=== PATIENT | male | born 1945 | race Caucasian/White ===

== ENCOUNTER 2017-05-20 00:30 | Inpatient (IN) | payer MEDICARE ==
[2017-05-20] MEDS: IV NORMAL SALINE 1000ML BAG 1,000 ML IV ×5 (00:54→17:00)
[2017-05-20] MEDS: methylPREDNISolone SOD SUCC PF 125 MG/2 ML VIAL. IV (00:54)
[2017-05-20 00:55] LABS: BASO % 0 % (0-3); EOS % 0 % (0-3); HEMATOCRIT 42.1 % (39.0-53.0); HEMOGLOBIN 13.9 g/dL (13.0-17.5); LYMPH # 2.5 x10^3/uL (1.0-4.8); LYMPH % 14 % (24-48); MEAN CORPUSCULAR HEMOGLOBIN 29 pg (25-35); MEAN CORPUSCULAR HGB CONC 33 g/dL (31-37); MEAN CORPUSCULAR VOLUME 89 fL (79-100); MONO # 1.6 x10^3/uL (0.0-1.1); MONO % 9 % (0-9); NEUT # 13.7 x10^3uL (1.8-7.7); NEUT % 77 % (31-73); PLATELET COUNT 274 x10^3/uL (140-400); RED BLOOD COUNT 4.74 x10^6/uL (4.30-5.70); WHITE BLOOD COUNT 17.8 x10^3/uL (4.0-11.0)
[2017-05-20 00:57] LABS: ADD MAN DIFF? YES; BASE EXCESS ABG -4 mmol/L (-3-3); HCO3 ABG 22 mmol/L (21-28); PCO2 ABG 40 mmHg (35-46); PO2 ABG 79 mmHg (65-108); SAT O2 ABG 95 % (92-99)
[2017-05-20 00:58] LABS: PH ABG 7.35 (7.35-7.45)
[2017-05-20 01:04] LABS: ANION GAP 12 (6-14); BLOOD UREA NITROGEN 22 mg/dL (8-26); CALCIUM 9.5 mg/dL (8.5-10.1); CARBON DIOXIDE 23 mmol/L (21-32); CHLORIDE 101 mmol/L (98-107); CREATININE 1.4 mg/dL (0.7-1.3); GFR 50.1; GLUCOSE 143 mg/dL (70-99); POTASSIUM 4.3 mmol/L (3.5-5.1); SODIUM 136 mmol/L (136-145)
[2017-05-20] MEDS ORDERED: ALBUTEROL SULFATE 2.5 MG/3 ML NEBU. (01:05)
[2017-05-20 01:13] LABS: TROPONINI < 0.017 ng/mL (0.000-0.055)
[2017-05-20] MEDS: ALBUTEROL SULFATE 2.5 MG/3 ML NEBU. CONT NEB (01:20)
[2017-05-20] MEDS: IPRATRPIUM/ALBUTEROL 0.5/2.5MG 3 ML NEBU. NEB ×6 (01:20→21:07)
[2017-05-20 01:37] LABS: % BANDS 4 % (0-9); % LYMPHS 9 % (24-48); % METAS 1 % (0-0); % MONOS 12 % (0-10); % SEGS 74 % (35-66); PLT ESTIMATE ADEQUATE (ADEQUATE)
[2017-05-20] MEDS ORDERED: cefTRIAXone IV Push 1 GM VIAL. IVP (02:00)
[2017-05-20] MEDS ORDERED: AZITHRMYCN 500MG IVPB FOR OMNI 250 ML IV (02:00)
[2017-05-20] MEDS ORDERED: VANCOMYCIN 1GM IVPB FOR OMNI 250 ML IV (02:00)
[2017-05-20] MEDS ORDERED: ONDANSETRON PF 4 MG/2 ML VIAL. IV (02:30)
[2017-05-20] MEDS: VANCOMYCIN 2 GM in IV DEXTROSE 5 %-0.2 % NACL 500 ML IV (02:36)
[2017-05-20] MEDS: CEFEPIME HCL IV Push 1 GM VIAL. IVP ×2 (02:37→08:26)
[2017-05-20 03:44] LABS: LACTIC ACID 2.3 mmol/L (0.4-2.0)
[2017-05-20] MEDS: VANCOMYCIN PER PHARMACY MC ×2 (05:05→11:10)
[2017-05-20 05:28] LABS: LACTIC ACID 2.1 mmol/L (0.4-2.0)
[2017-05-20] MEDS: IV NORMAL SALINE 1000ML BAG 500 ML IV (05:42)
[2017-05-20] MEDS ORDERED: CEFEPIME HCL 1 GM in IV DEXTROSE 5% 50 ML IV (06:00)
[2017-05-20 06:09] LABS: TROPONINI < 0.017 ng/mL (0.000-0.055)
[2017-05-20] MEDS: LACTOBACILLUS RHAMNOSUS GG 1 CAPSULE. PO ×2 (08:26→19:58)
[2017-05-20 08:48] LABS: TROPONINI < 0.017 ng/mL (0.000-0.055)
[2017-05-20] MEDS: DOXYCYCLINE HYCLATE 100 MG TABLET PO (19:58)
[2017-05-20] MEDS ORDERED: CEFEPIME HCL IV Push 2 GM VIAL. IVP (21:00)
[2017-05-20] MEDS ORDERED: VANCOMYCIN 1 GM in IV DEXTROSE 5 %-0.2 % NACL 250 ML IV (23:00)
[2017-05-21] MEDS: IV NORMAL SALINE 1000ML BAG 1,000 ML IV (00:42)
[2017-05-21 06:38] LABS: ANION GAP 6 (6-14); BLOOD UREA NITROGEN 11 mg/dL (8-26); CALCIUM 8.4 mg/dL (8.5-10.1); CARBON DIOXIDE 26 mmol/L (21-32); CHLORIDE 113 mmol/L (98-107); CREATININE 0.9 mg/dL (0.7-1.3); GFR 83.4; GLUCOSE 119 mg/dL (70-99); POTASSIUM 4.2 mmol/L (3.5-5.1); SODIUM 145 mmol/L (136-145)
[2017-05-21] MEDS: IPRATRPIUM/ALBUTEROL 0.5/2.5MG 3 ML NEBU. NEB ×4 (07:58→20:51)
[2017-05-21] MEDS: LACTOBACILLUS RHAMNOSUS GG 1 CAPSULE. PO ×2 (09:52→20:23)
[2017-05-21] MEDS: DOXYCYCLINE HYCLATE 100 MG TABLET PO ×2 (09:52→20:23)
[2017-05-21] MEDS: predniSONE 10 MG TABLET PO (09:52)
[2017-05-21] MEDS ORDERED: IPRATRPIUM/ALBUTEROL 0.5/2.5MG 3 ML NEBU. (14:06)
== END 2017-05-21 22:25 | disposition home or self-care (01) | DRG 189 ==
LOC: ER 00:30 → 6 SOUTH 02:18
DX: J96.21 Acute and chronic respiratory failure with hypoxia (principal); J44.0 Chronic obstructive pulmonary disease with (acute) lower respiratory infection; J44.1 Chronic obstructive pulmonary disease with (acute) exacerbation; J20.9 Acute bronchitis, unspecified; Z86.73 Personal history of transient ischemic attack (TIA), and cerebral infarction without residual deficits; F17.201 Nicotine dependence, unspecified, in remission
CPT/HCPCS: 36415; 36600; 71045; 80048; 82805; 83605; 84484; 85007; 85025; 87040; 87070; 87205; 93005; 94640; 94644; 94760; 96361; 96365; 96375; 99285-25; J0692; J2930; J3370; J7030; J7512; J7613; J7620

== ENCOUNTER 2018-07-03 01:24 | Inpatient (IN) | payer MEDICARE ==
[2018-07-03] VITALS (20 sets, daily range): BP systolic 77–118; BP diastolic 54–73
[~2018-07-03] VITALS: Ht 182.9 cm; Wt 71.3 kg
[~2018-07-03 01:24] MED LIST: ALBU2.5V8 IH; ASPI-630 PO; ASPI1CPM PO; ATROVENT HFA12.9 GM IH; BUDE10.2 IH; DOXY100T PO; GUAI5SYR PO; LEVO100T5 PO; LEVO500T59 PO; LEVO750T31 PO; PRED-220 PO; PRED20TA PO; [UNRECOGNIZED DRUG - OTHER]
[2018-07-03] MEDS ORDERED: PROPOFOL 10 MG/ML (50ML) VIAL. IV ONE (01:29)
[2018-07-03] MEDS ORDERED: PROPOFOL 0 ML IV ONE (01:59)
[2018-07-03] MEDS ORDERED: PROPOFOL 100 ML IV PRN ×2 (02:30→02:44)
[2018-07-03] MEDS ORDERED: methylPREDNISolone SOD SUCC PF 125 MG/2 ML VIAL. IV ONE (02:30)
[2018-07-03 02:32] LABS: BASO % 0 % (0-3); EOS % 0 % (0-3); HEMATOCRIT 42.5 % (39.0-53.0); HEMOGLOBIN 13.4 g/dL (13.0-17.5); LYMPH % 18 % (24-48); MEAN CORPUSCULAR HEMOGLOBIN 28 pg (25-35); MEAN CORPUSCULAR HGB CONC 31 g/dL (31-37); MEAN CORPUSCULAR VOLUME 89 fL (79-100); MONO # 1.9 x10^3/uL (0.0-1.1); MONO % 12 % (0-9); NEUT # 11.8 x10^3uL (1.8-7.7); NEUT % 70 % (31-73); PLATELET COUNT 270 x10^3/uL (140-400); RED BLOOD COUNT 4.78 x10^6/uL (4.30-5.70); RED CELL DISTRIBUTION WIDTH 14.4 % (11.5-14.5); WHITE BLOOD COUNT 16.8 x10^3/uL (4.0-11.0)
[2018-07-03] MEDS ORDERED: PROPOFOL 50 ML IV ONE ×2 (02:37→03:00)
[2018-07-03] MEDS ORDERED: ROCURONIUM 50 MG/5 ML VIAL. ONE (02:38)
[2018-07-03 02:41] LABS: CALCIUM 9.8 mg/dL (8.5-10.1); CREATININE 1.1 mg/dL (0.7-1.3); GFR 65.8
[2018-07-03 02:48] LABS: ALBUMIN 3.9 g/dL (3.4-5.0); TOTAL BILIRUBIN 0.6 mg/dL (0.2-1.0); TOTAL PROTEIN 7.9 g/dL (6.4-8.2)
[2018-07-03 02:59] LABS: % LYMPHS 14 % (24-48); % MONOS 11 % (0-10); % SEGS 75 % (35-66); ANISOCYTOSIS SLIGHT; OVALOCYTES FEW; PLT ESTIMATE ADEQUATE (ADEQUATE)
[2018-07-03] MEDS ORDERED: IV NORMAL SALINE 1000ML BAG 1,000 ML IV ONE (03:00)
[2018-07-03] MEDS ORDERED: SUCCINYLCHOLINE 200 MG/10 ML VIAL. ONE (03:27)
[2018-07-03 03:30] LABS: BASE EXCESS ABG -3 mmol/L (-3-3); HCO3 ABG 30 mmol/L (21-28); PO2 ABG 206 mmHg (65-108); SAT O2 ABG 99 % (92-99)
[2018-07-03] MEDS ORDERED: ONDANSETRON PF 4 MG/2 ML VIAL. IV PRN ×2 (03:30→09:00)
--- NOTE | 2018-07-03 03:38 | RAD ---
Indication:ET Tube placement TECHNIQUE:Portable AP chest X-ray COMPARISON:None FINDINGS: ET tube is seen with its tip approximately 5 cm from the level of eligio and is within normal limits. NG tube is seen with its tip in the fundus of the stomach. Lungs are hyperinflated with coarse interstitial opacities. No focal consolidation. No pneumothorax or pleural effusion. Visualized bony thorax is within normal limits. IMPRESSION: Lines and tubes as described above. COPD. Superimposed atypical/viral infection not ruled out. Electronically signed by: Ton Peraza DO (07/03/2018 3:35 AM) [facility]
[2018-07-03] MEDS ORDERED: IV DEXTROSE 5 %-0.45 % NACL 1,000 ML IV ONE (03:45)
[2018-07-03 03:55] LABS: FIO2 ABG 60%; PCO2 ABG 103 mmHg (35-46)
[2018-07-03 05:22] LABS: BASE EXCESS ABG -2 mmol/L (-3-3); HCO3 ABG 25 mmol/L (21-28); PCO2 ABG 55 mmHg (35-46); PO2 ABG 98 mmHg (65-108); SAT O2 ABG 97 % (92-99)
[2018-07-03 05:30] LABS: FIO2 ABG 50
--- NOTE | 2018-07-03 06:40 | PHYS DOC ---
Past Medical History Past Medical History: COPD, [place] Past Surgical History: Tonsillectomy Alcohol Use: Occasionally Drug Use: None Adult General Chief Complaint Chief Complaint: DYSPNEA/RESPIRATOY DISTRESS [facility] HPI Patient is a 73 year old male with history of COPD, CAD who presents ROM home with acute respiratory distress/respiratory failure. No members contacted EMS. On EMS arrival, the patient was breathing 30-40 Minute. 2 Breathing treatments were given and the patient was placed on BiPAP. Patient continues to be in respiratory distress with altered mental status on ED arrival. Patient expeditiously and intubated shortly after ED arrival. History limited due to the patient's clinical is a dictation[] Review of Systems Review of Systems ROS as per HPI. Current Medications Current Medications Current Medications Medications (Trade) Dose Ordered Sig/Jayla Start Time Stop Time Status Last Admin Dose Admin Methylprednisolone Sodium Succinate (SOLU-Medrol 125MG VIAL) 125 mg 1X ONCE 07/03/18 02:30 07/03/18 02:44 DC 07/03/18 02:30 125 MG Ondansetron HCl (Zofran) 4 mg PRN Q8HRS PRN 07/03/18 03:30 07/04/18 03:29 Propofol 50 ml @ 1.2 mls/hr 1X ONCE 07/03/18 03:00 07/04/18 20:31 Rocuronium [place] (Zemuron) 50 mg STK-MED ONCE 07/03/18 02:38 07/03/18 02:39 DC Sodium Chloride 1,000 ml @ 1,000 mls/hr 1X ONCE 07/03/18 03:00 07/03/18 03:59 DC 07/03/18 03:00 1,000 MLS/HR Succinylcholine Chloride (Anectine) 200 mg STK-MED ONCE 07/03/18 03:27 07/03/18 03:28 DC Allergies Allergies Allergies Coded Allergies Type Severity Reaction Last Updated Verified No Known Drug Allergies 08/29/16 No Physical Exam Physical Exam Constitutional: No respiratory distress with respiratory failure.. [] HENT: Normocephalic, atraumatic, bilateral external ears normal, oropharynx moist, no oral exudates, nose normal. [] Eyes: PERRLA, EOMI. [] Neck: Normal range of motion no stridor. [] Cardiovascular:Heart rate regular rhythm, no murmur [] Lungs & Thorax: Tachypnea, diminished coarse breath sounds bilaterally, decreased air movement. [] Abdomen: Bowel sounds normal. [] Skin: Warm, dry, no erythema, no rash. [] Back: No tenderness. [] Extremities: No tenderness no edema. [] Neurologic: AMS, normal motor function, normal sensory function, no focal deficits noted. [] Current Patient Data Vital Signs Vital Signs Date Time Temp Pulse Resp B/P (MAP) Pulse Ox O2 Delivery O2 Flow Rate FiO2 07/03/18 03:25 115 20 122/71 (88) 60 Ventilator 07/03/18 01:40 100.3 100.3 Lab Values Laboratory Tests Test 07/03/18 01:30 07/03/18 03:30 White Blood Count 16.8 x10^3/uL (4.0-11.0) H Red Blood Count 4.78 x10^6/uL (4.30-5.70) Hemoglobin 13.4 g/dL (13.0-17.5) Hematocrit 42.5 % (39.0-53.0) Mean Corpuscular Volume 89 fL (79-100) Mean Corpuscular Hemoglobin 28 pg (25-35) Mean Corpuscular Hemoglobin Concent 31 g/dL (31-37) Red Cell Distribution Width 14.4 % (11.5-14.5) Platelet Count 270 x10^3/uL (140-400) Neutrophils (%) (Auto) 70 % (31-73) Lymphocytes (%) (Auto) 18 % (24-48) L Monocytes (%) (Auto) 12 % (0-9) H Eosinophils (%) (Auto) 0 % (0-3) Basophils (%) (Auto) 0 % (0-3) Neutrophils # (Auto) 11.8 x10^3uL (1.8-7.7) H Lymphocytes # (Auto) 3.0 x10^3/uL (1.0-4.8) Monocytes # (Auto) 1.9 x10^3/uL (0.0-1.1) H Eosinophils # (Auto) 0.0 x10^3/uL (0.0-0.7) Basophils # (Auto) 0.0 x10^3/uL (0.0-0.2) Segmented Neutrophils % 75 % (35-66) H Lymphocytes % 14 % (24-48) L Monocytes % 11 % (0-10) H Platelet Estimate Adequate (ADEQUATE) Anisocytosis Slight Ovalocytes Few Sodium Level 138 mmol/L (136-145) Potassium Level 5.0 mmol/L (3.5-5.1) Chloride Level 99 mmol/L (98-107) Carbon Dioxide Level 31 mmol/L (21-32) Anion Gap 8 (6-14) Blood Urea Nitrogen 20 mg/dL (8-26) Creatinine 1.1 mg/dL (0.7-1.3) Estimated GFR (Cockcroft-Gault) 65.8 BUN/Creatinine Ratio 18 (6-20) Glucose Level 192 mg/dL (70-99) H Lactic Acid Level 2.6 mmol/L (0.4-2.0) H Calcium Level 9.8 mg/dL (8.5-10.1) Total Bilirubin 0.6 mg/dL (0.2-1.0) Aspartate Amino Transferase (AST) 23 U/L (15-37) Alanine Aminotransferase (ALT) 23 U/L (16-63) Alkaline Phosphatase 99 U/L (46-116) Troponin I Quantitative < 0.017 ng/mL (0.000-0.055) FD-Ror-M-Type Natriuretic Peptide 406 pg/mL (0-124) H Total Protein 7.9 g/dL (6.4-8.2) Albumin 3.9 g/dL (3.4-5.0) Albumin/Globulin Ratio 1.0 (1.0-1.7) O2 Saturation 99 % (92-99) Arterial Blood pH 7.07 (7.35-7.45) *L Arterial Blood pCO2 at Patient Temp 103 mmHg (35-46) *H Arterial Blood pO2 at Patient Temp 206 mmHg (65-108) H Arterial Blood HCO3 30 mmol/L (21-28) H Arterial Blood Base Excess -3 mmol/L (-3-3) FiO2 60% Laboratory Tests 07/03/18 01:30 Laboratory Tests 07/03/18 01:30 EKG EKG [EKG: reviewed ] Radiology/Procedures Radiology/Procedures [CXR: ] Course & Med Decision Making Course & Med Decision Making Pertinent Labs and Imaging studies reviewed. (See chart for details) [Patient intubated successful but unable to maintain oxygenation following intubation despite confirmation through the vocal cords. Anesthesia requested t o assist with ventilation of patient. After multiple intubations and upon closer examination, it was realized that there was a T-piece connected to the [id number] which allowed air to leak after intubation. Once this was discovered removed, the patient was easy to ventilate with and o2 sat of >90 5. Dragon Disclaimer Dragon Disclaimer This electronic medical record was generated, in whole or in part, using a voice recognition dictation system. Departure Departure Impression: Primary Impression: Acute respiratory failure with hypoxia Additional Impression: COPD (chronic obstructive pulmonary disease) Disposition: ADMITTED INPATIENT Admitting Physician: Duke Hardy Condition: CRITICAL Referrals: UNKNOWN PCP NAME (PCP) Problem Qualifiers CHAS GONCALVES DO Jul 03, 2018 06:40
[2018-07-03] MEDS: fentaNYL PF VIAL 100 MCG/2 ML VIAL IV PRN ×4 (07:27→22:20)
[2018-07-03] MEDS ORDERED: MIDAZOLAM 100mg/100ml NS BAG 100 ML IV PRN (07:45)
[2018-07-03] MEDS: IPRATRPIUM/ALBUTEROL 0.5/2.5MG 3 ML NEBU. NEB SCH ×4 (08:21→19:49)
[2018-07-03 08:35] LABS: BASE EXCESS ABG 0 mmol/L (-3-3); HCO3 ABG 27 mmol/L (21-28); PCO2 ABG 54 mmHg (35-46); PO2 ABG 153 mmHg (65-108); SAT O2 ABG 99 % (92-99)
[2018-07-03 09:00] LABS: FIO2 ABG 50
[2018-07-03] MEDS ORDERED: NOREPINEPHRIN 8MG/250ML PREMIX 250 ML IV PRN (09:00)
[2018-07-03] MEDS ORDERED: ACETAMINOPHEN 650 MG/20.3 ML SOLUTION. PEG PRN (09:00)
[2018-07-03] MEDS ORDERED: PANTOPRAZOLE IV PUSH 40 MG VIAL. IVP ONE (09:00)
[2018-07-03] MEDS: LEVOTHYROXINE 100 MCG TABLET PO SCH (09:00)
[2018-07-03] MEDS: IV NORMAL SALINE 1000ML BAG 1,000 ML IV SCH ×2 (09:30→17:37)
[2018-07-03] MEDS: ASPIRIN CHEWABLE 81 MG TABLET. PO SCH (09:31)
[2018-07-03] MEDS: ENOXAPARIN 40 MG/0.4 ML SYRINGE. SQ SCH (09:31)
[2018-07-03] MEDS: DIPYRIDAMOLE 25 MG TABLET. PO SCH ×4 (09:31→21:04)
--- NOTE | 2018-07-03 10:20 | PDOC1 ---
History and Physical Date of Admission Date of Admission DATE: 07/03/18 TIME: 10:13 Identification/Chief Complaint Chief Complaint severe SOA and confusion at the ER Source Source: Caregiver, Chart review, Patient History of Present Illness History of Present Illness 73-year-old male who has diagnosis of COPD and CAD, came in severe SOA accompanied by confusion in the ER. He was breathing 30-40 minutes as per EMS. He was confused. Initially trailed on BiPAP but clearly could not tolerate. Hence underwent expedited intuabtion at ER. I'm seeing in the ICU with chest x- ray showing properly placed tubes and may be a viral infection on chest x-ray. PH initially was 7.08 then improved to 7.28 with a PCO2 of 105 then improved to 55 on later ABG. He is intubated sedated in the ICU. Blood pressure can be on the low side. On Versed and IV fluid. Maintaining good urine output per Bradshaw catheter. Troponin 1.4. Labs initially showed a lactate of 2.6 but now is normal at 1.3. WBC is 16 could be reactive or from CXR haziness,. Pulmonary consulted. I'll add cardiology for this troponin mild elevation. There is another repeat trop in a few hours time. Past Medical History Cardiovascular: CAD, Hyperlipidemia Pulmonary: Bronchitis, COPD, Pneumonia, Other CENTRAL NERVOUS SYSTEM: Other GI: No pertinent hx Heme/Onc: No pertinent hx Hepatobiliary: No pertinent hx Psych: No pertinent hx Musculoskeletal: Osteoarthritis Rheumatologic: No pertinent hx Infectious disease: No pertinent hx Renal/: No pertinent hx Endocrine: Hypothyroidism Past Surgical History Past Surgical History: Tonsillectomy, Other Family History Family History: Diabetes, Family History Unknown Social History Smoke: <1 pack per day ALCOHOL: none Drugs: None Current Medications Current Medications Current Medications Propofol 0 ml @ As Directed STK-MED ONCE IV ; Start 07/03/18 at 01:59; Stop 07/03/18 at 02:00; Status DC Methylprednisolone Sodium Succinate (SOLU-Medrol 125MG VIAL) 125 mg 1X ONCE IV Last administered on 07/03/18at 02:30; Start 07/03/18 at 02:30; Stop 07/03/18 at 02:44; Status DC Sodium Chloride 1,000 ml @ 1,000 mls/hr 1X ONCE IV Last administered on 07/03/18at 03:00; Start 07/03/18 at 03:00; Stop 07/03/18 at 03:59; Status DC Propofol 100 ml @ 0 mls/hr CONT PRN IV SEE PROTOCOL Last administered on 07/03/18at 02:30; Start 07/03/18 at 02:30; Stop 07/03/18 at 02:44; Status DC Propofol 50 ml @ As Directed STK-MED ONCE IV ; Start 07/03/18 at 02:37; Stop 07/03/18 at 02:38; Status DC Rocuronium [place] (Zemuron) 50 mg STK-MED ONCE .ROUTE ; Start 07/03/18 at 02:38; Stop 07/03/18 at 02:39; Status DC Propofol 100 ml @ 0 mls/hr CONT PRN IV SEE PROTOCOL Last administered on 07/03/18at 05:00; Start 07/03/18 at 02:44 Propofol 50 ml @ 1.2 mls/hr 1X ONCE IV ; Start 07/03/18 at 03:00; Stop 07/04/18 at 20:31 Succinylcholine Chloride (Anectine) 200 mg STK-MED ONCE .ROUTE ; Start 07/03/18 at 03:27; Stop 07/03/18 at 03:28; Status DC Ondansetron HCl (Zofran) 4 mg PRN Q8HRS PRN IV NAUSEA/VOMITING 1ST CHOICE; Start 07/03/18 at 03:30; Stop 07/03/18 at 08:53; Status DC Albuterol/ Ipratropium (Duoneb) 3 ml RTQID NEB Last administered on 07/03/18at 08:21; Start 07/03/18 at 08:00; Stop 07/04/18 at 07:59 Dextrose/Sodium Chloride 1,000 ml @ 125 mls/hr 1X ONCE IV Last administered on 07/03/18at 05:01; Start 07/03/18 at 03:45; Stop 07/03/18 at 11:44 Fentanyl Citrate (Fentanyl 2ml Vial) 50 mcg PRN Q1HR PRN IV SEVERE PAIN Last administered on 07/03/18at 07:27; Start 07/03/18 at 05:00 Midazolam HCl 100 ml @ 5 mls/hr CONT PRN IV SEE I/O RECORD Last administered on 07/03/18at 07:59; Start 07/03/18 at 07:45 Ondansetron HCl (Zofran) 4 mg PRN Q6HRS PRN IV NAUSEA/VOMITING 1ST CHOICE; Start 07/03/18 at 09:00 Sodium Chloride 1,000 ml @ 100 mls/hr Q10H IV Last administered on 07/03/18 09:30; Start 07/03/18 at 09:00 Acetaminophen (Tylenol) 650 mg PRN Q6HRS PRN PEG MILD PAIN / TEMP Last administered on 07/03/18 09:30; Start 07/03/18 at 09:00 Enoxaparin Sodium (Lovenox 40mg Syringe) 40 mg Q24H SQ Last administered on 07/03/18 09:31; Start 07/03/18 at 09:00 Pantoprazole Sodium (PROTONIX VIAL for IV PUSH) 40 mg 1X ONCE IVP Last administered on 07/03/18 09:31; Start 07/03/18 at 09:00; Stop 07/03/18 at 09:01; Status DC Pantoprazole Sodium (PROTONIX VIAL for IV PUSH) 40 mg DAILYAC IVP ; Start 07/04/18 at 07:30 Norepinephrine Bitartrate 250 ml @ 1.875 mls/ hr CONT PRN IV SEE I/O RECORD Last administered on 07/03/18 09:31; Start 07/03/18 at 09:00 Aspirin (Children'S Aspirin) 81 mg DAILY PO Last administered on 07/03/18 09:31; Start 07/03/18 at 09:00 Levothyroxine Sodium (Synthroid) 100 mcg DAILY06 PO Last administered on 07/03/18 09:00; Start 07/03/18 at 09:00 Dipyridamole (Persantine) 25 mg QIDPMEDS PO Last administered on 07/03/18 09:31; Start 07/03/18 at 10:00 Methylprednisolone Sodium Succinate (SOLU-Medrol 40MG VIAL) 40 mg Q8HRS IV ; Start 07/03/18 at 14:00 Active Scripts Active Reported Prednisone (Prednisone) 10 Mg Tablet 10 Mg PO DAILY 4 Days Prednisone (Prednisone) 10 Mg Tablet 20 Mg PO DAILY 4 Days Prednisone (Prednisone) 10 Mg Tablet 30 Mg PO DAILY 4 Days Doxycycline Hyclate 100 Mg Tablet 1 Tab PO BID 10 Days Aggrenox 25 Mg-200 Mg Capsule (Aspirin/Dipyridamole) 1 Each Cpmp.12hr 1 Each PO Symbicort 160-4.5 Mcg Inhaler (Budesonide/Formoterol Fumarate) 10.2 Gm Hfa.aer.ad 2 Puff IH BID Atrovent Hfa (Ipratropium [place]) 12.9 Gm Hfa.aer.ad 2 Puff IH QID Proventil Hfa Inhaler (Albuterol Sulfate) 6.7 Gm Hfa.aer.ad 1 Puff IH PRN Q4HRS PRN Aspirin 81 Mg Tab.chew 1 Tab PO DAILY Levothyroxine Sodium 100 Mcg Tablet 1 Tab PO DAILY Allergies Allergies: Coded Allergies: No Known Drug Allergies (Unverified , 08/29/16) ROS Review of System Intubated sedated Physical Exam General: Other (intubated , sedated) HEENT: Atraumatic, PERRLA Lungs: Normal air movement, Other (diminished at the bases, symmetrical chest expansion) Heart: S1S2, RRR, no thrills, no rubs, no gallops, no murmurs Cardiovascular: S1, S2 Abdomen: Normal bowel sounds, Soft, No tenderness, No hepatosplenomegaly, No masses Male Genitals Exam: normal genitalia, normal prostate PELVIC: Nml ext genitalia Extremities: No clubbing, No cyanosis, No edema, Normal pulses, No tenderness/swelling Skin: No rashes, No breakdown, No significant lesion Vitals Vitals Vital Signs Date Time Temp Pulse Resp B/P (MAP) Pulse Ox O2 Delivery O2 Flow Rate FiO2 07/03/18 09:07 20 100 Ventilator 07/03/18 09:00 74 79/54 (62) 07/03/18 08:00 98.0 98.0 Labs Labs Laboratory Tests Test 07/03/18 01:30 07/03/18 03:30 07/03/18 05:20 07/03/18 06:00 White Blood Count 16.8 x10^3/uL (4.0-11.0) Red Blood Count 4.78 x10^6/uL (4.30-5.70) Hemoglobin 13.4 g/dL (13.0-17.5) Hematocrit 42.5 % (39.0-53.0) Mean Corpuscular Volume 89 fL (79-100) Mean Corpuscular Hemoglobin 28 pg (25-35) Mean Corpuscular Hemoglobin Concent 31 g/dL (31-37) Red Cell Distribution Width 14.4 % (11.5-14.5) Platelet Count 270 x10^3/uL (140-400) Neutrophils (%) (Auto) 70 % (31-73) Lymphocytes (%) (Auto) 18 % (24-48) Monocytes (%) (Auto) 12 % (0-9) Eosinophils (%) (Auto) 0 % (0-3) Basophils (%) (Auto) 0 % (0-3) Neutrophils # (Auto) 11.8 x10^3uL (1.8-7.7) Lymphocytes # (Auto) 3.0 x10^3/uL (1.0-4.8) Monocytes # (Auto) 1.9 x10^3/uL (0.0-1.1) Eosinophils # (Auto) 0.0 x10^3/uL (0.0-0.7) Basophils # (Auto) 0.0 x10^3/uL (0.0-0.2) Segmented Neutrophils % 75 % (35-66) Lymphocytes % 14 % (24-48) Monocytes % 11 % (0-10) Platelet Estimate Adequate (ADEQUATE) Anisocytosis Slight Ovalocytes Few Sodium Level 138 mmol/L (136-145) Potassium Level 5.0 mmol/L (3.5-5.1) Chloride Level 99 mmol/L (98-107) Carbon Dioxide Level 31 mmol/L (21-32) Anion Gap 8 (6-14) Blood Urea Nitrogen 20 mg/dL (8-26) Creatinine 1.1 mg/dL (0.7-1.3) Estimated GFR (Cockcroft-Gault) 65.8 BUN/Creatinine Ratio 18 (6-20) Glucose Level 192 mg/dL (70-99) Lactic Acid Level 2.6 mmol/L (0.4-2.0) 1.3 mmol/L (0.4-2.0) Calcium Level 9.8 mg/dL (8.5-10.1) Total Bilirubin 0.6 mg/dL (0.2-1.0) Aspartate Amino Transf (AST/SGOT) 23 U/L (15-37) Alanine Aminotransferase (ALT/SGPT) 23 U/L (16-63) Alkaline Phosphatase 99 U/L (46-116) Troponin I Quantitative < 0.017 ng/mL (0.000-0.055) 1.463 ng/mL (0.000-0.055) UQ-Xbm-S-Type Natriuretic Peptide 406 pg/mL (0-124) Total Protein 7.9 g/dL (6.4-8.2) Albumin 3.9 g/dL (3.4-5.0) Albumin/Globulin Ratio 1.0 (1.0-1.7) O2 Saturation 99 % (92-99) 97 % (92-99) Arterial Blood pH 7.07 (7.35-7.45) 7.28 (7.35-7.45) Arterial Blood pCO2 at Patient Temp 103 mmHg (35-46) 55 mmHg (35-46) Arterial Blood pO2 at Patient Temp 206 mmHg (65-108) 98 mmHg (65-108) Arterial Blood HCO3 30 mmol/L (21-28) 25 mmol/L (21-28) Arterial Blood Base Excess -3 mmol/L (-3-3) -2 mmol/L (-3-3) FiO2 60% 50 Test 07/03/18 08:00 O2 Saturation 99 % (92-99) Arterial Blood pH 7.32 (7.35-7.45) Arterial Blood pCO2 at Patient Temp 54 mmHg (35-46) Arterial Blood pO2 at Patient Temp 153 mmHg (65-108) Arterial Blood HCO3 27 mmol/L (21-28) Arterial Blood Base Excess 0 mmol/L (-3-3) FiO2 50 Laboratory Tests Test 07/03/18 01:30 07/03/18 03:30 07/03/18 05:20 07/03/18 06:00 White Blood Count 16.8 x10^3/uL (4.0-11.0) Red Blood Count 4.78 x10^6/uL (4.30-5.70) Hemoglobin 13.4 g/dL (13.0-17.5) Hematocrit 42.5 % (39.0-53.0) Mean Corpuscular Volume 89 fL (79-100) Mean Corpuscular Hemoglobin 28 pg (25-35) Mean Corpuscular Hemoglobin Concent 31 g/dL (31-37) Red Cell Distribution Width 14.4 % (11.5-14.5) Platelet Count 270 x10^3/uL (140-400) Neutrophils (%) (Auto) 70 % (31-73) Lymphocytes (%) (Auto) 18 % (24-48) Monocytes (%) (Auto) 12 % (0-9) Eosinophils (%) (Auto) 0 % (0-3) Basophils (%) (Auto) 0 % (0-3) Neutrophils # (Auto) 11.8 x10^3uL (1.8-7.7) Lymphocytes # (Auto) 3.0 x10^3/uL (1.0-4.8) Monocytes # (Auto) 1.9 x10^3/uL (0.0-1.1) Eosinophils # (Auto) 0.0 x10^3/uL (0.0-0.7) Basophils # (Auto) 0.0 x10^3/uL (0.0-0.2) Segmented Neutrophils % 75 % (35-66) Lymphocytes % 14 % (24-48) Monocytes % 11 % (0-10) Platelet Estimate Adequate (ADEQUATE) Anisocytosis Slight Ovalocytes Few Sodium Level 138 mmol/L (136-145) Potassium Level 5.0 mmol/L (3.5-5.1) Chloride Level 99 mmol/L (98-107) Carbon Dioxide Level 31 mmol/L (21-32) Anion Gap 8 (6-14) Blood Urea Nitrogen 20 mg/dL (8-26) Creatinine 1.1 mg/dL (0.7-1.3) Estimated GFR (Cockcroft-Gault) 65.8 BUN/Creatinine Ratio 18 (6-20) Glucose Level 192 mg/dL (70-99) Lactic Acid Level 2.6 mmol/L (0.4-2.0) 1.3 mmol/L (0.4-2.0) Calcium Level 9.8 mg/dL (8.5-10.1) Total Bilirubin 0.6 mg/dL (0.2-1.0) Aspartate Amino Transf (AST/SGOT) 23 U/L (15-37) Alanine Aminotransferase (ALT/SGPT) 23 U/L (16-63) Alkaline Phosphatase 99 U/L (46-116) Troponin I Quantitative < 0.017 ng/mL (0.000-0.055) 1.463 ng/mL (0.000-0.055) BT-Htp-U-Type Natriuretic Peptide 406 pg/mL (0-124) Total Protein 7.9 g/dL (6.4-8.2) Albumin 3.9 g/dL (3.4-5.0) Albumin/Globulin Ratio 1.0 (1.0-1.7) O2 Saturation 99 % (92-99) 97 % (92-99) Arterial Blood pH 7.07 (7.35-7.45) 7.28 (7.35-7.45) Arterial Blood pCO2 at Patient Temp 103 mmHg (35-46) 55 mmHg (35-46) Arterial Blood pO2 at Patient Temp 206 mmHg (65-108) 98 mmHg (65-108) Arterial Blood HCO3 30 mmol/L (21-28) 25 mmol/L (21-28) Arterial Blood Base Excess -3 mmol/L (-3-3) -2 mmol/L (-3-3) FiO2 60% 50 Test 07/03/18 08:00 O2 Saturation 99 % (92-99) Arterial Blood pH 7.32 (7.35-7.45) Arterial Blood pCO2 at Patient Temp 54 mmHg (35-46) Arterial Blood pO2 at Patient Temp 153 mmHg (65-108) Arterial Blood HCO3 27 mmol/L (21-28) Arterial Blood Base Excess 0 mmol/L (-3-3) FiO2 50 VTE Prophylaxis Ordered VTE Prophylaxis Devices: Yes VTE Pharmacological Prophylaxi: Yes Assessment/Plan Assessment/Plan AE COPD, acute bronchitis, lack of consolidated process on chest x-ray but maybe some viral atypical infection on cxr - on IPPV Mixed hypoxic hypercapnic respiratory failure on IPPV for 24/09/18 (intubated at ER) Relative hypotension-increase IV fluid rate Troponin leak in the background of the above- Trop1.4-consult cardiology History smoking History CAD-I have reached reconciled home meds including his aspirin and dipyridamole which he supposed to be on Plan: PPI and DVT prophylaxis to add in this vented ICU patient Add cards consult re trop ABG chest x-ray and vent bundle per pulmonary Empiric antibiotics Start Solu-Medrol in the COPD and smoker Recheck/monitor that leukocytosis Full code per chart HOMER ALEMAN MD Jul 03, 2018 10:20
--- NOTE | 2018-07-03 11:31 | PDOC2 ---
CONSULT Date of Consult Date of Consult DATE: 07/03/18 TIME: 11:30 Reason for Consult Reason for Consult: Elevated troponin level Referring Physician Referring Physician: Dr. West Identification/Chief Complaint Chief Complaint Shortness of breath Source Source: Chart review History of Present Illness Reason for Visit: 73-year-old male presented with progressive shortness of breath and was found to be hypoxic and confused and underwent emergent intubation. Patient is presently unable to give any history but per chart review there was no history of chest pain, palpitations or syncope. Troponin level was elevated and hence we have been consulted Past Medical History Cardiovascular: CAD, Hyperlipidemia Pulmonary: Bronchitis, COPD, Pneumonia, Other CENTRAL NERVOUS SYSTEM: Other GI: No pertinent hx Heme/Onc: No pertinent hx Hepatobiliary: No pertinent hx Psych: No pertinent hx Musculoskeletal: Osteoarthritis Rheumatologic: No pertinent hx Infectious disease: No pertinent hx Renal/: No pertinent hx Endocrine: Hypothyroidism Past Surgical History Past Surgical History: Tonsillectomy, Other Family History Family History: Diabetes, Family History Unknown Social History <1 pack per day ALCOHOL: none Drugs: None Lives: with Family Current Medications Current Medications Current Medications Propofol 0 ml @ As Directed STK-MED ONCE IV ; Start 07/03/18 at 01:59; Stop 07/03/18 at 02:00; Status DC Methylprednisolone Sodium Succinate (SOLU-Medrol 125MG VIAL) 125 mg 1X ONCE IV Last administered on 07/03/18at 02:30; Start 07/03/18 at 02:30; Stop 07/03/18 at 02:44; Status DC Sodium Chloride 1,000 ml @ 1,000 mls/hr 1X ONCE IV Last administered on 07/03/18at 03:00; Start 07/03/18 at 03:00; Stop 07/03/18 at 03:59; Status DC Propofol 100 ml @ 0 mls/hr CONT PRN IV SEE PROTOCOL Last administered on 07/03/18at 02:30; Start 07/03/18 at 02:30; Stop 07/03/18 at 02:44; Status DC Propofol 50 ml @ As Directed STK-MED ONCE IV ; Start 07/03/18 at 02:37; Stop 07/03/18 at 02:38; Status DC Rocuronium Castella (Zemuron) 50 mg STK-MED ONCE .ROUTE ; Start 07/03/18 at 02:38; Stop 07/03/18 at 02:39; Status DC Propofol 100 ml @ 0 mls/hr CONT PRN IV SEE PROTOCOL Last administered on 07/03/18at 05:00; Start 07/03/18 at 02:44 Propofol 50 ml @ 1.2 mls/hr 1X ONCE IV ; Start 07/03/18 at 03:00; Stop 07/04/18 at 20:31 Succinylcholine Chloride (Anectine) 200 mg STK-MED ONCE .ROUTE ; Start 07/03/18 at 03:27; Stop 07/03/18 at 03:28; Status DC Ondansetron HCl (Zofran) 4 mg PRN Q8HRS PRN IV NAUSEA/VOMITING 1ST CHOICE; Start 07/03/18 at 03:30; Stop 07/03/18 at 08:53; Status DC Albuterol/ Ipratropium (Duoneb) 3 ml RTQID NEB Last administered on 07/03/18at 08:21; Start 07/03/18 at 08:00; Stop 07/04/18 at 07:59 Dextrose/Sodium Chloride 1,000 ml @ 125 mls/hr 1X ONCE IV Last administered on 07/03/18at 05:01; Start 07/03/18 at 03:45; Stop 07/03/18 at 11:44 Fentanyl Citrate (Fentanyl 2ml Vial) 50 mcg PRN Q1HR PRN IV SEVERE PAIN Last administered on 07/03/18at 07:27; Start 07/03/18 at 05:00 Midazolam HCl 100 ml @ 5 mls/hr CONT PRN IV SEE I/O RECORD Last administered on 07/03/18at 07:59; Start 07/03/18 at 07:45 Ondansetron HCl (Zofran) 4 mg PRN Q6HRS PRN IV NAUSEA/VOMITING 1ST CHOICE; Start 07/03/18 at 09:00 Sodium Chloride 1,000 ml @ 100 mls/hr Q10H IV Last administered on 07/03/18at 09:30; Start 07/03/18 at 09:00 Acetaminophen (Tylenol) 650 mg PRN Q6HRS PRN PEG MILD PAIN / TEMP Last administered on 07/03/18at 09:30; Start 07/03/18 at 09:00 Enoxaparin Sodium (Lovenox 40mg Syringe) 40 mg Q24H SQ Last administered on 07/03/18 09:31; Start 07/03/18 at 09:00 Pantoprazole Sodium (PROTONIX VIAL for IV PUSH) 40 mg 1X ONCE IVP Last ad ministered on 07/03/18:; Start 07/03/18 at 09:00; Stop 07/03/18 at 09:01; Status DC Pantoprazole Sodium (PROTONIX VIAL for IV PUSH) 40 mg DAILYAC IVP ; Start 07/04/18 at 07:30 Norepinephrine Bitartrate 250 ml @ 1.875 mls/ hr CONT PRN IV SEE I/O RECORD Last administered on 07/03/18:31; Start 07/03/18 at 09:00 Aspirin (Children'S Aspirin) 81 mg DAILY PO Last administered on 07/03/18:31; Start 07/03/18 at 09:00 Levothyroxine Sodium (Synthroid) 100 mcg DAILY06 PO Last administered on 07/03/18at 09:00; Start 07/03/18 at 09:00 Dipyridamole (Persantine) 25 mg QIDPMEDS PO Last administered on 07/03/18 09:31; Start 07/03/18 at 10:00 Methylprednisolone Sodium Succinate (SOLU-Medrol 40MG VIAL) 40 mg Q8HRS IV ; Start 07/03/18 at 14:00 Ceftriaxone Sodium (Rocephin) 1 gm Q24H IVP ; Start 07/03/18 at 10:30 Active Scripts Active Reported Prednisone (Prednisone) 10 Mg Tablet 10 Mg PO DAILY 4 Days Prednisone (Prednisone) 10 Mg Tablet 20 Mg PO DAILY 4 Days Prednisone (Prednisone) 10 Mg Tablet 30 Mg PO DAILY 4 Days Doxycycline Hyclate 100 Mg Tablet 1 Tab PO BID 10 Days Aggrenox 25 Mg-200 Mg Capsule (Aspirin/Dipyridamole) 1 Each Cpmp.12hr 1 Each PO Symbicort 160-4.5 Mcg Inhaler (Budesonide/Formoterol Fumarate) 10.2 Gm Hfa.aer.ad 2 Puff IH BID Atrovent Hfa (Ipratropium Castella) 12.9 Gm Hfa.aer.ad 2 Puff IH QID Proventil Hfa Inhaler (Albuterol Sulfate) 6.7 Gm Hfa.aer.ad 1 Puff IH PRN Q4HRS PRN Aspirin 81 Mg Tab.chew 1 Tab PO DAILY Levothyroxine Sodium 100 Mcg Tablet 1 Tab PO DAILY Allergies Allergies: Coded Allergies: No Known Drug Allergies (Unverified , 08/29/16) ROS Review of System Unable to obtain since patient is intubated Physical Exam General: Other (intubated and sedated) HEENT: Atraumatic Lungs: Other (scattered rhonchi) Heart: Regular rate Abdomen: Soft Extremities: No edema Vitals VITALS Vital Signs Date Time Temp Pulse Resp B/P (MAP) Pulse Ox O2 Delivery O2 Flow Rate FiO2 07/03/18 11:00 77 20 93/73 (80) 98 Ventilator 07/03/18 08:00 98.0 98.0 Labs Labs Laboratory Tests Test 07/03/18 01:30 07/03/18 03:30 07/03/18 05:20 07/03/18 06:00 White Blood Count 16.8 x10^3/uL (4.0-11.0) Red Blood Count 4.78 x10^6/uL (4.30-5.70) Hemoglobin 13.4 g/dL (13.0-17.5) Hematocrit 42.5 % (39.0-53.0) Mean Corpuscular Volume 89 fL (79-100) Mean Corpuscular Hemoglobin 28 pg (25-35) Mean Corpuscular Hemoglobin Concent 31 g/dL (31-37) Red Cell Distribution Width 14.4 % (11.5-14.5) Platelet Count 270 x10^3/uL (140-400) Neutrophils (%) (Auto) 70 % (31-73) Lymphocytes (%) (Auto) 18 % (24-48) Monocytes (%) (Auto) 12 % (0-9) Eosinophils (%) (Auto) 0 % (0-3) Basophils (%) (Auto) 0 % (0-3) Neutrophils # (Auto) 11.8 x10^3uL (1.8-7.7) Lymphocytes # (Auto) 3.0 x10^3/uL (1.0-4.8) Monocytes # (Auto) 1.9 x10^3/uL (0.0-1.1) Eosinophils # (Auto) 0.0 x10^3/uL (0.0-0.7) Basophils # (Auto) 0.0 x10^3/uL (0.0-0.2) Segmented Neutrophils % 75 % (35-66) Lymphocytes % 14 % (24-48) Monocytes % 11 % (0-10) Platelet Estimate Adequate (ADEQUATE) Anisocytosis Slight Ovalocytes Few Sodium Level 138 mmol/L (136-145) Potassium Level 5.0 mmol/L (3.5-5.1) Chloride Level 99 mmol/L (98-107) Carbon Dioxide Level 31 mmol/L (21-32) Anion Gap 8 (6-14) Blood Urea Nitrogen 20 mg/dL (8-26) Creatinine 1.1 mg/dL (0.7-1.3) Estimated GFR (Cockcroft-Gault) 65.8 BUN/Creatinine Ratio 18 (6-20) Glucose Level 192 mg/dL (70-99) Lactic Acid Level 2.6 mmol/L (0.4-2.0) 1.3 mmol/L (0.4-2.0) Calcium Level 9.8 mg/dL (8.5-10.1) Total Bilirubin 0.6 mg/dL (0.2-1.0) Aspartate Amino Transf (AST/SGOT) 23 U/L (15-37) Alanine Aminotransferase (ALT/SGPT) 23 U/L (16-63) Alkaline Phosphatase 99 U/L (46-116) Troponin I Quantitative < 0.017 ng/mL (0.000-0.055) 1.463 ng/mL (0.000-0.055) LE-Vku-G-Type Natriuretic Peptide 406 pg/mL (0-124) Total Protein 7.9 g/dL (6.4-8.2) Albumin 3.9 g/dL (3.4-5.0) Albumin/Globulin Ratio 1.0 (1.0-1.7) O2 Saturation 99 % (92-99) 97 % (92-99) Arterial Blood pH 7.07 (7.35-7.45) 7.28 (7.35-7.45) Arterial Blood pCO2 at Patient Temp 103 mmHg (35-46) 55 mmHg (35-46) Arterial Blood pO2 at Patient Temp 206 mmHg (65-108) 98 mmHg (65-108) Arterial Blood HCO3 30 mmol/L (21-28) 25 mmol/L (21-28) Arterial Blood Base Excess -3 mmol/L (-3-3) -2 mmol/L (-3-3) FiO2 60% 50 Test 07/03/18 08:00 07/03/18 09:45 O2 Saturation 99 % (92-99) Arterial Blood pH 7.32 (7.35-7.45) Arterial Blood pCO2 at Patient Temp 54 mmHg (35-46) Arterial Blood pO2 at Patient Temp 153 mmHg (65-108) Arterial Blood HCO3 27 mmol/L (21-28) Arterial Blood Base Excess 0 mmol/L (-3-3) FiO2 50 Troponin I Quantitative 1.558 ng/mL (0.000-0.055) Laboratory Tests Test 07/03/18 01:30 07/03/18 03:30 07/03/18 05:20 07/03/18 06:00 White Blood Count 16.8 x10^3/uL (4.0-11.0) Red Blood Count 4.78 x10^6/uL (4.30-5.70) Hemoglobin 13.4 g/dL (13.0-17.5) Hematocrit 42.5 % (39.0-53.0) Mean Corpuscular Volume 89 fL (79-100) Mean Corpuscular Hemoglobin 28 pg (25-35) Mean Corpuscular Hemoglobin Concent 31 g/dL (31-37) Red Cell Distribution Width 14.4 % (11.5-14.5) Platelet Count 270 x10^3/uL (140-400) Neutrophils (%) (Auto) 70 % (31-73) Lymphocytes (%) (Auto) 18 % (24-48) Monocytes (%) (Auto) 12 % (0-9) Eosinophils (%) (Auto) 0 % (0-3) Basophils (%) (Auto) 0 % (0-3) Neutrophils # (Auto) 11.8 x10^3uL (1.8-7.7) Lymphocytes # (Auto) 3.0 x10^3/uL (1.0-4.8) Monocytes # (Auto) 1.9 x10^3/uL (0.0-1.1) Eosinophils # (Auto) 0.0 x10^3/uL (0.0-0.7) Basophils # (Auto) 0.0 x10^3/uL (0.0-0.2) Segmented Neutrophils % 75 % (35-66) Lymphocytes % 14 % (24-48) Monocytes % 11 % (0-10) Platelet Estimate Adequate (ADEQUATE) Anisocytosis Slight Ovalocytes Few Sodium Level 138 mmol/L (136-145) Potassium Level 5.0 mmol/L (3.5-5.1) Chloride Level 99 mmol/L (98-107) Carbon Dioxide Level 31 mmol/L (21-32) Anion Gap 8 (6-14) Blood Urea Nitrogen 20 mg/dL (8-26) Creatinine 1.1 mg/dL (0.7-1.3) Estimated GFR (Cockcroft-Gault) 65.8 BUN/Creatinine Ratio 18 (6-20) Glucose Level 192 mg/dL (70-99) Lactic Acid Level 2.6 mmol/L (0.4-2.0) 1.3 mmol/L (0.4-2.0) Calcium Level 9.8 mg/dL (8.5-10.1) Total Bilirubin 0.6 mg/dL (0.2-1.0) Aspartate Amino Transf (AST/SGOT) 23 U/L (15-37) Alanine Aminotransferase (ALT/SGPT) 23 U/L (16-63) Alkaline Phosphatase 99 U/L (46-116) Troponin I Quantitative < 0.017 ng/mL (0.000-0.055) 1.463 ng/mL (0.000-0.055) HF-Kpk-O-Type Natriuretic Peptide 406 pg/mL (0-124) Total Protein 7.9 g/dL (6.4-8.2) Albumin 3.9 g/dL (3.4-5.0) Albumin/Globulin Ratio 1.0 (1.0-1.7) O2 Saturation 99 % (92-99) 97 % (92-99) Arterial Blood pH 7.07 (7.35-7.45) 7.28 (7.35-7.45) Arterial Blood pCO2 at Patient Temp 103 mmHg (35-46) 55 mmHg (35-46) Arterial Blood pO2 at Patient Temp 206 mmHg (65-108) 98 mmHg (65-108) Arterial Blood HCO3 30 mmol/L (21-28) 25 mmol/L (21-28) Arterial Blood Base Excess -3 mmol/L (-3-3) -2 mmol/L (-3-3) FiO2 60% 50 Test 07/03/18 08:00 07/03/18 09:45 O2 Saturation 99 % (92-99) Arterial Blood pH 7.32 (7.35-7.45) Arterial Blood pCO2 at Patient Temp 54 mmHg (35-46) Arterial Blood pO2 at Patient Temp 153 mmHg (65-108) Arterial Blood HCO3 27 mmol/L (21-28) Arterial Blood Base Excess 0 mmol/L (-3-3) FiO2 50 Troponin I Quantitative 1.558 ng/mL (0.000-0.055) Assessment/Plan Assessment/Plan 1. Acute respiratory failure secondary to acute COPD exacerbation and pneumonia s/p intubation and on low dose of Levophed for pressor support. Continue current treatment per pulmonary team. 2. Non-STEMI, most probably type 2/demand ischemia. Recent Cardiac cath eterization in February 2018 showed nonobstructive coronary artery disease. Check 2-D echo to assess LV function and rule out wall motion abnormalities. 3. Hypothyroidism: Continue levothyroxine Thank you for your consultation SERGIO FULLER MD Jul 03, 2018 11:31
[2018-07-03] MEDS: cefTRIAXone IV Push 1 GM VIAL. IVP SCH (12:04)
[2018-07-03] MEDS: methylPREDNISolone SOD SUCC PF 40 MG/ML VIAL. IV SCH ×2 (13:38→21:04)
--- NOTE | 2018-07-03 15:09 | PDOC ---
PULMONARY PROGRESS NOTES Vitals Vital Signs Date Time Temp Pulse Resp B/P (MAP) Pulse Ox O2 Delivery O2 Flow Rate FiO2 07/03/18 14:05 21 98 Ventilator 07/03/18 13:52 67 118/73 (88) 07/03/18 13:00 98.8 98.8 General: Alert, Oriented X4 Lungs: Clear Cardiovascular: S1, S2 Abdomen: Soft, Non-tender Extremities: No Edema Labs Laboratory Tests Test 07/03/18 01:30 07/03/18 03:30 07/03/18 05:20 07/03/18 06:00 White Blood Count 16.8 x10^3/uL (4.0-11.0) Red Blood Count 4.78 x10^6/uL (4.30-5.70) Hemoglobin 13.4 g/dL (13.0-17.5) Hematocrit 42.5 % (39.0-53.0) Mean Corpuscular Volume 89 fL (79-100) Mean Corpuscular Hemoglobin 28 pg (25-35) Mean Corpuscular Hemoglobin Concent 31 g/dL (31-37) Red Cell Distribution Width 14.4 % (11.5-14.5) Platelet Count 270 x10^3/uL (140-400) Neutrophils (%) (Auto) 70 % (31-73) Lymphocytes (%) (Auto) 18 % (24-48) Monocytes (%) (Auto) 12 % (0-9) Eosinophils (%) (Auto) 0 % (0-3) Basophils (%) (Auto) 0 % (0-3) Neutrophils # (Auto) 11.8 x10^3uL (1.8-7.7) Lymphocytes # (Auto) 3.0 x10^3/uL (1.0-4.8) Monocytes # (Auto) 1.9 x10^3/uL (0.0-1.1) Eosinophils # (Auto) 0.0 x10^3/uL (0.0-0.7) Basophils # (Auto) 0.0 x10^3/uL (0.0-0.2) Segmented Neutrophils % 75 % (35-66) Lymphocytes % 14 % (24-48) Monocytes % 11 % (0-10) Platelet Estimate Adequate (ADEQUATE) Anisocytosis Slight Ovalocytes Few Sodium Level 138 mmol/L (136-145) Potassium Level 5.0 mmol/L (3.5-5.1) Chloride Level 99 mmol/L (98-107) Carbon Dioxide Level 31 mmol/L (21-32) Anion Gap 8 (6-14) Blood Urea Nitrogen 20 mg/dL (8-26) Creatinine 1.1 mg/dL (0.7-1.3) Estimated GFR (Cockcroft-Gault) 65.8 BUN/Creatinine Ratio 18 (6-20) Glucose Level 192 mg/dL (70-99) Lactic Acid Level 2.6 mmol/L (0.4-2.0) 1.3 mmol/L (0.4-2.0) Calcium Level 9.8 mg/dL (8.5-10.1) Total Bilirubin 0.6 mg/dL (0.2-1.0) Aspartate Amino Transf (AST/SGOT) 23 U/L (15-37) Alanine Aminotransferase (ALT/SGPT) 23 U/L (16-63) Alkaline Phosphatase 99 U/L (46-116) Troponin I Quantitative < 0.017 ng/mL (0.000-0.055) 1.463 ng/mL (0.000-0.055) WR-Oub-X-Type Natriuretic Peptide 406 pg/mL (0-124) Total Protein 7.9 g/dL (6.4-8.2) Albumin 3.9 g/dL (3.4-5.0) Albumin/Globulin Ratio 1.0 (1.0-1.7) O2 Saturation 99 % (92-99) 97 % (92-99) Arterial Blood pH 7.07 (7.35-7.45) 7.28 (7.35-7.45) Arterial Blood pCO2 at Patient Temp 103 mmHg (35-46) 55 mmHg (35-46) Arterial Blood pO2 at Patient Temp 206 mmHg (65-108) 98 mmHg (65-108) Arterial Blood HCO3 30 mmol/L (21-28) 25 mmol/L (21-28) Arterial Blood Base Excess -3 mmol/L (-3-3) -2 mmol/L (-3-3) FiO2 60% 50 Test 07/03/18 08:00 07/03/18 09:45 O2 Saturation 99 % (92-99) Arterial Blood pH 7.32 (7.35-7.45) Arterial Blood pCO2 at Patient Temp 54 mmHg (35-46) Arterial Blood pO2 at Patient Temp 153 mmHg (65-108) Arterial Blood HCO3 27 mmol/L (21-28) Arterial Blood Base Excess 0 mmol/L (-3-3) FiO2 50 Troponin I Quantitative 1.558 ng/mL (0.000-0.055) Laboratory Tests Test 07/03/18 01:30 07/03/18 03:30 07/03/18 05:20 07/03/18 06:00 White Blood Count 16.8 x10^3/uL (4.0-11.0) Red Blood Count 4.78 x10^6/uL (4.30-5.70) Hemoglobin 13.4 g/dL (13.0-17.5) Hematocrit 42.5 % (39.0-53.0) Mean Corpuscular Volume 89 fL (79-100) Mean Corpuscular Hemoglobin 28 pg (25-35) Mean Corpuscular Hemoglobin Concent 31 g/dL (31-37) Red Cell Distribution Width 14.4 % (11.5-14.5) Platelet Count 270 x10^3/uL (140-400) Neutrophils (%) (Auto) 70 % (31-73) Lymphocytes (%) (Auto) 18 % (24-48) Monocytes (%) (Auto) 12 % (0-9) Eosinophils (%) (Auto) 0 % (0-3) Basophils (%) (Auto) 0 % (0-3) Neutrophils # (Auto) 11.8 x10^3uL (1.8-7.7) Lymphocytes # (Auto) 3.0 x10^3/uL (1.0-4.8) Monocytes # (Auto) 1.9 x10^3/uL (0.0-1.1) Eosinophils # (Auto) 0.0 x10^3/uL (0.0-0.7) Basophils # (Auto) 0.0 x10^3/uL (0.0-0.2) Segmented Neutrophils % 75 % (35-66) Lymphocytes % 14 % (24-48) Monocytes % 11 % (0-10) Platelet Estimate Adequate (ADEQUATE) Anisocytosis Slight Ovalocytes Few Sodium Level 138 mmol/L (136-145) Potassium Level 5.0 mmol/L (3.5-5.1) Chloride Level 99 mmol/L (98-107) Carbon Dioxide Level 31 mmol/L (21-32) Anion Gap 8 (6-14) Blood Urea Nitrogen 20 mg/dL (8-26) Creatinine 1.1 mg/dL (0.7-1.3) Estimated GFR (Cockcroft-Gault) 65.8 BUN/Creatinine Ratio 18 (6-20) Glucose Level 192 mg/dL (70-99) Lactic Acid Level 2.6 mmol/L (0.4-2.0) 1.3 mmol/L (0.4-2.0) Calcium Level 9.8 mg/dL (8.5-10.1) Total Bilirubin 0.6 mg/dL (0.2-1.0) Aspartate Amino Transf (AST/SGOT) 23 U/L (15-37) Alanine Aminotransferase (ALT/SGPT) 23 U/L (16-63) Alkaline Phosphatase 99 U/L (46-116) Troponin I Quantitative < 0.017 ng/mL (0.000-0.055) 1.463 ng/mL (0.000-0.055) EW-Phw-E-Type Natriuretic Peptide 406 pg/mL (0-124) Total Protein 7.9 g/dL (6.4-8.2) Albumin 3.9 g/dL (3.4-5.0) Albumin/Globulin Ratio 1.0 (1.0-1.7) O2 Saturation 99 % (92-99) 97 % (92-99) Arterial Blood pH 7.07 (7.35-7.45) 7.28 (7.35-7.45) Arterial Blood pCO2 at Patient Temp 103 mmHg (35-46) 55 mmHg (35-46) Arterial Blood pO2 at Patient Temp 206 mmHg (65-108) 98 mmHg (65-108) Arterial Blood HCO3 30 mmol/L (21-28) 25 mmol/L (21-28) Arterial Blood Base Excess -3 mmol/L (-3-3) -2 mmol/L (-3-3) FiO2 60% 50 Test 07/03/18 08:00 07/03/18 09:45 O2 Saturation 99 % (92-99) Arterial Blood pH 7.32 (7.35-7.45) Arterial Blood pCO2 at Patient Temp 54 mmHg (35-46) Arterial Blood pO2 at Patient Temp 153 mmHg (65-108) Arterial Blood HCO3 27 mmol/L (21-28) Arterial Blood Base Excess 0 mmol/L (-3-3) FiO2 50 Troponin I Quantitative 1.558 ng/mL (0.000-0.055) Medications Active Scripts Medications Dose Route/Sig Max Daily Dose Days Date Category Prednisone (Prednisone) 10 Mg Tablet 10 Mg PO DAILY 4 02/25/18 Reported Prednisone (Prednisone) 10 Mg Tablet 20 Mg PO DAILY 4 02/25/18 Reported Prednisone (Prednisone) 10 Mg Tablet 30 Mg PO DAILY 4 02/25/18 Reported Doxycycline Hyclate 100 Mg Tablet 1 Tab PO BID 10 02/25/18 Reported Aggrenox 25 Mg-200 Mg Capsule (Aspirin/Dipyridamole) 1 Each Cpmp.12hr 1 Each PO 05/20/17 Reported Symbicort 160-4.5 Mcg Inhaler (Budesonide/Formoterol Fumarate) 10.2 Gm Hfa.aer.ad 2 Puff IH BID 08/30/16 Reported Atrovent Hfa (Ipratropium [place]) 12.9 Gm Hfa.aer.ad 2 Puff IH QID 08/30/16 Reported Proventil Hfa Inhaler (Albuterol Sulfate) 6.7 Gm Hfa.aer.ad 1 Puff IH PRN Q4HRS PRN 08/30/16 Reported Aspirin 81 Mg Tab.chew 1 Tab PO DAILY 08/30/16 Reported Levothyroxine Sodium 100 Mcg Tablet 1 Tab PO DAILY 08/30/16 Reported Impression . DICTATED AGREE WITH CURRENT RX FOR RESP FAILURE/AECOPD/PNEUMONIA SEE ORDERS JOSE DE JESUS RIDLEY MD Jul 03, 2018 15:09
[2018-07-03] MEDS ORDERED: DOXYCYCLINE HYCLATE 100 MG in IV DEXTROSE 5% 100ML 100 ML IV ONE (15:15)
[2018-07-03 15:19] LABS: CALCIUM 8.3 mg/dL (8.5-10.1); CREATININE 1.2 mg/dL (0.7-1.3); GFR 59.5; POTASSIUM 5.1 mmol/L (3.5-5.1)
[2018-07-03] MEDS: DOXYCYCLINE HYCLATE 100 MG in IV DEXTROSE 5% 100ML 100 ML IV SCH (21:05)
[2018-07-04] VITALS (23 sets, daily range): BP systolic 82–136; BP diastolic 54–67
[2018-07-04 05:23] LABS: BASO % 0 % (0-3); EOS % 0 % (0-3); HEMATOCRIT 33.7 % (39.0-53.0); HEMOGLOBIN 10.8 g/dL (13.0-17.5); LYMPH # 0.6 x10^3/uL (1.0-4.8); LYMPH % 4 % (24-48); MEAN CORPUSCULAR HEMOGLOBIN 28 pg (25-35); MEAN CORPUSCULAR HGB CONC 32 g/dL (31-37); MEAN CORPUSCULAR VOLUME 89 fL (79-100); MONO # 0.8 x10^3/uL (0.0-1.1); MONO % 6 % (0-9); NEUT # 12.8 x10^3uL (1.8-7.7); NEUT % 90 % (31-73); PLATELET COUNT 190 x10^3/uL (140-400); RED CELL DISTRIBUTION WIDTH 14.1 % (11.5-14.5); WHITE BLOOD COUNT 14.2 x10^3/uL (4.0-11.0)
[2018-07-04] MEDS: methylPREDNISolone SOD SUCC PF 40 MG/ML VIAL. IV SCH ×3 (05:40→23:09)
[2018-07-04] MEDS: LEVOTHYROXINE 100 MCG TABLET PO SCH (05:40)
[2018-07-04] MEDS: IV NORMAL SALINE 1000ML BAG 1,000 ML IV SCH ×2 (05:40→15:00)
[2018-07-04 06:02] LABS: ALBUMIN 2.7 g/dL (3.4-5.0); ALBUMIN/GLOBULIN RATIO 0.9 (1.0-1.7); CALCIUM 8.2 mg/dL (8.5-10.1); CREATININE 1.1 mg/dL (0.7-1.3); GFR 65.8; POTASSIUM 4.7 mmol/L (3.5-5.1); TOTAL BILIRUBIN 0.3 mg/dL (0.2-1.0); TOTAL PROTEIN 5.8 g/dL (6.4-8.2)
[2018-07-04] MEDS ORDERED: PANTOPRAZOLE IV PUSH 40 MG VIAL. IVP SCH (07:30)
--- NOTE | 2018-07-04 07:31 | EKG ---
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
--- NOTE | 2018-07-04 07:31 | EKG ---
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
--- NOTE | 2018-07-04 07:54 | RAD ---
Portable chest, 07/04/2018: HISTORY: Respiratory failure Comparison is made to yesterday's study. The ET tube tip lies well above the eligio. An NG tube extends into the stomach. The heart size is normal. There are emphysematous changes in the lungs. Mild unchanged prominence of pulmonary markings is likely due to scarring.. No consolidating infiltrate is seen. There is no evidence of pneumothorax or pleural fluid. IMPRESSION: No significant change since yesterday's exam. Electronically signed by: Jorgito Betts MD (07/04/2018 7:51 AM) [facility]
[2018-07-04 09:08] LABS: BASE EXCESS ABG 1 mmol/L (-3-3); HCO3 ABG 27 mmol/L (21-28); PCO2 ABG 46 mmHg (35-46); PO2 ABG 79 mmHg (65-108); SAT O2 ABG 95 % (92-99)
[2018-07-04 09:09] LABS: FIO2 ABG 30
--- NOTE | 2018-07-04 09:09 | CONS ---
DATE OF CONSULTATION: 07/03/2018 ATTENDING PHYSICIAN: Dr. West.. REASON FOR CONSULTATION: The patient was seen in pulmonary consultation at the request of Dr. West for vent management. HISTORY OF PRESENT ILLNESS: The patient is a 73-year-old known to me from previous hospitalization with diagnoses of COPD and coronary artery disease, became confused and had shortness of air. He presented to the Emergency Room with breathing 30-40 per minute. He was initially on BiPAP, failed BiPAP and was intubated. Chest x-ray showed possible increased lung markings compatible with viral infection. His initial pH was 7.08. Repeat arterial blood gas improved with a pCO2 of 105, pH of 7.28. The patient is currently in the Intensive Care Unit. I was asked to see him in consultation for further evaluation and management. His latest blood gas revealed a pH of 7.32, PaCO2 of 54, pO2 of 53. PAST MEDICAL HISTORY: Otherwise remarkable for previous admissions for acute exacerbation of COPD, acute hypercapnic respiratory failure. He has had previous abnormal CT chest revealing left lower lobe nodule, follows at the [place], he was told that it had shrunk. Tobacco dependent, in remission. REVIEW OF SYSTEMS: Unobtainable secondary to the patient's condition. SOCIAL HISTORY: He apparently has quit tobacco less than a year ago. ALLERGIES: No known drug allergies. CURRENT MEDICATIONS: List was reviewed. FAMILY HISTORY: Unknown. PHYSICAL EXAMINATION: GENERAL: The patient was in no respiratory distress, sedated in the Intensive Care Unit. He was on low dose Levophed. VITAL SIGNS: T-max was 100.3. HEENT: Eyes, the sclerae were nonicteric. NECK: Jugular venous distention was not elevated. No lymphadenopathy. CHEST: Full expansion. LUNGS: Adequate airway flow with no wheezes. CARDIOVASCULAR: Regular rate and rhythm with S1, S2, no S3. ABDOMEN: Soft, nontender, nondistended. EXTREMITIES: No clubbing, cyanosis or edema. NEUROLOGIC: The patient was sedated. LABORATORY DATA: White count 16,000, hemoglobin and hematocrit were noted. Electrolytes were noted. Troponin was slightly elevated. BNP was elevated. Chest x-ray as indicated above. IMPRESSION: 1. Acute on chronic hypoxemic hypercapnic respiratory failure. 2. Acute exacerbation of chronic obstructive pulmonary disease. 3. Possible viral pneumonia. 4. Possible Gram-negative pneumonia. 5. Fever. 6. Leukocytosis. PLAN: 1. Continue current assist control mode. ABG much improved. 2. Empiric antibiotics. 3. DVT prophylaxis, GI prophylaxis. 4. Steroids. I do appreciate the privilege in sharing in the patient's care. JOSE DE JESUS RIDLEY MD DR: ELMER/bandar JOB#: [id number] / [id number]
--- NOTE | 2018-07-04 09:26 | PDOC ---
PULMONARY PROGRESS NOTES Subjective PT DID WELL ON TRIAL Vitals Vital Signs Date Time Temp Pulse Resp B/P (MAP) Pulse Ox O2 Delivery O2 Flow Rate FiO2 07/04/18 08:44 96 Ventilator 07/04/18 07:00 70 22 92/56 (68) 07/04/18 04:00 98.6 98.6 ROS: No Abdominal Pain Lungs: Clear Cardiovascular: S1, S2 Abdomen: Soft, Non-tender Extremities: No Edema Labs Laboratory Tests Test 07/03/18 01:30 07/03/18 03:30 07/03/18 04:30 07/03/18 05:20 White Blood Count 16.8 x10^3/uL (4.0-11.0) Red Blood Count 4.78 x10^6/uL (4.30-5.70) Hemoglobin 13.4 g/dL (13.0-17.5) Hematocrit 42.5 % (39.0-53.0) Mean Corpuscular Volume 89 fL (79-100) Mean Corpuscular Hemoglobin 28 pg (25-35) Mean Corpuscular Hemoglobin Concent 31 g/dL (31-37) Red Cell Distribution Width 14.4 % (11.5-14.5) Platelet Count 270 x10^3/uL (140-400) Neutrophils (%) (Auto) 70 % (31-73) Lymphocytes (%) (Auto) 18 % (24-48) Monocytes (%) (Auto) 12 % (0-9) Eosinophils (%) (Auto) 0 % (0-3) Basophils (%) (Auto) 0 % (0-3) Neutrophils # (Auto) 11.8 x10^3uL (1.8-7.7) Lymphocytes # (Auto) 3.0 x10^3/uL (1.0-4.8) Monocytes # (Auto) 1.9 x10^3/uL (0.0-1.1) Eosinophils # (Auto) 0.0 x10^3/uL (0.0-0.7) Basophils # (Auto) 0.0 x10^3/uL (0.0-0.2) Segmented Neutrophils % 75 % (35-66) Lymphocytes % 14 % (24-48) Monocytes % 11 % (0-10) Platelet Estimate Adequate (ADEQUATE) Anisocytosis Slight Ovalocytes Few Sodium Level 138 mmol/L (136-145) Potassium Level 5.0 mmol/L (3.5-5.1) Chloride Level 99 mmol/L (98-107) Carbon Dioxide Level 31 mmol/L (21-32) Anion Gap 8 (6-14) Blood Urea Nitrogen 20 mg/dL (8-26) Creatinine 1.1 mg/dL (0.7-1.3) Estimated GFR (Cockcroft-Gault) 65.8 BUN/Creatinine Ratio 18 (6-20) Glucose Level 192 mg/dL (70-99) Lactic Acid Level 2.6 mmol/L (0.4-2.0) Calcium Level 9.8 mg/dL (8.5-10.1) Total Bilirubin 0.6 mg/dL (0.2-1.0) Aspartate Amino Transf (AST/SGOT) 23 U/L (15-37) Alanine Aminotransferase (ALT/SGPT) 23 U/L (16-63) Alkaline Phosphatase 99 U/L (46-116) Troponin I Quantitative < 0.017 ng/mL (0.000-0.055) SH-[id number]-[id number]-Type Natriuretic Peptide 406 pg/mL (0-124) Total Protein 7.9 g/dL (6.4-8.2) Albumin 3.9 g/dL (3.4-5.0) Albumin/Globulin Ratio 1.0 (1.0-1.7) O2 Saturation 99 % (92-99) 97 % (92-99) Arterial Blood pH 7.07 (7.35-7.45) 7.28 (7.35-7.45) Arterial Blood pCO2 at Patient Temp 103 mmHg (35-46) 55 mmHg (35-46) Arterial Blood pO2 at Patient Temp 206 mmHg (65-108) 98 mmHg (65-108) Arterial Blood HCO3 30 mmol/L (21-28) 25 mmol/L (21-28) Arterial Blood Base Excess -3 mmol/L (-3-3) -2 mmol/L (-3-3) FiO2 60% 50 Nasal Screen MRSA (PCR) Negative (Negative) Test 07/03/18 06:00 07/03/18 08:00 07/03/18 09:45 07/03/18 15:05 Lactic Acid Level 1.3 mmol/L (0.4-2.0) Troponin I Quantitative 1.463 ng/mL (0.000-0.055) 1.558 ng/mL (0.000-0.055) O2 Saturation 99 % (92-99) Arterial Blood pH 7.32 (7.35-7.45) Arterial Blood pCO2 at Patient Temp 54 mmHg (35-46) Arterial Blood pO2 at Patient Temp 153 mmHg (65-108) Arterial Blood HCO3 27 mmol/L (21-28) Arterial Blood Base Excess 0 mmol/L (-3-3) FiO2 50 Sodium Level 138 mmol/L (136-145) Potassium Level 5.1 mmol/L (3.5-5.1) Chloride Level 101 mmol/L (98-107) Carbon Dioxide Level 27 mmol/L (21-32) Anion Gap 10 (6-14) Blood Urea Nitrogen 20 mg/dL (8-26) Creatinine 1.2 mg/dL (0.7-1.3) Estimated GFR (Cockcroft-Gault) 59.5 Glucose Level 202 mg/dL (70-99) Calcium Level 8.3 mg/dL (8.5-10.1) Magnesium Level 2.0 mg/dL (1.8-2.4) Test 07/04/18 04:35 07/04/18 09:00 White Blood Count 14.2 x10^3/uL (4.0-11.0) Red Blood Count 3.80 x10^6/uL (4.30-5.70) Hemoglobin 10.8 g/dL (13.0-17.5) Hematocrit 33.7 % (39.0-53.0) Mean Corpuscular Volume 89 fL (79-100) Mean Corpuscular Hemoglobin 28 pg (25-35) Mean Corpuscular Hemoglobin Concent 32 g/dL (31-37) Red Cell Distribution Width 14.1 % (11.5-14.5) Platelet Count 190 x10^3/uL (140-400) Neutrophils (%) (Auto) 90 % (31-73) Lymphocytes (%) (Auto) 4 % (24-48) Monocytes (%) (Auto) 6 % (0-9) Eosinophils (%) (Auto) 0 % (0-3) Basophils (%) (Auto) 0 % (0-3) Neutrophils # (Auto) 12.8 x10^3uL (1.8-7.7) Lymphocytes # (Auto) 0.6 x10^3/uL (1.0-4.8) Monocytes # (Auto) 0.8 x10^3/uL (0.0-1.1) Eosinophils # (Auto) 0.0 x10^3/uL (0.0-0.7) Basophils # (Auto) 0.0 x10^3/uL (0.0-0.2) Sodium Level 140 mmol/L (136-145) Potassium Level 4.7 mmol/L (3.5-5.1) Chloride Level 104 mmol/L (98-107) Carbon Dioxide Level 27 mmol/L (21-32) Anion Gap 9 (6-14) Blood Urea Nitrogen 20 mg/dL (8-26) Creatinine 1.1 mg/dL (0.7-1.3) Estimated GFR (Cockcroft-Gault) 65.8 BUN/Creatinine Ratio 18 (6-20) Glucose Level 170 mg/dL (70-99) Calcium Level 8.2 mg/dL (8.5-10.1) Total Bilirubin 0.3 mg/dL (0.2-1.0) Aspartate Amino Transf (AST/SGOT) 26 U/L (15-37) Alanine Aminotransferase (ALT/SGPT) 38 U/L (16-63) Alkaline Phosphatase 86 U/L (46-116) Total Protein 5.8 g/dL (6.4-8.2) Albumin 2.7 g/dL (3.4-5.0) Albumin/Globulin Ratio 0.9 (1.0-1.7) O2 Saturation 95 % (92-99) Arterial Blood pH 7.38 (7.35-7.45) Arterial Blood pCO2 at Patient Temp 46 mmHg (35-46) Arterial Blood pO2 at Patient Temp 79 mmHg (65-108) Arterial Blood HCO3 27 mmol/L (21-28) Arterial Blood Base Excess 1 mmol/L (-3-3) FiO2 30 Laboratory Tests Test 07/03/18 09:45 07/03/18 15:05 07/04/18 04:35 07/04/18 09:00 Troponin I Quantitative 1.558 ng/mL (0.000-0.055) Sodium Level 138 mmol/L (136-145) 140 mmol/L (136-145) Potassium Level 5.1 mmol/L (3.5-5.1) 4.7 mmol/L (3.5-5.1) Chloride Level 101 mmol/L (98-107) 104 mmol/L (98-107) Carbon Dioxide Level 27 mmol/L (21-32) 27 mmol/L (21-32) Anion Gap 10 (6-14) 9 (6-14) Blood Urea Nitrogen 20 mg/dL (8-26) 20 mg/dL (8-26) Creatinine 1.2 mg/dL (0.7-1.3) 1.1 mg/dL (0.7-1.3) Estimated GFR (Cockcroft-Gault) 59.5 65.8 Glucose Level 202 mg/dL (70-99) 170 mg/dL (70-99) Calcium Level 8.3 mg/dL (8.5-10.1) 8.2 mg/dL (8.5-10.1) Magnesium Level 2.0 mg/dL (1.8-2.4) White Blood Count 14.2 x10^3/uL (4.0-11.0) Red Blood Count 3.80 x10^6/uL (4.30-5.70) Hemoglobin 10.8 g/dL (13.0-17.5) Hematocrit 33.7 % (39.0-53.0) Mean Corpuscular Volume 89 fL (79-100) Mean Corpuscular Hemoglobin 28 pg (25-35) Mean Corpuscular Hemoglobin Concent 32 g/dL (31-37) Red Cell Distribution Width 14.1 % (11.5-14.5) Platelet Count 190 x10^3/uL (140-400) Neutrophils (%) (Auto) 90 % (31-73) Lymphocytes (%) (Auto) 4 % (24-48) Monocytes (%) (Auto) 6 % (0-9) Eosinophils (%) (Auto) 0 % (0-3) Basophils (%) (Auto) 0 % (0-3) Neutrophils # (Auto) 12.8 x10^3uL (1.8-7.7) Lymphocytes # (Auto) 0.6 x10^3/uL (1.0-4.8) Monocytes # (Auto) 0.8 x10^3/uL (0.0-1.1) Eosinophils # (Auto) 0.0 x10^3/uL (0.0-0.7) Basophils # (Auto) 0.0 x10^3/uL (0.0-0.2) BUN/Creatinine Ratio 18 (6-20) Total Bilirubin 0.3 mg/dL (0.2-1.0) Aspartate Amino Transf (AST/SGOT) 26 U/L (15-37) Alanine Aminotransferase (ALT/SGPT) 38 U/L (16-63) Alkaline Phosphatase 86 U/L (46-116) Total Protein 5.8 g/dL (6.4-8.2) Albumin 2.7 g/dL (3.4-5.0) Albumin/Globulin Ratio 0.9 (1.0-1.7) O2 Saturation 95 % (92-99) Arterial Blood pH 7.38 (7.35-7.45) Arterial Blood pCO2 at Patient Temp 46 mmHg (35-46) Arterial Blood pO2 at Patient Temp 79 mmHg (65-108) Arterial Blood HCO3 27 mmol/L (21-28) Arterial Blood Base Excess 1 mmol/L (-3-3) FiO2 30 Medications Active Scripts Medications Dose Route/Sig Max Daily Dose Days Date Category Prednisone (Prednisone) 10 Mg Tablet 10 Mg PO DAILY 4 02/25/18 Reported Prednisone (Prednisone) 10 Mg Tablet 20 Mg PO DAILY 4 02/25/18 Reported Prednisone (Prednisone) 10 Mg Tablet 30 Mg PO DAILY 4 02/25/18 Reported Doxycycline Hyclate 100 Mg Tablet 1 Tab PO BID 10 02/25/18 Reported Aggrenox 25 Mg-200 Mg Capsule (Aspirin/Dipyridamole) 1 Each Cpmp.12hr 1 Each PO 05/20/17 Reported Symbicort 160-4.5 Mcg Inhaler (Budesonide/Formoterol Fumarate) 10.2 Gm Hfa.aer.ad 2 Puff IH BID 08/30/16 Reported Atrovent Hfa (Ipratropium [place]) 12.9 Gm Hfa.aer.ad 2 Puff IH QID 08/30/16 Reported Proventil Hfa Inhaler (Albuterol Sulfate) 6.7 Gm Hfa.aer.ad 1 Puff IH PRN Q4HRS PRN 08/30/16 Reported Aspirin 81 Mg Tab.chew 1 Tab PO DAILY 08/30/16 Reported Levothyroxine Sodium 100 Mcg Tablet 1 Tab PO DAILY 08/30/16 Reported Impression . IMPRESSION: 1. Acute on chronic hypoxemic hypercapnic respiratory failure. 2. Acute exacerbation of chronic obstructive pulmonary disease. 3. Possible viral pneumonia. 4. Possible Gram-negative pneumonia. 5. Fever. 6. Leukocytosis. Plan . EXTUBATE WILL CONTINUE SUPPORT STEROIDS ANTIBX JOSE DE JESUS RIDLEY MD Jul 04, 2018 09:26
[2018-07-04] MEDS: DOXYCYCLINE HYCLATE 100 MG in IV DEXTROSE 5% 100ML 100 ML IV SCH ×2 (09:27→20:44)
[2018-07-04] MEDS: ENOXAPARIN 40 MG/0.4 ML SYRINGE. SQ SCH (09:28)
[2018-07-04] MEDS: cefTRIAXone IV Push 1 GM VIAL. IVP SCH (09:41)
--- NOTE | 2018-07-04 10:08 | PDOC ---
PROGRESS NOTES Chief Complaint Chief Complaint Acute respiratory failure secondary to acute COPD exacerbation and pneumonia s/p intubation and on low dose of Levophed for pressor support. Possible viral pneumonia and Possible Gram-negative pneumonia. Non-STEMI, most probably type 2/demand ischemia. Recent Cardiac catheterization in February 2018 showed nonobstructive coronary artery disease. Check 2-D echo to assess LV function and rule out wall motion abnormalities. Acute on chronic hypoxemic hypercapnic respiratory failure SIRS - treating as sepsis with fever, leukocytosis, likely gram negative pulmonary infection Hypothyroidism: Continue levothyroxine History of Present Illness History of Present Illness 73-year-old male who has diagnosis of COPD and CAD, came in severe SOB accompanied by confusion in the ER. He was breathing 30-40 minutes as per EMS. He was confused. Initially trailed on BiPAP but clearly could not tolerate and was subsequently intubated. PH initially was 7.08 then improved to 7.28 with a PCO2 of 105 then improved to 55 on later ABG. He is intubated sedated in the ICU. Troponins x2 elevated. Labs initially showed a lactate of 2.6 but now is normal at 1.3. WBC is elevated This morning sedated on vent, did not tolerate lowering of sedation for weaning trial, RR> 30, now sedated again. BP still on the low side. On Versed and IV fluid. Maintaining a bit lower urine output per Bradshaw catheter. Vitals Vitals Vital Signs Date Time Temp Pulse Resp B/P (MAP) Pulse Ox O2 Delivery O2 Flow Rate FiO2 07/04/18 08:44 96 Ventilator 07/04/18 07:00 70 22 92/56 (68) 07/04/18 04:00 98.6 98.6 Physical Exam General: Other (intubated and sedated) Heart: Regular rate Lungs: Clear Abdomen: Soft Extremities: No edema Skin: No rashes, No breakdown, No significant lesion Labs LABS Laboratory Tests Test 07/03/18 15:05 07/04/18 04:35 07/04/18 09:00 Sodium Level 138 mmol/L (136-145) 140 mmol/L (136-145) Potassium Level 5.1 mmol/L (3.5-5.1) 4.7 mmol/L (3.5-5.1) Chloride Level 101 mmol/L (98-107) 104 mmol/L (98-107) Carbon Dioxide Level 27 mmol/L (21-32) 27 mmol/L (21-32) Anion Gap 10 (6-14) 9 (6-14) Blood Urea Nitrogen 20 mg/dL (8-26) 20 mg/dL (8-26) Creatinine 1.2 mg/dL (0.7-1.3) 1.1 mg/dL (0.7-1.3) Estimated GFR (Cockcroft-Gault) 59.5 65.8 Glucose Level 202 mg/dL (70-99) 170 mg/dL (70-99) Calcium Level 8.3 mg/dL (8.5-10.1) 8.2 mg/dL (8.5-10.1) Magnesium Level 2.0 mg/dL (1.8-2.4) White Blood Count 14.2 x10^3/uL (4.0-11.0) Red Blood Count 3.80 x10^6/uL (4.30-5.70) Hemoglobin 10.8 g/dL (13.0-17.5) Hematocrit 33.7 % (39.0-53.0) Mean Corpuscular Volume 89 fL (79-100) Mean Corpuscular Hemoglobin 28 pg (25-35) Mean Corpuscular Hemoglobin Concent 32 g/dL (31-37) Red Cell Distribution Width 14.1 % (11.5-14.5) Platelet Count 190 x10^3/uL (140-400) Neutrophils (%) (Auto) 90 % (31-73) Lymphocytes (%) (Auto) 4 % (24-48) Monocytes (%) (Auto) 6 % (0-9) Eosinophils (%) (Auto) 0 % (0-3) Basophils (%) (Auto) 0 % (0-3) Neutrophils # (Auto) 12.8 x10^3uL (1.8-7.7) Lymphocytes # (Auto) 0.6 x10^3/uL (1.0-4.8) Monocytes # (Auto) 0.8 x10^3/uL (0.0-1.1) Eosinophils # (Auto) 0.0 x10^3/uL (0.0-0.7) Basophils # (Auto) 0.0 x10^3/uL (0.0-0.2) BUN/Creatinine Ratio 18 (6-20) Total Bilirubin 0.3 mg/dL (0.2-1.0) Aspartate Amino Transf (AST/SGOT) 26 U/L (15-37) Alanine Aminotransferase (ALT/SGPT) 38 U/L (16-63) Alkaline Phosphatase 86 U/L (46-116) Total Protein 5.8 g/dL (6.4-8.2) Albumin 2.7 g/dL (3.4-5.0) Albumin/Globulin Ratio 0.9 (1.0-1.7) O2 Saturation 95 % (92-99) Arterial Blood pH 7.38 (7.35-7.45) Arterial Blood pCO2 at Patient Temp 46 mmHg (35-46) Arterial Blood pO2 at Patient Temp 79 mmHg (65-108) Arterial Blood HCO3 27 mmol/L (21-28) Arterial Blood Base Excess 1 mmol/L (-3-3) FiO2 30 Comment Review of Relevant I have reviewed the following items jaxon (where applicable) has been applied. Labs Laboratory Tests Test 07/03/18 01:30 07/03/18 03:30 07/03/18 04:30 07/03/18 05:20 White Blood Count 16.8 x10^3/uL (4.0-11.0) Red Blood Count 4.78 x10^6/uL (4.30-5.70) Hemoglobin 13.4 g/dL (13.0-17.5) Hematocrit 42.5 % (39.0-53.0) Mean Corpuscular Volume 89 fL (79-100) Mean Corpuscular Hemoglobin 28 pg (25-35) Mean Corpuscular Hemoglobin Concent 31 g/dL (31-37) Red Cell Distribution Width 14.4 % (11.5-14.5) Platelet Count 270 x10^3/uL (140-400) Neutrophils (%) (Auto) 70 % (31-73) Lymphocytes (%) (Auto) 18 % (24-48) Monocytes (%) (Auto) 12 % (0-9) Eosinophils (%) (Auto) 0 % (0-3) Basophils (%) (Auto) 0 % (0-3) Neutrophils # (Auto) 11.8 x10^3uL (1.8-7.7) Lymphocytes # (Auto) 3.0 x10^3/uL (1.0-4.8) Monocytes # (Auto) 1.9 x10^3/uL (0.0-1.1) Eosinophils # (Auto) 0.0 x10^3/uL (0.0-0.7) Basophils # (Auto) 0.0 x10^3/uL (0.0-0.2) Segmented Neutrophils % 75 % (35-66) Lymphocytes % 14 % (24-48) Monocytes % 11 % (0-10) Platelet Estimate Adequate (ADEQUATE) Anisocytosis Slight Ovalocytes Few Sodium Level 138 mmol/L (136-145) Potassium Level 5.0 mmol/L (3.5-5.1) Chloride Level 99 mmol/L (98-107) Carbon Dioxide Level 31 mmol/L (21-32) Anion Gap 8 (6-14) Blood Urea Nitrogen 20 mg/dL (8-26) Creatinine 1.1 mg/dL (0.7-1.3) Estimated GFR (Cockcroft-Gault) 65.8 BUN/Creatinine Ratio 18 (6-20) Glucose Level 192 mg/dL (70-99) Lactic Acid Level 2.6 mmol/L (0.4-2.0) Calcium Level 9.8 mg/dL (8.5-10.1) Total Bilirubin 0.6 mg/dL (0.2-1.0) Aspartate Amino Transf (AST/SGOT) 23 U/L (15-37) Alanine Aminotransferase (ALT/SGPT) 23 U/L (16-63) Alkaline Phosphatase 99 U/L (46-116) Troponin I Quantitative < 0.017 ng/mL (0.000-0.055) DG-Zft-Q-Type Natriuretic Peptide 406 pg/mL (0-124) Total Protein 7.9 g/dL (6.4-8.2) Albumin 3.9 g/dL (3.4-5.0) Albumin/Globulin Ratio 1.0 (1.0-1.7) O2 Saturation 99 % (92-99) 97 % (92-99) Arterial Blood pH 7.07 (7.35-7.45) 7.28 (7.35-7.45) Arterial Blood pCO2 at Patient Temp 103 mmHg (35-46) 55 mmHg (35-46) Arterial Blood pO2 at Patient Temp 206 mmHg (65-108) 98 mmHg (65-108) Arterial Blood HCO3 30 mmol/L (21-28) 25 mmol/L (21-28) Arterial Blood Base Excess -3 mmol/L (-3-3) -2 mmol/L (-3-3) FiO2 60% 50 Nasal Screen MRSA (PCR) Negative (Negative) Test 07/03/18 06:00 07/03/18 08:00 07/03/18 09:45 07/03/18 15:05 Lactic Acid Level 1.3 mmol/L (0.4-2.0) Troponin I Quantitative 1.463 ng/mL (0.000-0.055) 1.558 ng/mL (0.000-0.055) O2 Saturation 99 % (92-99) Arterial Blood pH 7.32 (7.35-7.45) Arterial Blood pCO2 at Patient Temp 54 mmHg (35-46) Arterial Blood pO2 at Patient Temp 153 mmHg (65-108) Arterial Blood HCO3 27 mmol/L (21-28) Arterial Blood Base Excess 0 mmol/L (-3-3) FiO2 50 Sodium Level 138 mmol/L (136-145) Potassium Level 5.1 mmol/L (3.5-5.1) Chloride Level 101 mmol/L (98-107) Carbon Dioxide Level 27 mmol/L (21-32) Anion Gap 10 (6-14) Blood Urea Nitrogen 20 mg/dL (8-26) Creatinine 1.2 mg/dL (0.7-1.3) Estimated GFR (Cockcroft-Gault) 59.5 Glucose Level 202 mg/dL (70-99) Calcium Level 8.3 mg/dL (8.5-10.1) Magnesium Level 2.0 mg/dL (1.8-2.4) Test 07/04/18 04:35 07/04/18 09:00 White Blood Count 14.2 x10^3/uL (4.0-11.0) Red Blood Count 3.80 x10^6/uL (4.30-5.70) Hemoglobin 10.8 g/dL (13.0-17.5) Hematocrit 33.7 % (39.0-53.0) Mean Corpuscular Volume 89 fL (79-100) Mean Corpuscular Hemoglobin 28 pg (25-35) Mean Corpuscular Hemoglobin Concent 32 g/dL (31-37) Red Cell Distribution Width 14.1 % (11.5-14.5) Platelet Count 190 x10^3/uL (140-400) Neutrophils (%) (Auto) 90 % (31-73) Lymphocytes (%) (Auto) 4 % (24-48) Monocytes (%) (Auto) 6 % (0-9) Eosinophils (%) (Auto) 0 % (0-3) Basophils (%) (Auto) 0 % (0-3) Neutrophils # (Auto) 12.8 x10^3uL (1.8-7.7) Lymphocytes # (Auto) 0.6 x10^3/uL (1.0-4.8) Monocytes # (Auto) 0.8 x10^3/uL (0.0-1.1) Eosinophils # (Auto) 0.0 x10^3/uL (0.0-0.7) Basophils # (Auto) 0.0 x10^3/uL (0.0-0.2) Sodium Level 140 mmol/L (136-145) Potassium Level 4.7 mmol/L (3.5-5.1) Chloride Level 104 mmol/L (98-107) Carbon Dioxide Level 27 mmol/L (21-32) Anion Gap 9 (6-14) Blood Urea Nitrogen 20 mg/dL (8-26) Creatinine 1.1 mg/dL (0.7-1.3) Estimated GFR (Cockcroft-Gault) 65.8 BUN/Creatinine Ratio 18 (6-20) Glucose Level 170 mg/dL (70-99) Calcium Level 8.2 mg/dL (8.5-10.1) Total Bilirubin 0.3 mg/dL (0.2-1.0) Aspartate Amino Transf (AST/SGOT) 26 U/L (15-37) Alanine Aminotransferase (ALT/SGPT) 38 U/L (16-63) Alkaline Phosphatase 86 U/L (46-116) Total Protein 5.8 g/dL (6.4-8.2) Albumin 2.7 g/dL (3.4-5.0) Albumin/Globulin Ratio 0.9 (1.0-1.7) O2 Saturation 95 % (92-99) Arterial Blood pH 7.38 (7.35-7.45) Arterial Blood pCO2 at Patient Temp 46 mmHg (35-46) Arterial Blood pO2 at Patient Temp 79 mmHg (65-108) Arterial Blood HCO3 27 mmol/L (21-28) Arterial Blood Base Excess 1 mmol/L (-3-3) FiO2 30 Laboratory Tests Test 07/03/18 15:05 07/04/18 04:35 07/04/18 09:00 Sodium Level 138 mmol/L (136-145) 140 mmol/L (136-145) Potassium Level 5.1 mmol/L (3.5-5.1) 4.7 mmol/L (3.5-5.1) Chloride Level 101 mmol/L (98-107) 104 mmol/L (98-107) Carbon Dioxide Level 27 mmol/L (21-32) 27 mmol/L (21-32) Anion Gap 10 (6-14) 9 (6-14) Blood Urea Nitrogen 20 mg/dL (8-26) 20 mg/dL (8-26) Creatinine 1.2 mg/dL (0.7-1.3) 1.1 mg/dL (0.7-1.3) Estimated GFR (Cockcroft-Gault) 59.5 65.8 Glucose Level 202 mg/dL (70-99) 170 mg/dL (70-99) Calcium Level 8.3 mg/dL (8.5-10.1) 8.2 mg/dL (8.5-10.1) Magnesium Level 2.0 mg/dL (1.8-2.4) White Blood Count 14.2 x10^3/uL (4.0-11.0) Red Blood Count 3.80 x10^6/uL (4.30-5.70) Hemoglobin 10.8 g/dL (13.0-17.5) Hematocrit 33.7 % (39.0-53.0) Mean Corpuscular Volume 89 fL (79-100) Mean Corpuscular Hemoglobin 28 pg (25-35) Mean Corpuscular Hemoglobin Concent 32 g/dL (31-37) Red Cell Distribution Width 14.1 % (11.5-14.5) Platelet Count 190 x10^3/uL (140-400) Neutrophils (%) (Auto) 90 % (31-73) Lymphocytes (%) (Auto) 4 % (24-48) Monocytes (%) (Auto) 6 % (0-9) Eosinophils (%) (Auto) 0 % (0-3) Basophils (%) (Auto) 0 % (0-3) Neutrophils # (Auto) 12.8 x10^3uL (1.8-7.7) Lymphocytes # (Auto) 0.6 x10^3/uL (1.0-4.8) Monocytes # (Auto) 0.8 x10^3/uL (0.0-1.1) Eosinophils # (Auto) 0.0 x10^3/uL (0.0-0.7) Basophils # (Auto) 0.0 x10^3/uL (0.0-0.2) BUN/Creatinine Ratio 18 (6-20) Total Bilirubin 0.3 mg/dL (0.2-1.0) Aspartate Amino Transf (AST/SGOT) 26 U/L (15-37) Alanine Aminotransferase (ALT/SGPT) 38 U/L (16-63) Alkaline Phosphatase 86 U/L (46-116) Total Protein 5.8 g/dL (6.4-8.2) Albumin 2.7 g/dL (3.4-5.0) Albumin/Globulin Ratio 0.9 (1.0-1.7) O2 Saturation 95 % (92-99) Arterial Blood pH 7.38 (7.35-7.45) Arterial Blood pCO2 at Patient Temp 46 mmHg (35-46) Arterial Blood pO2 at Patient Temp 79 mmHg (65-108) Arterial Blood HCO3 27 mmol/L (21-28) Arterial Blood Base Excess 1 mmol/L (-3-3) FiO2 30 Microbiology 07/03/18 Blood Culture - Preliminary, Resulted NO GROWTH AFTER 1 DAY Medications Current Medications Propofol 0 ml @ As Directed STK-MED ONCE IV ; Start 07/03/18 at 01:59; Stop 07/03/18 at 02:00; Status DC Methylprednisolone Sodium Succinate (SOLU-Medrol 125MG VIAL) 125 mg 1X ONCE IV Last administered on 07/03/18at 02:30; Start 07/03/18 at 02:30; Stop 07/03/18 at 02:44; Status DC Sodium Chloride 1,000 ml @ 1,000 mls/hr 1X ONCE IV Last administered on 07/03/18at 03:00; Start 07/03/18 at 03:00; Stop 07/03/18 at 03:59; Status DC Propofol 100 ml @ 0 mls/hr CONT PRN IV SEE PROTOCOL Last administered on 07/03/18at 02:30; Start 07/03/18 at 02:30; Stop 07/03/18 at 02:44; Status DC Propofol 50 ml @ As Directed STK-MED ONCE IV ; Start 07/03/18 at 02:37; Stop 07/03/18 at 02:38; Status DC Rocuronium Ashdown (Zemuron) 50 mg STK-MED ONCE .ROUTE ; Start 07/03/18 at 02:38; Stop 07/03/18 at 02:39; Status DC Propofol 100 ml @ 0 mls/hr CONT PRN IV SEE PROTOCOL Last administered on 07/03/18at 05:00; Start 07/03/18 at 02:44 Propofol 50 ml @ 1.2 mls/hr 1X ONCE IV ; Start 07/03/18 at 03:00; Stop 07/04/18 at 20:31 Succinylcholine Chloride (Anectine) 200 mg STK-MED ONCE .ROUTE ; Start 07/03/18 at 03:27; Stop 07/03/18 at 03:28; Status DC Ondansetron HCl (Zofran) 4 mg PRN Q8HRS PRN IV NAUSEA/VOMITING 1ST CHOICE; Start 07/03/18 at 03:30; Stop 07/03/18 at 08:53; Status DC Albuterol/ Ipratropium (Duoneb) 3 ml RTQID NEB Last administered on 07/03/18at 19:49; Start 07/03/18 at 08:00; Stop 07/04/18 at 07:59; Status DC Dextrose/Sodium Chloride 1,000 ml @ 125 mls/hr 1X ONCE IV Last administered on 07/03/18at 05:01; Start 07/03/18 at 03:45; Stop 07/03/18 at 11:44; Status DC Fentanyl Citrate (Fentanyl 2ml Vial) 50 mcg PRN Q1HR PRN IV SEVERE PAIN Last administered on 07/03/18at 22:20; Start 07/03/18 at 05:00 Midazolam HCl 100 ml @ 5 mls/hr CONT PRN IV SEE I/O RECORD Last administered on 07/03/18 07:59; Start 07/03/18 at 07:45 Ondansetron HCl (Zofran) 4 mg PRN Q6HRS PRN IV NAUSEA/VOMITING 1ST CHOICE; Start 07/03/18 at 09:00 Sodium Chloride 1,000 ml @ 100 mls/hr Q10H IV Last administered on 07/04/18 05:40; Start 07/03/18 at 09:00 Acetaminophen (Tylenol) 650 mg PRN Q6HRS PRN PEG MILD PAIN / TEMP Last administered on 07/03/18 09:30; Start 07/03/18 at 09:00 Enoxaparin Sodium (Lovenox 40mg Syringe) 40 mg Q24H SQ Last administered on 07/04/18 09:28; Start 07/03/18 at 09:00 Pantoprazole Sodium (PROTONIX VIAL for IV PUSH) 40 mg 1X ONCE IVP Last administered on 07/03/18 09:31; Start 07/03/18 at 09:00; Stop 07/03/18 at 09:01; Status DC Pantoprazole Sodium (PROTONIX VIAL for IV PUSH) 40 mg DAILYAC IVP Last administered on 07/04/18 09:26; Start 07/04/18 at 07:30 Norepinephrine Bitartrate 250 ml @ 1.875 mls/ hr CONT PRN IV SEE I/O RECORD Last administered on 07/03/18 09:31; Start 07/03/18 at 09:00 Aspirin (Children'S Aspirin) 81 mg DAILY PO Last administered on 07/03/18 09:31; Start 07/03/18 at 09:00 Levothyroxine Sodium (Synthroid) 100 mcg DAILY06 PO Last administered on 07/04/18 05:40; Start 07/03/18 at 09:00 Dipyridamole (Persantine) 25 mg QIDPMEDS PO Last administered on 07/03/18 21:04; Start 07/03/18 at 10:00 Methylprednisolone Sodium Succinate (SOLU-Medrol 40MG VIAL) 40 mg Q8HRS IV Last administered on 07/04/18 05:40; Start 07/03/18 at 14:00 Ceftriaxone Sodium (Rocephin) 1 gm Q24H IVP Last administered on 07/04/18at 09:41; Start 07/03/18 at 10:30 Doxycycline Hyclate 100 mg/ Dextrose 100 ml @ 50 mls/hr 1X ONCE IV Last administered on 07/03/18at 15:23; Start 07/03/18 at 15:15; Stop 07/03/18 at 17:14; Status DC Doxycycline Hyclate 100 mg/ Dextrose 100 ml @ 50 mls/hr Q12HR IV Last administered on 07/04/18at 09:27; Start 07/03/18 at 21:00 Active Scripts Active Reported Prednisone (Prednisone) 10 Mg Tablet 10 Mg PO DAILY 4 Days Prednisone (Prednisone) 10 Mg Tablet 20 Mg PO DAILY 4 Days Prednisone (Prednisone) 10 Mg Tablet 30 Mg PO DAILY 4 Days Doxycycline Hyclate 100 Mg Tablet 1 Tab PO BID 10 Days Aggrenox 25 Mg-200 Mg Capsule (Aspirin/Dipyridamole) 1 Each Cpmp.12hr 1 Each PO Symbicort 160-4.5 Mcg Inhaler (Budesonide/Formoterol Fumarate) 10.2 Gm Hfa.aer.ad 2 Puff IH BID Atrovent Hfa (Ipratropium [place]) 12.9 Gm Hfa.aer.ad 2 Puff IH QID Proventil Hfa Inhaler (Albuterol Sulfate) 6.7 Gm Hfa.aer.ad 1 Puff IH PRN Q4HRS PRN Aspirin 81 Mg Tab.chew 1 Tab PO DAILY Levothyroxine Sodium 100 Mcg Tablet 1 Tab PO DAILY Vitals/I & O Vital Sign - Last 24 Hours 07/03/18 07/03/18 07/03/18 07/03/18 11:00 12:00 12:00 12:44 Pulse 77 72 Resp 20 21 B/P (MAP) 93/73 (80) 99/70 (80) Pulse Ox 98 98 100 O2 Delivery Ventilator Mechanical Ventilator Ventilator Ventilator 07/03/18 07/03/18 07/03/18 07/03/18 13:00 13:39 13:52 15:00 Temp 98.8 98.8 Pulse 67 67 70 Resp 21 21 20 21 B/P (MAP) 100/71 (81) 118/73 (88) 98/63 (75) Pulse Ox 99 99 98 97 O2 Delivery Ventilator Ventilator Ventilator Ventilator 07/03/18 07/03/18 07/03/18 07/03/18 15:23 16:00 16:00 16:57 Temp 97.9 97.9 Pulse 78 80 Resp 16 16 B/P (MAP) 101/64 (76) 99/61 (74) Pulse Ox 97 98 95 O2 Delivery Ventilator Ventilator Mechanical Ventilator Ventilator 07/03/18 07/03/18 07/03/18 07/03/18 16:59 17:56 18:00 19:00 Pulse 80 82 Resp 16 17 19 B/P (MAP) 98/64 (75) 91/56 (68) Pulse Ox 95 94 96 94 O2 Delivery Ventilator Ventilator Ventilator Ventilator 07/03/18 07/03/18 07/03/18 07/03/18 19:50 20:00 20:00 21:00 Temp 98.2 98.2 Pulse 84 90 Resp 16 19 B/P (MAP) 85/61 (69) 95/58 (70) Pulse Ox 95 99 93 O2 Delivery Ventilator Ventilator Mechanical Ventilator Ventilator 07/03/18 07/03/18 07/03/18 07/03/18 22:00 22:20 23:00 23:07 Pulse 86 79 Resp 21 18 17 16 B/P (MAP) 81/58 (66) 82/55 (64) Pulse Ox 93 94 95 95 O2 Delivery Ventilator Ventilator Ventilator Ventilator 07/03/18 07/04/18 07/04/18 07/04/18 23:48 00:00 00:00 01:00 Temp 98.2 98.2 Pulse 79 78 Resp 20 20 B/P (MAP) 82/56 (65) 90/55 (67) Pulse Ox 96 96 97 O2 Delivery Ventilator Ventilator Mechanical Ventilator Ventilator 07/04/18 07/04/18 07/04/18 07/04/18 02:00 02:55 03:00 04:00 Pulse 79 76 Resp 20 18 B/P (MAP) 88/56 (67) 87/54 (65) Pulse Ox 96 96 96 O2 Delivery Ventilator Ventilator Ventilator Mechanical Ventilator 07/04/18 07/04/18 07/04/18 07/04/18 04:00 05:00 05:17 06:00 Temp 98.6 98.6 Pulse 70 73 73 Resp 18 20 22 B/P (MAP) 90/54 (66) 95/56 (69) 96/54 (68) Pulse Ox 97 97 95 95 O2 Delivery Ventilator Ventilator Ventilator Ventilator 07/04/18 07/04/18 07:00 08:44 Pulse 70 Resp 22 B/P (MAP) 92/56 (68) Pulse Ox 96 96 O2 Delivery Ventilator Ventilator Intake and Output 07/03/18 07/03/18 07/04/18 15:00 23:00 07:00 Intake Total 24 ml 751.2 ml 1323.0 ml Output Total 505 ml 365 ml 280 ml Balance -481 ml 386.2 ml 1043.0 ml JANETH MARIN MD Jul 04, 2018 10:08
[2018-07-04] MEDS: ASPIRIN CHEWABLE 81 MG TABLET. PO SCH (10:42)
[2018-07-04] MEDS: DIPYRIDAMOLE 25 MG TABLET. PO SCH ×4 (10:42→23:09)
--- NOTE | 2018-07-04 13:34 | CARD ---
MR#: [id number] Date of Study: 07/04/2018 Ordering Physician: SERGIO FULLER, Referring Physician: Blair FLYNN: Anastasiya Covarrubias RDCS APPROVED REPORT EXAM: Two-dimensional and M-mode echocardiogram with Doppler and color Doppler. Other Information Quality : Technically Limited Technically limited study due to intubation INDICATION Non STEMI 2D DIMENSIONS RVDd3.2 (2.9-3.5cm)Left Atrium(2D)2.8 (1.6-4.0cm) IVSd0.8 (0.7-1.1cm)Aortic Root(2D)4.0 (2.0-3.7cm) LVDd4.5 (3.9-5.9cm)LVOT Diameter2.2 (1.8-2.4cm) PWd0.8 (0.7-1.1cm)LVDs2.8 (2.5-4.0cm) FS (%) 30.0 %SV63.9 ml LVEF(%)60.0 (>50%) Aortic Valve AoV Peak Polo.91.8cm/sAoV VTI17.3cm AO Peak GR.3.4mmHgLVOT Peak Polo.71.4cm/s AO Mean GR.2mmHgAVA (VMAX)2.93cm2 WHITNEY (VTI)3.50cm2 Mitral Valve MV E Vejvrvwx98.5cm/sMV DECEL NYYE245ft MV A Mvczicqp57.8cm/sE/A Ratio1.1 Pulmonary Vein S1 Ycxnvsgj79.9cm/sD2 Ruwyvgqx15.4cm/s LEFT VENTRICLE The left ventricle is normal size. There is normal left ventricular wall thickness. The left ventricu lar systolic function is normal. The Ejection Fraction is 60-65%. There is normal LV segmental wall m otion. RIGHT VENTRICLE The right ventricle is normal size. The right ventricular systolic function is normal. ATRIA The left atrium size is normal. The right atrium size is normal. The interatrial septum is intact wit h no evidence for an atrial septal defect or patent foramen ovale as noted on 2-D or Doppler imaging. AORTIC VALVE The aortic valve is calcified but opens well. Doppler and Color Flow revealed no significant aortic r egurgitation. There is no significant aortic valvular stenosis. MITRAL VALVE The mitral valve is calcified but opens well. There is no evidence of mitral valve prolapse. There is no mitral valve stenosis. Doppler and Color Flow revealed no mitral valve regurgitation noted. TRICUSPID VALVE The tricuspid valve is normal in structure and function. Doppler and Color Flow revealed no tricuspid valve regurgitation noted. There is no tricuspid valve stenosis. PULMONIC VALVE The pulmonic valve is not well visualized. Doppler and Color Flow revealed trace to mild pulmonic lucy vular regurgitation. There is no pulmonic valvular stenosis. GREAT VESSELS The aortic root is normal in size. The ascending aorta is normal in size. The IVC is dilated and eleni apses <50% with inspiration. PERICARDIAL EFFUSION There is no evidence of significant pericardial effusion. Critical Notification Critical Value: No <Conclusion> The left ventricular systolic function is normal. The Ejection Fraction is 60-65%. There is normal LV segmental wall motion. No significant valvular abnormalities. There is no evidence of significant pericardial effusion. Signed by : Sergio Fuller, Electronically Approved : 07/04/2018 13:34:00
[2018-07-04 14:30] LABS: BASE EXCESS ABG 0 mmol/L (-3-3); HCO3 ABG 25 mmol/L (21-28); PCO2 ABG 46 mmHg (35-46); PO2 ABG 147 mmHg (65-108); SAT O2 ABG 99 % (92-99)
[2018-07-04 14:34] LABS: FIO2 ABG 30
[2018-07-04] MEDS: IPRATRPIUM/ALBUTEROL 0.5/2.5MG 3 ML NEBU. NEB SCH ×3 (16:41→20:23)
--- NOTE | 2018-07-04 20:57 | PDOC ---
PROGRESS NOTES Subjective Subjective s/p extubation today Objective Objective Vital Signs Date Time Temp Pulse Resp B/P (MAP) Pulse Ox O2 Delivery O2 Flow Rate FiO2 07/04/18 20:27 96 Nasal Cannula 3.0 07/04/18 20:00 79 22 136/67 (90) 07/04/18 19:00 98.3 98.3 Intake and Output 07/04/18 07:00 Intake Total 2098.2 ml Output Total 1185 ml Balance 913.2 ml Intake IV Total 2098.2 ml Output Urine Total 985 ml Gastric Drainage Total 200 ml Physical Exam Abdomen: Soft Heart: Regular rate Extremities: No edema General: mild distress HEENT: Atraumatic Lungs: Other (scattered rhonchi) Neck: Supple Skin: No rashes, No breakdown, No significant lesion Assessment Assessment 1. Acute respiratory failure secondary to acute COPD exacerbation and pneumonia s/p extubation. Continue current treatment per pulmonary team. 2. Non-STEMI, most probably type 2/demand ischemia. Recent Cardiac catheterization in February 2018 showed nonobstructive coronary artery disease. 2-D echo showed normal LV function without any wall motion abnormalities. 3. Hypothyroidism: Continue levothyroxine We will follow as needed. Comment Review of Relevant I have reviewed the following items jaxon (where applicable) has been applied. Labs Laboratory Tests Test 07/04/18 04:35 07/04/18 09:00 07/04/18 14:25 White Blood Count 14.2 x10^3/uL (4.0-11.0) Red Blood Count 3.80 x10^6/uL (4.30-5.70) Hemoglobin 10.8 g/dL (13.0-17.5) Hematocrit 33.7 % (39.0-53.0) Mean Corpuscular Volume 89 fL (79-100) Mean Corpuscular Hemoglobin 28 pg (25-35) Mean Corpuscular Hemoglobin Concent 32 g/dL (31-37) Red Cell Distribution Width 14.1 % (11.5-14.5) Platelet Count 190 x10^3/uL (140-400) Neutrophils (%) (Auto) 90 % (31-73) Lymphocytes (%) (Auto) 4 % (24-48) Monocytes (%) (Auto) 6 % (0-9) Eosinophils (%) (Auto) 0 % (0-3) Basophils (%) (Auto) 0 % (0-3) Neutrophils # (Auto) 12.8 x10^3uL (1.8-7.7) Lymphocytes # (Auto) 0.6 x10^3/uL (1.0-4.8) Monocytes # (Auto) 0.8 x10^3/uL (0.0-1.1) Eosinophils # (Auto) 0.0 x10^3/uL (0.0-0.7) Basophils # (Auto) 0.0 x10^3/uL (0.0-0.2) Sodium Level 140 mmol/L (136-145) Potassium Level 4.7 mmol/L (3.5-5.1) Chloride Level 104 mmol/L (98-107) Carbon Dioxide Level 27 mmol/L (21-32) Anion Gap 9 (6-14) Blood Urea Nitrogen 20 mg/dL (8-26) Creatinine 1.1 mg/dL (0.7-1.3) Estimated GFR (Cockcroft-Gault) 65.8 BUN/Creatinine Ratio 18 (6-20) Glucose Level 170 mg/dL (70-99) Calcium Level 8.2 mg/dL (8.5-10.1) Total Bilirubin 0.3 mg/dL (0.2-1.0) Aspartate Amino Transf (AST/SGOT) 26 U/L (15-37) Alanine Aminotransferase (ALT/SGPT) 38 U/L (16-63) Alkaline Phosphatase 86 U/L (46-116) Total Protein 5.8 g/dL (6.4-8.2) Albumin 2.7 g/dL (3.4-5.0) Albumin/Globulin Ratio 0.9 (1.0-1.7) O2 Saturation 95 % (92-99) 99 % (92-99) Arterial Blood pH 7.38 (7.35-7.45) 7.36 (7.35-7.45) Arterial Blood pCO2 at Patient Temp 46 mmHg (35-46) 46 mmHg (35-46) Arterial Blood pO2 at Patient Temp 79 mmHg (65-108) 147 mmHg (65-108) Arterial Blood HCO3 27 mmol/L (21-28) 25 mmol/L (21-28) Arterial Blood Base Excess 1 mmol/L (-3-3) 0 mmol/L (-3-3) FiO2 30 30 Microbiology 07/03/18 Blood Culture - Preliminary, Resulted NO GROWTH AFTER 1 DAY Medications Current Medications Albuterol/ Ipratropium (Duoneb) 3 ml RTQID NEB Last administered on 07/04/18at 20:23; Start 07/04/18 at 12:30 Doxycycline Hyclate 100 mg/ Dextrose 100 ml @ 50 mls/hr Q12HR IV Last administered on 07/04/18at 20:44; Start 07/03/18 at 21:00 Pantoprazole Sodium (PROTONIX VIAL for IV PUSH) 40 mg DAILYAC IVP Last administered on 07/04/18at 09:26; Start 07/04/18 at 07:30 Vitals/I & O Vital Sign - Last 24 Hours 07/03/18 07/03/18 07/03/18 07/03/18 21:00 22:00 22:20 23:00 Pulse 90 86 79 Resp 19 21 18 17 B/P (MAP) 95/58 (70) 81/58 (66) 82/55 (64) Pulse Ox 93 93 94 95 O2 Delivery Ventilator Ventilator Ventilator Ventilator 07/03/18 07/03/18 07/04/18 07/04/18 23:07 23:48 00:00 00:00 Temp 98.2 98.2 Pulse 79 Resp 16 20 B/P (MAP) 82/56 (65) Pulse Ox 95 96 96 O2 Delivery Ventilator Ventilator Ventilator Mechanical Ventilator 07/04/18 07/04/18 07/04/18 07/04/18 01:00 02:00 02:55 03:00 Pulse 78 79 76 Resp 20 20 18 B/P (MAP) 90/55 (67) 88/56 (67) 87/54 (65) Pulse Ox 97 96 96 96 O2 Delivery Ventilator Ventilator Ventilator Ventilator 07/04/18 07/04/18 07/04/18 07/04/18 04:00 04:00 05:00 05:17 Temp 98.6 98.6 Pulse 70 73 Resp 18 20 B/P (MAP) 90/54 (66) 95/56 (69) Pulse Ox 97 97 95 O2 Delivery Mechanical Ventilator Ventilator Ventilator Ventilator 07/04/18 07/04/18 07/04/18 07/04/18 06:00 07:00 08:00 08:00 Temp 97.1 97.1 Pulse 73 70 68 Resp 22 22 B/P (MAP) 96/54 (68) 92/56 (68) 92/56 (68) Pulse Ox 95 96 96 O2 Delivery Ventilator Ventilator Mechanical Ventilator Ventilator 07/04/18 07/04/18 07/04/18 07/04/18 08:44 09:00 10:00 11:00 Pulse 68 72 72 Resp 22 22 B/P (MAP) 92/56 (68) 111/65 (80) 96/56 (69) Pulse Ox 96 96 96 96 O2 Delivery Ventilator Ventilator Ventilator Ventilator 07/04/18 07/04/18 07/04/18 07/04/18 12:00 12:00 12:16 13:00 Temp 98.0 98.0 Pulse 70 70 Resp B/P (MAP) 104/61 (75) 90/59 (69) Pulse Ox 96 96 96 O2 Delivery Ventilator Mechanical Ventilator Ventilator Ventilator 07/04/18 07/04/18 07/04/18 07/04/18 13:50 14:00 14:45 15:00 Pulse 80 78 Resp B/P (MAP) 95/63 (74) 119/66 (83) Pulse Ox 94 98 O2 Delivery Ventilator Ventilator Nasal Cannula Ventilator O2 Flow Rate 3.0 07/04/18 07/04/18 07/04/18 07/04/18 16:00 16:00 16:44 17:00 Temp 98.1 98.1 Pulse 74 82 Resp B/P (MAP) 113/66 (82) 114/64 (81) Pulse Ox 99 97 97 O2 Delivery Ventilator Nasal Cannula Nasal Cannula Ventilator O2 Flow Rate 3.0 3.0 07/04/18 07/04/18 07/04/18 07/04/18 18:00 19:00 20:00 20:27 Temp 98.3 98.3 Pulse 78 81 79 Resp 22 22 B/P (MAP) 119/62 (81) 115/62 (79) 136/67 (90) Pulse Ox 97 98 97 96 O2 Delivery Ventilator Nasal Cannula Nasal Cannula Nasal Cannula O2 Flow Rate 3.0 3.0 3.0 Intake and Output 07/03/18 07/03/18 07/04/18 15:00 23:00 07:00 Intake Total 24 ml 751.2 ml 1323.0 ml Output Total 505 ml 365 ml 315 ml Balance -481 ml 386.2 ml 1008.0 ml SERGIO FULLER MD Jul 04, 2018 20:57
[2018-07-05] VITALS (18 sets, daily range): BP systolic 125–173; BP diastolic 65–100
[2018-07-05] MEDS: IV NORMAL SALINE 1000ML BAG 1,000 ML IV SCH ×3 (05:13→21:41)
[2018-07-05] MEDS: LEVOTHYROXINE 100 MCG TABLET PO SCH (05:37)
[2018-07-05] MEDS: methylPREDNISolone SOD SUCC PF 40 MG/ML VIAL. IV SCH ×3 (05:37→21:42)
[2018-07-05] MEDS: ENOXAPARIN 40 MG/0.4 ML SYRINGE. SQ SCH (07:56)
[2018-07-05] MEDS: DIPYRIDAMOLE 25 MG TABLET. PO SCH ×4 (07:57→21:42)
[2018-07-05] MEDS: DOXYCYCLINE HYCLATE 100 MG in IV DEXTROSE 5% 100ML 100 ML IV SCH ×2 (07:57→21:41)
[2018-07-05] MEDS: cefTRIAXone IV Push 1 GM VIAL. IVP SCH (07:57)
[2018-07-05] MEDS: ASPIRIN CHEWABLE 81 MG TABLET. PO SCH (07:57)
[2018-07-05] MEDS: FAMOTIDINE 20 MG/2 ML VIAL IVP SCH ×2 (08:00→21:42)
[2018-07-05] MEDS ORDERED: LEVOTHYROXINE 100 MCG TABLET PO SCH (08:30)
[2018-07-05] MEDS ORDERED: LEVOTHYROXINE 100 MCG TABLET PO ONE (08:45)
[2018-07-05] MEDS: IPRATRPIUM/ALBUTEROL 0.5/2.5MG 3 ML NEBU. NEB SCH ×4 (08:51→19:43)
--- NOTE | 2018-07-05 09:17 | PDOC ---
PULMONARY PROGRESS NOTES Subjective UNDERGOING SPEECH EVALUATION Vitals Vital Signs Date Time Temp Pulse Resp B/P (MAP) Pulse Ox O2 Delivery O2 Flow Rate FiO2 07/05/18 08:52 96 Nasal Cannula 2.5 07/05/18 06:00 64 15 137/74 (95) 07/05/18 04:00 98.4 98.4 ROS: No Nausea, No Chest Pain, No Abdominal Pain, No Increase Cough General: Alert Lungs: Clear Cardiovascular: S1, S2 Abdomen: Soft, Non-tender Neuro Exam: Alert Extremities: No Edema Skin: Warm Labs Laboratory Tests Test 07/03/18 09:45 07/03/18 15:05 07/04/18 04:35 07/04/18 09:00 Troponin I Quantitative 1.558 ng/mL (0.000-0.055) Sodium Level 138 mmol/L (136-145) 140 mmol/L (136-145) Potassium Level 5.1 mmol/L (3.5-5.1) 4.7 mmol/L (3.5-5.1) Chloride Level 101 mmol/L (98-107) 104 mmol/L (98-107) Carbon Dioxide Level 27 mmol/L (21-32) 27 mmol/L (21-32) Anion Gap 10 (6-14) 9 (6-14) Blood Urea Nitrogen 20 mg/dL (8-26) 20 mg/dL (8-26) Creatinine 1.2 mg/dL (0.7-1.3) 1.1 mg/dL (0.7-1.3) Estimated GFR (Cockcroft-Gault) 59.5 65.8 Glucose Level 202 mg/dL (70-99) 170 mg/dL (70-99) Calcium Level 8.3 mg/dL (8.5-10.1) 8.2 mg/dL (8.5-10.1) Magnesium Level 2.0 mg/dL (1.8-2.4) White Blood Count 14.2 x10^3/uL (4.0-11.0) Red Blood Count 3.80 x10^6/uL (4.30-5.70) Hemoglobin 10.8 g/dL (13.0-17.5) Hematocrit 33.7 % (39.0-53.0) Mean Corpuscular Volume 89 fL (79-100) Mean Corpuscular Hemoglobin 28 pg (25-35) Mean Corpuscular Hemoglobin Concent 32 g/dL (31-37) Red Cell Distribution Width 14.1 % (11.5-14.5) Platelet Count 190 x10^3/uL (140-400) Neutrophils (%) (Auto) 90 % (31-73) Lymphocytes (%) (Auto) 4 % (24-48) Monocytes (%) (Auto) 6 % (0-9) Eosinophils (%) (Auto) 0 % (0-3) Basophils (%) (Auto) 0 % (0-3) Neutrophils # (Auto) 12.8 x10^3uL (1.8-7.7) Lymphocytes # (Auto) 0.6 x10^3/uL (1.0-4.8) Monocytes # (Auto) 0.8 x10^3/uL (0.0-1.1) Eosinophils # (Auto) 0.0 x10^3/uL (0.0-0.7) Basophils # (Auto) 0.0 x10^3/uL (0.0-0.2) BUN/Creatinine Ratio 18 (6-20) Total Bilirubin 0.3 mg/dL (0.2-1.0) Aspartate Amino Transf (AST/SGOT) 26 U/L (15-37) Alanine Aminotransferase (ALT/SGPT) 38 U/L (16-63) Alkaline Phosphatase 86 U/L (46-116) Total Protein 5.8 g/dL (6.4-8.2) Albumin 2.7 g/dL (3.4-5.0) Albumin/Globulin Ratio 0.9 (1.0-1.7) O2 Saturation 95 % (92-99) Arterial Blood pH 7.38 (7.35-7.45) Arterial Blood pCO2 at Patient Temp 46 mmHg (35-46) Arterial Blood pO2 at Patient Temp 79 mmHg (65-108) Arterial Blood HCO3 27 mmol/L (21-28) Arterial Blood Base Excess 1 mmol/L (-3-3) FiO2 30 Test 4/29/19 14:25 O2 Saturation 99 % (92-99) Arterial Blood pH 7.36 (7.35-7.45) Arterial Blood pCO2 at Patient Temp 46 mmHg (35-46) Arterial Blood pO2 at Patient Temp 147 mmHg (65-108) Arterial Blood HCO3 25 mmol/L (21-28) Arterial Blood Base Excess 0 mmol/L (-3-3) FiO2 30 Laboratory Tests Test 07/04/18 14:25 O2 Saturation 99 % (92-99) Arterial Blood pH 7.36 (7.35-7.45) Arterial Blood pCO2 at Patient Temp 46 mmHg (35-46) Arterial Blood pO2 at Patient Temp 147 mmHg (65-108) Arterial Blood HCO3 25 mmol/L (21-28) Arterial Blood Base Excess 0 mmol/L (-3-3) FiO2 30 Medications Active Scripts Medications Dose Route/Sig Max Daily Dose Days Date Category Prednisone (Prednisone) 10 Mg Tablet 10 Mg PO DAILY 4 02/25/18 Reported Prednisone (Prednisone) 10 Mg Tablet 20 Mg PO DAILY 4 02/25/18 Reported Prednisone (Prednisone) 10 Mg Tablet 30 Mg PO DAILY 4 02/25/18 Reported Doxycycline Hyclate 100 Mg Tablet 1 Tab PO BID 10 02/25/18 Reported Aggrenox 25 Mg-200 Mg Capsule (Aspirin/Dipyridamole) 1 Each Cpmp.12hr 1 Each PO 05/20/17 Reported Symbicort 160-4.5 Mcg Inhaler (Budesonide/Formoterol Fumarate) 10.2 Gm Hfa.aer.ad 2 Puff IH BID 08/30/16 Reported Atrovent Hfa (Ipratropium [place]) 12.9 Gm Hfa.aer.ad 2 Puff IH QID 08/30/16 Reported Proventil Hfa Inhaler (Albuterol Sulfate) 6.7 Gm Hfa.aer.ad 1 Puff IH PRN Q4HRS PRN 08/30/16 Reported Aspirin 81 Mg Tab.chew 1 Tab PO DAILY 08/30/16 Reported Levothyroxine Sodium 100 Mcg Tablet 1 Tab PO DAILY 08/30/16 Reported Impression . IMPRESSION: 1. Acute on chronic hypoxemic hypercapnic respiratory failure. 2. Acute exacerbation of chronic obstructive pulmonary disease. 3. Possible viral pneumonia. 4. Possible Gram-negative pneumonia. 5. Fever. 6. Leukocytosis. Plan . EXTUBATE 07/04 SPEECH EVAL TRANSFER OUT WILL CONTINUE SUPPORT STEROIDS ANTIBX JOSE DE JESUS RIDLEY MD Jul 05, 2018 09:17
--- NOTE | 2018-07-05 10:04 | PDOC ---
PROGRESS NOTES Chief Complaint Chief Complaint Acute respiratory failure secondary to acute COPD exacerbation and pneumonia s/p intubation and was on low dose of Levophed for pressor support. Possible viral pneumonia and Possible Gram-negative pneumonia. Non-STEMI, most probably type 2 2/2 demand ischemia. Recent Cardiac catheterization in February 2018 showed nonobstructive coronary artery disease.Cardiology input appreciated Acute on chronic hypoxemic hypercapnic respiratory failure Sepsis with fever, leukocytosis, likely gram negative pulmonary infection Hypothyroidism: Continue levothyroxine History of Present Illness History of Present Illness 73-year-old male who has diagnosis of COPD and CAD, came in severe SOB accompanied by confusion in the ER. He was breathing 30-40 minutes as per EMS. H e was confused. Initially trailed on BiPAP but clearly could not tolerate and was subsequently intubated. PH initially was 7.08 then improved to 7.28 with a PCO2 of 105 then improved to 55 on later ABG. He was initially intubated sedated in the ICU. Troponins x2 elevated. Labs initially showed a lactate of 2.6 but now is normal at 1.3. WBC is elevated Extubated yesterday without event. This morning on home 3 liters of O2. Some concern for aspiration by nursing. Maintaining a bit lower urine output per Bradshaw catheter. Plan: PT/OT RN LABOR DELIVERY Bradshaw out if he can ambulate to commode today Cont antibiotics Can downgrade to tele Vitals Vitals Vital Signs Date Time Temp Pulse Resp B/P (MAP) Pulse Ox O2 Delivery O2 Flow Rate FiO2 07/05/18 09:00 76 16 143/81 (101) 97 Nasal Cannula 3.0 07/05/18 07:00 98.3 98.3 Physical Exam General: Alert, Oriented X3, No acute distress Heart: Regular rate Lungs: Wheezing Abdomen: Soft Extremities: No edema Skin: No rashes, No breakdown, No significant lesion Labs LABS Laboratory Tests Test 07/04/18 14:25 O2 Saturation 99 % (92-99) Arterial Blood pH 7.36 (7.35-7.45) Arterial Blood pCO2 at Patient Temp 46 mmHg (35-46) Arterial Blood pO2 at Patient Temp 147 mmHg (65-108) Arterial Blood HCO3 25 mmol/L (21-28) Arterial Blood Base Excess 0 mmol/L (-3-3) FiO2 30 Comment Review of Relevant I have reviewed the following items jaxon (where applicable) has been applied. Labs Laboratory Tests Test 07/03/18 15:05 07/04/18 04:35 07/04/18 09:00 07/04/18 14:25 Sodium Level 138 mmol/L (136-145) 140 mmol/L (136-145) Potassium Level 5.1 mmol/L (3.5-5.1) 4.7 mmol/L (3.5-5.1) Chloride Level 101 mmol/L (98-107) 104 mmol/L (98-107) Carbon Dioxide Level 27 mmol/L (21-32) 27 mmol/L (21-32) Anion Gap 10 (6-14) 9 (6-14) Blood Urea Nitrogen 20 mg/dL (8-26) 20 mg/dL (8-26) Creatinine 1.2 mg/dL (0.7-1.3) 1.1 mg/dL (0.7-1.3) Estimated GFR (Cockcroft-Gault) 59.5 65.8 Glucose Level 202 mg/dL (70-99) 170 mg/dL (70-99) Calcium Level 8.3 mg/dL (8.5-10.1) 8.2 mg/dL (8.5-10.1) Magnesium Level 2.0 mg/dL (1.8-2.4) White Blood Count 14.2 x10^3/uL (4.0-11.0) Red Blood Count 3.80 x10^6/uL (4.30-5.70) Hemoglobin 10.8 g/dL (13.0-17.5) Hematocrit 33.7 % (39.0-53.0) Mean Corpuscular Volume 89 fL (79-100) Mean Corpuscular Hemoglobin 28 pg (25-35) Mean Corpuscular Hemoglobin Concent 32 g/dL (31-37) Red Cell Distribution Width 14.1 % (11.5-14.5) Platelet Count 190 x10^3/uL (140-400) Neutrophils (%) (Auto) 90 % (31-73) Lymphocytes (%) (Auto) 4 % (24-48) Monocytes (%) (Auto) 6 % (0-9) Eosinophils (%) (Auto) 0 % (0-3) Basophils (%) (Auto) 0 % (0-3) Neutrophils # (Auto) 12.8 x10^3uL (1.8-7.7) Lymphocytes # (Auto) 0.6 x10^3/uL (1.0-4.8) Monocytes # (Auto) 0.8 x10^3/uL (0.0-1.1) Eosinophils # (Auto) 0.0 x10^3/uL (0.0-0.7) Basophils # (Auto) 0.0 x10^3/uL (0.0-0.2) BUN/Creatinine Ratio 18 (6-20) Total Bilirubin 0.3 mg/dL (0.2-1.0) Aspartate Amino Transf (AST/SGOT) 26 U/L (15-37) Alanine Aminotransferase (ALT/SGPT) 38 U/L (16-63) Alkaline Phosphatase 86 U/L (46-116) Total Protein 5.8 g/dL (6.4-8.2) Albumin 2.7 g/dL (3.4-5.0) Albumin/Globulin Ratio 0.9 (1.0-1.7) O2 Saturation 95 % (92-99) 99 % (92-99) Arterial Blood pH 7.38 (7.35-7.45) 7.36 (7.35-7.45) Arterial Blood pCO2 at Patient Temp 46 mmHg (35-46) 46 mmHg (35-46) Arterial Blood pO2 at Patient Temp 79 mmHg (65-108) 147 mmHg (65-108) Arterial Blood HCO3 27 mmol/L (21-28) 25 mmol/L (21-28) Arterial Blood Base Excess 1 mmol/L (-3-3) 0 mmol/L (-3-3) FiO2 30 30 Laboratory Tests Test 07/04/18 14:25 O2 Saturation 99 % (92-99) Arterial Blood pH 7.36 (7.35-7.45) Arterial Blood pCO2 at Patient Temp 46 mmHg (35-46) Arterial Blood pO2 at Patient Temp 147 mmHg (65-108) Arterial Blood HCO3 25 mmol/L (21-28) Arterial Blood Base Excess 0 mmol/L (-3-3) FiO2 30 Microbiology 07/03/18 Blood Culture - Preliminary, Resulted NO GROWTH AFTER 1 DAY Medications Current Medications Propofol 0 ml @ As Directed STK-MED ONCE IV ; Start 07/03/18 at 01:59; Stop 07/03/18 at 02:00; Status DC Methylprednisolone Sodium Succinate (SOLU-Medrol 125MG VIAL) 125 mg 1X ONCE IV Last administered on 07/03/18at 02:30; Start 07/03/18 at 02:30; Stop 07/03/18 at 02:44; Status DC Sodium Chloride 1,000 ml @ 1,000 mls/hr 1X ONCE IV Last administered on 07/03/18at 03:00; Start 07/03/18 at 03:00; Stop 07/03/18 at 03:59; Status DC Propofol 100 ml @ 0 mls/hr CONT PRN IV SEE PROTOCOL Last administered on 07/03/18at 02:30; Start 07/03/18 at 02:30; Stop 07/03/18 at 02:44; Status DC Propofol 50 ml @ As Directed STK-MED ONCE IV ; Start 07/03/18 at 02:37; Stop 07/03/18 at 02:38; Status DC Rocuronium [place] (Zemuron) 50 mg STK-MED ONCE .ROUTE ; Start 07/03/18 at 02:38; Stop 07/03/18 at 02:39; Status DC Propofol 100 ml @ 0 mls/hr CONT PRN IV SEE PROTOCOL Last administered on 07/03/18at 05:00; Start 07/03/18 at 02:44 Propofol 50 ml @ 1.2 mls/hr 1X ONCE IV ; Start 07/03/18 at 03:00; Stop 07/04/18 at 20:31; Status DC Succinylcholine Chloride (Anectine) 200 mg STK-MED ONCE .ROUTE ; Start 07/03/18 at 03:27; Stop 07/03/18 at 03:28; Status DC Ondansetron HCl (Zofran) 4 mg PRN Q8HRS PRN IV NAUSEA/VOMITING 1ST CHOICE; Start 07/03/18 at 03:30; Stop 07/03/18 at 08:53; Status DC Albuterol/ Ipratropium (Duoneb) 3 ml RTQID NEB Last administered on 07/03/18at 19:49; Start 07/03/18 at 08:00; Stop 07/04/18 at 07:59; Status DC Dextrose/Sodium Chloride 1,000 ml @ 125 mls/hr 1X ONCE IV Last administered on 07/03/18 05:01; Start 07/03/18 at 03:45; Stop 07/03/18 at 11:44; Status DC Fentanyl Citrate (Fentanyl 2ml Vial) 50 mcg PRN Q1HR PRN IV SEVERE PAIN Last administered on 07/03/18 22:20; Start 07/03/18 at 05:00 Midazolam HCl 100 ml @ 5 mls/hr CONT PRN IV SEE I/O RECORD Last administered on 07/03/18 07:59; Start 07/03/18 at 07:45 Ondansetron HCl (Zofran) 4 mg PRN Q6HRS PRN IV NAUSEA/VOMITING 1ST CHOICE; Start 07/03/18 at 09:00 Sodium Chloride 1,000 ml @ 100 mls/hr Q10H IV Last administered on 07/05/18 05:13; Start 07/03/18 at 09:00 Acetaminophen (Tylenol) 650 mg PRN Q6HRS PRN PEG MILD PAIN / TEMP Last administered on 07/03/18 09:30; Start 07/03/18 at 09:00 Enoxaparin Sodium (Lovenox 40mg Syringe) 40 mg Q24H SQ Last administered on 07/05/18 07:56; Start 07/03/18 at 09:00 Pantoprazole Sodium (PROTONIX VIAL for IV PUSH) 40 mg 1X ONCE IVP Last administered on 07/03/18 09:31; Start 07/03/18 at 09:00; Stop 07/03/18 at 09:01; Status DC Pantoprazole Sodium (PROTONIX VIAL for IV PUSH) 40 mg DAILYAC IVP Last administered on 07/04/18 09:26; Start 07/04/18 at 07:30; Stop 07/05/18 at 07:43; Status DC Norepinephrine Bitartrate 250 ml @ 1.875 mls/ hr CONT PRN IV SEE I/O RECORD Last administered on 07/03/18 09:31; Start 07/03/18 at 09:00 Aspirin (Children'S Aspirin) 81 mg DAILY PO Last administered on 07/05/18 07:57; Start 07/03/18 at 09:00 Levothyroxine Sodium (Synthroid) 100 mcg DAILY06 PO Last administered on 07/05/18 05:37; Start 07/03/18 at 09:00 Dipyridamole (Persantine) 25 mg QIDPMEDS PO Last administered on 07/05/18 07:57; Start 07/03/18 at 10:00 Methylprednisolone Sodium Succinate (SOLU-Medrol 40MG VIAL) 40 mg Q8HRS IV Last administered on 07/05/18at 05:37; Start 07/03/18 at 14:00 Ceftriaxone Sodium (Rocephin) 1 gm Q24H IVP Last administered on 07/05/18at 07 :57; Start 07/03/18 at 10:30 Doxycycline Hyclate 100 mg/ Dextrose 100 ml @ 50 mls/hr 1X ONCE IV Last administered on 07/03/18at 15:23; Start 07/03/18 at 15:15; Stop 07/03/18 at 17:14; Status DC Doxycycline Hyclate 100 mg/ Dextrose 100 ml @ 50 mls/hr Q12HR IV Last administered on 07/05/18at 07:57; Start 07/03/18 at 21:00 Albuterol/ Ipratropium (Duoneb) 3 ml RTQID NEB Last administered on 07/05/18at 08:51; Start 07/04/18 at 12:30 Propofol (Diprivan) 500 mg STK-MED ONCE IV ; Start 07/03/18 at 01:29; Stop 07/04/18 at 13:37; Status DC Famotidine (Pepcid Vial) 20 mg BID IVP Last administered on 07/05/18at 08:00; Start 07/05/18 at 09:00 Levothyroxine Sodium (Synthroid) 100 mcg DAILY06 PO ; Start 07/05/18 at 08:30; Status UNV Levothyroxine Sodium (Synthroid) 100 mcg 1X ONCE PO ; Start 07/05/18 at 08:45; Stop 07/05/18 at 08:46; Status UNV Active Scripts Active Reported Prednisone (Prednisone) 10 Mg Tablet 10 Mg PO DAILY 4 Days Prednisone (Prednisone) 10 Mg Tablet 20 Mg PO DAILY 4 Days Prednisone (Prednisone) 10 Mg Tablet 30 Mg PO DAILY 4 Days Doxycycline Hyclate 100 Mg Tablet 1 Tab PO BID 10 Days Aggrenox 25 Mg-200 Mg Capsule (Aspirin/Dipyridamole) 1 Each Cpmp.12hr 1 Each PO Symbicort 160-4.5 Mcg Inhaler (Budesonide/Formoterol Fumarate) 10.2 Gm Hfa.aer.ad 2 Puff IH BID Atrovent Hfa (Ipratropium [place]) 12.9 Gm Hfa.aer.ad 2 Puff IH QID Proventil Hfa Inhaler (Albuterol Sulfate) 6.7 Gm Hfa.aer.ad 1 Puff IH PRN Q4HRS PRN Aspirin 81 Mg Tab.chew 1 Tab PO DAILY Levothyroxine Sodium 100 Mcg Tablet 1 Tab PO DAILY Vitals/I & O Vital Sign - Last 24 Hours 07/04/18 07/04/18 07/04/18 07/04/18 11:00 12:00 12:00 12:16 Temp 98.0 98.0 Pulse 72 70 Resp 22 22 B/P (MAP) 96/56 (69) 104/61 (75) Pulse Ox 96 96 96 O2 Delivery Ventilator Ventilator Mechanical Ventilator Ventilator 07/04/18 07/04/18 07/04/18 07/04/18 13:00 13:50 14:00 14:45 Pulse 70 80 Resp 22 22 B/P (MAP) 90/59 (69) 95/63 (74) Pulse Ox 96 94 O2 Delivery Ventilator Ventilator Ventilator Nasal Cannula O2 Flow Rate 3.0 07/04/18 07/04/18 07/04/18 07/04/18 15:00 16:00 16:00 16:44 Temp 98.1 98.1 Pulse 78 74 Resp 22 22 B/P (MAP) 119/66 (83) 113/66 (82) Pulse Ox 98 99 97 O2 Delivery Ventilator Ventilator Nasal Cannula Nasal Cannula O2 Flow Rate 3.0 3.0 07/04/18 07/04/18 07/04/18 07/04/18 17:00 18:00 19:00 20:00 Temp 98.3 98.3 Pulse 82 78 81 Resp 22 22 20 B/P (MAP) 114/64 (81) 119/62 (81) 115/62 (79) Pulse Ox 97 97 98 O2 Delivery Ventilator Ventilator Nasal Cannula Nasal Cannula O2 Flow Rate 3.0 3.0 07/04/18 07/04/18 07/04/18 07/04/18 20:00 20:27 22:00 23:00 Pulse 79 80 85 Resp 22 16 22 B/P (MAP) 136/67 (90) 119/67 (84) 123/64 (83) Pulse Ox 97 96 97 97 O2 Delivery Nasal Cannula Nasal Cannula Nasal Cannula Nasal Cannula O2 Flow Rate 3.0 3.0 2.0 2.0 07/04/18 07/05/18 07/05/18 07/05/18 23:42 00:00 01:00 02:00 Temp 98.8 98.8 Pulse 72 71 66 Resp 18 16 16 B/P (MAP) 125/68 (87) 128/66 (86) 129/65 (86) Pulse Ox 99 98 98 O2 Delivery Nasal Cannula Nasal Cannula Nasal Cannula Nasal Cannula O2 Flow Rate 2.0 2.0 2.0 2.0 07/05/18 07/05/18 07/05/18 07/05/18 03:00 03:41 04:00 05:00 Temp 98.4 98.4 Pulse 65 71 63 Resp 16 17 15 B/P (MAP) 128/68 (88) 131/69 (89) 136/73 (94) Pulse Ox 98 99 99 O2 Delivery Nasal Cannula Nasal Cannula Nasal Cannula Nasal Cannula O2 Flow Rate 2.0 2.0 2.0 2.0 07/05/18 07/05/18 07/05/18 07/05/18 06:00 07:00 08:00 08:52 Temp 98.3 98.3 Pulse 64 66 68 Resp 15 17 17 B/P (MAP) 137/74 (95) 147/77 (100) 152/81 (104) Pulse Ox 96 97 96 96 O2 Delivery Nasal Cannula Nasal Cannula Nasal Cannula Nasal Cannula O2 Flow Rate 2.0 2.0 2.0 2.5 07/05/18 09:00 Pulse 76 Resp 16 B/P (MAP) 143/81 (101) Pulse Ox 97 O2 Delivery Nasal Cannula O2 Flow Rate 3.0 Intake and Output 07/04/18 07/04/18 07/05/18 15:00 23:00 07:00 Intake Total 100 ml 1079 ml Output Total 490 ml 1225 ml 490 ml Balance -490 ml -1125 ml 589 ml Nutrition Consultation Dietary Evaluation: Recommendations by RD: Increase Calorie Intake Comments: REC if pt remains intubated, start TF per following: Vital AF@20 ml/hr, increase 10 ml q8 hrs as tolerated to goal rate 55 ml/hr w/100 ml water flushes q4 hrs or flushes per MD Expected Outcomes/Goals: Initiation of nutrition within 24 - 48 hrs while pt remains intubated Malnutrition Findings: Body Fat Depletion (Non Severe: Mild Depletion Weight Status: Appropriate JANETH MARIN MD Jul 05, 2018 10:04
[2018-07-05] MEDS ORDERED: BARIUM SULFATE 40% (APPLE) 148 GM PWD. PO ONE (14:00)
--- NOTE | 2018-07-05 14:01 | RAD ---
Video dysphasia study, 07/05/2018: History: Dysphasia The swallowing mechanism was examined fluoroscopically in the lateral projection while the patient ingested a variety of food materials with barium. 2.0 minutes of fluoroscopy time was utilized. One video fluoroscopic loop was recorded by a member of the speech Department. The patient demonstrated good oral control of the barium materials. There was prompt initiation of pharyngeal peristalsis. When ingesting the thin liquids there was minimal intermittent laryngeal penetration without blanca aspiration. With the thicker materials and barium coated solids there was no significant laryngeal penetration or aspiration. The majority of the barium bolus passed normally through the cervical esophagus. There was minimal intermittent vallecular residue. IMPRESSION: No evidence of aspiration.
[2018-07-06 03:00] VITALS: BP 154/94
[2018-07-06] MEDS ORDERED: ALBUTEROL SULFATE 2.5 MG/3 ML NEBU. NEB PRN (04:15)
[2018-07-06] MEDS: IPRATRPIUM/ALBUTEROL 0.5/2.5MG 3 ML NEBU. NEB SCH ×4 (04:38→20:32)
[2018-07-06] MEDS: methylPREDNISolone SOD SUCC PF 40 MG/ML VIAL. IV SCH ×3 (05:59→22:00)
[2018-07-06] MEDS: LEVOTHYROXINE 100 MCG TABLET PO SCH (05:59)
[2018-07-06 07:10] VITALS: BP 157/71
[2018-07-06] MEDS: IV NORMAL SALINE 1000ML BAG 1,000 ML IV SCH ×2 (09:15→18:22)
[2018-07-06] MEDS: DOXYCYCLINE HYCLATE 100 MG in IV DEXTROSE 5% 100ML 100 ML IV SCH ×2 (09:16→22:00)
[2018-07-06] MEDS: ASPIRIN CHEWABLE 81 MG TABLET. PO SCH (09:17)
[2018-07-06] MEDS: DIPYRIDAMOLE 25 MG TABLET. PO SCH ×4 (09:17→21:59)
[2018-07-06] MEDS: ENOXAPARIN 40 MG/0.4 ML SYRINGE. SQ SCH (09:18)
[2018-07-06] MEDS: FAMOTIDINE 20 MG/2 ML VIAL IVP SCH ×2 (09:18→22:00)
[2018-07-06] MEDS: cefTRIAXone IV Push 1 GM VIAL. IVP SCH (11:14)
--- NOTE | 2018-07-06 13:00 | PDOC ---
PROGRESS NOTES Chief Complaint Chief Complaint Acute respiratory failure secondary to acute COPD exacerbation and pneumonia s/p intubation and was on low dose of Levophed for pressor support. Possible viral pneumonia and Possible Gram-negative pneumonia. Non-STEMI, most probably type 2 2/2 demand ischemia. Recent Cardiac catheterization in February 2018 showed nonobstructive coronary artery disease.Cardiology input appreciated Acute on chronic hypoxemic hypercapnic respiratory failure Sepsis with fever, leukocytosis, likely gram negative pulmonary infection Hypothyroidism: Continue levothyroxine History of Present Illness History of Present Illness Patient seen and examined. Discussed with nurse. Patient able to speak with ease and has no new complaints. Vitals Vitals Vital Signs Date Time Temp Pulse Resp B/P (MAP) Pulse Ox O2 Delivery O2 Flow Rate FiO2 07/06/18 11:13 97.9 83 22 96 Nasal Cannula 3.0 97.9 Physical Exam General: Alert, Oriented X3, No acute distress Heart: Regular rate Lungs: Wheezing Abdomen: Soft Extremities: No edema Skin: No rashes, No breakdown, No significant lesion Review of Systems Review of Systems Patient shows tremulations of hands Patient denies abdominal pain Assessment and Plan Assessmemt and Plan Assessment: Acute respiratory failure secondary to acute COPD exacerbation and pneumonia. Possible viral pneumonia and Possible Gram-negative pneumonia. Non-STEMI, most probably type 2/demand ischemia. Acute on chronic hypoxemic hypercapnic respiratory failure SIRS - treating as sepsis with fever, leukocytosis, likely gram negative pulmonary infection Hypothyroidism Plan: IV doxycycline 100 mL @ 50mL/hr Q12H IV ceftriaxone 1gm Q24H IV Methylprednisolone 40 mg Q8H Duonebs O2 NC Labs DVT PPx Home meds Comment Review of Relevant I have reviewed the following items jaxon (where applicable) has been applied. Labs Laboratory Tests Test 07/04/18 14:25 O2 Saturation 99 % (92-99) Arterial Blood pH 7.36 (7.35-7.45) Arterial Blood pCO2 at Patient Temp 46 mmHg (35-46) Arterial Blood pO2 at Patient Temp 147 mmHg (65-108) Arterial Blood HCO3 25 mmol/L (21-28) Arterial Blood Base Excess 0 mmol/L (-3-3) FiO2 30 Microbiology 07/03/18 Blood Culture - Preliminary, Resulted NO GROWTH AFTER 3 DAYS Medications Current Medications Propofol 0 ml @ As Directed STK-MED ONCE IV ; Start 07/03/18 at 01:59; Stop 07/03/18 at 02:00; Status DC Methylprednisolone Sodium Succinate (SOLU-Medrol 125MG VIAL) 125 mg 1X ONCE IV Last administered on 07/03/18at 02:30; Start 07/03/18 at 02:30; Stop 07/03/18 at 02:44; Status DC Sodium Chloride 1,000 ml @ 1,000 mls/hr 1X ONCE IV Last administered on 07/03/18at 03:00; Start 07/03/18 at 03:00; Stop 07/03/18 at 03:59; Status DC Propofol 100 ml @ 0 mls/hr CONT PRN IV SEE PROTOCOL Last administered on 07/03/18at 02:30; Start 07/03/18 at 02:30; Stop 07/03/18 at 02:44; Status DC Propofol 50 ml @ As Directed STK-MED ONCE IV ; Start 07/03/18 at 02:37; Stop 07/03/18 at 02:38; Status DC Rocuronium [place] (Zemuron) 50 mg STK-MED ONCE .ROUTE ; Start 07/03/18 at 02:38; Stop 07/03/18 at 02:39; Status DC Propofol 100 ml @ 0 mls/hr CONT PRN IV SEE PROTOCOL Last administered on 07/03/18at 05:00; Start 07/03/18 at 02:44 Propofol 50 ml @ 1.2 mls/hr 1X ONCE IV ; Start 07/03/18 at 03:00; Stop 07/04/18 at 20:31; Status DC Succinylcholine Chloride (Anectine) 200 mg STK-MED ONCE .ROUTE ; Start 07/03/18 at 03:27; Stop 07/03/18 at 03:28; Status DC Ondansetron HCl (Zofran) 4 mg PRN Q8HRS PRN IV NAUSEA/VOMITING 1ST CHOICE; Start 07/03/18 at 03:30; Stop 07/03/18 at 08:53; Status DC Albuterol/ Ipratropium (Duoneb) 3 ml RTQID NEB Last administered on 07/03/18at 19:49; Start 07/03/18 at 08:00; Stop 07/04/18 at 07:59; Status DC Dextrose/Sodium Chloride 1,000 ml @ 125 mls/hr 1X ONCE IV Last administered on 07/03/18 05:01; Start 07/03/18 at 03:45; Stop 07/03/18 at 11:44; Status DC Fentanyl Citrate (Fentanyl 2ml Vial) 50 mcg PRN Q1HR PRN IV SEVERE PAIN Last administered on 07/03/18 22:20; Start 07/03/18 at 05:00 Midazolam HCl 100 ml @ 5 mls/hr CONT PRN IV SEE I/O RECORD Last administered on 07/03/18 07:59; Start 07/03/18 at 07:45 Ondansetron HCl (Zofran) 4 mg PRN Q6HRS PRN IV NAUSEA/VOMITING 1ST CHOICE; Start 07/03/18 at 09:00 Sodium Chloride 1,000 ml @ 100 mls/hr Q10H IV Last administered on 07/06/18 09:15; Start 07/03/18 at 09:00 Acetaminophen (Tylenol) 650 mg PRN Q6HRS PRN PEG MILD PAIN / TEMP Last administered on 07/03/18 09:30; Start 07/03/18 at 09:00 Enoxaparin Sodium (Lovenox 40mg Syringe) 40 mg Q24H SQ Last administered on 07/06/18 09:18; Start 07/03/18 at 09:00 Pantoprazole Sodium (PROTONIX VIAL for IV PUSH) 40 mg 1X ONCE IVP Last administered on 07/03/18 09:31; Start 07/03/18 at 09:00; Stop 07/03/18 at 09:01; Status DC Pantoprazole Sodium (PROTONIX VIAL for IV PUSH) 40 mg DAILYAC IVP Last administered on 07/04/18 09:26; Start 07/04/18 at 07:30; Stop 07/05/18 at 07:43; Status DC Norepinephrine Bitartrate 250 ml @ 1.875 mls/ hr CONT PRN IV SEE I/O RECORD Last administered on 07/03/18 09:31; Start 07/03/18 at 09:00 Aspirin (Children'S Aspirin) 81 mg DAILY PO Last administered on 07/06/18 09:17; Start 07/03/18 at 09:00 Levothyroxine Sodium (Synthroid) 100 mcg DAILY06 PO Last administered on 07/06/18 05:59; Start 07/03/18 at 09:00 Dipyridamole (Persantine) 25 mg QIDPMEDS PO Last administered on 07/06/18at 09:17; Start 07/03/18 at 10:00 Methylprednisolone Sodium Succinate (SOLU-Medrol 40MG VIAL) 40 mg Q8HRS IV Last administered on 07/06/18at 05:59; Start 07/03/18 at 14:00 Ceftriaxone Sodium (Rocephin) 1 gm Q24H IVP Last administered on 07/06/18at 11:14; Start 07/03/18 at 10:30 Doxycycline Hyclate 100 mg/ Dextrose 100 ml @ 50 mls/hr 1X ONCE IV Last administered on 07/03/18at 15:23; Start 07/03/18 at 15:15; Stop 07/03/18 at 17:14; Status DC Doxycycline Hyclate 100 mg/ Dextrose 100 ml @ 50 mls/hr Q12HR IV Last administered on 07/06/18at 09:16; Start 07/03/18 at 21:00 Albuterol/ Ipratropium (Duoneb) 3 ml RTQID NEB Last administered on 07/06/18at 11:11; Start 07/04/18 at 12:30 Propofol (Diprivan) 500 mg STK-MED ONCE IV ; Start 07/03/18 at 01:29; Stop 07/04/18 at 13:37; Status DC Famotidine (Pepcid Vial) 20 mg BID IVP Last administered on 07/06/18at 09:18; Start 07/05/18 at 09:00 Levothyroxine Sodium (Synthroid) 100 mcg DAILY06 PO ; Start 07/05/18 at 08:30; Status UNV Levothyroxine Sodium (Synthroid) 100 mcg 1X ONCE PO ; Start 07/05/18 at 08:45; Stop 07/05/18 at 08:46; Status UNV Barium Sulfate (Varibar Thin Liquid [place]) 148 gm 1X ONCE PO Last administered on 07/05/18at 13:55; Start 07/05/18 at 14:00; Stop 07/05/18 at 14:01; Status DC Albuterol Sulfate (Ventolin Neb Soln) 2.5 mg PRN Q4HRS PRN NEB SHORTNESS OF BR EATH; Start 07/06/18 at 04:15 Active Scripts Active Reported Prednisone (Prednisone) 10 Mg Tablet 10 Mg PO DAILY 4 Days Prednisone (Prednisone) 10 Mg Tablet 20 Mg PO DAILY 4 Days Prednisone (Prednisone) 10 Mg Tablet 30 Mg PO DAILY 4 Days Doxycycline Hyclate 100 Mg Tablet 1 Tab PO BID 10 Days Aggrenox 25 Mg-200 Mg Capsule (Aspirin/Dipyridamole) 1 Each Cpmp.12hr 1 Each PO Symbicort 160-4.5 Mcg Inhaler (Budesonide/Formoterol Fumarate) 10.2 Gm Hfa.aer.ad 2 Puff IH BID Atrovent Hfa (Ipratropium [place]) 12.9 Gm Hfa.aer.ad 2 Puff IH QID Proventil Hfa Inhaler (Albuterol Sulfate) 6.7 Gm Hfa.aer.ad 1 Puff IH PRN Q4HRS PRN Aspirin 81 Mg Tab.chew 1 Tab PO DAILY Levothyroxine Sodium 100 Mcg Tablet 1 Tab PO DAILY Vitals/I & O Vital Sign - Last 24 Hours 07/05/18 07/05/18 07/05/18 07/05/18 13:00 14:00 14:45 15:00 Temp 97.6 97.6 97.6 97.6 Pulse 76 77 77 Resp 16 20 20 B/P (MAP) 149/100 (116) 152/86 (108) 152/86 (108) Pulse Ox 95 94 95 94 O2 Delivery Nasal Cannula Nasal Cannula Nasal Cannula Nasal Cannula O2 Flow Rate 3.0 3.0 3.0 3.0 07/05/18 07/05/18 07/05/18 07/05/18 19:00 19:45 20:00 23:00 Temp 97.9 98.5 97.9 98.5 Pulse 69 64 Resp 18 20 B/P (MAP) 157/86 (109) 155/84 (107) Pulse Ox 96 98 95 O2 Delivery Nasal Cannula Nasal Cannula Nasal Cannula Nasal Cannula O2 Flow Rate 3.0 3.0 3.0 3.0 07/06/18 07/06/18 07/06/18 07/06/18 03:00 04:37 07:10 11:12 Temp 97.7 97.7 97.7 97.7 Pulse 73 63 Resp 20 20 B/P (MAP) 154/94 (114) 157/71 (99) Pulse Ox 95 96 96 96 O2 Delivery Nasal Cannula Nasal Cannula Nasal Cannula Nasal Cannula O2 Flow Rate 3.0 3.0 3.0 3.0 07/06/18 11:13 Temp 97.9 97.9 Pulse 83 Resp 22 B/P (MAP) Pulse Ox 96 O2 Delivery Nasal Cannula O2 Flow Rate 3.0 Intake and Output 07/05/18 07/05/18 07/06/18 15:00 23:00 07:00 Intake Total 900 ml Output Total 320 ml 650 ml 1750 ml Balance -320 ml -650 ml -850 ml Nutrition Consultation Dietary Evaluation: Recommendations by RD: Increase Calorie Intake Comments: REC if pt remains intubated, start TF per following: Vital AF@20 ml/hr, increase 10 ml q8 hrs as tolerated to goal rate 55 ml/hr w/100 ml water flushes q4 hrs or flushes per MD Expected Outcomes/Goals: Initiation of nutrition within 24 - 48 hrs while pt remains intubated Malnutrition Findings: Body Fat Depletion (Non Severe: Mild Depletion Weight Status: Appropriate CASTKEITH,NIAL K III DO July 06, 2018 13:00
[2018-07-06 14:36] VITALS: BP 134/92
--- NOTE | 2018-07-06 17:39 | PDOC ---
PULMONARY PROGRESS NOTES Subjective not more soa Vitals Vital Signs Date Time Temp Pulse Resp B/P (MAP) Pulse Ox O2 Delivery O2 Flow Rate FiO2 07/06/18 15:30 Nasal Cannula 3.0 07/06/18 14:36 98.2 64 20 134/92 (106) 99 98.2 ROS: No Nausea, No Chest Pain, No Abdominal Pain, No Increase Cough General: Alert Lungs: Wheezing Cardiovascular: S1, S2 Abdomen: Soft, Non-tender Neuro Exam: Alert Extremities: No Edema Skin: Warm Medications Active Scripts Medications Dose Route/Sig Max Daily Dose Days Date Category Prednisone (Prednisone) 10 Mg Tablet 10 Mg PO DAILY 4 02/25/18 Reported Prednisone (Prednisone) 10 Mg Tablet 20 Mg PO DAILY 4 02/25/18 Reported Prednisone (Prednisone) 10 Mg Tablet 30 Mg PO DAILY 4 02/25/18 Reported Doxycycline Hyclate 100 Mg Tablet 1 Tab PO BID 10 02/25/18 Reported Aggrenox 25 Mg-200 Mg Capsule (Aspirin/Dipyridamole) 1 Each Cpmp.12hr 1 Each PO 05/20/17 Reported Symbicort 160-4.5 Mcg Inhaler (Budesonide/Formoterol Fumarate) 10.2 Gm Hfa.aer.ad 2 Puff IH BID 08/30/16 Reported Atrovent Hfa (Ipratropium [place]) 12.9 Gm Hfa.aer.ad 2 Puff IH QID 08/30/16 Reported Proventil Hfa Inhaler (Albuterol Sulfate) 6.7 Gm Hfa.aer.ad 1 Puff IH PRN Q4HRS PRN 08/30/16 Reported Aspirin 81 Mg Tab.chew 1 Tab PO DAILY 08/30/16 Reported Levothyroxine Sodium 100 Mcg Tablet 1 Tab PO DAILY 08/30/16 Reported Impression . IMPRESSION: 1. Acute on chronic hypoxemic hypercapnic respiratory failure. 2. Acute exacerbation of chronic obstructive pulmonary disease. 3. Possible viral pneumonia. 4. Possible Gram-negative pneumonia. 5. Fever. 6. Leukocytosis. Plan . EXTUBATE 07/04 FOLLOW SPEECH REC OK TO D/C SOON STEROIDS ANTIBX JOSE DE JESUS RIDLEY MD July 06, 2018 17:39
[2018-07-06 19:30] VITALS: BP 165/96
[2018-07-06 23:08] VITALS: BP 162/84
[2018-07-07 03:36] VITALS: BP 164/97
[2018-07-07] MEDS: methylPREDNISolone SOD SUCC PF 40 MG/ML VIAL. IV SCH ×2 (06:17→14:03)
[2018-07-07] MEDS: LEVOTHYROXINE 100 MCG TABLET PO SCH (06:17)
[2018-07-07 07:10] VITALS: BP 173/98
[2018-07-07] MEDS: IPRATRPIUM/ALBUTEROL 0.5/2.5MG 3 ML NEBU. NEB SCH ×2 (07:23→11:48)
[2018-07-07 07:56] LABS: CALCIUM 8.6 mg/dL (8.5-10.1); CREATININE 0.9 mg/dL (0.7-1.3); GFR 82.9; POTASSIUM 4.3 mmol/L (3.5-5.1)
[2018-07-07 08:03] LABS: BASO % 0 % (0-3); EOS % 0 % (0-3); HEMATOCRIT 34.9 % (39.0-53.0); HEMOGLOBIN 11.6 g/dL (13.0-17.5); LYMPH % 9 % (24-48); MEAN CORPUSCULAR HEMOGLOBIN 29 pg (25-35); MEAN CORPUSCULAR HGB CONC 33 g/dL (31-37); MEAN CORPUSCULAR VOLUME 87 fL (79-100); MONO # 0.9 x10^3/uL (0.0-1.1); MONO % 8 % (0-9); NEUT # 9.3 x10^3uL (1.8-7.7); NEUT % 83 % (31-73); PLATELET COUNT 259 x10^3/uL (140-400); RED BLOOD COUNT 4.02 x10^6/uL (4.30-5.70); RED CELL DISTRIBUTION WIDTH 14.4 % (11.5-14.5); WHITE BLOOD COUNT 11.3 x10^3/uL (4.0-11.0)
[2018-07-07] MEDS: IV NORMAL SALINE 1000ML BAG 1,000 ML IV SCH ×2 (08:58→12:36)
[2018-07-07] MEDS: FAMOTIDINE 20 MG/2 ML VIAL IVP SCH (08:59)
[2018-07-07] MEDS: cefTRIAXone IV Push 1 GM VIAL. IVP SCH (08:59)
[2018-07-07] MEDS: DOXYCYCLINE HYCLATE 100 MG in IV DEXTROSE 5% 100ML 100 ML IV SCH (08:59)
[2018-07-07] MEDS: ASPIRIN CHEWABLE 81 MG TABLET. PO SCH (09:00)
[2018-07-07] MEDS: ENOXAPARIN 40 MG/0.4 ML SYRINGE. SQ SCH (09:00)
[2018-07-07] MEDS: DIPYRIDAMOLE 25 MG TABLET. PO SCH ×2 (09:00→14:03)
[2018-07-07 11:50] VITALS: BP 173/86
--- NOTE | 2018-07-07 11:59 | PDOC ---
PULMONARY PROGRESS NOTES Subjective not more soa Vitals Vital Signs Date Time Temp Pulse Resp B/P (MAP) Pulse Ox O2 Delivery O2 Flow Rate FiO2 07/07/18 11:49 Nasal Cannula 3.0 07/07/18 07:25 96 07/07/18 07:10 97.7 62 20 173/98 (123) 97.7 ROS: No Nausea, No Chest Pain, No Abdominal Pain, No Increase Cough General: Alert Lungs: Clear Cardiovascular: S1, S2 Abdomen: Soft, Non-tender Neuro Exam: Alert Extremities: No Edema Skin: Warm Labs Laboratory Tests Test 07/07/18 07:20 White Blood Count 11.3 x10^3/uL (4.0-11.0) Red Blood Count 4.02 x10^6/uL (4.30-5.70) Hemoglobin 11.6 g/dL (13.0-17.5) Hematocrit 34.9 % (39.0-53.0) Mean Corpuscular Volume 87 fL (79-100) Mean Corpuscular Hemoglobin 29 pg (25-35) Mean Corpuscular Hemoglobin Concent 33 g/dL (31-37) Red Cell Distribution Width 14.4 % (11.5-14.5) Platelet Count 259 x10^3/uL (140-400) Neutrophils (%) (Auto) 83 % (31-73) Lymphocytes (%) (Auto) 9 % (24-48) Monocytes (%) (Auto) 8 % (0-9) Eosinophils (%) (Auto) 0 % (0-3) Basophils (%) (Auto) 0 % (0-3) Neutrophils # (Auto) 9.3 x10^3uL (1.8-7.7) Lymphocytes # (Auto) 1.0 x10^3/uL (1.0-4.8) Monocytes # (Auto) 0.9 x10^3/uL (0.0-1.1) Eosinophils # (Auto) 0.0 x10^3/uL (0.0-0.7) Basophils # (Auto) 0.0 x10^3/uL (0.0-0.2) Sodium Level 140 mmol/L (136-145) Potassium Level 4.3 mmol/L (3.5-5.1) Chloride Level 105 mmol/L (98-107) Carbon Dioxide Level 30 mmol/L (21-32) Anion Gap 5 (6-14) Blood Urea Nitrogen 20 mg/dL (8-26) Creatinine 0.9 mg/dL (0.7-1.3) Estimated GFR (Cockcroft-Gault) 82.9 Glucose Level 169 mg/dL (70-99) Calcium Level 8.6 mg/dL (8.5-10.1) Laboratory Tests Test 07/07/18 07:20 White Blood Count 11.3 x10^3/uL (4.0-11.0) Red Blood Count 4.02 x10^6/uL (4.30-5.70) Hemoglobin 11.6 g/dL (13.0-17.5) Hematocrit 34.9 % (39.0-53.0) Mean Corpuscular Volume 87 fL (79-100) Mean Corpuscular Hemoglobin 29 pg (25-35) Mean Corpuscular Hemoglobin Concent 33 g/dL (31-37) Red Cell Distribution Width 14.4 % (11.5-14.5) Platelet Count 259 x10^3/uL (140-400) Neutrophils (%) (Auto) 83 % (31-73) Lymphocytes (%) (Auto) 9 % (24-48) Monocytes (%) (Auto) 8 % (0-9) Eosinophils (%) (Auto) 0 % (0-3) Basophils (%) (Auto) 0 % (0-3) Neutrophils # (Auto) 9.3 x10^3uL (1.8-7.7) Lymphocytes # (Auto) 1.0 x10^3/uL (1.0-4.8) Monocytes # (Auto) 0.9 x10^3/uL (0.0-1.1) Eosinophils # (Auto) 0.0 x10^3/uL (0.0-0.7) Basophils # (Auto) 0.0 x10^3/uL (0.0-0.2) Sodium Level 140 mmol/L (136-145) Potassium Level 4.3 mmol/L (3.5-5.1) Chloride Level 105 mmol/L (98-107) Carbon Dioxide Level 30 mmol/L (21-32) Anion Gap 5 (6-14) Blood Urea Nitrogen 20 mg/dL (8-26) Creatinine 0.9 mg/dL (0.7-1.3) Estimated GFR (Cockcroft-Gault) 82.9 Glucose Level 169 mg/dL (70-99) Calcium Level 8.6 mg/dL (8.5-10.1) Medications Active Scripts Medications Dose Route/Sig Max Daily Dose Days Date Category Prednisone (Prednisone) 10 Mg Tablet 10 Mg PO DAILY 4 02/25/18 Reported Prednisone (Prednisone) 10 Mg Tablet 20 Mg PO DAILY 4 02/25/18 Reported Prednisone (Prednisone) 10 Mg Tablet 30 Mg PO DAILY 4 02/25/18 Reported Doxycycline Hyclate 100 Mg Tablet 1 Tab PO BID 10 02/25/18 Reported Aggrenox 25 Mg-200 Mg Capsule (Aspirin/Dipyridamole) 1 Each Cpmp.12hr 1 Each PO 05/20/17 Reported Symbicort 160-4.5 Mcg Inhaler (Budesonide/Formoterol Fumarate) 10.2 Gm Hfa.aer.ad 2 Puff IH BID 08/30/16 Reported Atrovent Hfa (Ipratropium [place]) 12.9 Gm Hfa.aer.ad 2 Puff IH QID 08/30/16 Reported Proventil Hfa Inhaler (Albuterol Sulfate) 6.7 Gm Hfa.aer.ad 1 Puff IH PRN Q4HRS PRN 08/30/16 Reported Aspirin 81 Mg Tab.chew 1 Tab PO DAILY 08/30/16 Reported Levothyroxine Sodium 100 Mcg Tablet 1 Tab PO DAILY 08/30/16 Reported Impression . IMPRESSION: 1. Acute on chronic hypoxemic hypercapnic respiratory failure. 2. Acute exacerbation of chronic obstructive pulmonary disease. 3. Possible viral pneumonia. cxr clear 07/04 4. Possible Gram-negative pneumonia. 5. Fever.resolved 6. Leukocytosis. Plan . EXTUBATED 07/04 DOING WELL AMBULATING OK WITH DC , ON STEROIDS/ ABX/ O2 D/W NEEL RODRIGUEZ MD July 07, 2018 11:59
--- NOTE | 2018-07-07 13:56 | PDOC ---
PROGRESS NOTES Chief Complaint Chief Complaint Acute respiratory failure secondary to acute COPD exacerbation and pneumonia. Possible viral pneumonia and Possible Gram-negative pneumonia. Non-STEMI, most probably type 2/demand ischemia. Acute on chronic hypoxemic hypercapnic respiratory failure SIRS - treating as sepsis with fever, leukocytosis, likely gram negative pulmonary infection Hypothyroidism History of Present Illness History of Present Illness Patient seen and examined. Discussed with nurse. Discussed with Pulmonology. Patient able to speak with ease and has no new complaints. Vitals Vitals Vital Signs Date Time Temp Pulse Resp B/P (MAP) Pulse Ox O2 Delivery O2 Flow Rate FiO2 07/07/18 11:50 97.6 85 22 173/86 (115) 97 Nasal Cannula 3.0 97.6 Physical Exam General: Alert, Oriented X3, No acute distress Heart: Regular rate Lungs: Clear Abdomen: Soft Extremities: No edema Skin: No rashes, No breakdown, No significant lesion Labs LABS Laboratory Tests Test 07/07/18 07:20 White Blood Count 11.3 x10^3/uL (4.0-11.0) Red Blood Count 4.02 x10^6/uL (4.30-5.70) Hemoglobin 11.6 g/dL (13.0-17.5) Hematocrit 34.9 % (39.0-53.0) Mean Corpuscular Volume 87 fL (79-100) Mean Corpuscular Hemoglobin 29 pg (25-35) Mean Corpuscular Hemoglobin Concent 33 g/dL (31-37) Red Cell Distribution Width 14.4 % (11.5-14.5) Platelet Count 259 x10^3/uL (140-400) Neutrophils (%) (Auto) 83 % (31-73) Lymphocytes (%) (Auto) 9 % (24-48) Monocytes (%) (Auto) 8 % (0-9) Eosinophils (%) (Auto) 0 % (0-3) Basophils (%) (Auto) 0 % (0-3) Neutrophils # (Auto) 9.3 x10^3uL (1.8-7.7) Lymphocytes # (Auto) 1.0 x10^3/uL (1.0-4.8) Monocytes # (Auto) 0.9 x10^3/uL (0.0-1.1) Eosinophils # (Auto) 0.0 x10^3/uL (0.0-0.7) Basophils # (Auto) 0.0 x10^3/uL (0.0-0.2) Sodium Level 140 mmol/L (136-145) Potassium Level 4.3 mmol/L (3.5-5.1) Chloride Level 105 mmol/L (98-107) Carbon Dioxide Level 30 mmol/L (21-32) Anion Gap 5 (6-14) Blood Urea Nitrogen 20 mg/dL (8-26) Creatinine 0.9 mg/dL (0.7-1.3) Estimated GFR (Cockcroft-Gault) 82.9 Glucose Level 169 mg/dL (70-99) Calcium Level 8.6 mg/dL (8.5-10.1) Review of Systems Review of Systems Patient denies PERKINS Patient denies abdominal pain Assessment and Plan Assessmemt and Plan Assessment: Acute respiratory failure secondary to acute COPD exacerbation and pneumonia. Possible viral pneumonia and Possible Gram-negative pneumonia. Non-STEMI, most probably type 2/demand ischemia. Acute on chronic hypoxemic hypercapnic respiratory failure SIRS - treating as sepsis with fever, leukocytosis, likely gram negative pulmonary infection Hypothyroidism Plan: Stop IV doxycycline and Start PO doxycycline Stop ceftriaxone. Start Augmentin Stop IV Methylprednisolone and Start Medrol Dose pack Duonebs O2 NC Labs DVT PPx Home meds Discharge disposition: Probable Discharge to home today Comment Review of Relevant I have reviewed the following items ajxon (where applicable) has been applied. Labs Laboratory Tests Test 07/07/18 07:20 White Blood Count 11.3 x10^3/uL (4.0-11.0) Red Blood Count 4.02 x10^6/uL (4.30-5.70) Hemoglobin 11.6 g/dL (13.0-17.5) Hematocrit 34.9 % (39.0-53.0) Mean Corpuscular Volume 87 fL (79-100) Mean Corpuscular Hemoglobin 29 pg (25-35) Mean Corpuscular Hemoglobin Concent 33 g/dL (31-37) Red Cell Distribution Width 14.4 % (11.5-14.5) Platelet Count 259 x10^3/uL (140-400) Neutrophils (%) (Auto) 83 % (31-73) Lymphocytes (%) (Auto) 9 % (24-48) Monocytes (%) (Auto) 8 % (0-9) Eosinophils (%) (Auto) 0 % (0-3) Basophils (%) (Auto) 0 % (0-3) Neutrophils # (Auto) 9.3 x10^3uL (1.8-7.7) Lymphocytes # (Auto) 1.0 x10^3/uL (1.0-4.8) Monocytes # (Auto) 0.9 x10^3/uL (0.0-1.1) Eosinophils # (Auto) 0.0 x10^3/uL (0.0-0.7) Basophils # (Auto) 0.0 x10^3/uL (0.0-0.2) Sodium Level 140 mmol/L (136-145) Potassium Level 4.3 mmol/L (3.5-5.1) Chloride Level 105 mmol/L (98-107) Carbon Dioxide Level 30 mmol/L (21-32) Anion Gap 5 (6-14) Blood Urea Nitrogen 20 mg/dL (8-26) Creatinine 0.9 mg/dL (0.7-1.3) Estimated GFR (Cockcroft-Gault) 82.9 Glucose Level 169 mg/dL (70-99) Calcium Level 8.6 mg/dL (8.5-10.1) Laboratory Tests Test 07/07/18 07:20 White Blood Count 11.3 x10^3/uL (4.0-11.0) Red Blood Count 4.02 x10^6/uL (4.30-5.70) Hemoglobin 11.6 g/dL (13.0-17.5) Hematocrit 34.9 % (39.0-53.0) Mean Corpuscular Volume 87 fL (79-100) Mean Corpuscular Hemoglobin 29 pg (25-35) Mean Corpuscular Hemoglobin Concent 33 g/dL (31-37) Red Cell Distribution Width 14.4 % (11.5-14.5) Platelet Count 259 x10^3/uL (140-400) Neutrophils (%) (Auto) 83 % (31-73) Lymphocytes (%) (Auto) 9 % (24-48) Monocytes (%) (Auto) 8 % (0-9) Eosinophils (%) (Auto) 0 % (0-3) Basophils (%) (Auto) 0 % (0-3) Neutrophils # (Auto) 9.3 x10^3uL (1.8-7.7) Lymphocytes # (Auto) 1.0 x10^3/uL (1.0-4.8) Monocytes # (Auto) 0.9 x10^3/uL (0.0-1.1) Eosinophils # (Auto) 0.0 x10^3/uL (0.0-0.7) Basophils # (Auto) 0.0 x10^3/uL (0.0-0.2) Sodium Level 140 mmol/L (136-145) Potassium Level 4.3 mmol/L (3.5-5.1) Chloride Level 105 mmol/L (98-107) Carbon Dioxide Level 30 mmol/L (21-32) Anion Gap 5 (6-14) Blood Urea Nitrogen 20 mg/dL (8-26) Creatinine 0.9 mg/dL (0.7-1.3) Estimated GFR (Cockcroft-Gault) 82.9 Glucose Level 169 mg/dL (70-99) Calcium Level 8.6 mg/dL (8.5-10.1) Microbiology 07/03/18 Blood Culture - Preliminary, Resulted NO GROWTH AFTER 4 DAYS Medications Current Medications Propofol 0 ml @ As Directed STK-MED ONCE IV ; Start 07/03/18 at 01:59; Stop 07/03/18 at 02:00; Status DC Methylprednisolone Sodium Succinate (SOLU-Medrol 125MG VIAL) 125 mg 1X ONCE IV Last administered on 07/03/18at 02:30; Start 07/03/18 at 02:30; Stop 07/03/18 at 02:44; Status DC Sodium Chloride 1,000 ml @ 1,000 mls/hr 1X ONCE IV Last administered on 07/03/18at 03:00; Start 07/03/18 at 03:00; Stop 07/03/18 at 03:59; Status DC Propofol 100 ml @ 0 mls/hr CONT PRN IV SEE PROTOCOL Last administered on 07/03/18at 02:30; Start 07/03/18 at 02:30; Stop 07/03/18 at 02:44; Status DC Propofol 50 ml @ As Directed STK-MED ONCE IV ; Start 07/03/18 at 02:37; Stop 07/03/18 at 02:38; Status DC Rocuronium [place] (Zemuron) 50 mg STK-MED ONCE .ROUTE ; Start 07/03/18 at 02:38; Stop 07/03/18 at 02:39; Status DC Propofol 100 ml @ 0 mls/hr CONT PRN IV SEE PROTOCOL Last administered on 07/03/18at 05:00; Start 07/03/18 at 02:44; Stop 07/06/18 at 15:26; Status DC Propofol 50 ml @ 1.2 mls/hr 1X ONCE IV ; Start 07/03/18 at 03:00; Stop 07/04/18 at 20:31; Status DC Succinylcholine Chloride (Anectine) 200 mg STK-MED ONCE .ROUTE ; Start 07/03/18 at 03:27; Stop 07/03/18 at 03:28; Status DC Ondansetron HCl (Zofran) 4 mg PRN Q8HRS PRN IV NAUSEA/VOMITING 1ST CHOICE; Start 07/03/18 at 03:30; Stop 07/03/18 at 08:53; Status DC Albuterol/ Ipratropium (Duoneb) 3 ml RTQID NEB Last administered on 07/03/18at 19:49; Start 07/03/18 at 08:00; Stop 07/04/18 at 07:59; Status DC Dextrose/Sodium Chloride 1,000 ml @ 125 mls/hr 1X ONCE IV Last administered on 07/03/18at 05:01; Start 07/03/18 at 03:45; Stop 07/03/18 at 11:44; Status DC Fentanyl Citrate (Fentanyl 2ml Vial) 50 mcg PRN Q1HR PRN IV SEVERE PAIN Last administered on 07/03/18at 22:20; Start 07/03/18 at 05:00 Midazolam HCl 100 ml @ 5 mls/hr CONT PRN IV SEE I/O RECORD Last administered on 07/03/18at 07:59; Start 07/03/18 at 07:45; Stop 07/06/18 at 15:26; Status DC Ondansetron HCl (Zofran) 4 mg PRN Q6HRS PRN IV NAUSEA/VOMITING 1ST CHOICE; Start 07/03/18 at 09:00 Sodium Chloride 1,000 ml @ 100 mls/hr Q10H IV Last administered on 5/2/19at 08:58; Start 07/03/18 at 09:00 Acetaminophen (Tylenol) 650 mg PRN Q6HRS PRN PEG MILD PAIN / TEMP Last administered on 07/03/18 09:30; Start 07/03/18 at 09:00 Enoxaparin Sodium (Lovenox 40mg Syringe) 40 mg Q24H SQ Last administered on 07/07/18 09:00; Start 07/03/18 at 09:00 Pantoprazole Sodium (PROTONIX VIAL for IV PUSH) 40 mg 1X ONCE IVP Last administered on 07/03/18 09:31; Start 07/03/18 at 09:00; Stop 07/03/18 at 09:01; Status DC Pantoprazole Sodium (PROTONIX VIAL for IV PUSH) 40 mg DAILYAC IVP Last administered on 07/04/18 09:26; Start 07/04/18 at 07:30; Stop 07/05/18 at 07:43; Status DC Norepinephrine Bitartrate 250 ml @ 1.875 mls/ hr CONT PRN IV SEE I/O RECORD Last administered on 07/03/18 09:31; Start 07/03/18 at 09:00; Stop 07/06/18 at 15:26; Status DC Aspirin (Children'S Aspirin) 81 mg DAILY PO Last administered on 07/07/18 09:00; Start 07/03/18 at 09:00 Levothyroxine Sodium (Synthroid) 100 mcg DAILY06 PO Last administered on 07/07/18 06:17; Start 07/03/18 at 09:00 Dipyridamole (Persantine) 25 mg QIDPMEDS PO Last administered on 07/07/18 09:0 0; Start 07/03/18 at 10:00 Methylprednisolone Sodium Succinate (SOLU-Medrol 40MG VIAL) 40 mg Q8HRS IV Last administered on 07/07/18 06:17; Start 07/03/18 at 14:00 Ceftriaxone Sodium (Rocephin) 1 gm Q24H IVP Last administered on 07/07/18 08:59; Start 07/03/18 at 10:30 Doxycycline Hyclate 100 mg/ Dextrose 100 ml @ 50 mls/hr 1X ONCE IV Last administered on 07/03/18 15:23; Start 07/03/18 at 15:15; Stop 07/03/18 at 17:14; Status DC Doxycycline Hyclate 100 mg/ Dextrose 100 ml @ 50 mls/hr Q12HR IV Last ad ministered on 07/07/18at 08:59; Start 07/03/18 at 21:00 Albuterol/ Ipratropium (Duoneb) 3 ml RTQID NEB Last administered on 07/07/18at 11:48; Start 07/04/18 at 12:30 Propofol (Diprivan) 500 mg STK-MED ONCE IV ; Start 07/03/18 at 01:29; Stop 07/04/18 at 13:37; Status DC Famotidine (Pepcid Vial) 20 mg BID IVP Last administered on 07/07/18at 08:59; Start 07/05/18 at 09:00 Levothyroxine Sodium (Synthroid) 100 mcg DAILY06 PO ; Start 07/05/18 at 08:30; Status UNV Levothyroxine Sodium (Synthroid) 100 mcg 1X ONCE PO ; Start 07/05/18 at 08:45; Stop 07/05/18 at 08:46; Status UNV Barium Sulfate (Varibar Thin Liquid Apple) 148 gm 1X ONCE PO Last administered on 07/05/18at 13:55; Start 07/05/18 at 14:00; Stop 07/05/18 at 14:01; Status DC Albuterol Sulfate (Ventolin Neb Soln) 2.5 mg PRN Q4HRS PRN NEB SHORTNESS OF BREATH Last administered on 07/07/18at 03:01; Start 07/06/18 at 04:15 Active Scripts Active Reported Prednisone (Prednisone) 10 Mg Tablet 10 Mg PO DAILY 4 Days Prednisone (Prednisone) 10 Mg Tablet 20 Mg PO DAILY 4 Days Prednisone (Prednisone) 10 Mg Tablet 30 Mg PO DAILY 4 Days Doxycycline Hyclate 100 Mg Tablet 1 Tab PO BID 10 Days Aggrenox 25 Mg-200 Mg Capsule (Aspirin/Dipyridamole) 1 Each Cpmp.12hr 1 Each PO Symbicort 160-4.5 Mcg Inhaler (Budesonide/Formoterol Fumarate) 10.2 Gm Hfa.aer.ad 2 Puff IH BID Atrovent Hfa (Ipratropium [place]) 12.9 Gm Hfa.aer.ad 2 Puff IH QID Proventil Hfa Inhaler (Albuterol Sulfate) 6.7 Gm Hfa.aer.ad 1 Puff IH PRN Q4HRS PRN Aspirin 81 Mg Tab.chew 1 Tab PO DAILY Levothyroxine Sodium 100 Mcg Tablet 1 Tab PO DAILY Vitals/I & O Vital Sign - Last 24 Hours 07/06/18 07/06/18 07/06/18 07/06/18 14:36 15:30 19:30 20:00 Temp 98.2 98.0 98.2 98.0 Pulse 64 74 Resp 20 16 B/P (MAP) 134/92 (106) 165/96 (119) Pulse Ox 99 95 O2 Delivery Nasal Cannula Nasal Cannula Nasal Cannula Nasal Cannula O2 Flow Rate 3.0 3.0 3.0 3.0 07/06/18 07/06/18 07/07/18 07/07/18 20:33 23:08 03:01 03:36 Temp 98.2 98.2 98.2 98.2 Pulse 68 56 Resp 16 16 B/P (MAP) 162/84 (110) 164/97 (119) Pulse Ox 96 94 95 O2 Delivery Nasal Cannula Nasal Cannula Nasal Cannula Nasal Cannula O2 Flow Rate 3.0 3.0 3.0 3.0 07/07/18 07/07/18 07/07/18 07/07/18 07:10 07:25 08:00 11:49 Temp 97.7 97.7 Pulse 62 Resp 20 B/P (MAP) 173/98 (123) Pulse Ox 96 96 O2 Delivery Nasal Cannula Nasal Cannula Nasal Cannula Nasal Cannula O2 Flow Rate 3.0 3.0 3.0 3.0 07/07/18 11:50 Temp 97.6 97.6 Pulse 85 Resp 22 B/P (MAP) 173/86 (115) Pulse Ox 97 O2 Delivery Nasal Cannula O2 Flow Rate 3.0 Intake and Output 07/06/18 07/06/18 07/07/18 15:00 23:00 07:00 Intake Total 960 ml 200 ml 800 ml Output Total 200 ml 400 ml 1850 ml Balance 760 ml -200 ml -1050 ml Nutrition Consultation Dietary Evaluation: Recommendations by RD: Increase Calorie Intake, Protein supplementation Comments: ensure bid added for optimum nutrition Expected Outcomes/Goals: to meet > 75% est nutr needs via po intake Malnutrition Findings: Body Fat Depletion (Non Severe: Mild Depletion Weight Status: Appropriate KILEY GUIDO III DO July 07, 2018 13:56
--- NOTE | 2018-07-07 19:58 | DS ---
DATE OF DISCHARGE: 07/07/2018 ADMISSION DIAGNOSIS: Respiratory failure. HOSPITAL COURSE: The patient is a pleasant middle-aged male, who presented with respiratory failure. He has known COPD and coronary artery disease. He came in with severe shortness of breath. He was confused. He was hypoxic, breathing 40 times a minute. He was initially placed on BiPAP. He then was intubated and admitted to the ICU. We gave him breathing treatments, oxygen, steroids, antibiotics, consulted Pulmonary and Cardiology. Over the past couple of days, he has returned to his baseline. PHYSICAL EXAMINATION: This morning, I saw him and examined him. CARDIOVASCULAR: His heart tones were normal. GENERAL: He was alert and oriented. LUNGS: Much clear. ABDOMEN: Soft. EXTREMITIES: Trace edema. We plan to discharge if okay with subspecialist. DISPOSITION: Home. ACTIVITY: As tolerated. DIET: Low sodium. MEDICATIONS: I am going to resume his previous home medications. KILEY GUIDO DO DR: AMIRA/bandar JOB#: [id number] / [id number]
== END 2018-07-07 14:45 | disposition home or self-care (01) | DRG 871 ==
LOC: ER 01:24 → 1 WEST ICU 03:30 → 6 SOUTH 07-05 15:15
PROVIDERS: ADMIT Internal Medicine; ATTEND Internal Medicine
PROC: 5A1945Z Respiratory Ventilation, 24-96 Consecutive Hours (ICD-10-PCS; principal; 2018-07-03)
PROC: 0BH17EZ Insertion of Endotracheal Airway into Trachea, Via Natural or Artificial Opening (ICD-10-PCS; 2018-07-03)
DX: A41.9 Sepsis, unspecified organism (principal); I21.4 Non-ST elevation (NSTEMI) myocardial infarction; J96.21 Acute and chronic respiratory failure with hypoxia; J96.22 Acute and chronic respiratory failure with hypercapnia; J18.9 Pneumonia, unspecified organism; J44.1 Chronic obstructive pulmonary disease with (acute) exacerbation; J44.0 Chronic obstructive pulmonary disease with (acute) lower respiratory infection; M19.90 Unspecified osteoarthritis, unspecified site; J20.9 Acute bronchitis, unspecified; E03.9 Hypothyroidism, unspecified; E78.5 Hyperlipidemia, unspecified; F17.210 Nicotine dependence, cigarettes, uncomplicated; I25.10 Atherosclerotic heart disease of native coronary artery without angina pectoris; Z83.3 Family history of diabetes mellitus; Z79.899 Other long term (current) drug therapy; I95.9 Hypotension, unspecified
CPT/HCPCS: 31500; 36415; 36600; 51702; 71045; 74230; 80048; 80053; 82805; 83605; 83735; 83880; 84484; 85007; 85025; 87040; 87641; 93005; 93306; 94002; 94003; 94640; 94760; 96361; 96374; C9113; J0696; J1650; J2250; J2704; J2920; J2930; J3010; J3490; J7030; J7613; J7620; 92526; 92610; 92611; 97110; 99285-25

== ENCOUNTER 2018-11-26 17:08 | Inpatient (IN) | payer MEDICARE ==
[~2018-11-26] VITALS: Ht 185.4 cm; Wt 68.5 kg
[2018-11-26] MEDS ORDERED: methylPREDNISolone SOD SUCC PF 125 MG/2 ML VIAL. IV ONE (17:15)
[2018-11-26 17:18] LABS: BASE EXCESS ABG 0 mmol/L (-3-3); HCO3 ABG 28 mmol/L (21-28); PO2 ABG 105 mmHg (65-108); SAT O2 ABG 97 % (92-99)
[2018-11-26 17:24] LABS: FIO2 ABG 2L N.C.; PCO2 ABG 63 mmHg (35-46)
[2018-11-26 17:31] LABS: BASO # 0.1 x10^3/uL (0.0-0.2); BASO % 1 % (0-3); EOS # 0.2 x10^3/uL (0.0-0.7); EOS % 3 % (0-3); HEMATOCRIT 40.4 % (39.0-53.0); HEMOGLOBIN 13.2 g/dL (13.0-17.5); LYMPH # 1.9 x10^3/uL (1.0-4.8); LYMPH % 24 % (24-48); MEAN CORPUSCULAR HEMOGLOBIN 29 pg (25-35); MEAN CORPUSCULAR HGB CONC 33 g/dL (31-37); MEAN CORPUSCULAR VOLUME 90 fL (79-100); MONO # 0.6 x10^3/uL (0.0-1.1); MONO % 8 % (0-9); NEUT # 5.2 x10^3/uL (1.8-7.7); NEUT % 65 % (31-73); PLATELET COUNT 233 x10^3/uL (140-400); RED BLOOD COUNT 4.49 x10^6/uL (4.30-5.70); RED CELL DISTRIBUTION WIDTH 14.6 % (11.5-14.5)
[2018-11-26 17:42] LABS: CREATININE 1.1 mg/dL (0.7-1.3); GFR 65.8; POTASSIUM 4.8 mmol/L (3.5-5.1)
[2018-11-26] MEDS ORDERED: IV NORMAL SALINE 1000ML BAG 1,000 ML IV ONE (17:45)
[2018-11-26 17:47] LABS: ALBUMIN 3.7 g/dL (3.4-5.0); ALBUMIN/GLOBULIN RATIO 1.2 (1.0-1.7); MAGNESIUM 2.1 mg/dL (1.8-2.4); TOTAL BILIRUBIN 0.6 mg/dL (0.2-1.0); TOTAL PROTEIN 6.7 g/dL (6.4-8.2)
--- NOTE | 2018-11-26 18:07 | PHYS DOC ---
Past Medical History Past Medical History: COPD, [place] Past Surgical History: Tonsillectomy Alcohol Use: Occasionally Drug Use: None Adult General Chief Complaint Chief Complaint: SHORTNESS OF BREATH HPI HPI Patient is a 73 year old male patient who presents with history of COPD brought in by EMS because of shortness of breath. Patient complaining of shortness of breath that started about 30 or 40 minutes prior to arrival. EMS reported that patient had O2 sat of 60% while trying to take his home nebulizer treatment. Patient had 2 nebulizer treatment with DuoNeb by EMS and was bagging because of respiratory distress at arrival to ER. Patient had O2 sat of 100% at arrival to ER with talking few words because of respiratory distress. Review of Systems Review of Systems Constitutional: Denies fever or chills [] Eyes: Denies change in visual acuity, redness, or eye pain [] HENT: Denies nasal congestion or sore throat [] Respiratory: Denies cough , reports shortness of breath [] Cardiovascular: No additional information not addressed in HPI [] GI: Denies abdominal pain, nausea, vomiting, bloody stools or diarrhea [] : Denies dysuria or hematuria [] Musculoskeletal: Denies back pain or joint pain [] Integument: Denies rash or skin lesions [] Neurologic: Denies headache, focal weakness or sensory changes [] Endocrine: Denies polyuria or polydipsia [] Unable ports All other systems were reviewed and found to be within normal limits, except as documented in this note. Current Medications Current Medications Current Medications Medications (Trade) Dose Ordered Sig/Jayla Start Time Stop Time Status Last Admin Dose Admin Methylprednisolone Sodium Succinate (SOLU-Medrol 125MG VIAL) 125 mg 1X ONCE 11/26/18 17:15 11/26/18 17:19 DC 11/26/18 17:34 125 MG Sodium Chloride 1,000 ml @ 1,000 mls/hr 1X ONCE 11/26/18 17:45 11/26/18 18:44 Allergies Allergies Allergies Coded Allergies Type Severity Reaction Last Updated Verified No Known Drug Allergies 08/29/16 No Physical Exam Physical Exam Constitutional: Well developed, well nourished, moderate distress, non-toxic appearance. [] HENT: Normocephalic, atraumatic. Eyes: PERRLA, EOMI, conjunctiva normal, no discharge. [] Neck: Normal range of motion, no tenderness, supple, no stridor. [] Cardiovascular:Heart rate regular rhythm, no murmur [] Lungs & Thorax: Respiratory distress with intercostal retractions and tachypnea and decrease of air movement Abdomen: Bowel sounds normal, soft, no tenderness, no masses, no pulsatile masses. [] Skin: Warm, dry, no erythema, no rash. [] Back: No tenderness, no CVA tenderness. [] Extremities: No tenderness, no cyanosis, no clubbing, ROM intact, no edema. [] Neurologic: Alert and oriented , no focal deficits noted. [] Psychologic: Affect normal, judgement normal, mood normal. [] Current Patient Data Vital Signs Vital Signs Date Time Temp Pulse Resp B/P (MAP) Pulse Ox O2 Delivery O2 Flow Rate FiO2 11/26/18 17:26 97 Nasal Cannula 2.0 Lab Values Laboratory Tests Test 11/26/18 17:12 11/26/18 17:20 O2 Saturation 97 % (92-99) Arterial Blood pH 7.27 (7.35-7.45) L Arterial Blood pCO2 at Patient Temp 63 mmHg (35-46) *H Arterial Blood pO2 at Patient Temp 105 mmHg (65-108) Arterial Blood HCO3 28 mmol/L (21-28) Arterial Blood Base Excess 0 mmol/L (-3-3) FiO2 2l n.c. White Blood Count 8.0 x10^3/uL (4.0-11.0) Red Blood Count 4.49 x10^6/uL (4.30-5.70) Hemoglobin 13.2 g/dL (13.0-17.5) Hematocrit 40.4 % (39.0-53.0) Mean Corpuscular Volume 90 fL (79-100) Mean Corpuscular Hemoglobin 29 pg (25-35) Mean Corpuscular Hemoglobin Concent 33 g/dL (31-37) Red Cell Distribution Width 14.6 % (11.5-14.5) H Platelet Count 233 x10^3/uL (140-400) Neutrophils (%) (Auto) 65 % (31-73) Lymphocytes (%) (Auto) 24 % (24-48) Monocytes (%) (Auto) 8 % (0-9) Eosinophils (%) (Auto) 3 % (0-3) Basophils (%) (Auto) 1 % (0-3) Neutrophils # (Auto) 5.2 x10^3/uL (1.8-7.7) Lymphocytes # (Auto) 1.9 x10^3/uL (1.0-4.8) Monocytes # (Auto) 0.6 x10^3/uL (0.0-1.1) Eosinophils # (Auto) 0.2 x10^3/uL (0.0-0.7) Basophils # (Auto) 0.1 x10^3/uL (0.0-0.2) Prothrombin Time 13.0 SEC (11.7-14.0) Prothrombin Time INR 1.0 (0.8-1.1) D-Dimer (Margarita) 1.50 ug/mlFEU (0.00-0.50) H Sodium Level 142 mmol/L (136-145) Potassium Level 4.8 mmol/L (3.5-5.1) Chloride Level 106 mmol/L (98-107) Carbon Dioxide Level 32 mmol/L (21-32) Anion Gap 4 (6-14) L Blood Urea Nitrogen 18 mg/dL (8-26) Creatinine 1.1 mg/dL (0.7-1.3) Estimated GFR (Cockcroft-Gault) 65.8 BUN/Creatinine Ratio 16 (6-20) Glucose Level 153 mg/dL (70-99) H Lactic Acid Level 1.8 mmol/L (0.4-2.0) Calcium Level 9.0 mg/dL (8.5-10.1) Magnesium Level 2.1 mg/dL (1.8-2.4) Total Bilirubin 0.6 mg/dL (0.2-1.0) Aspartate Amino Transferase (AST) 23 U/L (15-37) Alanine Aminotransferase (ALT) 23 U/L (16-63) Alkaline Phosphatase 77 U/L (46-116) Creatine Kinase 52 U/L (39-308) Troponin I Quantitative < 0.017 ng/mL (0.000-0.055) DU-Sgo-W-Type Natriuretic Peptide 441 pg/mL (0-124) H Total Protein 6.7 g/dL (6.4-8.2) Albumin 3.7 g/dL (3.4-5.0) Albumin/Globulin Ratio 1.2 (1.0-1.7) Lipase 79 U/L (73-393) Laboratory Tests 11/26/18 17:20 Laboratory Tests 11/26/18 17:20 EKG EKG EKG interpreted by me. EKG at 1713 shows normal sinus rhythm at rate of 87, no acute ST and T-wave elevation, normal AL and QT intervals, poor R-wave progress in anteroseptal leads Radiology/Procedures Radiology/Procedures [][facility] [address] [place] [address] IMAGING REPORT Signed PATIENT: HARRISON POOLE ACCOUNT: [id number] : 1945 LOCATION: [facility] AGE: 73 SEX: M EXAM STATUS: ADM IN ORD. PHYSICIAN: JOSE BLAND MD REASON: shortness of breath PROCEDURE: PORTABLE CHEST 1V PORTABLE CHEST 1V History: Shortness of breath Comparison: July 04, 2018 Findings: 2 AP views of the chest are submitted. There is again emphysema. There is no dependent pleural fluid, pneumothorax, new lobar consolidation. Degree of mild interstitial opacity with basilar predominance is similar. Heart size is stable. Impression: 1. There is again emphysema, no new infiltrate identified by radiograph. Electronically signed by: Sotero Baker MD (11/26/2018 7:29 PM) [facility] DICTATED and SIGNED BY: SOTERO BAKER MD DATE: 11/26/181928 Course & Med Decision Making Course & Med Decision Making Pertinent Labs and Imaging studies reviewed. (See chart for details) Evaluation of patient in ER showed 73-year-old male patient with history of COPD on home oxygen but in by EMS because of respiratory distress and hypoxia. Patient was not able to talk more than few words at arrival to ER but with treatment in ER gradually improved and was able to talk and give history. Chest x-ray did not show infiltrate. Labs was unremarkable except for elevation of d- dimer is pending CT of chest reports.Patient requiring admission for further evaluation and treatment. Discussed with Dr. Cordova who is in agreement with admission. Discussed findings and plan with patient and family, who acknowledge understanding and agreement. In coming ER physician Dr. pruitt was informed about patient condition and is to follow-up with CT chest report. Dragon Disclaimer Dragon Disclaimer This electronic medical record was generated, in whole or in part, using a voice recognition dictation system. Departure Departure Impression: Primary Impression: Acute respiratory failure with hypoxia Additional Impressions: COPD exacerbation D-dimer, elevated Disposition: ADMITTED INPATIENT (At 1818) [facility] at [facility]15[facility] Condition: GUARDED Referrals: UNKNOWN PCP NAME (PCP) Problem Qualifiers JOSE BLAND MD Nov 26, 2018 18:07
[2018-11-26] MEDS ORDERED: cefTRIAXone IV Push 1 GM VIAL. IVP ONE (18:15)
[2018-11-26] MEDS ORDERED: IOHEXOL 350 MG/ML 100 ML VIAL. IV ONE (18:30)
[2018-11-26] MEDS ORDERED: CONTRAST GIVEN. MC PRN (18:45)
[2018-11-26 19:05] VITALS: BP 139/83
--- NOTE | 2018-11-26 19:12 | RAD ---
Chest CTA History: Shortness of breath, elevated d-dimer Technique: After bolus of intravenous contrast, CT imaging was performed of the chest. Multiplanar reconstruction images to include MIP reconstruction images are submitted. Exposure: One or more of the following individualized dose reduction techniques were utilized for this examination: 1. Automated exposure control 2. Adjustment of the mA and/or kV according to patient size 3. Use of iterative reconstruction technique. Comparison: Noncontrast chest CT February 23, 2018 Findings: No pulmonary embolism is identified. There is no pericardial or pleural fluid, pneumothorax, lobar infiltrate. There is some dependent density of the right mainstem bronchus. There is degree of bronchial wall thickening greater on the lower lobes. There is fairly severe emphysema. Aortic root is somewhat dilated about 4.2 cm. Tubular ascending thoracic aortic caliber is within normal about 3.4 cm. No dissection flap is identified of the thoracic aorta. No significantly enlarged nodes are identified of the chest, some subcentimeter mediastinal nodes. There is appearance of mild diffuse wall thickening of the esophagus. There is some linear likely fibrotic change of the right upper lobe. Impression: 1. No pulmonary embolism identified. 2. There is severe emphysema, no lobar infiltrate. There is abnormal density of the dependent right mainstem bronchus which may be due to mucus or aspirated contents. There is degree of bronchial wall thickening greater of the lower lobes may be due to bronchitis. 3. There is somewhat dilated aortic root, no dissection flap of the thoracic aorta. Electronically signed by: Wilmar Francois MD (11/26/2018 7:09 PM) [facility]
--- NOTE | 2018-11-26 19:32 | RAD ---
PORTABLE CHEST 1V History: Shortness of breath Comparison: July 04, 2018 Findings: 2 AP views of the chest are submitted. There is again emphysema. There is no dependent pleural fluid, pneumothorax, new lobar consolidation. Degree of mild interstitial opacity with basilar predominance is similar. Heart size is stable. Impression: 1. There is again emphysema, no new infiltrate identified by radiograph. Electronically signed by: Wilmar Francois MD (11/26/2018 7:29 PM) [facility]
[2018-11-26] MEDS ORDERED: ALBUTEROL SULFATE 2.5 MG/3 ML NEBU. INH PRN (19:45)
[2018-11-26] MEDS: IPRATRPIUM/ALBUTEROL 0.5/2.5MG 3 ML NEBU. NEB SCH (21:08)
[2018-11-26] MEDS: BUDESONIDE 0.5 MG/2 ML NEBU. NEB SCH (21:08)
[2018-11-26] MEDS: DOXYCYCLINE HYCLATE 100 MG TABLET PO SCH (21:27)
[2018-11-26] MEDS: ENOXAPARIN 40 MG/0.4 ML SYRINGE. SQ SCH (21:28)
[2018-11-26] MEDS: methylPREDNISolone SOD SUCC PF 40 MG/ML VIAL. IV SCH (21:34)
[2018-11-26 23:40] VITALS: BP 130/89
[2018-11-27 03:12] VITALS: BP 124/72
[2018-11-27] MEDS: IPRATRPIUM/ALBUTEROL 0.5/2.5MG 3 ML NEBU. NEB SCH ×4 (06:05→20:35)
[2018-11-27] MEDS: BUDESONIDE 0.5 MG/2 ML NEBU. NEB SCH ×2 (06:05→20:35)
[2018-11-27] MEDS: methylPREDNISolone SOD SUCC PF 40 MG/ML VIAL. IV SCH ×2 (06:36→14:22)
[2018-11-27 07:00] VITALS: BP 138/79
[2018-11-27] MEDS: LEVOTHYROXINE 100 MCG TABLET PO SCH (07:50)
--- NOTE | 2018-11-27 08:38 | PDOC1 ---
History and Physical Date of Admission Date of Admission DATE: 11/27/18 TIME: 08:28 Identification/Chief Complaint Chief Complaint Shortness of breath Source Source: Patient History of Present Illness History of Present Illness Mr Mensah is a 73-year-old male who has diagnosis of COPD and CAD, came in severe SOB for almost 40 minutes prior to ED arrival. He was breathing 30-40 minutes as per EMS and had O2 Saturations of 60% on room air. EMS tried to take his home concentrated oxygen. Patient had 2 nebulizer treatment with DuoNeb and was bagging because of respiratory distress patient had O2 sat of 100% at arrival to ER with talking few words because of respiratory distress. CXR unchanged from prior. ABG 7./63/105. Initial troponin negative and EKG shows poor r-wave progression, no acute ST or T-wave changes. He is admitted for further care Past Medical History Cardiovascular: CAD, Hyperlipidemia Pulmonary: Bronchitis, COPD, Pneumonia, Other CENTRAL NERVOUS SYSTEM: Other GI: No pertinent hx Heme/Onc: No pertinent hx Hepatobiliary: No pertinent hx Psych: No pertinent hx Musculoskeletal: Osteoarthritis Rheumatologic: No pertinent hx Infectious disease: No pertinent hx Renal/: No pertinent hx Endocrine: Hypothyroidism Past Surgical History Past Surgical History: Tonsillectomy, Other Family History Family History: Diabetes, Family History Unknown Social History Smoke: Quit ALCOHOL: none Drugs: None Current Problem List Problem List Problems Medical Problems: (1) COPD exacerbation Status: Acute (2) D-dimer, elevated Status: Acute Current Medications Current Medications Current Medications Methylprednisolone Sodium Succinate (SOLU-Medrol 125MG VIAL) 125 mg 1X ONCE IV Last administered on 11/26/18at 17:34; Start 11/26/18 at 17:15; Stop 11/26/18 at 17:19; Status DC Sodium Chloride 1,000 ml @ 1,000 mls/hr 1X ONCE IV Last administered on 11/26/18at 18:23; Start 11/26/18 at 17:45; Stop 11/26/18 at 18:44; Status DC Ceftriaxone Sodium (Rocephin) 1 gm 1X ONCE IVP Last administered on 11/26/18at 18:23; Start 11/26/18 at 18:15; Stop 11/26/18 at 18:16; Status DC Iohexol (Omnipaque 350 Mg/ml) 90 ml 1X ONCE IV Last administered on 11/26/18at 18:55; Start 11/26/18 at 18:30; Stop 11/26/18 at 18:41; Status DC Info (CONTRAST GIVEN -- Rx MONITORING) 1 each PRN DAILY PRN MC SEE COMMENTS; Start 11/26/18 at 18:45; Stop 11/28/18 at 18:44 Doxycycline Hyclate (Vibra-Tab) 100 mg BID PO Last administered on 11/26/18at 21:28; Start 11/26/18 at 21:00 Albuterol Sulfate (Ventolin Neb Soln) 2.5 mg PRN Q4HRS PRN INH FOR ASTHMA; Start 11/26/18 at 19:45 Aspirin (Children'S Aspirin) 81 mg DAILY PO ; Start 11/27/18 at 09:00 Levothyroxine Sodium (Synthroid) 100 mcg DAILY07 PO Last administered on 11/27/18at 07:50; Start 11/27/18 at 07:00 Budesonide (Pulmicort) 0.5 mg RTBID NEB Last administered on 11/27/18at 06:05; Start 11/26/18 at 20:00 Albuterol/ Ipratropium (Duoneb) 3 ml RTQID NEB Last administered on 11/27/18at 06:05; Start 11/26/18 at 20:00 Methylprednisolone Sodium Succinate (SOLU-Medrol 40MG VIAL) 40 mg Q8HRS IV Last administered on 11/27/18at 06:36; Start 11/26/18 at 22:00 Enoxaparin Sodium (Lovenox 40mg Syringe) 40 mg Q24H SQ Last administered on 11/26/18at 21:28; Start 11/26/18 at 21:00 Active Scripts Active Reported Prednisone (Prednisone) 10 Mg Tablet 10 Mg PO DAILY 4 Days Prednisone (Prednisone) 10 Mg Tablet 20 Mg PO DAILY 4 Days Prednisone (Prednisone) 10 Mg Tablet 30 Mg PO DAILY 4 Days Doxycycline Hyclate 100 Mg Tablet 1 Tab PO BID 10 Days Aggrenox 25 Mg-200 Mg Capsule (Aspirin/Dipyridamole) 1 Each Cpmp.12hr 1 Each PO Symbicort 160-4.5 Mcg Inhaler (Budesonide/Formoterol Fumarate) 10.2 Gm Hfa.aer.ad 2 Puff IH BID Atrovent Hfa (Ipratropium [place]) 12.9 Gm Hfa.aer.ad 2 Puff IH QID Proventil Hfa Inhaler (Albuterol Sulfate) 6.7 Gm Hfa.aer.ad 1 Puff IH PRN Q4HRS PRN Aspirin 81 Mg Tab.chew 1 Tab PO DAILY Levothyroxine Sodium 100 Mcg Tablet 1 Tab PO DAILY Allergies Allergies: Coded Allergies: No Known Drug Allergies (Unverified , 08/29/16) ROS General: YES: Fatigue, Malaise; No: Chills, Night Sweats, Appetite, Other PSYCHOLOGICAL ROS: No: Anxiety, Behavioral Disorder, Concentration difficultie, Decreased libido, Depression, Disorientation, Hallucinations, Hostility, Irritablity, Memory difficulties, Mood Swings, Obsessive thoughts, Physical abuse, Sexual abuse, Sleep disturbances, Suicidal ideation, Other Eyes: No Blurry vision, No Decreased vision, No Double vision, No Dry eyes, No Excessive tearing, No Eye Pain, No Itchy Eyes, No Loss of vision, No P hotophobia, No Scotomata, No Uses contacts, No Uses glasses, No Other HEENT: No: Heacaches, Visual Changes, Hearing change, Nasal congestion, Nasal discharge, Oral lesions, Sinus pain, Sore Throat, Epistaxis, Sneezing, Snoring, Tinnitus, Vertigo, Vocal changes, Other ALLERGY AND IMMUNOLOGY: No: Hives, Insect Bite Sensitivity, Itchy/Watery Eyes, Nasal Congestion, Post Nasal Drip, Seasonal Allergies, Other Hematological and Lymphatic: No: Bleeding Problems, Blood Clots, Blood Transfusions, Brusing, Night Sweats, Pallor, Swollen Lymph Nodes, Other ENDOCRINE: No: Breast Changes, Galactorrhea, Hair Pattern Changes, Hot Flashes, Malaise/lethargy, Mood Swings, Palpitations, Polydipsia/polyuria, Skin Changes, Temperature Intolerance, Unexpected Weight Changes, Other Breast: No New/Changing Breast Lumps, No Nipple changes, No Nipple discharge, No Other Respiratory: YES: Cough, Shortness of breath, SOB with excertion, Tachypnea, Wheezing; No: Hemoptysis, Orthopnea, Pleuritic Pain, Sputum Changes, Stridor, Other Cardiovascular: No Chest Pain, No Palpitations, No Orthopnea, No Paroxysmal Noc. Dyspnea, No Edema, No Lt Headedness, No Other Gastrointestinal: No Nausea, No Vomiting, No Abdominal Pain, No Diarrhea, No Constipation, No Melena, No Hematochezia, No Other Genitourinary: No Dysuria, No Frequency, No Incontinence, No Hematuria, No Retention, No Discharge, No Urgency, No Pain, No Flank Pain, No Other, No , No , No , No , No , No , No Musculoskeletal: No Gait Disturbance, No Joint Pain, No Joint Stiffness, No Joint Swelling, No Muscle Pain, No Muscular Weakness, No Pain In:, No Swelling In:, No Other Neurological: No Behavorial Changes, No Bowel/Bladder ControlChng, No Confusio n, No Dizziness, No Gait Disturbance, No Headaches, No Impaired Coord/balance, No Memory Loss, No Numbness/Tingling, No Seizures, No Speech Problems, No Tremors, No Visual Changes, No Weakness, No Other Skin: No Dry Skin, No Eczema, No Hair Changes, No Lumps, No Mole Changes, No Mottling, No Nail Changes, No Pruritus, No Rash, No Skin Lesion Changes, No Other, No Acne Physical Exam General: Alert, Oriented X3, Cooperative, No acute distress HEENT: Atraumatic, PERRLA, EOMI, Mucous membr. moist/pink Lungs: Other (Scattered wheezes) Heart: S1S2, RRR, no gallops, no murmurs Abdomen: Normal bowel sounds, Soft, No tenderness, No hepatosplenomegaly, No masses Rectal Exam: not examined Extremities: No clubbing, No cyanosis, No edema, Normal pulses, No tenderness/swelling Skin: No rashes, No breakdown, No significant lesion Neuro: Normal gait, Normal speech, Strength at 5/5 X4 ext, Normal tone, Sensation intact, Cranial nerves 3-12 NL, Reflexes 2+ Psych/Mental Status: Mental status NL, Mood NL Vitals Vitals Vital Signs Date Time Temp Pulse Resp B/P (MAP) Pulse Ox O2 Delivery O2 Flow Rate FiO2 11/27/18 06:05 96 Nasal Cannula 3.0 11/27/18 03:12 98.7 55 18 124/72 (89) 98.7 Labs Labs Laboratory Tests Test 11/26/18 17:12 11/26/18 17:20 O2 Saturation 97 % (92-99) Arterial Blood pH 7.27 (7.35-7.45) Arterial Blood pCO2 at Patient Temp 63 mmHg (35-46) Arterial Blood pO2 at Patient Temp 105 mmHg (65-108) Arterial Blood HCO3 28 mmol/L (21-28) Arterial Blood Base Excess 0 mmol/L (-3-3) FiO2 2l n.c. White Blood Count 8.0 x10^3/uL (4.0-11.0) Red Blood Count 4.49 x10^6/uL (4.30-5.70) Hemoglobin 13.2 g/dL (13.0-17.5) Hematocrit 40.4 % (39.0-53.0) Mean Corpuscular Volume 90 fL (79-100) Mean Corpuscular Hemoglobin 29 pg (25-35) Mean Corpuscular Hemoglobin Concent 33 g/dL (31-37) Red Cell Distribution Width 14.6 % (11.5-14.5) Platelet Count 233 x10^3/uL (140-400) Neutrophils (%) (Auto) 65 % (31-73) Lymphocytes (%) (Auto) 24 % (24-48) Monocytes (%) (Auto) 8 % (0-9) Eosinophils (%) (Auto) 3 % (0-3) Basophils (%) (Auto) 1 % (0-3) Neutrophils # (Auto) 5.2 x10^3/uL (1.8-7.7) Lymphocytes # (Auto) 1.9 x10^3/uL (1.0-4.8) Monocytes # (Auto) 0.6 x10^3/uL (0.0-1.1) Eosinophils # (Auto) 0.2 x10^3/uL (0.0-0.7) Basophils # (Auto) 0.1 x10^3/uL (0.0-0.2) Prothrombin Time 13.0 SEC (11.7-14.0) Prothromb Time International Ratio 1.0 (0.8-1.1) D-Dimer (Margarita) 1.50 ug/mlFEU (0.00-0.50) Sodium Level 142 mmol/L (136-145) Potassium Level 4.8 mmol/L (3.5-5.1) Chloride Level 106 mmol/L (98-107) Carbon Dioxide Level 32 mmol/L (21-32) Anion Gap 4 (6-14) Blood Urea Nitrogen 18 mg/dL (8-26) Creatinine 1.1 mg/dL (0.7-1.3) Estimated GFR (Cockcroft-Gault) 65.8 BUN/Creatinine Ratio 16 (6-20) Glucose Level 153 mg/dL (70-99) Lactic Acid Level 1.8 mmol/L (0.4-2.0) Calcium Level 9.0 mg/dL (8.5-10.1) Magnesium Level 2.1 mg/dL (1.8-2.4) Total Bilirubin 0.6 mg/dL (0.2-1.0) Aspartate Amino Transf (AST/SGOT) 23 U/L (15-37) Alanine Aminotransferase (ALT/SGPT) 23 U/L (16-63) Alkaline Phosphatase 77 U/L (46-116) Creatine Kinase 52 U/L (39-308) Troponin I Quantitative < 0.017 ng/mL (0.000-0.055) VX-Ngd-H-Type Natriuretic Peptide 441 pg/mL (0-124) Total Protein 6.7 g/dL (6.4-8.2) Albumin 3.7 g/dL (3.4-5.0) Albumin/Globulin Ratio 1.2 (1.0-1.7) Lipase 79 U/L (73-393) Laboratory Tests Test 11/26/18 17:12 11/26/18 17:20 O2 Saturation 97 % (92-99) Arterial Blood pH 7.27 (7.35-7.45) Arterial Blood pCO2 at Patient Temp 63 mmHg (35-46) Arterial Blood pO2 at Patient Temp 105 mmHg (65-108) Arterial Blood HCO3 28 mmol/L (21-28) Arterial Blood Base Excess 0 mmol/L (-3-3) FiO2 2l n.c. White Blood Count 8.0 x10^3/uL (4.0-11.0) Red Blood Count 4.49 x10^6/uL (4.30-5.70) Hemoglobin 13.2 g/dL (13.0-17.5) Hematocrit 40.4 % (39.0-53.0) Mean Corpuscular Volume 90 fL (79-100) Mean Corpuscular Hemoglobin 29 pg (25-35) Mean Corpuscular Hemoglobin Concent 33 g/dL (31-37) Red Cell Distribution Width 14.6 % (11.5-14.5) Platelet Count 233 x10^3/uL (140-400) Neutrophils (%) (Auto) 65 % (31-73) Lymphocytes (%) (Auto) 24 % (24-48) Monocytes (%) (Auto) 8 % (0-9) Eosinophils (%) (Auto) 3 % (0-3) Basophils (%) (Auto) 1 % (0-3) Neutrophils # (Auto) 5.2 x10^3/uL (1.8-7.7) Lymphocytes # (Auto) 1.9 x10^3/uL (1.0-4.8) Monocytes # (Auto) 0.6 x10^3/uL (0.0-1.1) Eosinophils # (Auto) 0.2 x10^3/uL (0.0-0.7) Basophils # (Auto) 0.1 x10^3/uL (0.0-0.2) Prothrombin Time 13.0 SEC (11.7-14.0) Prothromb Time International Ratio 1.0 (0.8-1.1) D-Dimer (Margarita) 1.50 ug/mlFEU (0.00-0.50) Sodium Level 142 mmol/L (136-145) Potassium Level 4.8 mmol/L (3.5-5.1) Chloride Level 106 mmol/L (98-107) Carbon Dioxide Level 32 mmol/L (21-32) Anion Gap 4 (6-14) Blood Urea Nitrogen 18 mg/dL (8-26) Creatinine 1.1 mg/dL (0.7-1.3) Estimated GFR (Cockcroft-Gault) 65.8 BUN/Creatinine Ratio 16 (6-20) Glucose Level 153 mg/dL (70-99) Lactic Acid Level 1.8 mmol/L (0.4-2.0) Calcium Level 9.0 mg/dL (8.5-10.1) Magnesium Level 2.1 mg/dL (1.8-2.4) Total Bilirubin 0.6 mg/dL (0.2-1.0) Aspartate Amino Transf (AST/SGOT) 23 U/L (15-37) Alanine Aminotransferase (ALT/SGPT) 23 U/L (16-63) Alkaline Phosphatase 77 U/L (46-116) Creatine Kinase 52 U/L (39-308) Troponin I Quantitative < 0.017 ng/mL (0.000-0.055) KK-Obm-R-Type Natriuretic Peptide 441 pg/mL (0-124) Total Protein 6.7 g/dL (6.4-8.2) Albumin 3.7 g/dL (3.4-5.0) Albumin/Globulin Ratio 1.2 (1.0-1.7) Lipase 79 U/L (73-393) Images Images CTPA - 1. No pulmonary embolism identified. 2. There is severe emphysema, no lobar infiltrate. There is abnormal density of the dependent right mainstem bronchus which may be due to mucus or aspirated contents. There is degree of bronchial wall thickening greater of the lower lobes may be due to bronchitis. 3. There is somewhat dilated aortic root, no dissection flap of the thoracic aorta. VTE Prophylaxis Ordered VTE Prophylaxis Devices: No VTE Pharmacological Prophylaxi: Yes Assessment/Plan Assessment/Plan A/P: Acute respiratory failure secondary to acute COPD exacerbation - Possible viral pneumonia and Possible Gram-negative pneumonia. Acute on chronic hypoxemic hypercapnic respiratory failure - will cont O2, has previously been intubated and required BIPAP, will consult pulmonology CAD - non-obstructive, previously seen by cardiology. Cont ASA Hypothyroidism - Continue levothyroxine Elevated d dimer - will check US, negative CTPA FEN - Cardiac PPX - Lovenox FULL CODE Dispo - Inpatient for acute hypercapnic respiratory failure JANETH MARIN MD Nov 27, 2018 08:37
[2018-11-27] MEDS: ASPIRIN CHEWABLE 81 MG TABLET. PO SCH (09:46)
[2018-11-27] MEDS: DOXYCYCLINE HYCLATE 100 MG TABLET PO SCH (09:46)
--- NOTE | 2018-11-27 10:29 | CONS ---
DATE OF CONSULTATION: 11/26/2018 HISTORY OF PRESENT ILLNESS: This patient is a 73-year-old male that I am consulted for respiratory distress. The patient denies childhood respiratory problems. He smoked tobacco between the ages of 18 and 66. When smoking, he was an extremely heavy smoker, who smoked an average of 4 packs of cigarettes per day. He started having respiratory problems when he was in his 30s. He estimates presently that he could walk approximately 25 feet before he would have to stop on a typical day. He is on 3 L of oxygen continuously. He has had pneumococcal vaccines in the past. He typically gets a flu shot, although he has not had that this year. His home medicines include Symbicort, albuterol and ipratropium. He is typically followed by Dr. Ladi Rocha for pulmonary problems at the [facility]. He was in his usual state of health until shortly before admission. He noted that he had been coughing up purulent sputum. 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 He was admitted to . He has been treated with nebulized albuterol and ipratropium. He has received broad spectrum antibiotics and systemic steroids. He is feeling much better since admission. PAST MEDICAL HISTORY: Significant for coronary artery disease, hyperlipidemia, osteoarthritis, and hypothyroidism. FAMILY HISTORY: Positive for diabetes. SOCIAL HISTORY: See above tobacco smoke exposure. REVIEW OF SYSTEMS: A 12-point review of systems was obtained and was otherwise negative. PHYSICAL EXAMINATION: GENERAL: A male sitting in bed on oxygen, in no acute distress. He is able to speak in full sentences. VITAL SIGNS: He is afebrile. His heart rate is 67 per minute and regular. His respiratory rate is 20 per minute with a prolonged exhalation phase, but without accessory muscle use. His blood pressure is 138/79. His oxygen saturation at present is 96% on 3 liters of oxygen. HEENT: Unremarkable. NECK: There is no JVD or lymphadenopathy. CHEST: He has markedly diminished breath sounds in both lungs. There are no rales, rhonchi, wheezes or rubs. CARDIOVASCULAR: He has a regular rate and rhythm. I do not appreciate any murmur or gallop. ABDOMEN: Soft, without masses or organomegaly. EXTREMITIES: There is no cyanosis, clubbing or edema. NEUROLOGIC: He is alert, oriented and appropriate. Cranial nerves, motor, and coordination are all grossly intact. He had a CTA of the chest and a chest x-ray that were done yesterday evening. These were significant for emphysema and hyperexpansion. He did not have any thromboemboli. He did not have any acute infiltrates. His arterial blood gas that was obtained last evening on 2 liters revealed a pH of 7.27, pCO2 of 63, pO2 of 105. This was on 2 liters of oxygen. IMPRESSION: 1. Acute on chronic hypoxic, hypercapnic respiratory failure secondary to acute exacerbation of chronic obstructive pulmonary disease. 2. Coronary artery disease. PLAN: I reviewed all of the above with the patient. He is improving on the present regimen, and I expect that to continue. I would taper his steroid dose as he improves. If we are able to give him a flu vaccination, I would do that before he leaves. I did note to the patient that if that is not yet available at [facility], he should get that soon. 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 Thank you for referring this very nice gentleman. If you have any questions, please do not hesitate to contact me. LAVONNE JETER MD DR: CANDIDA/bandar JOB#: [id number] / [id number]
[2018-11-27 11:00] VITALS: BP 146/90
[2018-11-27 12:35] LABS: BASO % 0 % (0-3); EOS % 0 % (0-3); HEMATOCRIT 37.1 % (39.0-53.0); HEMOGLOBIN 12.1 g/dL (13.0-17.5); LYMPH # 0.5 x10^3/uL (1.0-4.8); LYMPH % 6 % (24-48); MEAN CORPUSCULAR HEMOGLOBIN 29 pg (25-35); MEAN CORPUSCULAR HGB CONC 33 g/dL (31-37); MEAN CORPUSCULAR VOLUME 90 fL (79-100); MONO # 0.2 x10^3/uL (0.0-1.1); MONO % 2 % (0-9); NEUT # 8.2 x10^3/uL (1.8-7.7); NEUT % 92 % (31-73); PLATELET COUNT 212 x10^3/uL (140-400); RED BLOOD COUNT 4.12 x10^6/uL (4.30-5.70); RED CELL DISTRIBUTION WIDTH 14.5 % (11.5-14.5)
[2018-11-27 12:46] LABS: CALCIUM 9.1 mg/dL (8.5-10.1); CREATININE 1.5 mg/dL (0.7-1.3); POTASSIUM 4.4 mmol/L (3.5-5.1)
[2018-11-27 13:08] LABS: % BANDS 6 % (0-9); % LYMPHS 7 % (24-48); % MONOS 1 % (0-10); % SEGS 86 % (35-66); PLT ESTIMATE ADEQUATE (ADEQUATE)
[2018-11-27 15:00] VITALS: BP 129/83
[2018-11-27 19:38] VITALS: BP 143/93
[2018-11-27 23:42] VITALS: BP 143/93
[2018-11-28] VITALS (7 sets, daily range): BP systolic 138–156; BP diastolic 75–84
[2018-11-28] MEDS: methylPREDNISolone SOD SUCC PF 40 MG/ML VIAL. IV SCH ×4 (00:04→22:30)
[2018-11-28] MEDS: ENOXAPARIN 40 MG/0.4 ML SYRINGE. SQ SCH ×2 (00:05→22:31)
[2018-11-28] MEDS: LACTOBACILLUS RHAMNOSUS GG 1 CAPSULE. PO SCH ×3 (00:05→22:30)
[2018-11-28] MEDS: DOXYCYCLINE HYCLATE 100 MG TABLET PO SCH ×3 (00:05→22:30)
[2018-11-28 05:00] LABS: GFR 73.5; POTASSIUM 4.6 mmol/L (3.5-5.1)
--- NOTE | 2018-11-28 06:10 | EKG ---
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
[2018-11-28] MEDS: IPRATRPIUM/ALBUTEROL 0.5/2.5MG 3 ML NEBU. NEB SCH ×4 (07:55→19:44)
[2018-11-28] MEDS: BUDESONIDE 0.5 MG/2 ML NEBU. NEB SCH ×2 (07:55→19:44)
[2018-11-28] MEDS: LEVOTHYROXINE 100 MCG TABLET PO SCH (08:22)
[2018-11-28] MEDS: ASPIRIN CHEWABLE 81 MG TABLET. PO SCH (08:22)
[2018-11-28] MEDS ORDERED: VANCOMYCIN 1GM IVPB FOR OMNI 250 ML IV ONE (09:15)
[2018-11-28] MEDS ORDERED: ACETAMINOPHEN/CODEINE 300/30MG TABLET. PO PRN (09:30)
[2018-11-28] MEDS ORDERED: ACETAMINOPHEN 500 MG TABLET PO PRN (09:30)
[2018-11-28] MEDS ORDERED: VANCOMYCIN 1.75 GM in IV NORMAL SALINE 500ML BAG 500 ML IV ONE (10:00)
--- NOTE | 2018-11-28 12:02 | PDOC ---
PROGRESS NOTES Chief Complaint Chief Complaint 1. Acute on chronic hypoxic, hypercapnic respiratory failure secondary to acute exacerbation of chronic obstructive pulmonary disease. 2. Coronary artery disease. 3. emphysematous lungs 4. mold exposure 5. GPC bacteremia - 03/11 History of Present Illness History of Present Illness no inc in soa TElls mo very long story, essentially he thinks it's the mold exposure form his apt and asks me for a blood test for mold CTA shows no PE< no PNA< or aspergilloma but emphysematous lungs HE is on O2 24/7 LONG TIME EDUCATING HIM - TELLING HIM THERE IS NO MOLD TEST THAT I AM AWARE OF\\\ CAlled by RN for GPC 1.4 bottles,a febrile PLAN: ok to dc tele NO mold test Consult ID re GPC bacteremia VAnc x 1 Vitals Vitals Vital Signs Date Time Temp Pulse Resp B/P (MAP) Pulse Ox O2 Delivery O2 Flow Rate FiO2 11/28/18 08:00 Nasal Cannula 3.0 11/28/18 07:56 96 11/28/18 07:00 97.7 74 18 143/83 (103) 97.7 Physical Exam General: Alert, Oriented X3, Cooperative, No acute distress Lungs: Clear Abdomen: Normal bowel sounds, Soft, No tenderness, No hepatosplenomegaly, No masses Extremities: No clubbing, No cyanosis, No edema, Normal pulses, No tenderness/swelling Skin: No rashes, No breakdown, No significant lesion Labs LABS Laboratory Tests Test 11/27/18 12:15 11/27/18 17:43 11/28/18 03:55 White Blood Count 9.0 x10^3/uL (4.0-11.0) Red Blood Count 4.12 x10^6/uL (4.30-5.70) Hemoglobin 12.1 g/dL (13.0-17.5) Hematocrit 37.1 % (39.0-53.0) Mean Corpuscular Volume 90 fL (79-100) Mean Corpuscular Hemoglobin 29 pg (25-35) Mean Corpuscular Hemoglobin Concent 33 g/dL (31-37) Red Cell Distribution Width 14.5 % (11.5-14.5) Platelet Count 212 x10^3/uL (140-400) Neutrophils (%) (Auto) 92 % (31-73) Lymphocytes (%) (Auto) 6 % (24-48) Monocytes (%) (Auto) 2 % (0-9) Eosinophils (%) (Auto) 0 % (0-3) Basophils (%) (Auto) 0 % (0-3) Neutrophils # (Auto) 8.2 x10^3/uL (1.8-7.7) Lymphocytes # (Auto) 0.5 x10^3/uL (1.0-4.8) Monocytes # (Auto) 0.2 x10^3/uL (0.0-1.1) Eosinophils # (Auto) 0.0 x10^3/uL (0.0-0.7) Basophils # (Auto) 0.0 x10^3/uL (0.0-0.2) Segmented Neutrophils % 86 % (35-66) Band Neutrophils % 6 % (0-9) Lymphocytes % 7 % (24-48) Monocytes % 1 % (0-10) Platelet Estimate Adequate (ADEQUATE) Sodium Level 139 mmol/L (136-145) 143 mmol/L (136-145) Potassium Level 4.4 mmol/L (3.5-5.1) 4.6 mmol/L (3.5-5.1) Chloride Level 101 mmol/L (98-107) 106 mmol/L (98-107) Carbon Dioxide Level 29 mmol/L (21-32) 32 mmol/L (21-32) Anion Gap 9 (6-14) 5 (6-14) Blood Urea Nitrogen 14 mg/dL (8-26) 15 mg/dL (8-26) Creatinine 1.5 mg/dL (0.7-1.3) 1.0 mg/dL (0.7-1.3) Estimated GFR (Cockcroft-Gault) 46.0 73.5 Glucose Level 381 mg/dL (70-99) 169 mg/dL (70-99) Calcium Level 9.1 mg/dL (8.5-10.1) 9.0 mg/dL (8.5-10.1) Troponin I Quantitative 0.034 ng/mL (0.000-0.055) < 0.017 ng/mL (0.000-0.055) Review of Systems Review of Systems weak, cough, stable SOA< no CP, fevers, abd pain, n.v.d Assessment and Plan Assessmemt and Plan Problems Medical Problems: (1) COPD exacerbation Status: Acute (2) D-dimer, elevated Status: Acute Comment Review of Relevant I have reviewed the following items jaxon (where applicable) has been applied. Labs Laboratory Tests Test 11/26/18 17:12 11/26/18 17:20 11/27/18 12:15 11/27/18 17:43 O2 Saturation 97 % (92-99) Arterial Blood pH 7.27 (7.35-7.45) Arterial Blood pCO2 at Patient Temp 63 mmHg (35-46) Arterial Blood pO2 at Patient Temp 105 mmHg (65-108) Arterial Blood HCO3 28 mmol/L (21-28) Arterial Blood Base Excess 0 mmol/L (-3-3) FiO2 2l n.c. White Blood Count 8.0 x10^3/uL (4.0-11.0) 9.0 x10^3/uL (4.0-11.0) Red Blood Count 4.49 x10^6/uL (4.30-5.70) 4.12 x10^6/uL (4.30-5.70) Hemoglobin 13.2 g/dL (13.0-17.5) 12.1 g/dL (13.0-17.5) Hematocrit 40.4 % (39.0-53.0) 37.1 % (39.0-53.0) Mean Corpuscular Volume 90 fL (79-100) 90 fL (79-100) Mean Corpuscular Hemoglobin 29 pg (25-35) 29 pg (25-35) Mean Corpuscular Hemoglobin Concent 33 g/dL (31-37) 33 g/dL (31-37) Red Cell Distribution Width 14.6 % (11.5-14.5) 14.5 % (11.5-14.5) Platelet Count 233 x10^3/uL (140-400) 212 x10^3/uL (140-400) Neutrophils (%) (Auto) 65 % (31-73) 92 % (31-73) Lymphocytes (%) (Auto) 24 % (24-48) 6 % (24-48) Monocytes (%) (Auto) 8 % (0-9) 2 % (0-9) Eosinophils (%) (Auto) 3 % (0-3) 0 % (0-3) Basophils (%) (Auto) 1 % (0-3) 0 % (0-3) Neutrophils # (Auto) 5.2 x10^3/uL (1.8-7.7) 8.2 x10^3/uL (1.8-7.7) Lymphocytes # (Auto) 1.9 x10^3/uL (1.0-4.8) 0.5 x10^3/uL (1.0-4.8) Monocytes # (Auto) 0.6 x10^3/uL (0.0-1.1) 0.2 x10^3/uL (0.0-1.1) Eosinophils # (Auto) 0.2 x10^3/uL (0.0-0.7) 0.0 x10^3/uL (0.0-0.7) Basophils # (Auto) 0.1 x10^3/uL (0.0-0.2) 0.0 x10^3/uL (0.0-0.2) Prothrombin Time 13.0 SEC (11.7-14.0) Prothromb Time International Ratio 1.0 (0.8-1.1) D-Dimer (Margarita) 1.50 ug/mlFEU (0.00-0.50) Sodium Level 142 mmol/L (136-145) 139 mmol/L (136-145) Potassium Level 4.8 mmol/L (3.5-5.1) 4.4 mmol/L (3.5-5.1) Chloride Level 106 mmol/L (98-107) 101 mmol/L (98-107) Carbon Dioxide Level 32 mmol/L (21-32) 29 mmol/L (21-32) Anion Gap 4 (6-14) 9 (6-14) Blood Urea Nitrogen 18 mg/dL (8-26) 14 mg/dL (8-26) Creatinine 1.1 mg/dL (0.7-1.3) 1.5 mg/dL (0.7-1.3) Estimated GFR (Cockcroft-Gault) 65.8 46.0 BUN/Creatinine Ratio 16 (6-20) Glucose Level 153 mg/dL (70-99) 381 mg/dL (70-99) Lactic Acid Level 1.8 mmol/L (0.4-2.0) Calcium Level 9.0 mg/dL (8.5-10.1) 9.1 mg/dL (8.5-10.1) Magnesium Level 2.1 mg/dL (1.8-2.4) Total Bilirubin 0.6 mg/dL (0.2-1.0) Aspartate Amino Transf (AST/SGOT) 23 U/L (15-37) Alanine Aminotransferase (ALT/SGPT) 23 U/L (16-63) Alkaline Phosphatase 77 U/L (46-116) Creatine Kinase 52 U/L (39-308) Troponin I Quantitative < 0.017 ng/mL (0.000-0.055) 0.034 ng/mL (0.000-0.055) < 0.017 ng/mL (0.000-0.055) ZW-[id number]-I-Type Natriuretic Peptide 441 pg/mL (0-124) Total Protein 6.7 g/dL (6.4-8.2) Albumin 3.7 g/dL (3.4-5.0) Albumin/Globulin Ratio 1.2 (1.0-1.7) Lipase 79 U/L (73-393) Segmented Neutrophils % 86 % (35-66) Band Neutrophils % 6 % (0-9) Lymphocytes % 7 % (24-48) Monocytes % 1 % (0-10) Platelet Estimate Adequate (ADEQUATE) Test 11/28/18 03:55 Sodium Level 143 mmol/L (136-145) Potassium Level 4.6 mmol/L (3.5-5.1) Chloride Level 106 mmol/L (98-107) Carbon Dioxide Level 32 mmol/L (21-32) Anion Gap 5 (6-14) Blood Urea Nitrogen 15 mg/dL (8-26) Creatinine 1.0 mg/dL (0.7-1.3) Estimated GFR (Cockcroft-Gault) 73.5 Glucose Level 169 mg/dL (70-99) Calcium Level 9.0 mg/dL (8.5-10.1) Laboratory Tests Test 11/27/18 12:15 11/27/18 17:43 11/28/18 03:55 White Blood Count 9.0 x10^3/uL (4.0-11.0) Red Blood Count 4.12 x10^6/uL (4.30-5.70) Hemoglobin 12.1 g/dL (13.0-17.5) Hematocrit 37.1 % (39.0-53.0) Mean Corpuscular Volume 90 fL (79-100) Mean Corpuscular Hemoglobin 29 pg (25-35) Mean Corpuscular Hemoglobin Concent 33 g/dL (31-37) Red Cell Distribution Width 14.5 % (11.5-14.5) Platelet Count 212 x10^3/uL (140-400) Neutrophils (%) (Auto) 92 % (31-73) Lymphocytes (%) (Auto) 6 % (24-48) Monocytes (%) (Auto) 2 % (0-9) Eosinophils (%) (Auto) 0 % (0-3) Basophils (%) (Auto) 0 % (0-3) Neutrophils # (Auto) 8.2 x10^3/uL (1.8-7.7) Lymphocytes # (Auto) 0.5 x10^3/uL (1.0-4.8) Monocytes # (Auto) 0.2 x10^3/uL (0.0-1.1) Eosinophils # (Auto) 0.0 x10^3/uL (0.0-0.7) Basophils # (Auto) 0.0 x10^3/uL (0.0-0.2) Segmented Neutrophils % 86 % (35-66) Band Neutrophils % 6 % (0-9) Lymphocytes % 7 % (24-48) Monocytes % 1 % (0-10) Platelet Estimate Adequate (ADEQUATE) Sodium Level 139 mmol/L (136-145) 143 mmol/L (136-145) Potassium Level 4.4 mmol/L (3.5-5.1) 4.6 mmol/L (3.5-5.1) Chloride Level 101 mmol/L (98-107) 106 mmol/L (98-107) Carbon Dioxide Level 29 mmol/L (21-32) 32 mmol/L (21-32) Anion Gap 9 (6-14) 5 (6-14) Blood Urea Nitrogen 14 mg/dL (8-26) 15 mg/dL (8-26) Creatinine 1.5 mg/dL (0.7-1.3) 1.0 mg/dL (0.7-1.3) Estimated GFR (Cockcroft-Gault) 46.0 73.5 Glucose Level 381 mg/dL (70-99) 169 mg/dL (70-99) Calcium Level 9.1 mg/dL (8.5-10.1) 9.0 mg/dL (8.5-10.1) Troponin I Quantitative 0.034 ng/mL (0.000-0.055) < 0.017 ng/mL (0.000-0.055) Microbiology 11/26/18 Blood Culture - Final, Complete Medications Current Medications Methylprednisolone Sodium Succinate (SOLU-Medrol 125MG VIAL) 125 mg 1X ONCE IV Last administered on 11/26/18at 17:34; Start 11/26/18 at 17:15; Stop 11/26/18 at 17:19; Status DC Sodium Chloride 1,000 ml @ 1,000 mls/hr 1X ONCE IV Last administered on 11/26/18at 18:23; Start 11/26/18 at 17:45; Stop 11/26/18 at 18:44; Status DC Ceftriaxone Sodium (Rocephin) 1 gm 1X ONCE IVP Last administered on 11/26/18at 18:23; Start 11/26/18 at 18:15; Stop 11/26/18 at 18:16; Status DC Iohexol (Omnipaque 350 Mg/ml) 90 ml 1X ONCE IV Last administered on 11/26/18at 18:55; Start 11/26/18 at 18:30; Stop 11/26/18 at 18:41; Status DC Info (CONTRAST GIVEN -- Rx MONITORING) 1 each PRN DAILY PRN MC SEE COMMENTS; Start 11/26/18 at 18:45; Stop 11/28/18 at 18:44 Doxycycline Hyclate (Vibra-Tab) 100 mg BID PO Last administered on 11/28/18at 08:23; Start 11/26/18 at 21:00 Albuterol Sulfate (Ventolin Neb Soln) 2.5 mg PRN Q4HRS PRN INH FOR ASTHMA; Start 11/26/18 at 19:45 Aspirin (Children'S Aspirin) 81 mg DAILY PO Last administered on 11/28/18at 08:23; Start 11/27/18 at 09:00 Levothyroxine Sodium (Synthroid) 100 mcg DAILY07 PO Last administered on 11/28/18at 08:23; Start 11/27/18 at 07:00 Budesonide (Pulmicort) 0.5 mg RTBID NEB Last administered on 11/28/18at 07:55; Start 11/26/18 at 20:00 Albuterol/ Ipratropium (Duoneb) 3 ml RTQID NEB Last administered on 11/28/18at 07:55; Start 11/26/18 at 20:00 Methylprednisolone Sodium Succinate (SOLU-Medrol 40MG VIAL) 40 mg Q8HRS IV Last administered on 11/28/18at 06:32; Start 11/26/18 at 22:00 Enoxaparin Sodium (Lovenox 40mg Syringe) 40 mg Q24H SQ Last administered on 11/28/18at 00:05; Start 11/26/18 at 21:00 Lactobacillus Rhamnosus (Culturelle) 1 cap BID PO Last administered on 11/28/18at 08:23; Start 11/27/18 at 21:00 Vancomycin HCl 250 ml @ 250 mls/hr 1X ONCE IV ; Start 11/28/18 at 09:15; Stop 11/28/18 at 10:14; Status UNV Guaifenesin (Robitussin Dm) 10 ml PRN Q6HRS PRN PO COUGH 1ST CHOICE; Start 11/28/18 at 09:30 Acetaminophen (Tylenol) 500 mg PRN Q6HRS PRN PO HEADACHE / TEMP; Start 11/28/18 at 09:30 Acetaminophen/ Codeine Phosphate (Tylenol #3) 1 tab PRN Q6HRS PRN PO PAIN; Start 11/28/18 at 09:30 Vancomycin HCl 1.75 gm/Sodium Chloride 500 ml @ 250 mls/hr 1X ONCE IV Last administered on 11/28/18at 10:14; Start 11/28/18 at 10:00; Stop 11/28/18 at 11:59 Active Scripts Active Reported Prednisone (Prednisone) 10 Mg Tablet 10 Mg PO DAILY 4 Days Prednisone (Prednisone) 10 Mg Tablet 20 Mg PO DAILY 4 Days Prednisone (Prednisone) 10 Mg Tablet 30 Mg PO DAILY 4 Days Doxycycline Hyclate 100 Mg Tablet 1 Tab PO BID 10 Days Aggrenox 25 Mg-200 Mg Capsule (Aspirin/Dipyridamole) 1 Each Cpmp.12hr 1 Each PO Symbicort 160-4.5 Mcg Inhaler (Budesonide/Formoterol Fumarate) 10.2 Gm Hfa.aer.ad 2 Puff IH BID Atrovent Hfa (Ipratropium [place]) 12.9 Gm Hfa.aer.ad 2 Puff IH QID Proventil Hfa Inhaler (Albuterol Sulfate) 6.7 Gm Hfa.aer.ad 1 Puff IH PRN Q4HRS PRN Aspirin 81 Mg Tab.chew 1 Tab PO DAILY Levothyroxine Sodium 100 Mcg Tablet 1 Tab PO DAILY Vitals/I & O Vital Sign - Last 24 Hours 11/27/18 11/27/18 11/27/18 11/27/18 15:00 16:29 19:30 20:39 Temp 98.0 98.0 Pulse 79 Resp 18 B/P (MAP) 129/83 (98) Pulse Ox 96 96 O2 Delivery Room Air Nasal Cannula Nasal Cannula Nasal Cannula O2 Flow Rate 3.0 3.0 3.0 11/27/18 11/28/18 11/28/18 11/28/18 23:42 03:03 07:00 07:56 Temp 98.9 98.0 97.7 98.9 98.0 97.7 Pulse 65 64 74 Resp 18 18 18 B/P (MAP) 143/93 (110) 138/76 (96) 143/83 (103) Pulse Ox 99 98 98 96 O2 Delivery Nasal Cannula Nasal Cannula Nasal Cannula Nasal Cannula O2 Flow Rate 3.0 3.0 3.0 3.0 11/28/18 08:00 O2 Delivery Nasal Cannula O2 Flow Rate 3.0 Intake and Output 11/27/18 11/27/18 11/28/18 15:00 23:00 07:00 Intake Total 360 ml 240 ml 900 ml Output Total 800 ml 1600 ml Balance 360 ml -560 ml -700 ml HOMER ALEMAN MD Nov 28, 2018 12:02
--- NOTE | 2018-11-28 12:17 | PDOC ---
PULMONARY PROGRESS NOTES Subjective less soa Vitals Vital Signs Date Time Temp Pulse Resp B/P (MAP) Pulse Ox O2 Delivery O2 Flow Rate FiO2 11/28/18 11:00 98.0 80 20 147/81 (103) 98 Nasal Cannula 3.0 98.0 General: Alert, No acute distress Lungs: Clear Cardiovascular: S1, S2 Abdomen: Soft, Non-tender Neuro Exam: Alert Extremities: No Edema Skin: Warm Labs Laboratory Tests Test 11/26/18 17:12 11/26/18 17:20 11/27/18 12:15 11/27/18 17:43 O2 Saturation 97 % (92-99) Arterial Blood pH 7.27 (7.35-7.45) Arterial Blood pCO2 at Patient Temp 63 mmHg (35-46) Arterial Blood pO2 at Patient Temp 105 mmHg (65-108) Arterial Blood HCO3 28 mmol/L (21-28) Arterial Blood Base Excess 0 mmol/L (-3-3) FiO2 2l n.c. White Blood Count 8.0 x10^3/uL (4.0-11.0) 9.0 x10^3/uL (4.0-11.0) Red Blood Count 4.49 x10^6/uL (4.30-5.70) 4.12 x10^6/uL (4.30-5.70) Hemoglobin 13.2 g/dL (13.0-17.5) 12.1 g/dL (13.0-17.5) Hematocrit 40.4 % (39.0-53.0) 37.1 % (39.0-53.0) Mean Corpuscular Volume 90 fL (79-100) 90 fL (79-100) Mean Corpuscular Hemoglobin 29 pg (25-35) 29 pg (25-35) Mean Corpuscular Hemoglobin Concent 33 g/dL (31-37) 33 g/dL (31-37) Red Cell Distribution Width 14.6 % (11.5-14.5) 14.5 % (11.5-14.5) Platelet Count 233 x10^3/uL (140-400) 212 x10^3/uL (140-400) Neutrophils (%) (Auto) 65 % (31-73) 92 % (31-73) Lymphocytes (%) (Auto) 24 % (24-48) 6 % (24-48) Monocytes (%) (Auto) 8 % (0-9) 2 % (0-9) Eosinophils (%) (Auto) 3 % (0-3) 0 % (0-3) Basophils (%) (Auto) 1 % (0-3) 0 % (0-3) Neutrophils # (Auto) 5.2 x10^3/uL (1.8-7.7) 8.2 x10^3/uL (1.8-7.7) Lymphocytes # (Auto) 1.9 x10^3/uL (1.0-4.8) 0.5 x10^3/uL (1.0-4.8) Monocytes # (Auto) 0.6 x10^3/uL (0.0-1.1) 0.2 x10^3/uL (0.0-1.1) Eosinophils # (Auto) 0.2 x10^3/uL (0.0-0.7) 0.0 x10^3/uL (0.0-0.7) Basophils # (Auto) 0.1 x10^3/uL (0.0-0.2) 0.0 x10^3/uL (0.0-0.2) Prothrombin Time 13.0 SEC (11.7-14.0) Prothromb Time International Ratio 1.0 (0.8-1.1) D-Dimer (Margarita) 1.50 ug/mlFEU (0.00-0.50) Sodium Level 142 mmol/L (136-145) 139 mmol/L (136-145) Potassium Level 4.8 mmol/L (3.5-5.1) 4.4 mmol/L (3.5-5.1) Chloride Level 106 mmol/L (98-107) 101 mmol/L (98-107) Carbon Dioxide Level 32 mmol/L (21-32) 29 mmol/L (21-32) Anion Gap 4 (6-14) 9 (6-14) Blood Urea Nitrogen 18 mg/dL (8-26) 14 mg/dL (8-26) Creatinine 1.1 mg/dL (0.7-1.3) 1.5 mg/dL (0.7-1.3) Estimated GFR (Cockcroft-Gault) 65.8 46.0 BUN/Creatinine Ratio 16 (6-20) Glucose Level 153 mg/dL (70-99) 381 mg/dL (70-99) Lactic Acid Level 1.8 mmol/L (0.4-2.0) Calcium Level 9.0 mg/dL (8.5-10.1) 9.1 mg/dL (8.5-10.1) Magnesium Level 2.1 mg/dL (1.8-2.4) Total Bilirubin 0.6 mg/dL (0.2-1.0) Aspartate Amino Transf (AST/SGOT) 23 U/L (15-37) Alanine Aminotransferase (ALT/SGPT) 23 U/L (16-63) Alkaline Phosphatase 77 U/L (46-116) Creatine Kinase 52 U/L (39-308) Troponin I Quantitative < 0.017 ng/mL (0.000-0.055) 0.034 ng/mL (0.000-0.055) < 0.017 ng/mL (0.000-0.055) ZN-Pwy-[id number]-Type Natriuretic Peptide 441 pg/mL (0-124) Total Protein 6.7 g/dL (6.4-8.2) Albumin 3.7 g/dL (3.4-5.0) Albumin/Globulin Ratio 1.2 (1.0-1.7) Lipase 79 U/L (73-393) Segmented Neutrophils % 86 % (35-66) Band Neutrophils % 6 % (0-9) Lymphocytes % 7 % (24-48) Monocytes % 1 % (0-10) Platelet Estimate Adequate (ADEQUATE) Test 11/28/18 03:55 Sodium Level 143 mmol/L (136-145) Potassium Level 4.6 mmol/L (3.5-5.1) Chloride Level 106 mmol/L (98-107) Carbon Dioxide Level 32 mmol/L (21-32) Anion Gap 5 (6-14) Blood Urea Nitrogen 15 mg/dL (8-26) Creatinine 1.0 mg/dL (0.7-1.3) Estimated GFR (Cockcroft-Gault) 73.5 Glucose Level 169 mg/dL (70-99) Calcium Level 9.0 mg/dL (8.5-10.1) Laboratory Tests Test 11/27/18 17:43 11/28/18 03:55 Troponin I Quantitative < 0.017 ng/mL (0.000-0.055) Sodium Level 143 mmol/L (136-145) Potassium Level 4.6 mmol/L (3.5-5.1) Chloride Level 106 mmol/L (98-107) Carbon Dioxide Level 32 mmol/L (21-32) Anion Gap 5 (6-14) Blood Urea Nitrogen 15 mg/dL (8-26) Creatinine 1.0 mg/dL (0.7-1.3) Estimated GFR (Cockcroft-Gault) 73.5 Glucose Level 169 mg/dL (70-99) Calcium Level 9.0 mg/dL (8.5-10.1) Medications Active Scripts Medications Dose Route/Sig Max Daily Dose Days Date Category Prednisone (Prednisone) 10 Mg Tablet 10 Mg PO DAILY 4 02/25/18 Reported Prednisone (Prednisone) 10 Mg Tablet 20 Mg PO DAILY 4 02/25/18 Reported Prednisone (Prednisone) 10 Mg Tablet 30 Mg PO DAILY 4 02/25/18 Reported Doxycycline Hyclate 100 Mg Tablet 1 Tab PO BID 10 02/25/18 Reported Aggrenox 25 Mg-200 Mg Capsule (Aspirin/Dipyridamole) 1 Each Cpmp.12hr 1 Each PO 05/20/17 Reported Symbicort 160-4.5 Mcg Inhaler (Budesonide/Formoterol Fumarate) 10.2 Gm Hfa.aer.ad 2 Puff IH BID 08/30/16 Reported Atrovent Hfa (Ipratropium [place]) 12.9 Gm Hfa.aer.ad 2 Puff IH QID 08/30/16 Reported Proventil Hfa Inhaler (Albuterol Sulfate) 6.7 Gm Hfa.aer.ad 1 Puff IH PRN Q4HRS PRN 08/30/16 Reported Aspirin 81 Mg Tab.chew 1 Tab PO DAILY 08/30/16 Reported Levothyroxine Sodium 100 Mcg Tablet 1 Tab PO DAILY 08/30/16 Reported Impression . 1. Acute on chronic hypoxic, hypercapnic respiratory failure secondary to acute exacerbation of chronic obstructive pulmonary disease. 2. Coronary artery disease. 3. CT chest with no PE, some mucous and COPD Plan . PLAN: I reviewed all of the above with the patient. He is improving on the present regimen, and I expect that to continue. I would taper his steroid dose as he improves. If we are able to give him a flu vaccination, I would do that before he leaves. I did note to the patient that if that is not yet available at [facility], he should get that soon. He should resume his prior medications and follow up with his scale installer at the [facility] after discharge. Positive BC 03/11 likely contaminant/ f/u ID rec NEEL ZAMORA MD Nov 28, 2018 12:17
--- NOTE | 2018-11-28 12:17 | PDOC ---
Infectious Disease Note Vital Sign Vital Signs Vital Signs Date Time Temp Pulse Resp B/P (MAP) Pulse Ox O2 Delivery O2 Flow Rate FiO2 11/28/18 08:00 Nasal Cannula 3.0 11/28/18 07:56 96 11/28/18 07:00 97.7 74 18 143/83 (103) 97.7 Labs Lab Laboratory Tests Test 11/27/18 17:43 11/28/18 03:55 Troponin I Quantitative < 0.017 ng/mL (0.000-0.055) Sodium Level 143 mmol/L (136-145) Potassium Level 4.6 mmol/L (3.5-5.1) Chloride Level 106 mmol/L (98-107) Carbon Dioxide Level 32 mmol/L (21-32) Anion Gap 5 (6-14) Blood Urea Nitrogen 15 mg/dL (8-26) Creatinine 1.0 mg/dL (0.7-1.3) Estimated GFR (Cockcroft-Gault) 73.5 Glucose Level 169 mg/dL (70-99) Calcium Level 9.0 mg/dL (8.5-10.1) Micro Microbiology 11/26/18 Blood Culture - Final, Complete Objective Assessment pt seen, consult dictated Plan Plan of Care / CORTEZ SOFIA MD Nov 28, 2018 12:17
--- NOTE | 2018-11-28 21:36 | CONS ---
DATE OF CONSULTATION: 11/26/2018 REQUESTING PHYSICIAN: Dr. West. REASON FOR CONSULTATION: Blood culture positive. HISTORY OF PRESENT ILLNESS: This is a 73-year-old gentleman with history of COPD, who is on home oxygen for at least 7 or 8 years. The patient came into the hospital with shortness of breath. The patient said his apartment is having with water leakage and mold that he is seeing. The patient denies any fever. Denies any nausea, vomiting or diarrhea. Denies any chest pain. The blood cultures done, it is 1/4 is positive with Gram-positive cocci resembling staph. The patient is comfortable at the bedside. He has no other complaints or concerns. No wheezing. PAST MEDICAL HISTORY: Positive for COPD. The patient has been as I mentioned about 7 or 8 years that he has been on oxygen. He also has coronary artery disease, hyperlipidemia, osteoarthritis, and hypothyroidism. SOCIAL HISTORY: The patient quit smoking about 5 or so years ago. No alcohol use or drug use. ALLERGIES: No known drug allergies. CURRENT MEDICATIONS: Reviewed. REVIEW OF SYSTEMS: As per HPI, all other systems reviewed and are negative. PHYSICAL EXAMINATION: GENERAL: Alert and oriented gentleman, not in distress. VITAL SIGNS: Stable, afebrile. HEENT: NAD. NECK: Supple, no JVP, no lymphadenopathy. LUNGS: Clear. HEART: S1, S2 regular. ABDOMEN: Benign. EXTREMITIES: No edema, cyanosis. SKIN: Unremarkable. NEUROLOGIC: The patient is neurologically alert, awake and appropriate. No focal neurologic deficit. LABORATORY DATA: White count is normal. Platelets are normal. BUN and creatinine is normal. Lactic acid was normal. Blood culture 1/4 is gram-positive cocci in clusters. Chest x-ray and chest CT is showing severe emphysema and no infiltrate. IMPRESSION: 1. Blood culture 1 out of 4 positive with resembling Staph most likely to be contaminant. Identification of the organism is pending. 2. Chronic obstructive pulmonary disease exacerbation, which patient appears to be very stable and no wheezing or any other signs of infection. 3. Coronary artery disease. 4. Hypertension. RECOMMENDATIONS: We do not see the need for any antibiotics, but just have to make sure the blood culture does not air turning machine feeder to be Staph aureus, then he does not need anything. Thank you very much, Dr. West, for giving me the opportunity to participate in this patient's care. CORTEZ SOFIA MD DR: JULISSA/bandar JOB#: [id number] / [id number]
[2018-11-28] MEDS: guaiFENesin DM 200MG/20MG 10 ML SYRUP PO PRN (22:32)
[2018-11-29 03:00] VITALS: BP 161/89
[2018-11-29] MEDS: LEVOTHYROXINE 100 MCG TABLET PO SCH (05:53)
[2018-11-29] MEDS: methylPREDNISolone SOD SUCC PF 40 MG/ML VIAL. IV SCH ×3 (05:54→22:32)
[2018-11-29] MEDS: guaiFENesin DM 200MG/20MG 10 ML SYRUP PO PRN (05:54)
[2018-11-29 07:00] VITALS: BP 135/84
[2018-11-29] MEDS: IPRATRPIUM/ALBUTEROL 0.5/2.5MG 3 ML NEBU. NEB SCH ×4 (07:47→19:50)
[2018-11-29] MEDS: BUDESONIDE 0.5 MG/2 ML NEBU. NEB SCH ×2 (07:47→19:50)
[2018-11-29] MEDS: ASPIRIN CHEWABLE 81 MG TABLET. PO SCH (08:04)
[2018-11-29] MEDS: DOXYCYCLINE HYCLATE 100 MG TABLET PO SCH ×2 (08:04→22:31)
[2018-11-29] MEDS: LACTOBACILLUS RHAMNOSUS GG 1 CAPSULE. PO SCH ×2 (08:04→22:31)
--- NOTE | 2018-11-29 10:36 | PDOC ---
PROGRESS NOTES Chief Complaint Chief Complaint 1. Acute on chronic hypoxic, hypercapnic respiratory failure secondary to acute exacerbation of chronic obstructive pulmonary disease. 2. Coronary artery disease. 3. emphysematous lungs 4. mold exposure 5. GPC bacteremia - 03/11 History of Present Illness History of Present Illness breathing better continues to tell story about mold exposure CTA shows no PE< no PNA< or aspergilloma but emphysematous lungs HE is on O2 28/09 PLAN: NO mold test Consulted ID re GPC bacteremia [facility] will need to follow up final blood cultures as outpatient concerned that no one will follow up blood cultures no further abx per ID. appears to be contaminant. VAnc x 1 given yesterday Vitals Vitals Vital Signs Date Time Temp Pulse Resp B/P (MAP) Pulse Ox O2 Delivery O2 Flow Rate FiO2 11/29/18 07:50 Nasal Cannula 3.0 11/29/18 07:49 97 11/29/18 07:00 98.1 70 18 135/84 (101) 98.1 Physical Exam General: Alert, Oriented X3, Cooperative, No acute distress Lungs: Clear Abdomen: Normal bowel sounds, Soft, No tenderness, No hepatosplenomegaly, No masses Extremities: No clubbing, No cyanosis, No edema, Normal pulses, No tenderness/swelling Skin: No rashes, No breakdown, No significant lesion Assessment and Plan Assessmemt and Plan Problems Medical Problems: (1) COPD exacerbation Status: Acute (2) D-dimer, elevated Status: Acute Comment Review of Relevant I have reviewed the following items jaxon (where applicable) has been applied. Labs Laboratory Tests Test 11/27/18 12:15 11/27/18 17:43 11/28/18 03:55 White Blood Count 9.0 x10^3/uL (4.0-11.0) Red Blood Count 4.12 x10^6/uL (4.30-5.70) Hemoglobin 12.1 g/dL (13.0-17.5) Hematocrit 37.1 % (39.0-53.0) Mean Corpuscular Volume 90 fL (79-100) Mean Corpuscular Hemoglobin 29 pg (25-35) Mean Corpuscular Hemoglobin Concent 33 g/dL (31-37) Red Cell Distribution Width 14.5 % (11.5-14.5) Platelet Count 212 x10^3/uL (140-400) Neutrophils (%) (Auto) 92 % (31-73) Lymphocytes (%) (Auto) 6 % (24-48) Monocytes (%) (Auto) 2 % (0-9) Eosinophils (%) (Auto) 0 % (0-3) Basophils (%) (Auto) 0 % (0-3) Neutrophils # (Auto) 8.2 x10^3/uL (1.8-7.7) Lymphocytes # (Auto) 0.5 x10^3/uL (1.0-4.8) Monocytes # (Auto) 0.2 x10^3/uL (0.0-1.1) Eosinophils # (Auto) 0.0 x10^3/uL (0.0-0.7) Basophils # (Auto) 0.0 x10^3/uL (0.0-0.2) Segmented Neutrophils % 86 % (35-66) Band Neutrophils % 6 % (0-9) Lymphocytes % 7 % (24-48) Monocytes % 1 % (0-10) Platelet Estimate Adequate (ADEQUATE) Sodium Level 139 mmol/L (136-145) 143 mmol/L (136-145) Potassium Level 4.4 mmol/L (3.5-5.1) 4.6 mmol/L (3.5-5.1) Chloride Level 101 mmol/L (98-107) 106 mmol/L (98-107) Carbon Dioxide Level 29 mmol/L (21-32) 32 mmol/L (21-32) Anion Gap 9 (6-14) 5 (6-14) Blood Urea Nitrogen 14 mg/dL (8-26) 15 mg/dL (8-26) Creatinine 1.5 mg/dL (0.7-1.3) 1.0 mg/dL (0.7-1.3) Estimated GFR (Cockcroft-Gault) 46.0 73.5 Glucose Level 381 mg/dL (70-99) 169 mg/dL (70-99) Calcium Level 9.1 mg/dL (8.5-10.1) 9.0 mg/dL (8.5-10.1) Troponin I Quantitative 0.034 ng/mL (0.000-0.055) < 0.017 ng/mL (0.000-0.055) Microbiology 11/26/18 Blood Culture - Final, Complete Medications Current Medications Methylprednisolone Sodium Succinate (SOLU-Medrol 125MG VIAL) 125 mg 1X ONCE IV Last administered on 11/26/18at 17:34; Start 11/26/18 at 17:15; Stop 11/26/18 at 17:19; Status DC Sodium Chloride 1,000 ml @ 1,000 mls/hr 1X ONCE IV Last administered on 11/26/18at 18:23; Start 11/26/18 at 17:45; Stop 11/26/18 at 18:44; Status DC Ceftriaxone Sodium (Rocephin) 1 gm 1X ONCE IVP Last administered on 11/26/18at 18:23; Start 11/26/18 at 18:15; Stop 11/26/18 at 18:16; Status DC Iohexol (Omnipaque 350 Mg/ml) 90 ml 1X ONCE IV Last administered on 11/26/18at 18:55; Start 11/26/18 at 18:30; Stop 11/26/18 at 18:41; Status DC Info (CONTRAST GIVEN -- Rx MONITORING) 1 each PRN DAILY PRN MC SEE COMMENTS; Start 11/26/18 at 18:45; Stop 11/28/18 at 18:44; Status DC Doxycycline Hyclate (Vibra-Tab) 100 mg BID PO Last administered on 11/29/18 08:04; Start 11/26/18 at 21:00 Albuterol Sulfate (Ventolin Neb Soln) 2.5 mg PRN Q4HRS PRN INH FOR ASTHMA Last administered on 11/29/18at 04:13; Start 11/26/18 at 19:45 Aspirin (Children'S Aspirin) 81 mg DAILY PO Last administered on 11/29/18 08:04; Start 11/27/18 at 09:00 Levothyroxine Sodium (Synthroid) 100 mcg DAILY07 PO Last administered on 11/29/18 05:54; Start 11/27/18 at 07:00 Budesonide (Pulmicort) 0.5 mg RTBID NEB Last administered on 11/29/18 07:47; Start 11/26/18 at 20:00 Albuterol/ Ipratropium (Duoneb) 3 ml RTQID NEB Last administered on 11/29/18at 07:47; Start 11/26/18 at 20:00 Methylprednisolone Sodium Succinate (SOLU-Medrol 40MG VIAL) 40 mg Q8HRS IV Last administered on 11/29/18at 05:54; Start 11/26/18 at 22:00 Enoxaparin Sodium (Lovenox 40mg Syringe) 40 mg Q24H SQ Last administered on 11/28/18at 22:32; Start 11/26/18 at 21:00 Lactobacillus Rhamnosus (Culturelle) 1 cap BID PO Last administered on 11/29/18at 08:04; Start 11/27/18 at 21:00 Vancomycin HCl 250 ml @ 250 mls/hr 1X ONCE IV ; Start 11/28/18 at 09:15; Stop 11/28/18 at 10:14; Status UNV Guaifenesin (Robitussin Dm) 10 ml PRN Q6HRS PRN PO COUGH 1ST CHOICE Last administered on 11/29/18at 05:54; Start 11/28/18 at 09:30 Acetaminophen (Tylenol) 500 mg PRN Q6HRS PRN PO HEADACHE / TEMP; Start 11/28/18 at 09:30 Acetaminophen/ Codeine Phosphate (Tylenol #3) 1 tab PRN Q6HRS PRN PO PAIN; Start 11/28/18 at 09:30 Vancomycin HCl 1.75 gm/Sodium Chloride 500 ml @ 250 mls/hr 1X ONCE IV Last administered on 11/28/18at 10:14; Start 11/28/18 at 10:00; Stop 11/28/18 at 11:59; Status DC Active Scripts Active Reported Prednisone (Prednisone) 10 Mg Tablet 10 Mg PO DAILY 4 Days Prednisone (Prednisone) 10 Mg Tablet 20 Mg PO DAILY 4 Days Prednisone (Prednisone) 10 Mg Tablet 30 Mg PO DAILY 4 Days Doxycycline Hyclate 100 Mg Tablet 1 Tab PO BID 10 Days Aggrenox 25 Mg-200 Mg Capsule (Aspirin/Dipyridamole) 1 Each Cpmp.12hr 1 Each PO Symbicort 160-4.5 Mcg Inhaler (Budesonide/Formoterol Fumarate) 10.2 Gm Hfa.aer.ad 2 Puff IH BID Atrovent Hfa (Ipratropium [place]) 12.9 Gm Hfa.aer.ad 2 Puff IH QID Proventil Hfa Inhaler (Albuterol Sulfate) 6.7 Gm Hfa.aer.ad 1 Puff IH PRN Q4HRS PRN Aspirin 81 Mg Tab.chew 1 Tab PO DAILY Levothyroxine Sodium 100 Mcg Tablet 1 Tab PO DAILY Vitals/I & O Vital Sign - Last 24 Hours 11/28/18 11/28/18 11/28/18 11/28/18 11:00 12:44 15:00 15:59 Temp 98.0 98.3 98.0 98.3 Pulse 80 83 Resp 20 18 B/P (MAP) 147/81 (103) 138/76 (96) Pulse Ox 98 96 98 96 O2 Delivery Nasal Cannula Nasal Cannula Nasal Cannula Nasal Cannula O2 Flow Rate 3.0 3.0 3.0 3.0 11/28/18 11/28/18 11/28/18 11/28/18 18:20 19:00 19:46 20:00 Temp 98.2 97.6 98.2 97.6 Pulse 89 77 Resp 18 18 B/P (MAP) 147/78 (101) 156/75 (102) Pulse Ox 97 97 96 O2 Delivery Nasal Cannula Nasal Cannula Nasal Cannula Nasal Cannula O2 Flow Rate 3.0 3.0 3.0 3.0 11/28/18 11/29/18 11/29/18 11/29/18 23:00 03:00 04:13 07:00 Temp 98.4 98.2 98.1 98.4 98.2 98.1 Pulse 70 67 70 Resp 18 18 18 B/P (MAP) 153/84 (107) 161/89 (113) 135/84 (101) Pulse Ox 98 96 96 O2 Delivery Nasal Cannula Nasal Cannula Nasal Cannula Nasal Cannula O2 Flow Rate 3.0 3.0 3.0 3.0 11/29/18 11/29/18 07:49 07:50 Pulse Ox 97 O2 Delivery Nasal Cannula Nasal Cannula O2 Flow Rate 3.0 3.0 Intake and Output 11/28/18 11/28/18 11/29/18 15:00 23:00 07:00 Intake Total 360 ml 240 ml Output Total 1000 ml Balance 360 ml 240 ml -1000 ml ROYCE WILLIS MD Nov 29, 2018 10:36
[2018-11-29 11:00] VITALS: BP 164/95
--- NOTE | 2018-11-29 11:11 | PDOC ---
PULMONARY PROGRESS NOTES Subjective less soa Vitals Vital Signs Date Time Temp Pulse Resp B/P (MAP) Pulse Ox O2 Delivery O2 Flow Rate FiO2 11/29/18 07:50 Nasal Cannula 3.0 11/29/18 07:49 97 11/29/18 07:00 98.1 70 18 135/84 (101) 98.1 General: Alert, No acute distress Lungs: Clear Cardiovascular: S1, S2 Abdomen: Soft, Non-tender Neuro Exam: Alert Extremities: No Edema Skin: Warm Labs Laboratory Tests Test 11/27/18 12:15 11/27/18 17:43 11/28/18 03:55 White Blood Count 9.0 x10^3/uL (4.0-11.0) Red Blood Count 4.12 x10^6/uL (4.30-5.70) Hemoglobin 12.1 g/dL (13.0-17.5) Hematocrit 37.1 % (39.0-53.0) Mean Corpuscular Volume 90 fL (79-100) Mean Corpuscular Hemoglobin 29 pg (25-35) Mean Corpuscular Hemoglobin Concent 33 g/dL (31-37) Red Cell Distribution Width 14.5 % (11.5-14.5) Platelet Count 212 x10^3/uL (140-400) Neutrophils (%) (Auto) 92 % (31-73) Lymphocytes (%) (Auto) 6 % (24-48) Monocytes (%) (Auto) 2 % (0-9) Eosinophils (%) (Auto) 0 % (0-3) Basophils (%) (Auto) 0 % (0-3) Neutrophils # (Auto) 8.2 x10^3/uL (1.8-7.7) Lymphocytes # (Auto) 0.5 x10^3/uL (1.0-4.8) Monocytes # (Auto) 0.2 x10^3/uL (0.0-1.1) Eosinophils # (Auto) 0.0 x10^3/uL (0.0-0.7) Basophils # (Auto) 0.0 x10^3/uL (0.0-0.2) Segmented Neutrophils % 86 % (35-66) Band Neutrophils % 6 % (0-9) Lymphocytes % 7 % (24-48) Monocytes % 1 % (0-10) Platelet Estimate Adequate (ADEQUATE) Sodium Level 139 mmol/L (136-145) 143 mmol/L (136-145) Potassium Level 4.4 mmol/L (3.5-5.1) 4.6 mmol/L (3.5-5.1) Chloride Level 101 mmol/L (98-107) 106 mmol/L (98-107) Carbon Dioxide Level 29 mmol/L (21-32) 32 mmol/L (21-32) Anion Gap 9 (6-14) 5 (6-14) Blood Urea Nitrogen 14 mg/dL (8-26) 15 mg/dL (8-26) Creatinine 1.5 mg/dL (0.7-1.3) 1.0 mg/dL (0.7-1.3) Estimated GFR (Cockcroft-Gault) 46.0 73.5 Glucose Level 381 mg/dL (70-99) 169 mg/dL (70-99) Calcium Level 9.1 mg/dL (8.5-10.1) 9.0 mg/dL (8.5-10.1) Troponin I Quantitative 0.034 ng/mL (0.000-0.055) < 0.017 ng/mL (0.000-0.055) Medications Active Scripts Medications Dose Route/Sig Max Daily Dose Days Date Category Prednisone (Prednisone) 10 Mg Tablet 10 Mg PO DAILY 4 02/25/18 Reported Prednisone (Prednisone) 10 Mg Tablet 20 Mg PO DAILY 4 02/25/18 Reported Prednisone (Prednisone) 10 Mg Tablet 30 Mg PO DAILY 4 02/25/18 Reported Doxycycline Hyclate 100 Mg Tablet 1 Tab PO BID 10 02/25/18 Reported Aggrenox 25 Mg-200 Mg Capsule (Aspirin/Dipyridamole) 1 Each Cpmp.12hr 1 Each PO 05/20/17 Reported Symbicort 160-4.5 Mcg Inhaler (Budesonide/Formoterol Fumarate) 10.2 Gm Hfa.aer.ad 2 Puff IH BID 08/30/16 Reported Atrovent Hfa (Ipratropium [place]) 12.9 Gm Hfa.aer.ad 2 Puff IH QID 08/30/16 Reported Proventil Hfa Inhaler (Albuterol Sulfate) 6.7 Gm Hfa.aer.ad 1 Puff IH PRN Q4HRS PRN 08/30/16 Reported Aspirin 81 Mg Tab.chew 1 Tab PO DAILY 08/30/16 Reported Levothyroxine Sodium 100 Mcg Tablet 1 Tab PO DAILY 08/30/16 Reported Impression . 1. Acute on chronic hypoxic, hypercapnic respiratory failure secondary to acute exacerbation of chronic obstructive pulmonary disease. 2. Coronary artery disease. 3. CT chest with no PE, some mucous and COPD Plan . 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 Positive BC 03/11 likely contaminant/ f/u ID rec NEEL ZAMORA MD Nov 29, 2018 11:11
[2018-11-29 15:00] VITALS: BP 196/109
[2018-11-29] MEDS: hydrALAZINE 25 MG TABLET PO SCH (18:46)
[2018-11-29 19:00] VITALS: BP 139/91
[2018-11-29] MEDS: ENOXAPARIN 40 MG/0.4 ML SYRINGE. SQ SCH (22:31)
[2018-11-29 23:00] VITALS: BP 147/87
[2018-11-30 03:00] VITALS: BP 138/82
[2018-11-30] MEDS: methylPREDNISolone SOD SUCC PF 40 MG/ML VIAL. IV SCH ×2 (06:02→14:19)
[2018-11-30] MEDS: LEVOTHYROXINE 100 MCG TABLET PO SCH (06:02)
[2018-11-30] MEDS: BUDESONIDE 0.5 MG/2 ML NEBU. NEB SCH (06:28)
[2018-11-30] MEDS: IPRATRPIUM/ALBUTEROL 0.5/2.5MG 3 ML NEBU. NEB SCH ×3 (06:28→15:13)
[2018-11-30 07:00] VITALS: BP 149/85
[2018-11-30] MEDS: DOXYCYCLINE HYCLATE 100 MG TABLET PO SCH (08:03)
[2018-11-30] MEDS: ASPIRIN CHEWABLE 81 MG TABLET. PO SCH (08:03)
[2018-11-30] MEDS: hydrALAZINE 25 MG TABLET PO SCH ×2 (08:03→14:19)
[2018-11-30] MEDS: LACTOBACILLUS RHAMNOSUS GG 1 CAPSULE. PO SCH (08:03)
--- NOTE | 2018-11-30 10:19 | PDOC ---
PULMONARY PROGRESS NOTES Subjective no soa Vitals Vital Signs Date Time Temp Pulse Resp B/P (MAP) Pulse Ox O2 Delivery O2 Flow Rate FiO2 11/30/18 08:04 67 149/85 11/30/18 08:00 Nasal Cannula 3.0 11/30/18 07:00 97.4 18 98 97.4 General: Alert, No acute distress Lungs: Clear Cardiovascular: S1, S2 Abdomen: Soft, Non-tender Neuro Exam: Alert Extremities: No Edema Skin: Warm Medications Active Scripts Medications Dose Route/Sig Max Daily Dose Days Date Category Prednisone (Prednisone) 10 Mg Tablet 10 Mg PO DAILY 4 02/25/18 Reported Prednisone (Prednisone) 10 Mg Tablet 20 Mg PO DAILY 4 02/25/18 Reported Prednisone (Prednisone) 10 Mg Tablet 30 Mg PO DAILY 4 02/25/18 Reported Doxycycline Hyclate 100 Mg Tablet 1 Tab PO BID 10 02/25/18 Reported Aggrenox 25 Mg-200 Mg Capsule (Aspirin/Dipyridamole) 1 Each Cpmp.12hr 1 Each PO 05/20/17 Reported Symbicort 160-4.5 Mcg Inhaler (Budesonide/Formoterol Fumarate) 10.2 Gm Hfa.aer.ad 2 Puff IH BID 08/30/16 Reported Atrovent Hfa (Ipratropium [place]) 12.9 Gm Hfa.aer.ad 2 Puff IH QID 08/30/16 Reported Proventil Hfa Inhaler (Albuterol Sulfate) 6.7 Gm Hfa.aer.ad 1 Puff IH PRN Q4HRS PRN 08/30/16 Reported Aspirin 81 Mg Tab.chew 1 Tab PO DAILY 08/30/16 Reported Levothyroxine Sodium 100 Mcg Tablet 1 Tab PO DAILY 08/30/16 Reported Impression . 1. Acute on chronic hypoxic, hypercapnic respiratory failure secondary to acute exacerbation of chronic obstructive pulmonary disease.resolved 2. Coronary artery disease. 3. CT chest with no PE, some mucous and COPD 4. positive BC, likely contaminant Plan . clinically better continue O2 Nebs no need to do mould testing follow up with his research consultant at the [facility] after discharge. Positive BC 03/11 likely contaminant/ f/u ID rec NEEL ZAMORA MD Nov 30, 2018 10:19
--- NOTE | 2018-11-30 10:59 | PDOC ---
Infectious Disease Note Subjective Subjective pt is feeling better back to his normal ROS ROS no n/v/d/sob Vital Sign Vital Signs Vital Signs Date Time Temp Pulse Resp B/P (MAP) Pulse Ox O2 Delivery O2 Flow Rate FiO2 11/30/18 08:04 67 149/85 11/30/18 08:00 Nasal Cannula 3.0 11/30/18 07:00 97.4 18 98 97.4 Physical Exam PHYSICAL EXAM GENERAL: Alert and oriented gentleman, not in distress. VITAL SIGNS: Stable, afebrile. HEENT: NAD. NECK: Supple, no JVP, no lymphadenopathy. LUNGS: Clear. HEART: S1, S2 regular. ABDOMEN: Benign. EXTREMITIES: No edema, cyanosis. SKIN: Unremarkable. NEUROLOGIC: The patient is neurologically alert, awake and appropriate. No focal neurologic deficit. Labs Micro 1/4 BC G + cocci ID pending Objective Assessment 1. Blood culture 1 out of 4 positive with resembling Staph most likely to be contaminant. Identification of the organism is pending. 2. Chronic obstructive pulmonary disease exacerbation, which patient appears to be very stable and no wheezing or any other signs of infection. 3. Coronary artery disease. 4. Hypertension. Plan Plan of Care off antibiotics cont supportive care ok to d/c CORTEZ SOFIA MD Nov 30, 2018 10:59
[2018-11-30 11:00] VITALS: BP_SYST 134; BP_SYST 142; BP_DIAS 83; BP_DIAS 84
[2018-11-30] MEDS ORDERED: DOXY100T PO (13:03)
--- NOTE | 2018-11-30 13:04 | SNU/HH DC ---
DISCHARGE ORDERS DISCHARGE INFORMATION: DISCHARGE DATE: Nov 30, 2018 FINAL DIAGNOSIS Problems Medical Problems: (1) COPD exacerbation Status: Acute (2) D-dimer, elevated Status: Acute CONDITION ON DISCHARGE: Stable CODE STATUS: Code Status: Full RESIDENTIAL: SNF STAY <30 DAYS: Yes POST DISCHARGE ORDERS: ACTIVITY ORDERS: Activity as tolerated WEIGHT BEARING STATUS: As tolerated DIET AFTER DISCHARGE: ADA WOUND/INCISION CARE: No wound care needed CHECKS AFTER DISCHARGE: CHECKS AFTER DISCHARGE: Check your Temp as needed TREATMENT/EQUIPMENT ORDERS: ADAPTIVE EQUIPMENT NEEDED: None RESPIRATORY EQUIPMENT NEEDED: Oxygen Physical Therapy For: Evalulation/Treatment Occupational Therapy For: Evaluation/Treatment DISCHARGE MEDICATIONS: Home Meds Active Scripts Doxycycline Hyclate (DOXYCYCLINE HYCLATE) 100 Mg Tablet, 1 TAB PO BID for Pneumonia for 3 Days, #6 TAB Prov:ROYCE WILLIS MD 11/30/18 Reported Medications Prednisone (PREDNISONE ) 10 Mg Tablet, 10 MG PO DAILY for pneumonia for 4 Days, #4 TAB 0 Refills 02/25/18 Prednisone (PREDNISONE ) 10 Mg Tablet, 20 MG PO DAILY for pneumonia for 4 Days, #8 TAB 0 Refills 02/25/18 Prednisone (PREDNISONE ) 10 Mg Tablet, 30 MG PO DAILY for pneumonia for 4 Days, #12 TAB 0 Refills 02/25/18 Aspirin/Dipyridamole (AGGRENOX 25 MG-200 MG CAPSULE) 1 Each Cpmp.12hr, 1 EACH PO, CAP 05/20/17 Budesonide/Formoterol Fumarate (SYMBICORT 160-4.5 MCG INHALER) 10.2 Gm Hfa.aer.ad, 2 PUFF IH BID, #10.6 GM 3 Refills 08/30/16 Ipratropium [place] (ATROVENT HFA) 12.9 Gm Hfa.aer.ad, 2 PUFF IH QID, #12.9 GM 5 Refills 08/30/16 Albuterol Sulfate (PROVENTIL HFA INHALER) 6.7 Gm Hfa.aer.ad, 1 PUFF IH PRN Q4HRS PRN for FOR ASTHMA, INHALER 0 Refills 08/30/16 Aspirin (ASPIRIN) 81 Mg Tab.chew, 1 TAB PO DAILY, #30 TAB 3 Refills 08/30/16 Levothyroxine Sodium (LEVOTHYROXINE SODIUM) 100 Mcg Tablet, 1 TAB PO DAILY, #30 TAB 5 Refills 08/30/16 ROYCE WILLIS MD Nov 30, 2018 13:04
[2018-11-30 14:19] VITALS: BP 134/83
--- NOTE | 2018-11-30 16:58 | PDOC3 ---
Discharge Summary Visit Information Date of Admission: Nov 26, 2018 Date of Discharge: Nov 30, 2018 Final Diagnosis Problems Medical Problems: (1) COPD exacerbation Status: Acute (2) D-dimer, elevated Status: Acute Brief Hospital Course Allergies Allergies Coded Allergies Type Severity Reaction Last Updated Verified No Known Drug Allergies 08/29/16 No Vital Signs GENERAL: No apparent distress. Alert and oriented. HEENT: Head normocephalic, atraumatic. NECK: Supple LUNGS: Clear to auscultation. HEART: RRR, S1, S2 present, pulses intact ABDOMEN: Soft, positive bowel sounds. EXTREMITIES: No cyanosis or edema. NEUROLOGIC: Normal speech, normal tone PSYCHIATRIC: Normal affect, normal mood. SKIN: No ulceration. Vital Signs Date Time Temp Pulse Resp B/P (MAP) Pulse Ox O2 Delivery O2 Flow Rate FiO2 11/30/18 15:13 Nasal Cannula 3.0 11/30/18 14:19 75 134/83 11/30/18 11:00 98.0 18 98 98.0 Brief Hospital Course 1. Acute on chronic hypoxic, hypercapnic respiratory failure secondary to acute exacerbation of chronic obstructive pulmonary disease. 2. Coronary artery disease. 3. emphysematous lungs 4. mold exposure 5. GPC bacteremia - 03/11 CTA shows no PE< no PNA< or aspergilloma but emphysematous lungs HE is on O2 28/09 NO mold test Consulted ID re GPC bacteremia. appears as contaminant. [facility] will need to follow up final blood cultures as outpatient VAnc x 1 given however will go home on doxy and steroid taper. will go to [facility] at discharge for further rehab. Discharge Information Condition at Discharge: Stable Disposition/Orders: D/C to Home Scheduled Aspirin (Aspirin) 81 Mg Tab.chew, 1 TAB PO DAILY, #30 Ref 3 (Reported) Entered as Reported by: Lucian Soni on 08/30/16101 Last Taken: Unknown Dose on 11/26/18 Last Action: Last Taken Edited on 11/26/181952 by JOSHUA FAIRBANKS RN Budesonide/Formoterol Fumarate (Symbicort 160-4.5 Mcg Inhaler) 10.2 Gm Hfa.aer.ad, 2 PUFF IH BID, #10.6 Ref 3 (Reported) Entered as Reported by: Lucian Soni on 08/30/16101 Last Taken: Unknown Dose on 11/26/18 Last Action: Last Taken Edited on 11/26/181952 by JOSHUA FAIRBANKS RN Doxycycline Hyclate (Doxycycline Hyclate) 100 Mg Tablet, 1 TAB PO BID for Pneumonia for 3 Days, #6 Prescribed by: ROYCE WILLIS MD on 11/30/18 1303 Ipratropium [place] (Atrovent Hfa) 12.9 Gm Hfa.aer.ad, 2 PUFF IH QID, #12.9 Ref 5 (Reported) Entered as Reported by: Lucian Soni on 08/30/16101 Last Taken: Unknown Dose on 11/26/18 Last Action: Last Taken Edited on 11/26/181952 by JOSHUA FAIRBANKS RN Levothyroxine Sodium (Levothyroxine Sodium) 100 Mcg Tablet, 1 TAB PO DAILY, #30 Ref 5 (Reported) Entered as Reported by: Lucian Soni on 08/30/16101 Last Taken: Unknown Dose on 11/26/18 Last Action: Last Taken Edited on 11/26/181952 by JOSHUA FAIRBANKS RN Prednisone (Prednisone ) 10 Mg Tablet, 30 MG PO DAILY for pneumonia for 4 Days, #12 Ref 0 (Reported) Entered as Reported by: ARNALDO RANKIN on 02/25/18 1308 Prednisone (Prednisone ) 10 Mg Tablet, 20 MG PO DAILY for pneumonia for 4 Days, #8 Ref 0 (Reported) Entered as Reported by: ARNALDO RANKIN on 02/25/18 1308 Prednisone (Prednisone ) 10 Mg Tablet, 10 MG PO DAILY for pneumonia for 4 Days, #4 Ref 0 (Reported) Entered as Reported by: ARNALDO RANKIN on 02/25/18 1310 Scheduled PRN Albuterol Sulfate (Proventil Hfa Inhaler) 6.7 Gm Hfa.aer.ad, 1 PUFF IH PRN Q4HRS PRN for FOR ASTHMA, Ref 0 (Reported) Entered as Reported by: Lucian Soni on 08/30/16101 Last Taken: Unknown Dose on 11/26/18 Last Action: Last Taken Edited on 11/26/181952 by JOSHUA FAIRBANKS RN Miscellaneous Medications Aspirin/Dipyridamole (Aggrenox 25 Mg-200 Mg Capsule) 1 Each Cpmp.12hr, 1 EACH PO, (Reported) Entered as Reported by: STELLA SCHAFFER on 05/20/17 0422 Last Action: Reviewed on 11/28/18 1041 by ROYCE HARVEY MD Nov 30, 2018 16:58
== END 2018-11-30 15:46 | DRG 189 ==
LOC: ER 17:08 → 6 SOUTH 18:02 → ER 18:47 → 5 SOUTH 11-28 18:40
PROVIDERS: ADMIT Internal Medicine; ATTEND Internal Medicine
DX: J96.21 Acute and chronic respiratory failure with hypoxia (principal); J43.9 Emphysema, unspecified; J96.22 Acute and chronic respiratory failure with hypercapnia; E03.9 Hypothyroidism, unspecified; E78.5 Hyperlipidemia, unspecified; F17.210 Nicotine dependence, cigarettes, uncomplicated; M19.90 Unspecified osteoarthritis, unspecified site; R79.1 Abnormal coagulation profile; I10 Essential (primary) hypertension; I25.10 Atherosclerotic heart disease of native coronary artery without angina pectoris; Z87.01 Personal history of pneumonia (recurrent); Z99.81 Dependence on supplemental oxygen; Z83.3 Family history of diabetes mellitus; Z79.82 Long term (current) use of aspirin; Z79.899 Other long term (current) drug therapy; Z77.120 Contact with and (suspected) exposure to mold (toxic)
CPT/HCPCS: 36415; 36600; 71045; 71275; 80048; 80053; 82550; 82805; 83605; 83690; 83735; 83880; 84484; 85007; 85025; 85379; 85610; 87040; 87205; 93005; 94640; 94760; 96374; 96375; J0696; J1650; J2920; J2930; J3370; J7030; J7040; J7613; J7620; J7626; Q9967; 97530; 99285-25; G0378

== ENCOUNTER 2018-12-14 21:46 | Emergency (ER) | payer MEDICARE ==
[~2018-12-14] VITALS: Ht 185.4 cm; Wt 68.0 kg
[2018-12-14] MEDS ORDERED: IPRATROPIUM BROMIDE 0.5 MG/2.5 ML NEBU. ONE (21:53)
[2018-12-14] MEDS ORDERED: ALBUTEROL SULFATE 2.5 MG/3 ML NEBU. ONE (21:53)
[2018-12-14 22:03] LABS: BASO % 0 % (0-3); EOS # 0.4 x10^3/uL (0.0-0.7); EOS % 4 % (0-3); HEMATOCRIT 38.7 % (39.0-53.0); HEMOGLOBIN 12.8 g/dL (13.0-17.5); LYMPH # 1.4 x10^3/uL (1.0-4.8); LYMPH % 14 % (24-48); MEAN CORPUSCULAR HEMOGLOBIN 30 pg (25-35); MEAN CORPUSCULAR HGB CONC 33 g/dL (31-37); MEAN CORPUSCULAR VOLUME 89 fL (79-100); MONO # 0.9 x10^3/uL (0.0-1.1); MONO % 9 % (0-9); NEUT # 7.1 x10^3/uL (1.8-7.7); NEUT % 73 % (31-73); PLATELET COUNT 184 x10^3/uL (140-400); RED BLOOD COUNT 4.34 x10^6/uL (4.30-5.70); RED CELL DISTRIBUTION WIDTH 15.7 % (11.5-14.5); WHITE BLOOD COUNT 9.7 x10^3/uL (4.0-11.0)
[2018-12-14 22:11] LABS: CALCIUM 9.3 mg/dL (8.5-10.1); GFR 73.5; POTASSIUM 4.5 mmol/L (3.5-5.1)
[2018-12-14] MEDS ORDERED: ALBUTEROL SULFATE 2.5 MG/3 ML NEBU. CONT NEB ONE (22:15)
[2018-12-14] MEDS ORDERED: methylPREDNISolone SOD SUCC PF 125 MG/2 ML VIAL. IV ONE (22:15)
[2018-12-14] MEDS ORDERED: IPRATROPIUM BROMIDE 0.5 MG/2.5 ML NEBU. NEB ONE (22:15)
[2018-12-14 22:17] LABS: ALBUMIN 3.3 g/dL (3.4-5.0); TOTAL BILIRUBIN 0.5 mg/dL (0.2-1.0); TOTAL PROTEIN 6.5 g/dL (6.4-8.2)
[2018-12-14 22:54] LABS: INFLUENZA A PATIENT NEGATIVE (NEGATIVE); INFLUENZA B PATIENT NEGATIVE (NEGATIVE)
--- NOTE | 2018-12-14 23:10 | RAD ---
Exam: Chest one view INDICATION: Dyspnea TECHNIQUE: Frontal view of the chest Comparisons: 11/26/2018 FINDINGS: The cardiomediastinal silhouette and pulmonary vessels are within normal limits. Emphysematous change in the lungs bilaterally. The lung and pleural spaces are clear. IMPRESSION: Emphysema without focal consolidation is identified. Electronically signed by: Amairani Caldwell MD (12/14/2018 11:07 PM) [facility]
[2018-12-14 23:15] VITALS: BP 113/63
[2018-12-14] MEDS ORDERED: METH4TAB2 PO (23:17)
--- NOTE | 2018-12-14 23:17 | PHYS DOC ---
Past Medical History Past Medical History: COPD, CVA, [place] Past Surgical History: Tonsillectomy Alcohol Use: Occasionally Drug Use: None Adult General Chief Complaint Chief Complaint: SHORTNESS OF BREATH HPI HPI Patient is a 73-year-old male who presents with complaint of acute onset of shortness of breath that started approximately 45 minutes prior to arrival. Patient was recently placed in snf after having had COPD exacerbation. Patient states that he got short of breath and had requested breathing treatment at the nursing facility and patient was given breathing treatment. Patient states that symptoms were not improved and upon EMS arrival, patient was receiving second treatment. Patient does report some improvement after the second treatment but still reports significant shortness of breath. He denies any chest pain or fever. Patient states that shortness of breath is worsened with just moving around.[] Review of Systems Review of Systems Constitutional: Denies fever or chills [] Respiratory: Complains of cough and shortness of breath [] Cardiovascular: No additional information not addressed in HPI [] GI: Denies abdominal pain, nausea, vomiting or diarrhea [] Integument: Denies rash or skin lesions [] Neurologic: Denies headache, focal weakness or sensory changes [] All other systems were reviewed and found to be within normal limits, except as documented in this note. Current Medications Current Medications Current Medications Medications (Trade) Dose Ordered Sig/Jayla Start Time Stop Time Status Last Admin Dose Admin Albuterol Sulfate (Ventolin Neb Soln) 10 mg 1X ONCE 12/14/18 22:15 12/14/18 22:16 DC 12/14/18 22:06 10 MG Ipratropium [place] (Atrovent) 0.5 mg 1X ONCE 12/14/18 22:15 12/14/18 22:16 DC 12/14/18 22:05 0.5 MG Methylprednisolone Sodium Succinate (SOLU-Medrol 125MG VIAL) 125 mg 1X ONCE 12/14/18 22:15 12/14/18 22:16 DC 12/14/18 22:38 125 MG Allergies Allergies Allergies Coded Allergies Type Severity Reaction Last Updated Verified No Known Drug Allergies 08/29/16 No Physical Exam Physical Exam Constitutional: Well developed, well nourished, no acute distress, non-toxic appearance. [] HENT: Normocephalic, atraumatic, bilateral external ears normal, oropharynx moist, no oral exudates, nose normal. [] Eyes: PERRLA, EOMI, conjunctiva normal, no discharge. [] Neck: Normal range of motion, no tenderness, supple, no stridor. [] Cardiovascular: Regular rate and rhythm[] Lungs & Thorax: Markedly reduced breath sounds are noted bilaterally with fine inspiratory and expiratory wheezes to auscultation [] Abdomen: Bowel sounds normal, soft, no tenderness. [] Skin: Warm, dry, no erythema, no rash. [] Extremities: No tenderness, no cyanosis, no clubbing, ROM intact, no edema. [] Neurologic: Alert and oriented X 3, no focal deficits noted. [] Current Patient Data Vital Signs Vital Signs Date Time Temp Pulse Resp B/P (MAP) Pulse Ox O2 Delivery O2 Flow Rate FiO2 12/14/18 22:01 97 Nasal Cannula 4.0 12/14/18 21:46 98.4 74 24 128/79 (95) 98.4 Lab Values Laboratory Tests Test 12/14/18 21:55 12/14/18 22:30 White Blood Count 9.7 x10^3/uL (4.0-11.0) Red Blood Count 4.34 x10^6/uL (4.30-5.70) Hemoglobin 12.8 g/dL (13.0-17.5) L Hematocrit 38.7 % (39.0-53.0) L Mean Corpuscular Volume 89 fL (79-100) Mean Corpuscular Hemoglobin 30 pg (25-35) Mean Corpuscular Hemoglobin Concent 33 g/dL (31-37) Red Cell Distribution Width 15.7 % (11.5-14.5) H Platelet Count 184 x10^3/uL (140-400) Neutrophils (%) (Auto) 73 % (31-73) Lymphocytes (%) (Auto) 14 % (24-48) L Monocytes (%) (Auto) 9 % (0-9) Eosinophils (%) (Auto) 4 % (0-3) H Basophils (%) (Auto) 0 % (0-3) Neutrophils # (Auto) 7.1 x10^3/uL (1.8-7.7) Lymphocytes # (Auto) 1.4 x10^3/uL (1.0-4.8) Monocytes # (Auto) 0.9 x10^3/uL (0.0-1.1) Eosinophils # (Auto) 0.4 x10^3/uL (0.0-0.7) Basophils # (Auto) 0.0 x10^3/uL (0.0-0.2) Sodium Level 139 mmol/L (136-145) Potassium Level 4.5 mmol/L (3.5-5.1) Chloride Level 102 mmol/L (98-107) Carbon Dioxide Level 33 mmol/L (21-32) H Anion Gap 4 (6-14) L Blood Urea Nitrogen 19 mg/dL (8-26) Creatinine 1.0 mg/dL (0.7-1.3) Estimated GFR (Cockcroft-Gault) 73.5 BUN/Creatinine Ratio 19 (6-20) Glucose Level 137 mg/dL (70-99) H Calcium Level 9.3 mg/dL (8.5-10.1) Total Bilirubin 0.5 mg/dL (0.2-1.0) Aspartate Amino Transferase (AST) 23 U/L (15-37) Alanine Aminotransferase (ALT) 39 U/L (16-63) Alkaline Phosphatase 62 U/L (46-116) Troponin I Quantitative < 0.017 ng/mL (0.000-0.055) YN-Phm-U-Type Natriuretic Peptide 250 pg/mL (0-124) H Total Protein 6.5 g/dL (6.4-8.2) Albumin 3.3 g/dL (3.4-5.0) L Albumin/Globulin Ratio 1.0 (1.0-1.7) Influenza Type A Antigen Negative (NEGATIVE) Influenza Type B Antigen Negative (NEGATIVE) Laboratory Tests 12/14/18 21:55 Laboratory Tests 12/14/18 21:55 EKG EKG [] Interpretation Time: EKG demonstrates normal sinus rhythm with rate of 75. Radiology/Procedures Radiology/Procedures [] Impressions: Chest x-ray demonstrates no acute process. Course & Med Decision Making Course & Med Decision Making Pertinent Labs and Imaging studies reviewed. (See chart for details) Patient moved to room upon arrival was evaluated by your medical staff after which an IV was established and blood work was drawn. Patient given 1 hour continuous nebulizer treatment. After workup complete, findings reviewed with patient and patient reports significant improvement in symptoms. I did discuss options of admission versus discharge and patient states that he does not feel that he needs to be admitted. Patient placed back on 3 L of oxygen and is oxygenating well at this time. Patient would like to be discharged back to nursing facility. Dragon Disclaimer Dragon Disclaimer This electronic medical record was generated, in whole or in part, using a voice recognition dictation system. Departure Departure Impression: Primary Impression: COPD with acute exacerbation Disposition: HOME, SELF-CARE Condition: STABLE Referrals: TONE FORTUNE MD (PCP) Patient Instructions: Chronic Obstructive Pulmonary Disease Exacerbation Scripts Methylprednisolone (MEDROL) 4 Mg Tab.ds.pk 1 PKG PO UD, #1 PKG Prov: RIC LOCKHART Jr. DO 12/14/18 RIC LOCKHART Jr. DO Dec 14, 2018 23:17
--- NOTE | 2018-12-15 06:37 | EKG ---
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
[2018-12-20] MEDS ORDERED: ALBU2.5V8 IH (10:21)
== END 2018-12-14 23:30 | disposition home or self-care (01) ==
LOC: ER 21:46
DX: J44.1 Chronic obstructive pulmonary disease with (acute) exacerbation (principal); I25.2 Old myocardial infarction; Z86.73 Personal history of transient ischemic attack (TIA), and cerebral infarction without residual deficits
CPT/HCPCS: 36415; 71045; 80053; 83880; 84484; 85025; 87804; 93005; 94644; 96374; 99285; J2930; J7613; J7644

== ENCOUNTER 2018-12-17 23:38 | Inpatient (IN) | payer MEDICARE ==
[~2018-12-17] VITALS: Ht 185.4 cm; Wt 69.9 kg
[~2018-12-17 23:38] MED LIST changes: -ALBU2.5V8 IH; +METH4TAB2 PO; +PROVENTIL HFA6.7 GM IH
[2018-12-17] MEDS ORDERED: MORPHINE SULFATE 2 MG/ML VIAL. IV/SQ PRN (23:45)
[2018-12-17 23:54] LABS: BASO # 0.1 x10^3/uL (0.0-0.2); BASO % 1 % (0-3); EOS # 0.1 x10^3/uL (0.0-0.7); EOS % 1 % (0-3); HEMOGLOBIN 13.6 g/dL (13.0-17.5); LYMPH # 4.3 x10^3/uL (1.0-4.8); LYMPH % 30 % (24-48); MEAN CORPUSCULAR HEMOGLOBIN 29 pg (25-35); MEAN CORPUSCULAR HGB CONC 32 g/dL (31-37); MEAN CORPUSCULAR VOLUME 91 fL (79-100); MONO % 7 % (0-9); NEUT # 8.9 x10^3/uL (1.8-7.7); NEUT % 62 % (31-73); PLATELET COUNT 219 x10^3/uL (140-400); RED BLOOD COUNT 4.64 x10^6/uL (4.30-5.70); RED CELL DISTRIBUTION WIDTH 15.9 % (11.5-14.5); WHITE BLOOD COUNT 14.4 x10^3/uL (4.0-11.0)
[2018-12-18] VITALS (15 sets, daily range): BP systolic 93–148; BP diastolic 53–85
[2018-12-18] MEDS ORDERED: ALBUTEROL SULFATE 2.5 MG/3 ML NEBU. CONT NEB ONE
[2018-12-18] MEDS ORDERED: methylPREDNISolone SOD SUCC PF 125 MG/2 ML VIAL. IV ONE
[2018-12-18] MEDS ORDERED: IPRATROPIUM BROMIDE 0.5 MG/2.5 ML NEBU. NEB ONE
[2018-12-18] MEDS ORDERED: IV NORMAL SALINE 1000ML BAG 1,000 ML IV SCH
[2018-12-18] MEDS ORDERED: MAGNESIUM SULFATE 2GM 50 ML IV ONE
[2018-12-18 00:03] LABS: CALCIUM 9.3 mg/dL (8.5-10.1); CREATININE 1.3 mg/dL (0.7-1.3); GFR 54.3
[2018-12-18 00:03] LABS: BASE EXCESS ABG 0 mmol/L (-3-3); HCO3 ABG 29 mmol/L (21-28); PO2 ABG 95 mmHg (65-108); SAT O2 ABG 96 % (92-99)
[2018-12-18 00:04] LABS: PCO2 ABG 69 mmHg (35-46)
[2018-12-18 00:09] LABS: ALBUMIN 3.9 g/dL (3.4-5.0); ALBUMIN/GLOBULIN RATIO 1.1 (1.0-1.7); TOTAL BILIRUBIN 0.5 mg/dL (0.2-1.0); TOTAL PROTEIN 7.3 g/dL (6.4-8.2)
--- NOTE | 2018-12-18 00:50 | PHYS DOC ---
Past Medical History Past Medical History: COPD, CVA, [place] Additional Past Medical Histor: home 02 Past Surgical History: Tonsillectomy Alcohol Use: Occasionally Drug Use: None Adult General Chief Complaint Chief Complaint: DYSPNEA/RESPIRATOY DISTRESS HPI HPI Patient is a 73-year-old male who presents via EMS with report of acute onset of shortness of breath this evening at home. EMS reports that upon their arrival patient was satting around 90% on his normal 3 L of oxygen. They report the patient was tripoding and in respiratory distress. Patient was given 1 DuoNeb treatment without improvement and was placed on CPAP at that time. Patient denies any chest pain. Additional history is limited due to severity of patient condition.[] Review of Systems Review of Systems Constitutional: Denies fever or chills [] Respiratory: Positive cough and shortness of breath [] Cardiovascular: No additional information not addressed in HPI [] GI: Denies abdominal pain, nausea, vomiting or diarrhea [] Integument: Denies rash or skin lesions [] Unable to fully assess review of systems due to severity of patient condition. Current Medications Current Medications Current Medications Medications (Trade) Dose Ordered Sig/Jayla Start Time Stop Time Status Last Admin Dose Admin Albuterol Sulfate (Ventolin Neb Soln) 15 mg 1X ONCE 12/18/18 00:00 12/18/18 00:01 DC Ipratropium [place] (Atrovent) 0.5 mg 1X ONCE 12/18/18 00:00 12/18/18 00:01 DC 12/17/18 23:49 0.5 MG Magnesium Sulfate 50 ml @ 25 mls/hr 1X ONCE 12/18/18 00:00 12/18/18 01:59 12/17/18 23:58 25 MLS/HR Methylprednisolone Sodium Succinate (SOLU-Medrol 125MG VIAL) 125 mg 1X ONCE 12/18/18 00:00 12/18/18 00:01 DC 12/17/18 23:59 125 MG Morphine Sulfate (Morphine Sulfate) 2 mg PRN Q15MIN PRN 12/17/18 23:45 12/18/18 23:44 12/18/18 00:01 2 MG Sodium Chloride 1,000 ml @ 1,000 mls/hr Q1H 12/18/18 00:00 12/18/18 00:59 12/17/18 23:59 1,000 MLS/HR Allergies Allergies Allergies Coded Allergies Type Severity Reaction Last Updated Verified No Known Drug Allergies 08/29/16 No Physical Exam Physical Exam Constitutional: Well developed, well nourished, no acute distress, non-toxic appearance. [] HENT: Normocephalic, atraumatic, bilateral external ears normal, oropharynx moist, no oral exudates, nose normal. [] Eyes: PERRLA, EOMI, conjunctiva normal, no discharge. [] Neck: Normal range of motion, no tenderness, supple, no stridor. [] Cardiovascular:Heart rate regular rhythm, no murmur [] Lungs & Thorax: Bilateral breath sounds clear to auscultation [] Abdomen: Bowel sounds normal, soft, no tenderness, no masses, no pulsatile masses. [] Skin: Warm, dry, no erythema, no rash. [] Back: No tenderness, no CVA tenderness. [] Extremities: No tenderness, no cyanosis, no clubbing, ROM intact, no edema. [] Neurologic: Alert and oriented X 3, normal motor function, normal sensory function, no focal deficits noted. [] Psychologic: Affect normal, judgement normal, mood normal. [] Current Patient Data Vital Signs Vital Signs Date Time Temp Pulse Resp B/P (MAP) Pulse Ox O2 Delivery O2 Flow Rate FiO2 12/18/18 00:01 26 100 15.0 12/17/18 23:50 BiPAP/CPAP 12/17/18 23:38 97.2 115 172/110 (130) 97.2 Lab Values Laboratory Tests Test 12/17/18 00:00 12/17/18 23:45 O2 Saturation 96 % (92-99) Arterial Blood pH 7.24 (7.35-7.45) L Arterial Blood pCO2 at Patient Temp 69 mmHg (35-46) *H Arterial Blood pO2 at Patient Temp 95 mmHg (65-108) Arterial Blood HCO3 29 mmol/L (21-28) H Arterial Blood Base Excess 0 mmol/L (-3-3) White Blood Count 14.4 x10^3/uL (4.0-11.0) H Red Blood Count 4.64 x10^6/uL (4.30-5.70) Hemoglobin 13.6 g/dL (13.0-17.5) Hematocrit 42.0 % (39.0-53.0) Mean Corpuscular Volume 91 fL (79-100) Mean Corpuscular Hemoglobin 29 pg (25-35) Mean Corpuscular Hemoglobin Concent 32 g/dL (31-37) Red Cell Distribution Width 15.9 % (11.5-14.5) H Platelet Count 219 x10^3/uL (140-400) Neutrophils (%) (Auto) 62 % (31-73) Lymphocytes (%) (Auto) 30 % (24-48) Monocytes (%) (Auto) 7 % (0-9) Eosinophils (%) (Auto) 1 % (0-3) Basophils (%) (Auto) 1 % (0-3) Neutrophils # (Auto) 8.9 x10^3/uL (1.8-7.7) H Lymphocytes # (Auto) 4.3 x10^3/uL (1.0-4.8) Monocytes # (Auto) 1.0 x10^3/uL (0.0-1.1) Eosinophils # (Auto) 0.1 x10^3/uL (0.0-0.7) Basophils # (Auto) 0.1 x10^3/uL (0.0-0.2) Sodium Level 143 mmol/L (136-145) Potassium Level 5.0 mmol/L (3.5-5.1) Chloride Level 104 mmol/L (98-107) Carbon Dioxide Level 31 mmol/L (21-32) Anion Gap 8 (6-14) Blood Urea Nitrogen 20 mg/dL (8-26) Creatinine 1.3 mg/dL (0.7-1.3) Estimated GFR (Cockcroft-Gault) 54.3 BUN/Creatinine Ratio 15 (6-20) Glucose Level 222 mg/dL (70-99) H Calcium Level 9.3 mg/dL (8.5-10.1) Total Bilirubin 0.5 mg/dL (0.2-1.0) Aspartate Amino Transferase (AST) 78 U/L (15-37) H Alanine Aminotransferase (ALT) 89 U/L (16-63) H Alkaline Phosphatase 82 U/L (46-116) Troponin I Quantitative < 0.017 ng/mL (0.000-0.055) JD-Gmo-O-Type Natriuretic Peptide 477 pg/mL (0-124) H Total Protein 7.3 g/dL (6.4-8.2) Albumin 3.9 g/dL (3.4-5.0) Albumin/Globulin Ratio 1.1 (1.0-1.7) Laboratory Tests 12/17/18 23:45 Laboratory Tests 12/17/18 23:45 EKG EKG [] Interpretation Time: EKG demonstrates sinus tachycardia but further findings limited due to respiratory distress. Radiology/Procedures Radiology/Procedures [] Impressions: Chest x-ray demonstrates no acute process. Course & Med Decision Making Course & Med Decision Making Pertinent Labs and Imaging studies reviewed. (See chart for details) [] Dragon Disclaimer Dragon Disclaimer This electronic medical record was generated, in whole or in part, using a voice recognition dictation system. Departure Departure Impression: Primary Impression: Acute respiratory failure with hypercapnia Additional Impression: COPD with acute exacerbation Disposition: ADMITTED INPATIENT Admitting Physician: Frank Cao Condition: IMPROVED Referrals: FRANK CAO MD (PCP) Problem Qualifiers RIC LOCKHART Jr. DO Dec 18, 2018 00:50
[2018-12-18] MEDS ORDERED: ONDANSETRON PF 4 MG/2 ML VIAL. IV PRN (01:00)
[2018-12-18] MEDS ORDERED: ACETAMINOPHEN 325 MG TABLET. PO PRN (01:00)
[2018-12-18] MEDS ORDERED: MORPHINE SULFATE 2 MG/ML VIAL. IV PRN (01:00)
--- NOTE | 2018-12-18 05:11 | NUR ---
Pt. admitted to ICU room 108 from ED, arrived to unit on cart, transferred to ICU bed. Placed on BiPAP by RT, tolerating well. Resting in bed.
[2018-12-18] MEDS: IPRATRPIUM/ALBUTEROL 0.5/2.5MG 3 ML NEBU. NEB SCH ×4 (08:19→20:33)
--- NOTE | 2018-12-18 08:45 | RAD ---
PORTABLE CHEST 1V History: Shortness of breath Comparison: 12/14/2018 Findings: 2 AP views of the chest are submitted. There is no new lobar consolidation, pleural fluid, pneumothorax. There is again suspected emphysema. Cardiac silhouette is considered within normal limits given technique. Mild reticular opacity near the lung bases is similar. Impression: 1. There is again emphysema. Electronically signed by: Wilmar Francois MD (12/18/2018 8:43 AM) [facility]
--- NOTE | 2018-12-18 10:33 | PDOC ---
PULMONARY PROGRESS NOTES Vitals Vital Signs Date Time Temp Pulse Resp B/P (MAP) Pulse Ox O2 Delivery O2 Flow Rate FiO2 12/18/18 09:00 71 15 104/69 (81) 98 Nasal Cannula 3.0 12/18/18 08:00 97.8 97.8 General: Alert, No acute distress Lungs: Clear Cardiovascular: S1, S2 Abdomen: Soft, Non-tender Extremities: No Edema Labs Laboratory Tests Test 12/17/18 00:00 12/17/18 23:45 12/18/18 03:30 12/18/18 07:00 O2 Saturation 96 % (92-99) Arterial Blood pH 7.24 (7.35-7.45) Arterial Blood pCO2 at Patient Temp 69 mmHg (35-46) Arterial Blood pO2 at Patient Temp 95 mmHg (65-108) Arterial Blood HCO3 29 mmol/L (21-28) Arterial Blood Base Excess 0 mmol/L (-3-3) White Blood Count 14.4 x10^3/uL (4.0-11.0) Red Blood Count 4.64 x10^6/uL (4.30-5.70) Hemoglobin 13.6 g/dL (13.0-17.5) Hematocrit 42.0 % (39.0-53.0) Mean Corpuscular Volume 91 fL (79-100) Mean Corpuscular Hemoglobin 29 pg (25-35) Mean Corpuscular Hemoglobin Concent 32 g/dL (31-37) Red Cell Distribution Width 15.9 % (11.5-14.5) Platelet Count 219 x10^3/uL (140-400) Neutrophils (%) (Auto) 62 % (31-73) Lymphocytes (%) (Auto) 30 % (24-48) Monocytes (%) (Auto) 7 % (0-9) Eosinophils (%) (Auto) 1 % (0-3) Basophils (%) (Auto) 1 % (0-3) Neutrophils # (Auto) 8.9 x10^3/uL (1.8-7.7) Lymphocytes # (Auto) 4.3 x10^3/uL (1.0-4.8) Monocytes # (Auto) 1.0 x10^3/uL (0.0-1.1) Eosinophils # (Auto) 0.1 x10^3/uL (0.0-0.7) Basophils # (Auto) 0.1 x10^3/uL (0.0-0.2) Sodium Level 143 mmol/L (136-145) Potassium Level 5.0 mmol/L (3.5-5.1) Chloride Level 104 mmol/L (98-107) Carbon Dioxide Level 31 mmol/L (21-32) Anion Gap 8 (6-14) Blood Urea Nitrogen 20 mg/dL (8-26) Creatinine 1.3 mg/dL (0.7-1.3) Estimated GFR (Cockcroft-Gault) 54.3 BUN/Creatinine Ratio 15 (6-20) Glucose Level 222 mg/dL (70-99) Calcium Level 9.3 mg/dL (8.5-10.1) Total Bilirubin 0.5 mg/dL (0.2-1.0) Aspartate Amino Transf (AST/SGOT) 78 U/L (15-37) Alanine Aminotransferase (ALT/SGPT) 89 U/L (16-63) Alkaline Phosphatase 82 U/L (46-116) Troponin I Quantitative < 0.017 ng/mL (0.000-0.055) 0.302 ng/mL (0.000-0.055) 0.306 ng/mL (0.000-0.055) IN-Ldl-I-Type Natriuretic Peptide 477 pg/mL (0-124) Total Protein 7.3 g/dL (6.4-8.2) Albumin 3.9 g/dL (3.4-5.0) Albumin/Globulin Ratio 1.1 (1.0-1.7) Laboratory Tests Test 12/17/18 23:45 12/18/18 03:30 12/18/18 07:00 White Blood Count 14.4 x10^3/uL (4.0-11.0) Red Blood Count 4.64 x10^6/uL (4.30-5.70) Hemoglobin 13.6 g/dL (13.0-17.5) Hematocrit 42.0 % (39.0-53.0) Mean Corpuscular Volume 91 fL (79-100) Mean Corpuscular Hemoglobin 29 pg (25-35) Mean Corpuscular Hemoglobin Concent 32 g/dL (31-37) Red Cell Distribution Width 15.9 % (11.5-14.5) Platelet Count 219 x10^3/uL (140-400) Neutrophils (%) (Auto) 62 % (31-73) Lymphocytes (%) (Auto) 30 % (24-48) Monocytes (%) (Auto) 7 % (0-9) Eosinophils (%) (Auto) 1 % (0-3) Basophils (%) (Auto) 1 % (0-3) Neutrophils # (Auto) 8.9 x10^3/uL (1.8-7.7) Lymphocytes # (Auto) 4.3 x10^3/uL (1.0-4.8) Monocytes # (Auto) 1.0 x10^3/uL (0.0-1.1) Eosinophils # (Auto) 0.1 x10^3/uL (0.0-0.7) Basophils # (Auto) 0.1 x10^3/uL (0.0-0.2) Sodium Level 143 mmol/L (136-145) Potassium Level 5.0 mmol/L (3.5-5.1) Chloride Level 104 mmol/L (98-107) Carbon Dioxide Level 31 mmol/L (21-32) Anion Gap 8 (6-14) Blood Urea Nitrogen 20 mg/dL (8-26) Creatinine 1.3 mg/dL (0.7-1.3) Estimated GFR (Cockcroft-Gault) 54.3 BUN/Creatinine Ratio 15 (6-20) Glucose Level 222 mg/dL (70-99) Calcium Level 9.3 mg/dL (8.5-10.1) Total Bilirubin 0.5 mg/dL (0.2-1.0) Aspartate Amino Transf (AST/SGOT) 78 U/L (15-37) Alanine Aminotransferase (ALT/SGPT) 89 U/L (16-63) Alkaline Phosphatase 82 U/L (46-116) Troponin I Quantitative < 0.017 ng/mL (0.000-0.055) 0.302 ng/mL (0.000-0.055) 0.306 ng/mL (0.000-0.055) YD-Ppp-M-Type Natriuretic Peptide 477 pg/mL (0-124) Total Protein 7.3 g/dL (6.4-8.2) Albumin 3.9 g/dL (3.4-5.0) Albumin/Globulin Ratio 1.1 (1.0-1.7) Medications Active Scripts Medications Dose Route/Sig Max Daily Dose Days Date Category Medrol (Methylprednisolone) 4 Mg Tab.ds.pk 1 Pkg PO UD 12/14/18 Rx Doxycycline Hyclate 100 Mg Tablet 1 Tab PO BID 3 11/30/18 Rx Prednisone (Prednisone) 10 Mg Tablet 10 Mg PO DAILY 4 02/25/18 Reported Prednisone (Prednisone) 10 Mg Tablet 20 Mg PO DAILY 4 02/25/18 Reported Prednisone (Prednisone) 10 Mg Tablet 30 Mg PO DAILY 4 02/25/18 Reported Aggrenox 25 Mg-200 Mg Capsule (Aspirin/Dipyridamole) 1 Each Cpmp.12hr 1 Each PO 05/20/17 Reported Symbicort 160-4.5 Mcg Inhaler (Budesonide/Formoterol Fumarate) 10.2 Gm Hfa.aer.ad 2 Puff IH BID 08/30/16 Reported Atrovent Hfa (Ipratropium [place]) 12.9 Gm Hfa.aer.ad 2 Puff IH QID 08/30/16 Reported Proventil Hfa Inhaler (Albuterol Sulfate) 6.7 Gm Hfa.aer.ad 1 Puff IH PRN Q4HRS PRN 08/30/16 Reported Aspirin 81 Mg Tab.chew 1 Tab PO DAILY 08/30/16 Reported Levothyroxine Sodium 100 Mcg Tablet 1 Tab PO DAILY 08/30/16 Reported Impression . NOTE DICTATED THANKS OK TO TRANSFER AECOPD D/W DR Alvarado I THINK THIS IS ALL RESP RELATED JOSE DE JESUS RIDLEY MD Dec 18, 2018 10:33
--- NOTE | 2018-12-18 10:57 | CONS ---
DATE OF CONSULTATION: 12/18/2018 REASON FOR CONSULTATION: Elevated troponin. HISTORY OF PRESENT ILLNESS: The patient is a 73-year-old man who has been here multiple times in the hospital with respiratory distress. Previously, he underwent cardiac catheterization in 02/2018, which revealed moderate nonobstructive coronary artery disease and has been treated medically. More recently, he also had an echocardiogram in 06/2018, which revealed normal LV function and he was actually intubated at that time for respiratory distress and COPD exacerbation. He was recently here 2-3 weeks ago and was treated for COPD/pneumonia and was discharged to a rehab facility and he states that as soon as he left the rehab, he felt really good, but then he walked into his apartment, which he suspects has mold and immediately began to have respiratory issues. Upon arrival to the ER, he was noted to be in respiratory distress and admitted to the hospital for further evaluation and treatment. Cardiology was asked to evaluate him due to a minimally elevated troponin. In speaking with the patient, he denies any specific chest pain or anginal features at baseline. PAST MEDICAL HISTORY: 1. Nonobstructive coronary artery disease. 2. Dyslipidemia. 3. Severe COPD and emphysema. FAMILY HISTORY: Notable for diabetes. SOCIAL HISTORY: He does not smoke, drink alcohol or use illicit drugs. He does not have any family members in town that can help him. He lives in an apartment by himself. ALLERGIES: No known drug allergies. CURRENT CARDIOVASCULAR MEDICATIONS: None. HOME CARDIOVASCULAR MEDICATIONS: Aggrenox. REVIEW OF SYSTEMS: Negative unless otherwise mentioned above in HPI. PHYSICAL EXAMINATION: VITAL SIGNS: Afebrile, pulse 58, respirations 16, blood pressure 98/68, 99% on 3 liters nasal cannula. GENERAL: He is alert and oriented, no acute distress. CARDIAC: Distant heart sounds. Regular rhythm without any obvious murmurs, rubs or gallops. LUNGS: Decreased breath sounds bilaterally. ABDOMEN: Soft. EXTREMITIES: No edema. 1+ pedal and dorsalis pedis pulses. NEUROLOGIC: No focal deficits. MUSCULOSKELETAL: No trauma. DIAGNOSTIC STUDIES: Hemoglobin and creatinine are within normal limits and white blood cell count is elevated mildly. Cardiac enzymes are minimally elevated at 0.302. BNP is only minimally elevated at 477. Chest x-ray demonstrates severe emphysema. Cardiac catheterization in 02/2018 revealed moderate 3-vessel disease without any obvious ischemia by physiologic testing. Echocardiogram in 06/2018 revealed an ejection fraction of 55% without any significant valvular dysfunction. EKG on 12/14 demonstrates sinus rhythm without any acute T-wave changes. IMPRESSION: 1. Acute respiratory failure, likely secondary to chronic obstructive pulmonary disease exacerbation with hypercapnia. 2. Mild chronic diastolic heart failure. 3. Moderate nonobstructive coronary artery disease, currently stable. 4. Dyslipidemia. RECOMMENDATIONS: 1. No further cardiovascular testing necessary at this time. Supportive care for now. 2. We will continue his aspirin as well as statin therapy. Consider outpatient ischemic testing depending on symptoms. Thank you for this consultation. KAYLA CASTREJON MD DR: SIVA/bandar JOB#: [id number] / [id number]
--- NOTE | 2018-12-18 11:05 | CONS ---
DATE OF CONSULTATION: 12/18/2018 ATTENDING PHYSICIAN: Duke Hardy DO REASON FOR CONSULTATION: The patient seen in pulmonary consultation at the request of Dr. Hardy for acute exacerbation of COPD. HISTORY OF PRESENT ILLNESS: The patient is a 73-year-old male that is well known to me from previous hospitalization. The patient has underlying COPD, normally wears 3 L of oxygen supplementation. He was recently discharged from a rehab center. He presents after being in his apartment for approximately 24 hours. He started to experience severe shortness of air, unable to breathe upon exposure to his apartment. Apparently, the patient has had some major mold infestation. He has been complaining to the folks at his apartment complex, but they have been unable to address the current situation. The patient denies fever, chills, nausea or vomiting. He was on BiPAP last evening. He now feels better. His initial arterial blood gas revealed a pH of 7.24, PaCO2 of 69, pO2 of 95. He has a cough productive of some discolored sputum. PAST MEDICAL HISTORY: Coronary artery disease, hyperlipidemia, osteoarthritis, hypothyroidism, COPD as indicated above. PAST SURGICAL HISTORY: No recent major surgeries. FAMILY HISTORY: Positive for diabetes. SOCIAL HISTORY: Heavy smoker up to 4 packs of cigarettes per day. He is currently not smoking. REVIEW OF SYSTEMS: As indicated above; otherwise, 10-point systems was reviewed and negative. ALLERGIES: No known drug allergies. CURRENT MEDICATIONS: List was reviewed. PHYSICAL EXAMINATION: VITAL SIGNS: Stable. O2 saturation was greater than 92%. HEENT: Eyes: The sclerae were nonicteric. NECK: Jugular venous distention was not elevated. No lymphadenopathy. CHEST: Full expansion. LUNGS: Poor airway flow with no wheezes. CARDIOVASCULAR: Regular rate and rhythm with S1, S2, no S3. ABDOMEN: Soft, nontender, nondistended. EXTREMITIES: No clubbing, cyanosis or edema. NEUROLOGIC: The patient was awake, alert, following commands. A detailed neuro exam was not performed. LABORATORY DATA: Reviewed. White count was elevated at 14,000; hemoglobin and hematocrit were noted. Troponin was slightly elevated. IMPRESSION: 1. Ieknq-ka-efsxtbe hypoxemic hypercapnic respiratory failure. 2. Acute exacerbation of chronic obstructive pulmonary disease. 3. Elevated troponin, suspect demand ischemia. 4. Mold exposure. 5. 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 6. Tobacco dependence, in remission. PLAN: As indicated above, the patient's respiratory failure was induced by his exposure to mold in his apartment. The patient has complained to the folks managing the apartment complex with no resolution. I will ask social media senior associate to help with further complaints and followup. I will also write a letter indicating the importance of either cleaning the apartment up or having the patient moved to a different apartment complex. I do appreciate the privilege in sharing in the patient's care. JOSE DE JESUS RIDLEY MD DR: ELMER/bandar JOB#: [id number] / [id number]
[2018-12-18] MEDS: ASPIRIN ENTERIC COATED 81 MG TABLET.DR. PO SCH (12:20)
[2018-12-18] MEDS ORDERED: CARV12.5 PO (12:46)
[2018-12-18] MEDS ORDERED: ATORVASTATIN CA80 MG PO (12:46)
--- NOTE | 2018-12-18 12:53 | HP ---
ADMIT DATE: 12/18/2018 CHIEF COMPLAINT: Shortness of breath. HISTORY OF PRESENT ILLNESS: The patient is a pleasant 73-year-old male who has near end-stage COPD. He states he just got discharged yesterday. We admitted him quite often with COPD exacerbations. Once again, he called the ambulance. He was desatting down to about 90%. He was placed on increased oxygen and brought to the ER. While in the ER, he was tripoding. We gave him some breathing treatments. He still was not better now. We have admitted to the ICU where we are giving him breathing treatments, oxygen, steroids and consulted Pulmonary. PAST MEDICAL HISTORY: Chronic COPD, respiratory failure, stroke, myocardial infarction, tonsillectomy. ALLERGIES: None. FAMILY HISTORY: Coronary artery disease. SOCIAL HISTORY: He quit smoking, no drinking or drugs. MEDICATIONS: Reviewed, please refer to the MRAD. REVIEW OF SYSTEMS: GENERAL: No history of weight change, weakness or fevers. SKIN: No bruising, hair changes or rashes. EYES: No blurred, double or loss of vision. NOSE AND THROAT: No history of nosebleeds, hoarseness or sore throat. HEART: No history of palpitations, chest pain or shortness of breath on exertion. LUNGS: He complains of shortness of breath and wheezing. GASTROINTESTINAL: Denies changes in appetite, nausea, vomiting, diarrhea or constipation. GENITOURINARY: No history of frequency, urgency, hesitancy or nocturia. NEUROLOGIC: Denies history of numbness, tingling, tremor or weakness. PSYCHIATRIC: No history of panic, anxiety or depression. ENDOCRINE: No history of heat or cold intolerance, polyuria or polydipsia. EXTREMITIES: Denies muscle weakness, joint pain, pain on walking or stiffness. PHYSICAL EXAMINATION: VITALS: Within normal limits and are stable. GENERAL: No apparent distress. Alert and oriented. HEENT: Head is normocephalic, atraumatic, pupils were equally round and reactive to light and accommodation. NECK: Supple, no JVD, no thyromegaly was noted. LUNGS: He has decreased breath sounds and wheezing. HEART: RRR, S1, S2 present. Peripheral pulses intact, no obvious murmurs were noted. ABDOMEN: Soft, nontender. Positive bowel sounds no organomegaly, normal bowel sounds. EXTREMITIES: Without any cyanosis, clubbing, or edema. Pedal pulses intact, Homans sign is negative. NEUROLOGIC: Normal speech, normal tone. A and O x 3, moves all extremities, no obvious focal deficits. PSYCHIATRIC: Normal affect, normal mood. Stable. SKIN: No ulcerations or rashes, good skin turgor, no jaundice. VASCULAR: Good capillary refill, neurovascular bundle appears to be intact. LABORATORY DATA: White count 14, hemoglobin 13, platelets 219. Electrolytes are normal, but glucose is high at 222. Troponin is slightly high at 0.3. The pH is 7.24, pCO2 of 69, pO2 of 95, bicarbonate 29. Chest x-ray shows emphysema. ASSESSMENT AND PLAN: Respiratory failure with chronic obstructive pulmonary disease exacerbation with incidental finding of elevated troponin. The patient will be admitted to the ICU. Consult pulmonary. Consult Cardiology. DuoNebs, steroids, oxygen, empiric IV antibiotics, PT/OT, serial enzymes, serial EKGs. Full code. Deep vein thrombosis prophylaxis. P.r.n. Zofran. P.r.n. Tylenol. LONG-TERM PROGNOSIS: Guarded. KILEY GUIDO DO DR: AMIRA/bandar JOB#: [id number] / [id number]
[2018-12-18] MEDS: ATORVASTATIN CALCIUM 20 MG TABLET PO SCH (20:26)
[2018-12-19] MEDS ORDERED: IPRATRPIUM/ALBUTEROL 0.5/2.5MG 3 ML NEBU. NEB ONE (02:15)
[2018-12-19 02:22] VITALS: BP 107/67
[2018-12-19] MEDS ORDERED: ALBUTEROL SULFATE 2.5 MG/3 ML NEBU. NEB PRN (06:30)
[2018-12-19 07:00] VITALS: BP 131/77
[2018-12-19] MEDS: IPRATRPIUM/ALBUTEROL 0.5/2.5MG 3 ML NEBU. NEB SCH ×3 (07:00→19:33)
[2018-12-19] MEDS: ASPIRIN ENTERIC COATED 81 MG TABLET.DR. PO SCH (08:56)
--- NOTE | 2018-12-19 09:04 | PDOC ---
PROGRESS NOTES Chief Complaint Chief Complaint A/P: Acute respiratory failure secondary to acute COPD exacerbation - Possible viral pneumonia and Possible Gram-negative pneumonia. Acute on chronic hypoxemic hypercapnic respiratory failure - will cont O2, has previously been intubated and required BIPAP, will consult pulmonology CAD - non-obstructive, previously seen by cardiology. Cont ASA Hypothyroidism - Continue levothyroxine Elevated d dimer - will check US, negative CTPA FEN - Cardiac PPX - Lovenox FULL CODE Dispo - Inpatient for acute hypercapnic respiratory failure History of Present Illness History of Present Illness Mr Mensah is a 73-year-old male w/ PMHx COPD and CAD, came back to the hospital after a discharge from SNF on 12/17/18 c/o SOB. He was initially admitted to ICU with severe combined respiratory failure. Initial troponin negative and EKG shows poor r-wave progression, no acute ST or T-wave changes. He is admitted for further care. Today he is breathing better but is complaining of a water leak and concern about mold in his apartment. He denies CP today. He is anxious and frustrated that it is an apartment he shares with his girlfriend and he is being told he does not does not have his name on the lease, but he states he pays all the bills. He is asking for help. Plan: If there is an active water leak and mold issue in his domicile this would indeed interfere with his COPD which is severe at baseline, he needs a safe discharge plan. Vitals Vitals Vital Signs Date Time Temp Pulse Resp B/P (MAP) Pulse Ox O2 Delivery O2 Flow Rate FiO2 12/19/18 07:01 Nasal Cannula 3.0 12/19/18 07:00 97.5 64 17 131/77 (95) 97 97.5 Physical Exam General: Alert, Cooperative Heart: Regular rate, Normal S1, Normal S2 Lungs: Wheezing Abdomen: Normal bowel sounds Assessment and Plan Assessmemt and Plan Problems Medical Problems: (1) Acute respiratory failure with hypercapnia Status: Acute (2) COPD with acute exacerbation Status: Acute Comment Review of Relevant I have reviewed the following items jaxon (where applicable) has been applied. Labs Laboratory Tests Test 12/17/18 23:45 12/18/18 03:30 12/18/18 07:00 White Blood Count 14.4 x10^3/uL (4.0-11.0) Red Blood Count 4.64 x10^6/uL (4.30-5.70) Hemoglobin 13.6 g/dL (13.0-17.5) Hematocrit 42.0 % (39.0-53.0) Mean Corpuscular Volume 91 fL (79-100) Mean Corpuscular Hemoglobin 29 pg (25-35) Mean Corpuscular Hemoglobin Concent 32 g/dL (31-37) Red Cell Distribution Width 15.9 % (11.5-14.5) Platelet Count 219 x10^3/uL (140-400) Neutrophils (%) (Auto) 62 % (31-73) Lymphocytes (%) (Auto) 30 % (24-48) Monocytes (%) (Auto) 7 % (0-9) Eosinophils (%) (Auto) 1 % (0-3) Basophils (%) (Auto) 1 % (0-3) Neutrophils # (Auto) 8.9 x10^3/uL (1.8-7.7) Lymphocytes # (Auto) 4.3 x10^3/uL (1.0-4.8) Monocytes # (Auto) 1.0 x10^3/uL (0.0-1.1) Eosinophils # (Auto) 0.1 x10^3/uL (0.0-0.7) Basophils # (Auto) 0.1 x10^3/uL (0.0-0.2) Sodium Level 143 mmol/L (136-145) Potassium Level 5.0 mmol/L (3.5-5.1) Chloride Level 104 mmol/L (98-107) Carbon Dioxide Level 31 mmol/L (21-32) Anion Gap 8 (6-14) Blood Urea Nitrogen 20 mg/dL (8-26) Creatinine 1.3 mg/dL (0.7-1.3) Estimated GFR (Cockcroft-Gault) 54.3 BUN/Creatinine Ratio 15 (6-20) Glucose Level 222 mg/dL (70-99) Calcium Level 9.3 mg/dL (8.5-10.1) Total Bilirubin 0.5 mg/dL (0.2-1.0) Aspartate Amino Transf (AST/SGOT) 78 U/L (15-37) Alanine Aminotransferase (ALT/SGPT) 89 U/L (16-63) Alkaline Phosphatase 82 U/L (46-116) Troponin I Quantitative < 0.017 ng/mL (0.000-0.055) 0.302 ng/mL (0.000-0.055) 0.306 ng/mL (0.000-0.055) CY-Rxe-W-Type Natriuretic Peptide 477 pg/mL (0-124) Total Protein 7.3 g/dL (6.4-8.2) Albumin 3.9 g/dL (3.4-5.0) Albumin/Globulin Ratio 1.1 (1.0-1.7) Medications Current Medications Sodium Chloride 1,000 ml @ 1,000 mls/hr Q1H IV Last administered on 12/17/18at 23:59; Start 12/18/18 at 00:00; Stop 12/18/18 at 00:59; Status DC Ipratropium [place] (Atrovent) 0.5 mg 1X ONCE NEB Last administered on 9at 23:49; Start 12/18/18 at 00:00; Stop 12/18/18 at 00:01; Status DC Methylprednisolone Sodium Succinate (SOLU-Medrol 125MG VIAL) 125 mg 1X ONCE IV Last administered on 12/17/18at 23:59; Start 12/18/18 at 00:00; Stop 12/18/18 at 00:01; Status DC Albuterol Sulfate (Ventolin Neb Soln) 15 mg 1X ONCE CONT NEB Last administered on 12/18/18at 00:00; Start 12/18/18 at 00:00; Stop 12/18/18 at 00:01; Status DC Morphine Sulfate (Morphine Sulfate) 2 mg PRN Q15MIN PRN IV/SQ PAIN GREATER THAN 3/10 Last administered on 12/18/18at 00:01; Start 12/17/18 at 23:45; Stop 12/18/18 at 07:11; Status DC Magnesium Sulfate 50 ml @ 25 mls/hr 1X ONCE IV Last administered on 12/17/18at 23:58; Start 12/18/18 at 00:00; Stop 12/18/18 at 01:59; Status DC Ondansetron HCl (Zofran) 4 mg PRN Q8HRS PRN IV NAUSEA/VOMITING 1ST CHOICE; Start 12/18/18 at 01:00; Stop 12/19/18 at 00:59; Status DC Morphine Sulfate (Morphine Sulfate) 2 mg PRN Q2HR PRN IV SEVERE PAIN 7-10; Start 12/18/18 at 01:00; Stop 12/19/18 at 00:59; Status DC Acetaminophen (Tylenol) 650 mg PRN Q4HRS PRN PO FEVER; Start 12/18/18 at 01:00; Stop 12/19/18 at 00:59; Status DC Albuterol/ Ipratropium (Duoneb) 3 ml RTQID NEB Last administered on 12/19/18at 07:00; Start 12/18/18 at 08:00; Stop 12/19/18 at 07:59; Status DC Aspirin (Ecotrin) 81 mg DAILYWBKFT PO Last administered on 12/19/18at 08:56; Start 12/18/18 at 11:00 Atorvastatin Calcium (Lipitor) 20 mg QHS PO Last administered on 12/18/18at 20:26; Start 12/18/18 at 21:00 Albuterol/ Ipratropium (Duoneb) 3 ml 1X ONCE NEB Last administered on 12/19/18at 02:15; Start 12/19/18 at 02:15; Stop 12/19/18 at 02:26; Status DC Albuterol Sulfate (Ventolin Neb Soln) 2.5 mg PRN Q4HRS PRN NEB SHORTNESS OF BREATH; Start 12/19/18 at 06:30 Budesonide (Pulmicort) 0.5 mg RTBID NEB ; Start 12/19/18 at 08:00 Active Scripts Active Medrol (Methylprednisolone) 4 Mg Tab.ds.pk 1 Pkg PO UD Reported Coreg (Carvedilol) 12.5 Mg Tablet 12.5 Mg PO BIDWMEALS Atorvastatin Calcium 80 Mg Tablet 80 Mg PO HS Aggrenox 25 Mg-200 Mg Capsule (Aspirin/Dipyridamole) 1 Each Cpmp.12hr 1 Each PO BID Symbicort 160-4.5 Mcg Inhaler (Budesonide/Formoterol Fumarate) 10.2 Gm Hfa.aer.ad 2 Puff IH BID Atrovent Hfa (Ipratropium [place]) 12.9 Gm Hfa.aer.ad 2 Puff IH QID Proventil Hfa Inhaler (Albuterol Sulfate) 6.7 Gm Hfa.aer.ad 1 Puff IH PRN Q4HRS PRN Levothyroxine Sodium 100 Mcg Tablet 1 Tab PO DAILY Vitals/I & O Vital Sign - Last 24 Hours 12/18/18 12/18/18 12/18/18 12/18/18 10:00 11:54 12:00 15:00 Temp 98.0 98.0 Pulse 67 77 Resp 17 15 B/P (MAP) 148/85 (106) 105/69 (81) Pulse Ox 98 98 O2 Delivery Nasal Cannula Nasal Cannula Nasal Cannula Nasal Cannula O2 Flow Rate 3.0 3.0 3.0 3.0 12/18/18 12/18/18 12/18/18 12/18/18 16:41 17:36 19:00 20:00 Temp 98.2 98.2 Pulse 69 Resp 20 B/P (MAP) 118/73 (88) Pulse Ox 97 O2 Delivery Nasal Cannula Nasal Cannula Room Air O2 Flow Rate 3.0 3.0 3.0 12/18/18 12/18/18 12/19/18 12/19/18 20:35 22:58 02:09 02:22 Temp 98.6 98.3 98.6 98.3 Pulse 62 71 Resp 18 22 B/P (MAP) 99/53 (68) 107/67 (80) Pulse Ox 97 98 94 O2 Delivery Nasal Cannula Nasal Cannula Nasal Cannula Nasal Cannula O2 Flow Rate 3.0 3.0 3.0 3.0 12/19/18 12/19/18 07:00 07:01 Temp 97.5 97.5 Pulse 64 Resp 17 B/P (MAP) 131/77 (95) Pulse Ox 97 O2 Delivery Nasal Cannula Nasal Cannula O2 Flow Rate 3.0 3.0 Intake and Output 12/18/18 12/18/18 12/19/18 15:00 23:00 07:00 Output Total 300 ml 700 ml Balance -300 ml -700 ml JANETH MARIN MD Dec 19, 2018 09:04
--- NOTE | 2018-12-19 09:20 | EKG ---
[facility] [address] [place] [address] Test Date: 2018-12-17 Test Time: 23:49:04 Pat Name: HARRISON POOLE Department: Room: 560 1 Gender: Job Order Clerk: : 1945 Requested By: RIC LOCKHART Order Number: [id number] Reading MD: Dami Mesa MD Measurements Intervals [place] Rate: P: MT: QRS: QRSD: T: QT: QTc: Interpretive Statements NON-DIAGNOSTIC EKG Electronically Signed On 12-26-2018 9:21:21 CDT by Dami Mesa MD
--- NOTE | 2018-12-19 10:08 | PDOC ---
PULMONARY PROGRESS NOTES Subjective PT BETTER WANTS TO GO HOME Vitals Vital Signs Date Time Temp Pulse Resp B/P (MAP) Pulse Ox O2 Delivery O2 Flow Rate FiO2 12/19/18 07:01 Nasal Cannula 3.0 12/19/18 07:00 97.5 64 17 131/77 (95) 97 97.5 ROS: No Nausea, No Chest Pain, No Increase Cough General: Alert, No acute distress Lungs: Clear Cardiovascular: S1, S2 Abdomen: Soft, Non-tender Extremities: No Edema Labs Laboratory Tests Test 12/17/18 23:45 12/18/18 03:30 12/18/18 07:00 White Blood Count 14.4 x10^3/uL (4.0-11.0) Red Blood Count 4.64 x10^6/uL (4.30-5.70) Hemoglobin 13.6 g/dL (13.0-17.5) Hematocrit 42.0 % (39.0-53.0) Mean Corpuscular Volume 91 fL (79-100) Mean Corpuscular Hemoglobin 29 pg (25-35) Mean Corpuscular Hemoglobin Concent 32 g/dL (31-37) Red Cell Distribution Width 15.9 % (11.5-14.5) Platelet Count 219 x10^3/uL (140-400) Neutrophils (%) (Auto) 62 % (31-73) Lymphocytes (%) (Auto) 30 % (24-48) Monocytes (%) (Auto) 7 % (0-9) Eosinophils (%) (Auto) 1 % (0-3) Basophils (%) (Auto) 1 % (0-3) Neutrophils # (Auto) 8.9 x10^3/uL (1.8-7.7) Lymphocytes # (Auto) 4.3 x10^3/uL (1.0-4.8) Monocytes # (Auto) 1.0 x10^3/uL (0.0-1.1) Eosinophils # (Auto) 0.1 x10^3/uL (0.0-0.7) Basophils # (Auto) 0.1 x10^3/uL (0.0-0.2) Sodium Level 143 mmol/L (136-145) Potassium Level 5.0 mmol/L (3.5-5.1) Chloride Level 104 mmol/L (98-107) Carbon Dioxide Level 31 mmol/L (21-32) Anion Gap 8 (6-14) Blood Urea Nitrogen 20 mg/dL (8-26) Creatinine 1.3 mg/dL (0.7-1.3) Estimated GFR (Cockcroft-Gault) 54.3 BUN/Creatinine Ratio 15 (6-20) Glucose Level 222 mg/dL (70-99) Calcium Level 9.3 mg/dL (8.5-10.1) Total Bilirubin 0.5 mg/dL (0.2-1.0) Aspartate Amino Transf (AST/SGOT) 78 U/L (15-37) Alanine Aminotransferase (ALT/SGPT) 89 U/L (16-63) Alkaline Phosphatase 82 U/L (46-116) Troponin I Quantitative < 0.017 ng/mL (0.000-0.055) 0.302 ng/mL (0.000-0.055) 0.306 ng/mL (0.000-0.055) IX-Ejd-Z-Type Natriuretic Peptide 477 pg/mL (0-124) Total Protein 7.3 g/dL (6.4-8.2) Albumin 3.9 g/dL (3.4-5.0) Albumin/Globulin Ratio 1.1 (1.0-1.7) Medications Active Scripts Medications Dose Route/Sig Max Daily Dose Days Date Category Medrol (Methylprednisolone) 4 Mg Tab.ds.pk 1 Pkg PO UD 12/14/18 Rx Doxycycline Hyclate 100 Mg Tablet 1 Tab PO BID 3 11/30/18 Rx Prednisone (Prednisone) 10 Mg Tablet 10 Mg PO DAILY 4 02/25/18 Reported Prednisone (Prednisone) 10 Mg Tablet 20 Mg PO DAILY 4 02/25/18 Reported Prednisone (Prednisone) 10 Mg Tablet 30 Mg PO DAILY 4 02/25/18 Reported Aggrenox 25 Mg-200 Mg Capsule (Aspirin/Dipyridamole) 1 Each Cpmp.12hr 1 Each PO 05/20/17 Reported Symbicort 160-4.5 Mcg Inhaler (Budesonide/Formoterol Fumarate) 10.2 Gm Hfa.aer.ad 2 Puff IH BID 08/30/16 Reported Atrovent Hfa (Ipratropium [place]) 12.9 Gm Hfa.aer.ad 2 Puff IH QID 08/30/16 Reported Proventil Hfa Inhaler (Albuterol Sulfate) 6.7 Gm Hfa.aer.ad 1 Puff IH PRN Q4HRS PRN 08/30/16 Reported Aspirin 81 Mg Tab.chew 1 Tab PO DAILY 08/30/16 Reported Levothyroxine Sodium 100 Mcg Tablet 1 Tab PO DAILY 08/30/16 Reported Impression . IMPRESSION: 1. Cajhw-bw-rgcznlw hypoxemic hypercapnic respiratory failure. 2. Acute exacerbation of chronic obstructive pulmonary disease. 3. Elevated troponin, suspect demand ischemia. 4. Mold exposure. 5. 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 6. Tobacco dependence, in remission. Plan . WILL D/C HOME FOLLOW UP IN OFFICE THANKS PLAN: As indicated above, the patient's respiratory failure was induced by his exposure to mold in his apartment. The patient has complained to the folks managing the apartment complex with no resolution. I will ask case management social worker to help with further complaints and followup. I will also write a letter indicating the importance of either cleaning the apartment up or having the patient moved to a different apartment complex. JOSE DE JESUS RIDLEY MD Dec 19, 2018 10:08
[2018-12-19 10:58] VITALS: BP 130/83
[2018-12-19] MEDS: BUDESONIDE 0.5 MG/2 ML NEBU. NEB SCH ×2 (11:19→19:33)
[2018-12-19] MEDS ORDERED: FLU VAX QS 2019-20 (36MOS+)/PF 0.5 ML SYRINGE. VAX IM ONE (12:00)
[2018-12-19] MEDS ORDERED: ENOXAPARIN 40 MG/0.4 ML SYRINGE. SQ SCH (12:15)
[2018-12-19] MEDS: LEVOTHYROXINE 100 MCG TABLET PO SCH (12:28)
--- NOTE | 2018-12-19 14:34 | CARD ---
MR#: [id number] Date of Study: 12/19/2018 Ordering Physician: KAYLA MESA, Referring Physician: KAYLA MESA, Tech: Tata Bermudez APPROVED REPORT EXAM: Two-dimensional and M-mode echocardiogram with Doppler and color Doppler. Other Information Quality : Fair INDICATION Chest Pain 2D DIMENSIONS RVDd2.6 (2.9-3.5cm)Left Atrium(2D)3.0 (1.6-4.0cm) IVSd1.1 (0.7-1.1cm)Aortic Root(2D)2.7 (2.0-3.7cm) LVDd4.3 (3.9-5.9cm)LVOT Diameter2.1 (1.8-2.4cm) PWd1.0 (0.7-1.1cm)LVDs2.4 (2.5-4.0cm) FS (%) 44.4 %SV61.9 ml LVEF(%)76.0 (>50%) Aortic Valve AoV Peak [place].102.5cm/Yasmin Peak GR.4.2mmHg Tricuspid Valve RAP [id number] LEFT VENTRICLE The left ventricle is normal size. There is mild concentric left ventricular hypertrophy. The Ejectio n Fraction is 60-65%. There is normal LV segmental wall motion. Diastology not performed RIGHT VENTRICLE The right ventricle is normal size. The right ventricle is borderline hypertrophied. The right ventri cular systolic function is normal. ATRIA The left atrium size is normal. The right atrium size is normal. The interatrial septum is intact wit h no evidence for an atrial septal defect or patent foramen ovale as noted on 2-D or Doppler imaging. AORTIC VALVE Not well visualized MITRAL VALVE The mitral valve is normal in structure and function. There is no evidence of mitral valve prolapse. There is no mitral valve stenosis. Doppler and color-flow analysis was not performed. TRICUSPID VALVE The tricuspid valve is not well visualized. Doppler and color-flow analysis was not performed. PULMONIC VALVE The pulmonic valve is not well visualized. Doppler and color-flow analysis was not performed. GREAT VESSELS The aortic root is normal in size. The IVC is normal in size and collapses >50% with inspiration. PERICARDIAL EFFUSION There is no evidence of significant pericardial effusion. Critical Notification Critical Value: No <Conclusion> The Ejection Fraction is 60-65%. There is normal LV segmental wall motion. Limited TTE only Signed by : Kayla Mesa, Electronically Approved : 12/19/2018 14:33:33
[2018-12-19 15:00] VITALS: BP 135/84
[2018-12-19] MEDS: CARVEDILOL 12.5 MG TABLET. PO SCH (17:01)
[2018-12-19 19:00] VITALS: BP 116/71
[2018-12-19] MEDS: ATORVASTATIN CALCIUM 20 MG TABLET PO SCH (22:54)
[2018-12-19 23:00] VITALS: BP 119/78
[2018-12-20 03:00] VITALS: BP 115/81
[2018-12-20 07:00] VITALS: BP 149/74
[2018-12-20] MEDS: IPRATRPIUM/ALBUTEROL 0.5/2.5MG 3 ML NEBU. NEB SCH (07:54)
[2018-12-20] MEDS: BUDESONIDE 0.5 MG/2 ML NEBU. NEB SCH (07:54)
[2018-12-20] MEDS ORDERED: ACETAMINOPHEN 500 MG TABLET PO PRN (08:15)
[2018-12-20] MEDS ORDERED: ACETAMINOPHEN/CODEINE 300/30MG TABLET. PO PRN (08:15)
[2018-12-20] MEDS ORDERED: ONDANSETRON PF 4 MG/2 ML VIAL. IVP PRN (08:15)
[2018-12-20] MEDS ORDERED: guaiFENesin DM 200MG/20MG 10 ML SYRUP PO PRN (08:15)
[2018-12-20] MEDS ORDERED: BENZONATATE 100 MG CAPSULE. PO SCH (09:00)
[2018-12-20] MEDS: ASPIRIN ENTERIC COATED 81 MG TABLET.DR. PO SCH (10:06)
[2018-12-20] MEDS: LEVOTHYROXINE 100 MCG TABLET PO SCH (10:06)
[2018-12-20 10:07] VITALS: BP 149/74
[2018-12-20] MEDS: CARVEDILOL 12.5 MG TABLET. PO SCH (10:07)
[2018-12-20] MEDS ORDERED: BENZ-8 PO (10:18)
--- NOTE | 2018-12-20 10:20 | PDOC3 ---
Discharge Summary Visit Information Date of Admission: Dec 18, 2018 Date of Discharge: Dec 20, 2018 Admitting Diagnosis Comment: 1. Yyhbs-dq-gngvisn hypoxemic hypercapnic respiratory failure. 2. Acute exacerbation of chronic obstructive pulmonary disease. 3. Elevated troponin, suspect demand ischemia. 4. Mold exposure. 5. 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 6. Tobacco dependence, in remission. Final Diagnosis Problems Medical Problems: (1) Acute respiratory failure with hypercapnia Status: Acute (2) COPD with acute exacerbation Status: Acute Brief Hospital Course Allergies Allergies Coded Allergies Type Severity Reaction Last Updated Verified No Known Drug Allergies 08/29/16 No Vital Signs Vital Signs Date Time Temp Pulse Resp B/P (MAP) Pulse Ox O2 Delivery O2 Flow Rate FiO2 12/20/18 10:07 66 149/74 12/20/18 07:55 98 Nasal Cannula 3.0 12/20/18 07:00 98.0 20 98.0 Brief Hospital Course Mr. Mensah is a 73 old [white male who has COPD yet cont to smoke and has soem mold issues in his apt, readmission for the same few mos ago, We have consulted SW re mold issues in his apt, HE has no PT needs, HE is s.o medrol dose pack and already has home O 2 at home HOme today on his inhalers and cough med DW Pulmo and SW Pt seen and examined dc < 30 mins Discharge Information Condition at Discharge: Improved, Stable Disposition/Orders: D/C to Home Scheduled Aspirin/Dipyridamole (Aggrenox 25 Mg-200 Mg Capsule) 1 Each Cpmp.12hr, 1 EACH PO BID, (Reported) Entered as Reported by: STELLA SCHAFFER on 05/20/17 0422 Last Taken: Unknown Dose on 12/18/18 Last Action: Last Taken Edited on 12/19/18954 by SHANDA NOONAN Atorvastatin Calcium (Atorvastatin Calcium) 80 Mg Tablet, 80 MG PO HS for FOR CHOLESTEROL, #30 Ref 0 (Reported) Entered as Reported by: LIA FINNEY [facility] on 12/18/18 1246 Last Taken: Unknown Dose on 12/18/18 Last Action: Last Taken Edited on 12/19/18954 by SHANDA NOONAN Benzonatate (Benzonatate) 100 Mg Capsule, 100 MG PO [id number] for cough, #21 Prescribed by: HOMER ALEMAN on 12/20/18 1018 Budesonide/Formoterol Fumarate (Symbicort 160-4.5 Mcg Inhaler) 10.2 Gm Hfa.aer.ad, 2 PUFF IH BID, #10.6 Ref 3 (Reported) Entered as Reported by: Lucian Soni on 08/30/16101 Carvedilol (Coreg ) 12.5 Mg Tablet, 12.5 MG PO BIDWMEALS for CARDIAC, (Reported) Entered as Reported by: LIA FINNEY [facility] on 12/18/18 1246 Last Taken: Unknown Dose on 12/18/18 Last Action: Continued on 12/19/18 1206 by JANETH MARIN MD Ipratropium [place] (Atrovent Hfa) 12.9 Gm Hfa.aer.ad, 2 PUFF IH QID, #12.9 Ref 5 (Reported) Entered as Reported by: Lucian Soni on 08/30/16101 Levothyroxine Sodium (Levothyroxine Sodium) 100 Mcg Tablet, 1 TAB PO DAILY, #30 Ref 5 (Reported) Entered as Reported by: Lucian Soni on 08/30/16101 Last Taken: Unknown Dose on 12/18/18 Last Action: Continued on 12/19/18 1206 by JANETH MARIN MD Methylprednisolone (Medrol) 4 Mg Tab.ds.pk, 1 PKG PO UD, #1 Prescribed by: RIC LOCKHART D.O. on 12/14/18 2317 Scheduled PRN Albuterol Sulfate (Proventil Hfa Inhaler) 6.7 Gm Hfa.aer.ad, 1 PUFF IH PRN Q4HRS PRN for FOR ASTHMA, Ref 0 (Reported) Entered as Reported by: Lucian Soni on 08/30/16101 Discontinued Medications Aspirin (Aspirin) 81 Mg Tab.chew, 1 TAB PO DAILY, #30 Ref 3 (Reported) Discontinued Reason: D/C Entered as Reported by: Lucian Soni on 08/30/16101 Last Action: Discontinued on 12/18/18 1245 by LIA FINNEY [facility] Doxycycline Hyclate (Doxycycline Hyclate) 100 Mg Tablet, 1 TAB PO BID for Pneumonia for 3 Days, #6 Discontinued Reason: D/C Prescribed by: ROYCE WILLIS MD on 11/30/18 1303 Last Action: Discontinued on 12/18/18 1245 by LIA FINNEY [facility] Prednisone (Prednisone ) 10 Mg Tablet, 30 MG PO DAILY for pneumonia for 4 Days, #12 Ref 0 (Reported) Discontinued Reason: D/C Entered as Reported by: ARNALDO RANKIN on 02/25/18 1308 Last Action: Discontinued on 12/18/18 124 by LAI FINNEY RP Prednisone (Prednisone ) 10 Mg Tablet, 20 MG PO DAILY for pneumonia for 4 Days, #8 Ref 0 (Reported) Discontinued Reason: D/C Entered as Reported by: ARNALDO RANKIN on 02/25/18 1308 Last Action: Discontinued on 12/18/18 1245 by LIA FINNEY [facility] Prednisone (Prednisone ) 10 Mg Tablet, 10 MG PO DAILY for pneumonia for 4 Days, #4 Ref 0 (Reported) Discontinued Reason: D/C Entered as Reported by: ARNALDO RANKIN on 02/25/18 1310 Last Action: Discontinued on 12/18/18 1245 by LIA FINNEY [facility] HOMER ALEAMN MD Dec 20, 2018 10:20
[2018-12-20] MEDS ORDERED: PROVENTIL HFA6.7 GM IH (10:21)
--- NOTE | 2018-12-20 12:14 | NUR ---
pt discharged home with significant other. pt given instructions to follow up with Dr. Badillo within the next week. scripts for medrol pack and tessalon pearls given. pt on 3L O2, home setting. IV removed cath intact. pt escorted out via w/c
--- NOTE | 2018-12-20 14:45 | NUR ---
late note: SW consulted to assess living condition. Pt lives at home with SO and is known to SWer from previous admission. Pt has been to for and was recently discharged home. Pt states his COPD flared up after being exposed to mold at his apartment. SW provided pt with [facility] housing authority and area of aging information. Pt states his landlord still trying to evict him but he has copies of his lease and has been making rent payments. SW discussed pt will need to prove that he has notified his landlord regarding mold and encouraged him to have supporting documents. LIVE had called landlord in previous admission and was notified they do not know pt and only know his SO. SWer had informed them regarding pt's compliant about mold and repeat readmission to hospital due to being exposed to it. Pt stated he will contact the housing authority and then get a souvenir street vendor to help with his case. Supportive counseling provided. Please refer to previous admission SW note for more details. Discussed with RN and Pulmonary.
[2018-12-23] MEDS ORDERED: METH4TAB2 PO (11:28)
== END 2018-12-20 11:30 | disposition home or self-care (01) | DRG 189 ==
LOC: ER 23:38 → 1 WEST ICU 12-18 00:47 → 5 SOUTH 12-18 17:25
PROVIDERS: ADMIT Family Medicine; ATTEND Family Medicine
PROC: 5A09357 Assistance with Respiratory Ventilation, Less than 24 Consecutive Hours, Continuous Positive Airway Pressure (ICD-10-PCS; principal; 2018-12-18)
DX: J96.21 Acute and chronic respiratory failure with hypoxia (principal); I50.32 Chronic diastolic (congestive) heart failure; J96.22 Acute and chronic respiratory failure with hypercapnia; I25.10 Atherosclerotic heart disease of native coronary artery without angina pectoris; E03.9 Hypothyroidism, unspecified; E78.5 Hyperlipidemia, unspecified; F17.211 Nicotine dependence, cigarettes, in remission; I25.2 Old myocardial infarction; J43.9 Emphysema, unspecified; Z77.120 Contact with and (suspected) exposure to mold (toxic); M19.90 Unspecified osteoarthritis, unspecified site; Z79.82 Long term (current) use of aspirin; Z79.51 Long term (current) use of inhaled steroids; Z82.49 Family history of ischemic heart disease and other diseases of the circulatory system; Z83.3 Family history of diabetes mellitus; Z86.73 Personal history of transient ischemic attack (TIA), and cerebral infarction without residual deficits; R79.89 Other specified abnormal findings of blood chemistry
CPT/HCPCS: 36415; 36600; 71045; 80053; 82805; 83880; 84484; 85025; 90471; 90686; 93005; 93308; 94640; 94660; 94760; 96361; 96365; 96366; 96375; J1650; J2270; J2930; J3475; J7030; J7613; J7620; J7626; J7644; 99285-25; G0378

== ENCOUNTER 2018-12-20 21:02 | Inpatient (IN) | payer MEDICARE, OTHER ==
[~2018-12-20] VITALS: Ht 185.4 cm; Wt 71.2 kg
[~2018-12-20 21:02] MED LIST changes: +ATORVASTATIN CA80 MG PO; +BENZ-8 PO; +CARV12.5 PO
[2018-12-20 21:19] LABS: BASO % 0 % (0-3); EOS # 0.4 x10^3/uL (0.0-0.7); EOS % 4 % (0-3); HEMATOCRIT 41.2 % (39.0-53.0); HEMOGLOBIN 13.2 g/dL (13.0-17.5); LYMPH # 2.8 x10^3/uL (1.0-4.8); LYMPH % 23 % (24-48); MEAN CORPUSCULAR HEMOGLOBIN 29 pg (25-35); MEAN CORPUSCULAR HGB CONC 32 g/dL (31-37); MEAN CORPUSCULAR VOLUME 91 fL (79-100); MONO % 8 % (0-9); NEUT % 65 % (31-73); PLATELET COUNT 248 x10^3/uL (140-400); RED BLOOD COUNT 4.53 x10^6/uL (4.30-5.70); RED CELL DISTRIBUTION WIDTH 16.1 % (11.5-14.5); WHITE BLOOD COUNT 12.2 x10^3/uL (4.0-11.0)
[2018-12-20 21:23] LABS: BASE EXCESS COOX -3 mmol/L (-3-3); HCO3 COOX 29 mmol/L (21-28); METHEMOGLOBIN 0.4 % (0.0-1.9); OXYHEMOGLOBIN 98.3 %; PO2 COOX 302 mmHg (65-108); SAT O2 COOX 99 % (92-99)
--- NOTE | 2018-12-20 21:23 | PHYS DOC ---
Past Medical History Past Medical History: COPD, CVA, SD Additional Past Medical Histor: home 02 Past Surgical History: Tonsillectomy Alcohol Use: Occasionally Drug Use: None Adult General Chief Complaint Chief Complaint: SHORTNESS OF BREATH HPI HPI Patient is a 73 year old male who presents with to the emergency department by EMS for acute respiratory distress. The patient has long-standing history of COPD. Reportedly discharged from this hospital earlier today after being treated for COPD. EMS was called due to worsening symptoms and on their arrival found patient slumped over in his chair minimally responsive. They initiated ebt-nciie-pjaq ventilations in the ambulance cot prior to arrival. Upon arrival to the treatment room here in the emergency department, the patient appears lethargic but is responding to voice. He has following commands at this time. Denies any pain. Unable to obtain any further history. Review of Systems Review of Systems Constitutional: Denies fever or chills [] Eyes: Denies change in visual acuity, redness, or eye pain [] HENT: Denies nasal congestion or sore throat [] Respiratory: Shortness of breath[] Cardiovascular: Denies chest pain[] GI: Denies abdominal pain, nausea, vomiting, bloody stools or diarrhea [] : Denies dysuria or hematuria [] Musculoskeletal: Denies back pain or joint pain [] Integument: Denies rash or skin lesions [] Neurologic: Denies headache, focal weakness or sensory changes [] All other systems were reviewed and found to be within normal limits, except as documented in this note. Current Medications Current Medications Current Medications Medications (Trade) Dose Ordered Sig/Jayla Start Time Stop Time Status Last Admin Dose Admin Albuterol Sulfate (Ventolin Neb Soln) 7.5 mg 1X ONCE 12/20/18 21:30 12/20/18 21:31 DC 12/20/18 21:25 7.5 MG Albuterol/ Ipratropium (Duoneb) 3 ml 1X ONCE 12/20/18 21:30 12/20/18 21:31 DC 12/20/18 21:25 3 ML Methylprednisolone Sodium Succinate (SOLU-Medrol 125MG VIAL) 125 mg 1X ONCE 12/20/18 21:30 12/20/18 21:31 DC 12/20/18 21:27 125 MG Sodium Chloride 1,000 ml @ 125 mls/hr Q8H 12/20/18 21:30 12/21/18 05:29 12/20/18 21:26 125 MLS/HR Allergies Allergies Allergies Coded Allergies Type Severity Reaction Last Updated Verified No Known Drug Allergies 08/29/16 No Physical Exam Physical Exam Constitutional: Lethargic but responsive voice, appears in moderate to severe respiratory distress[] HENT: Normocephalic, atraumatic, bilateral external ears normal, oropharynx moist, no oral exudates, nose normal. [] Eyes: PERRLA, EOMI, conjunctiva normal, no discharge. [] Neck: Normal range of motion, no tenderness, supple, no stridor. [] Cardiovascular: Tachycardiac, regular rhythm, no murmur [] Lungs & Thorax: Prolonged expiratory phase, accessory muscle usage present, extremity wheezes bilaterally, no rales[] Abdomen: Bowel sounds normal, soft, no tenderness, no masses, no pulsatile masses. [] Skin: Warm, dry, no erythema, no rash. [] Back: No tenderness, no CVA tenderness. [] Extremities: No tenderness, no cyanosis, no clubbing, ROM intact, no edema. [] Neurologic: Lethargic, following commands, normal motor function, normal sensory function, no focal deficits noted. [] Current Patient Data Vital Signs Vital Signs Date Time Temp Pulse Resp B/P (MAP) Pulse Ox O2 Delivery O2 Flow Rate FiO2 12/20/18 22:20 BiPAP/CPAP 12/20/18 22:12 100 Lab Values Laboratory Tests Test 12/20/18 21:10 12/20/18 21:11 12/20/18 22:12 O2 Saturation 99 % (92-99) 99 % (92-99) Arterial Blood pH 7.14 (7.35-7.45) *L 7.38 (7.35-7.45) Arterial Blood pCO2 at Patient Temp 86 mmHg (35-46) *H 52 mmHg (35-46) H Arterial Blood pO2 at Patient Temp 302 mmHg (65-108) H 238 mmHg (65-108) H Arterial Blood HCO3 29 mmol/L (21-28) H 31 mmol/L (21-28) H Arterial Blood Base Excess -3 mmol/L (-3-3) 4 mmol/L (-3-3) H Oxyhemoglobin 98.3 % Methemoglobin 0.4 % (0.0-1.9) Carbon Monoxide, Quantitative 0.3 % (0.0-1.9) FiO2 100 50 White Blood Count 12.2 x10^3/uL (4.0-11.0) H Red Blood Count 4.53 x10^6/uL (4.30-5.70) Hemoglobin 13.2 g/dL (13.0-17.5) Hematocrit 41.2 % (39.0-53.0) Mean Corpuscular Volume 91 fL (79-100) Mean Corpuscular Hemoglobin 29 pg (25-35) Mean Corpuscular Hemoglobin Concent 32 g/dL (31-37) Red Cell Distribution Width 16.1 % (11.5-14.5) H Platelet Count 248 x10^3/uL (140-400) Neutrophils (%) (Auto) 65 % (31-73) Lymphocytes (%) (Auto) 23 % (24-48) L Monocytes (%) (Auto) 8 % (0-9) Eosinophils (%) (Auto) 4 % (0-3) H Basophils (%) (Auto) 0 % (0-3) Neutrophils # (Auto) 8.0 x10^3/uL (1.8-7.7) H Lymphocytes # (Auto) 2.8 x10^3/uL (1.0-4.8) Monocytes # (Auto) 1.0 x10^3/uL (0.0-1.1) Eosinophils # (Auto) 0.4 x10^3/uL (0.0-0.7) Basophils # (Auto) 0.0 x10^3/uL (0.0-0.2) Sodium Level 137 mmol/L (136-145) Potassium Level 5.0 mmol/L (3.5-5.1) Chloride Level 98 mmol/L (98-107) Carbon Dioxide Level 32 mmol/L (21-32) Anion Gap 7 (6-14) Blood Urea Nitrogen 18 mg/dL (8-26) Creatinine 1.4 mg/dL (0.7-1.3) H Estimated GFR (Cockcroft-Gault) 49.8 BUN/Creatinine Ratio 13 (6-20) Glucose Level 217 mg/dL (70-99) H Calcium Level 9.5 mg/dL (8.5-10.1) Total Bilirubin 0.6 mg/dL (0.2-1.0) Aspartate Amino Transferase (AST) 37 U/L (15-37) Alanine Aminotransferase (ALT) 55 U/L (16-63) Alkaline Phosphatase 101 U/L (46-116) Creatine Kinase 58 U/L (39-308) Creatine Kinase MB (Mass) 2.2 ng/mL (0.0-3.6) Creatine Kinase MB Relative Index % (0-4) Troponin I Quantitative 0.033 ng/mL (0.000-0.055) GF-Efs-Q-Type Natriuretic Peptide 297 pg/mL (0-124) H Total Protein 6.9 g/dL (6.4-8.2) Albumin 3.5 g/dL (3.4-5.0) Albumin/Globulin Ratio 1.0 (1.0-1.7) Laboratory Tests 12/20/18 21:11 Laboratory Tests 12/20/18 21:11 EKG EKG Interpreted by me: Heart rate 121, sinus tachycardia, neck motion artifact, no a cute ST elevations or depressions[] Radiology/Procedures Radiology/Procedures [facility] [address] [place] [address] IMAGING REPORT Signed PATIENT: HARRISON POOLE ACCOUNT: [id number] : 1945 LOCATION: ER AGE: 73 SEX: M EXAM STATUS: PRE ER ORD. PHYSICIAN: YOLANDA PASCUAL MD REASON: respiratory distress PROCEDURE: PORTABLE CHEST 1V Chest AP portable at 2121: Reason for examination: Respiratory distress. Comparison is made to previous study dated 12/17/2018. The heart size is normal. Mediastinum is unremarkable. Lung arechiga are hyperaerated consistent with COPD. There continues to be a mild increase in the interstitial markings at the bases which may reflect some interstitial fibrosis. No consolidated infiltrates or pleural effusions are seen. No acute bony abnormalities are seen. Impression: COPD. Continued presence of increased interstitial markings at the bases. No acute process in the chest. Electronically signed by: Otis Medrano MD (12/20/2018 11:53 PM) [facility] DICTATED and SIGNED BY: OTIS MEDRANO MD DATE: 12/20/18 2353 [] Course & Med Decision Making Course & Med Decision Making Pertinent Labs and Imaging studies reviewed. (See chart for details) His the patient was starting to respond to patient's, the patient was switched to a BiPAP mask in the emergency department. As he was able to tolerate this, he also showed marked improvement in mental status. The patient's initial ABG confirmed acute on chronic hypercapnic respiratory failure. Patient's ABG after one hour was rechecked and showed marked improvement with BiPAP with his pH improving from 7.139-7.383. PCO2 decreased from 86.3-52.3. Due to continued need for BiPAP at this time, the patient will be admitted for further treatment. I spoke with Dr. Cordova who accepted care of patient in hospital. Critical care time excluding procedures: 40 minutes[] Dragon Disclaimer Dragon Disclaimer This electronic medical record was generated, in whole or in part, using a voice recognition dictation system. Departure Departure Impression: Primary Impression: Acute on chronic respiratory failure Disposition: 09 ADMITTED INPATIENT Admitting Physician: LEA Condition: GUARDED Referrals: UNKNOWN PCP NAME (PCP) Problem Qualifiers Primary Impression: Acute on chronic respiratory failure Respiratory failure complication: hypoxia and hypercapnia Qualified Codes: J96.21 - Acute and chronic respiratory failure with hypoxia; J96.22 - Acute and chronic respiratory failure with hypercapnia YOLANDA PASCUAL MD Dec 20, 2018 21:23
[2018-12-20 21:25] LABS: PCO2 COOX 86 mmHg (35-46)
[2018-12-20] MEDS ORDERED: IPRATRPIUM/ALBUTEROL 0.5/2.5MG 3 ML NEBU. NEB ONE (21:30)
[2018-12-20] MEDS ORDERED: IV NORMAL SALINE 1000ML BAG 1,000 ML IV SCH (21:30)
[2018-12-20] MEDS ORDERED: methylPREDNISolone SOD SUCC PF 125 MG/2 ML VIAL. IV ONE (21:30)
[2018-12-20] MEDS ORDERED: ALBUTEROL SULFATE 2.5 MG/3 ML NEBU. CONT NEB ONE (21:30)
[2018-12-20 21:59] LABS: ALBUMIN 3.5 g/dL (3.4-5.0); CALCIUM 9.5 mg/dL (8.5-10.1); CREATINE KINASE 58 U/L (39-308); TOTAL PROTEIN 6.9 g/dL (6.4-8.2)
[2018-12-20 22:00] LABS: CREATININE 1.4 mg/dL (0.7-1.3); GFR 49.8; TOTAL BILIRUBIN 0.6 mg/dL (0.2-1.0)
[2018-12-20 23:53] LABS: BASE EXCESS ABG 4 mmol/L (-3-3); HCO3 ABG 31 mmol/L (21-28); PCO2 ABG 52 mmHg (35-46); PO2 ABG 238 mmHg (65-108); SAT O2 ABG 99 % (92-99)
[2018-12-20 23:54] LABS: FIO2 ABG 50
--- NOTE | 2018-12-20 23:55 | RAD ---
Chest AP portable at 2121: Reason for examination: Respiratory distress. Comparison is made to previous study dated 12/17/2018. The heart size is normal. Mediastinum is unremarkable. Lung arechiga are hyperaerated consistent with COPD. There continues to be a mild increase in the interstitial markings at the bases which may reflect some interstitial fibrosis. No consolidated infiltrates or pleural effusions are seen. No acute bony abnormalities are seen. Impression: COPD. Continued presence of increased interstitial markings at the bases. No acute process in the chest. Electronically signed by: Adrienne Pickett MD (12/20/2018 11:53 PM) [facility]
[2018-12-21] VITALS (7 sets, daily range): BP systolic 105–139; BP diastolic 54–86
[2018-12-21] MEDS ORDERED: C.DIFF MED SCREEN BY RX. MC ONE (02:00)
[2018-12-21] MEDS ORDERED: IPRATRPIUM/ALBUTEROL 0.5/2.5MG 3 ML NEBU. ONE (07:03)
--- NOTE | 2018-12-21 07:31 | EKG ---
[facility] [address] [place] [address] Test Date: 2018-12-20 Test Time: 21:14:57 Pat Name: HARRISON POOLE Department: Room: 656 1 Gender: M Window Trimmer: : 1945 Requested By: YOLANDA PASCUAL Order Number: [id number] Reading MD: Dami Mesa MD Measurements Intervals [place] Rate: 120 P: 90 [place]: 136 QRS: 84 QRSD: 92 T: 59 QT: 290 QTc: 414 Interpretive Statements SINUS TACHYCARDIA NON-SPECIFIC ST/T CHANGES Electronically Signed On 12-27-2018 10:36:54 CDT by Dami Mesa MD
--- NOTE | 2018-12-21 07:31 | EKG ---
[facility] [address] [place] [address] Test Date: 2018-12-20 Test Time: 21:05:14 Pat Name: HARRISON POOLE Department: Room: 6 1 Gender: M White Lead Grinder: : 1945 Requested By: JANETH MARIN Order Number: [id number] Reading MD: Dami Mesa MD Measurements Intervals [place] Rate: 126 P: 68 [place]: 140 QRS: 86 QRSD: 94 T: 23 QT: 294 QTc: 432 Interpretive Statements SINUS TACHYCARDIA NON-SPECIFIC ST/T CHANGES Electronically Signed On 12-27-2018 10:36:47 CDT by Dami Mesa MD
[2018-12-21] MEDS ORDERED: IPRATRPIUM/ALBUTEROL 0.5/2.5MG 3 ML NEBU. NEB SCH (08:30)
--- NOTE | 2018-12-21 09:36 | NUR ---
Pharmacy Medication Review S: Consulted for medication review re: C.diff Risk Assessment score of 5 O: HARRISON POOLE is a 73 year old with: Previous C.diff infection: No Previous hospitalization: Within 30 days Recent antibiotics: Within 30 days Use of gastric acid suppressor: No Transfer from [facility]/LTAC: No Current antibiotic regimen:no abx Current acid suppression regimen:none A: Patient has been identified as having risk factors for C.diff infection as noted above. P: Antibiotic Regimen recommendation made: no abx ordered Probiotic ordered:no PPI changed to [id number]:no acid suppression ordered JAYRO HOFFMAN [facility], 12/21/18 0936
[2018-12-21] MEDS: IPRATRPIUM/ALBUTEROL 0.5/2.5MG 3 ML NEBU. NEB SCH ×3 (11:13→21:16)
[2018-12-21] MEDS: BUDESONIDE 0.5 MG/2 ML NEBU. NEB SCH ×2 (11:13→21:16)
--- NOTE | 2018-12-21 11:33 | PDOC1 ---
History and Physical Date of Admission Date of Admission DATE: 12/21/18 TIME: 11:31 Identification/Chief Complaint Chief Complaint SEEN IN ER , presented with to the emergency department by EMS for acute respiratory distress. long-standing history of COPD. Reportedly discharged from this hospital 12/20 after being treated for COPD. STATES THIS IS HIS 6TH ADMIT IN 8 WEEKS EMS was called due to worsening symptoms and on their arrival found patient slumped over in his chair minimally responsive. initiated [id number] ventilations in the ambulance cot prior to arrival. has a 80 pk yr smoking history, is concerned that he sees black mold in his apartment in [facility] Past Medical History Cardiovascular: CAD, Hyperlipidemia Pulmonary: Bronchitis, COPD, Pneumonia, Other CENTRAL NERVOUS SYSTEM: Other GI: No pertinent hx Heme/Onc: No pertinent hx Hepatobiliary: No pertinent hx Psych: No pertinent hx Musculoskeletal: Osteoarthritis Rheumatologic: No pertinent hx Infectious disease: No pertinent hx Renal/: No pertinent hx Endocrine: Hypothyroidism Past Surgical History Past Surgical History: Tonsillectomy, Other Family History Family History: Diabetes, Family History Unknown Social History Smoke: Quit ALCOHOL: none Drugs: None Current Medications Current Medications Current Medications Sodium Chloride 1,000 ml @ 125 mls/hr Q8H IV Last administered on 12/20/18at 21:26; Start 12/20/18 at 21:30; Stop 12/21/18 at 05:29; Status DC Methylprednisolone Sodium Succinate (SOLU-Medrol 125MG VIAL) 125 mg 1X ONCE IV Last administered on 12/20/18at 21:27; Start 12/20/18 at 21:30; Stop 12/20/18 at 21:31; Status DC Albuterol Sulfate (Ventolin Neb Soln) 7.5 mg 1X ONCE CONT NEB Last administered on 12/20/18at 21:25; Start 12/20/18 at 21:30; Stop 12/20/18 at 21:31; Status DC Albuterol/ Ipratropium (Duoneb) 3 ml 1X ONCE NEB Last administered on 12/20/18at 21:25; Start 12/20/18 at 21:30; Stop 12/20/18 at 21:31; Status DC Pharmacy Consult (C.diff Med Screen By Rx) 1 each 1X ONCE [facility] ; Start 12/21/18 at 02:00; Stop 12/21/18 at 02:01; Status DC Albuterol/ Ipratropium (Duoneb) 3 ml STK-MED ONCE .ROUTE ; Start 12/21/18 at 07:03; Stop 12/21/18 at 07:04; Status DC Budesonide (Pulmicort) 0.5 mg RTBID NEB Last administered on 12/21/18at 11:13; Start 12/21/18 at 08:30 Albuterol/ Ipratropium (Duoneb) 3 ml RTQID NEB ; Start 12/21/18 at 08:30; Stat us Cancel Albuterol/ Ipratropium (Duoneb) 3 ml RTQID NEB Last administered on 12/21/18at 11:13; Start 12/21/18 at 12:00 Active Scripts Active Proventil Hfa Inhaler (Albuterol Sulfate) 6.7 Gm Hfa.aer.ad 1 Puff IH PRN Q4HRS PRN 30 Days Benzonatate 100 Mg Capsule 100 Mg PO [id number] Medrol (Methylprednisolone) 4 Mg Tab.ds.pk 1 Pkg PO UD Reported Coreg (Carvedilol) 12.5 Mg Tablet 12.5 Mg PO BIDWMEALS Atorvastatin Calcium 80 Mg Tablet 80 Mg PO HS Aggrenox 25 Mg-200 Mg Capsule (Aspirin/Dipyridamole) 1 Each Cpmp.12hr 1 Each PO BID Symbicort 160-4.5 Mcg Inhaler (Budesonide/Formoterol Fumarate) 10.2 Gm Hfa.aer.ad 2 Puff IH BID Atrovent Hfa (Ipratropium [place]) 12.9 Gm Hfa.aer.ad 2 Puff IH QID Levothyroxine Sodium 100 Mcg Tablet 1 Tab PO DAILY Allergies Allergies: Coded Allergies: No Known Drug Allergies (Unverified , 08/29/16) ROS Review of System Review of Systems Review of Systems Constitutional: Denies fever or chills [] Eyes: Denies change in visual acuity, redness, or eye pain [] HENT: Denies nasal congestion or sore throat [] Respiratory: Shortness of breath[] Cardiovascular: Denies chest pain[] GI: Denies abdominal pain, nausea, vomiting, bloody stools or diarrhea [] : Denies dysuria or hematuria [] Musculoskeletal: Denies back pain or joint pain [] Integument: Denies rash or skin lesions [] Neurologic: Denies headache, focal weakness or sensory changes [] 14 PT systems were reviewed and found to be within normal limits, except as documented . General: YES: Fatigue ENDOCRINE: YES: Malaise/lethargy Respiratory: YES: Shortness of breath, SOB with excertion, Sputum Changes Physical Exam Physical Exam Constitutional: ALERT, appears in LESS respiratory distress[] HENT: Normocephalic, atraumatic, bilateral external ears normal, oropharynx moist, no oral exudates, nose normal. [] Eyes: PERRLA, EOMI, conjunctiva normal, no discharge. [] Neck: Normal range of motion, no tenderness, supple, no stridor. [] Cardiovascular: Tachycardiac, regular rhythm, no murmur [] Lungs & Thorax: Prolonged expiratory phase, NO accessory muscle usage present, MILD EXP wheezes bilaterally, no rales[] Abdomen: Bowel sounds normal, soft, no tenderness, no masses, no pulsatile masses.THIN [] Skin: Warm, dry, no erythema, no rash. [] Back: No tenderness, no CVA tenderness. [] Extremities: No tenderness, no cyanosis, no clubbing, ROM intact, no edema. [] Neurologic: following commands, normal motor function, normal sensory function, no focal deficits noted. [] General: Alert, Oriented X3, Cooperative, mild distress, moderate distress HEENT: Atraumatic, EOMI Lungs: Normal air movement Heart: RRR Breasts: Not examined Abdomen: Soft Rectal Exam: not examined Neuro: Cranial nerves 3-12 NL Vitals Vitals Vital Signs Date Time Temp Pulse Resp B/P (MAP) Pulse Ox O2 Delivery O2 Flow Rate FiO2 12/21/18 11:14 Nasal Cannula 3.0 12/21/18 10:47 97.9 58 16 105/54 (71) 99 97.9 Labs Labs Laboratory Tests Test 12/20/18 21:10 12/20/18 21:11 12/20/18 22:12 12/21/18 08:06 O2 Saturation 99 % (92-99) 99 % (92-99) Arterial Blood pH 7.14 (7.35-7.45) 7.38 (7.35-7.45) Arterial Blood pCO2 at Patient Temp 86 mmHg (35-46) 52 mmHg (35-46) Arterial Blood pO2 at Patient Temp 302 mmHg (65-108) 238 mmHg (65-108) Arterial Blood HCO3 29 mmol/L (21-28) 31 mmol/L (21-28) Arterial Blood Base Excess -3 mmol/L (-3-3) 4 mmol/L (-3-3) Oxyhemoglobin 98.3 % Methemoglobin 0.4 % (0.0-1.9) Carbon Monoxide, Quantitative 0.3 % (0.0-1.9) FiO2 100 50 White Blood Count 12.2 x10^3/uL (4.0-11.0) Red Blood Count 4.53 x10^6/uL (4.30-5.70) Hemoglobin 13.2 g/dL (13.0-17.5) Hematocrit 41.2 % (39.0-53.0) Mean Corpuscular Volume 91 fL (79-100) Mean Corpuscular Hemoglobin 29 pg (25-35) Mean Corpuscular Hemoglobin Concent 32 g/dL (31-37) Red Cell Distribution Width 16.1 % (11.5-14.5) Platelet Count 248 x10^3/uL (140-400) Neutrophils (%) (Auto) 65 % (31-73) Lymphocytes (%) (Auto) 23 % (24-48) Monocytes (%) (Auto) 8 % (0-9) Eosinophils (%) (Auto) 4 % (0-3) Basophils (%) (Auto) 0 % (0-3) Neutrophils # (Auto) 8.0 x10^3/uL (1.8-7.7) Lymphocytes # (Auto) 2.8 x10^3/uL (1.0-4.8) Monocytes # (Auto) 1.0 x10^3/uL (0.0-1.1) Eosinophils # (Auto) 0.4 x10^3/uL (0.0-0.7) Basophils # (Auto) 0.0 x10^3/uL (0.0-0.2) Sodium Level 137 mmol/L (136-145) Potassium Level 5.0 mmol/L (3.5-5.1) Chloride Level 98 mmol/L (98-107) Carbon Dioxide Level 32 mmol/L (21-32) Anion Gap 7 (6-14) Blood Urea Nitrogen 18 mg/dL (8-26) Creatinine 1.4 mg/dL (0.7-1.3) Estimated GFR (Cockcroft-Gault) 49.8 BUN/Creatinine Ratio 13 (6-20) Glucose Level 217 mg/dL (70-99) Calcium Level 9.5 mg/dL (8.5-10.1) Total Bilirubin 0.6 mg/dL (0.2-1.0) Aspartate Amino Transf (AST/SGOT) 37 U/L (15-37) Alanine Aminotransferase (ALT/SGPT) 55 U/L (16-63) Alkaline Phosphatase 101 U/L (46-116) Creatine Kinase 58 U/L (39-308) Creatine Kinase MB (Mass) 2.2 ng/mL (0.0-3.6) Creatine Kinase MB Relative Index % (0-4) Troponin I Quantitative 0.033 ng/mL (0.000-0.055) ZV-Yyf-Q-Type Natriuretic Peptide 297 pg/mL (0-124) Total Protein 6.9 g/dL (6.4-8.2) Albumin 3.5 g/dL (3.4-5.0) Albumin/Globulin Ratio 1.0 (1.0-1.7) Glucose (Fingerstick) 169 mg/dL (70-99) Laboratory Tests Test 12/20/18 21:10 12/20/18 21:11 12/20/18 22:12 12/21/18 08:06 O2 Saturation 99 % (92-99) 99 % (92-99) Arterial Blood pH 7.14 (7.35-7.45) 7.38 (7.35-7.45) Arterial Blood pCO2 at Patient Temp 86 mmHg (35-46) 52 mmHg (35-46) Arterial Blood pO2 at Patient Temp 302 mmHg (65-108) 238 mmHg (65-108) Arterial Blood HCO3 29 mmol/L (21-28) 31 mmol/L (21-28) Arterial Blood Base Excess -3 mmol/L (-3-3) 4 mmol/L (-3-3) Oxyhemoglobin 98.3 % Methemoglobin 0.4 % (0.0-1.9) Carbon Monoxide, Quantitative 0.3 % (0.0-1.9) FiO2 100 50 White Blood Count 12.2 x10^3/uL (4.0-11.0) Red Blood Count 4.53 x10^6/uL (4.30-5.70) Hemoglobin 13.2 g/dL (13.0-17.5) Hematocrit 41.2 % (39.0-53.0) Mean Corpuscular Volume 91 fL (79-100) Mean Corpuscular Hemoglobin 29 pg (25-35) Mean Corpuscular Hemoglobin Concent 32 g/dL (31-37) Red Cell Distribution Width 16.1 % (11.5-14.5) Platelet Count 248 x10^3/uL (140-400) Neutrophils (%) (Auto) 65 % (31-73) Lymphocytes (%) (Auto) 23 % (24-48) Monocytes (%) (Auto) 8 % (0-9) Eosinophils (%) (Auto) 4 % (0-3) Basophils (%) (Auto) 0 % (0-3) Neutrophils # (Auto) 8.0 x10^3/uL (1.8-7.7) Lymphocytes # (Auto) 2.8 x10^3/uL (1.0-4.8) Monocytes # (Auto) 1.0 x10^3/uL (0.0-1.1) Eosinophils # (Auto) 0.4 x10^3/uL (0.0-0.7) Basophils # (Auto) 0.0 x10^3/uL (0.0-0.2) Sodium Level 137 mmol/L (136-145) Potassium Level 5.0 mmol/L (3.5-5.1) Chloride Level 98 mmol/L (98-107) Carbon Dioxide Level 32 mmol/L (21-32) Anion Gap 7 (6-14) Blood Urea Nitrogen 18 mg/dL (8-26) Creatinine 1.4 mg/dL (0.7-1.3) Estimated GFR (Cockcroft-Gault) 49.8 BUN/Creatinine Ratio 13 (6-20) Glucose Level 217 mg/dL (70-99) Calcium Level 9.5 mg/dL (8.5-10.1) Total Bilirubin 0.6 mg/dL (0.2-1.0) Aspartate Amino Transf (AST/SGOT) 37 U/L (15-37) Alanine Aminotransferase (ALT/SGPT) 55 U/L (16-63) Alkaline Phosphatase 101 U/L (46-116) Creatine Kinase 58 U/L (39-308) Creatine Kinase MB (Mass) 2.2 ng/mL (0.0-3.6) Creatine Kinase MB Relative Index % (0-4) Troponin I Quantitative 0.033 ng/mL (0.000-0.055) KH-Fmk-Z-Type Natriuretic Peptide 297 pg/mL (0-124) Total Protein 6.9 g/dL (6.4-8.2) Albumin 3.5 g/dL (3.4-5.0) Albumin/Globulin Ratio 1.0 (1.0-1.7) Glucose (Fingerstick) 169 mg/dL (70-99) Images Images PROCEDURE NARRATIVE INFORMED CONSENT: After explaining the risks and benefits of the procedure and alternatives, informed consent was obtained. The patient was brought electively to the cardiac catheterization lab. A time out was performed confirming the patient's name, date of , procedure, and site of procedure. All necessary personnel were wearing the appropriate protective equipment and radiation monitor devices. (See nursing notes for medications administered). ACCESS: The right wrist was sterilely prepped and draped in the usual fashion. The right wrist was infiltrated with 1 mL of 2% lidocaine for subcutaneous anesthesia. A 6 Welsh Terumo glide sheath was inserted into the right radial artery without difficulty. CORONARY ANGIOGRAPHY: Right and left coronary angiography was performed using a 6Fr TIG 4.0 catheter. Left ventricular end diastolic pressure was obtained with a pigtail catheter and pullback was performed after left ventriculography. All catheter exchanges and advancements were performed over a guidewire. FINDINGS: HEMODYNAMICS: LVEDP 22 mm Hg No gradient on LV to aortic pullback. AO: 128/78 LEFT VENTRICULOGRAM: EF 55% Anterobasal: Normal. Anterolateral: Normal Apical: Normal Diaphragmatic: Normal Posterobasal: Normal CORONARY ANGIOGRAPHY: LM is a small caliber vessel, with likely concentric negative remodeling without dampening on engagement and probable 30% diffuse stenosis. LAD is a moderate caliber vessel with mild irregularities of up to 30%. D1 is a small caliber vessel with a proximal 50% stenosis. LCx is a moderate caliber non-dominant vessel with mild luminal irregularities of up to 30%. OM1 is a small caliber vessel with ostial 50% stenosis. RCA is a large caliber hyperdominant vessel with a mid 50% stenosis and diffuse luminal irregularities. RPDA and RPL are large caliber vessels with mild luminal irregularities. INTERVENTIONAL TECHNIQUE: iFR of the RCA Due to persistent inferior TWI and moderate disease in the RCA, a physiologic study was performed. Heparin was used for anticoagulation. Through a 6Fr JR4 guide catheter, a 0.014'' pressure wire was advanced to the distal RCA after appropriate normalization. NTG was administered. The iFR value was measured at 0.95. Post-FFR angiography demonstrated no acute complications. CLOSURE: At case completion the right radial sheath was removed and a Terumo radial band was applied with 13 ml of air. COMPLICATIONS: The patient tolerated the procedure well and there were no immediate complications. Conclusion 1. Normal LV systolic function. Ef 55% 2. Three vessel coronary disease. 3. Negative iFR of the RCA. Recommendations Aggressive Medical Therapy Signed by : Kayla Mesa, Electronically Approved : 02/24/2018 11:19:57 DICTATED and SIGNED BY: KAYLA MESA MD DATE: 02/24/18 1119 Chest CTA History: Shortness of breath, elevated d-dimer Technique: After bolus of intravenous contrast, CT imaging was performed of the chest. Multiplanar reconstruction images to include MIP reconstruction images are submitted. Exposure: One or more of the following individualized dose reduction techniques were utilized for this examination: 1. Automated exposure control 2. Adjustment of the mA and/or kV according to patient size 3. Use of iterative reconstruction technique. Comparison: Noncontrast chest CT February 23, 2018 Findings: No pulmonary embolism is identified. There is no pericardial or pleural fluid, pneumothorax, lobar infiltrate. There is some dependent density of the right mainstem bronchus. There is degree of bronchial wall thickening greater on the lower lobes. There is fairly severe emphysema. Aortic root is somewhat dilated about 4.2 cm. Tubular ascending thoracic aortic caliber is within normal about 3.4 cm. No dissection flap is identified of the thoracic aorta. No significantly enlarged nodes are identified of the chest, some subcentimeter mediastinal nodes. There is appearance of mild diffuse wall thickening of the esophagus. There is some linear likely fibrotic change of the right upper lobe. Impression: 1. No pulmonary embolism identified. 2. There is severe emphysema, no lobar infiltrate. There is abnormal density of the dependent right mainstem bronchus which may be due to mucus or aspirated contents. There is degree of bronchial wall thickening greater of the lower lobes may be due to bronchitis. 3. There is somewhat dilated aortic root, no dissection flap of the thoracic aorta. Electronically signed by: Sotero Baker MD (11/26/2018 7:09 PM) [facility] DICTATED and SIGNED BY: SOTERO BAKER MD DATE: 11/26/181908 VTE Prophylaxis Ordered VTE Prophylaxis Devices: No VTE Pharmacological Prophylaxi: Yes Assessment/Plan Assessment/Plan IMPRESSION: 1. Cmzlf-ag-naeiisn hypoxemic SEVERE hypercapnic respiratory failure. 2. Acute exacerbation of chronic obstructive pulmonary disease. 3. RECENT Elevated troponin, suspect demand ischemia. 4. Mold exposure. 5. 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 6. Tobacco dependence, in remission. 7. severe emphysema, 8. Three vessel coronary disease. PLAN ADMIT TELE PULM CONSULT consider palliative care consult BIPAP SUPPORT PRN SPUTUM CULTURE ID CONSULT DVT PROPHYLAXIS Cardiology consult 77 MIN PT EXAM, CHART REVIEW, > 50% OF TIME SPENT WITH EXAM, CHART REVIEW, PT CARE COORDINATION ANAID GREEN MD Dec 21, 2018 11:33
[2018-12-21] MEDS ORDERED: ONDANSETRON PF 4 MG/2 ML VIAL. IV PRN (12:30)
[2018-12-21] MEDS ORDERED: 0.9 % SODIUM CHLORIDE 10 ML DISP.SYRIN. IV PRN (12:30)
[2018-12-21] MEDS ORDERED: guaiFENesin ORAL 200 MG/10 ML LIQUID. PO PRN (12:30)
[2018-12-21] MEDS ORDERED: cloNIDine HCL 0.1 MG TABLET PO PRN (12:30)
[2018-12-21] MEDS ORDERED: ACETAMINOPHEN 325 MG TABLET. PO PRN (12:30)
[2018-12-21] MEDS ORDERED: DOCUSATE SODIUM 100 MG CAPSULE. PO PRN (12:30)
--- NOTE | 2018-12-21 14:23 | PDOC ---
Infectious Disease Note Vital Sign Vital Signs Vital Signs Date Time Temp Pulse Resp B/P (MAP) Pulse Ox O2 Delivery O2 Flow Rate FiO2 12/21/18 11:14 Nasal Cannula 3.0 12/21/18 10:47 97.9 58 16 105/54 (71) 99 97.9 Labs Lab Laboratory Tests Test 12/20/18 21:10 12/20/18 21:11 12/20/18 22:12 12/21/18 08:06 O2 Saturation 99 % (92-99) 99 % (92-99) Arterial Blood pH 7.14 (7.35-7.45) 7.38 (7.35-7.45) Arterial Blood pCO2 at Patient Temp 86 mmHg (35-46) 52 mmHg (35-46) Arterial Blood pO2 at Patient Temp 302 mmHg (65-108) 238 mmHg (65-108) Arterial Blood HCO3 29 mmol/L (21-28) 31 mmol/L (21-28) Arterial Blood Base Excess -3 mmol/L (-3-3) 4 mmol/L (-3-3) Oxyhemoglobin 98.3 % Methemoglobin 0.4 % (0.0-1.9) Carbon Monoxide, Quantitative 0.3 % (0.0-1.9) FiO2 100 50 White Blood Count 12.2 x10^3/uL (4.0-11.0) Red Blood Count 4.53 x10^6/uL (4.30-5.70) Hemoglobin 13.2 g/dL (13.0-17.5) Hematocrit 41.2 % (39.0-53.0) Mean Corpuscular Volume 91 fL (79-100) Mean Corpuscular Hemoglobin 29 pg (25-35) Mean Corpuscular Hemoglobin Concent 32 g/dL (31-37) Red Cell Distribution Width 16.1 % (11.5-14.5) Platelet Count 248 x10^3/uL (140-400) Neutrophils (%) (Auto) 65 % (31-73) Lymphocytes (%) (Auto) 23 % (24-48) Monocytes (%) (Auto) 8 % (0-9) Eosinophils (%) (Auto) 4 % (0-3) Basophils (%) (Auto) 0 % (0-3) Neutrophils # (Auto) 8.0 x10^3/uL (1.8-7.7) Lymphocytes # (Auto) 2.8 x10^3/uL (1.0-4.8) Monocytes # (Auto) 1.0 x10^3/uL (0.0-1.1) Eosinophils # (Auto) 0.4 x10^3/uL (0.0-0.7) Basophils # (Auto) 0.0 x10^3/uL (0.0-0.2) Sodium Level 137 mmol/L (136-145) Potassium Level 5.0 mmol/L (3.5-5.1) Chloride Level 98 mmol/L (98-107) Carbon Dioxide Level 32 mmol/L (21-32) Anion Gap 7 (6-14) Blood Urea Nitrogen 18 mg/dL (8-26) Creatinine 1.4 mg/dL (0.7-1.3) Estimated GFR (Cockcroft-Gault) 49.8 BUN/Creatinine Ratio 13 (6-20) Glucose Level 217 mg/dL (70-99) Calcium Level 9.5 mg/dL (8.5-10.1) Total Bilirubin 0.6 mg/dL (0.2-1.0) Aspartate Amino Transf (AST/SGOT) 37 U/L (15-37) Alanine Aminotransferase (ALT/SGPT) 55 U/L (16-63) Alkaline Phosphatase 101 U/L (46-116) Creatine Kinase 58 U/L (39-308) Creatine Kinase MB (Mass) 2.2 ng/mL (0.0-3.6) Creatine Kinase MB Relative Index % (0-4) Troponin I Quantitative 0.033 ng/mL (0.000-0.055) BN-Dqi-P-Type Natriuretic Peptide 297 pg/mL (0-124) Total Protein 6.9 g/dL (6.4-8.2) Albumin 3.5 g/dL (3.4-5.0) Albumin/Globulin Ratio 1.0 (1.0-1.7) Glucose (Fingerstick) 169 mg/dL (70-99) Objective Assessment pt seen, consult dictated Plan Plan of Care / CORTEZ SOFIA MD Dec 21, 2018 14:23
--- NOTE | 2018-12-21 15:15 | CONS ---
DATE OF CONSULTATION: 12/21/2018 REQUESTING PHYSICIAN: Dr. Ortega REASON FOR CONSULTATION: COPD exacerbation. HISTORY OF PRESENT ILLNESS: This is a 73-year-old gentleman with severe COPD, who is on home O2, who was seen last month with COPD exacerbation. He went to [facility]. He did very well and then went home. As soon as he went home, he started having shortness of breath and he ended up in the ER on 12/14/2018 and 12/18/2018 and now again came back with admission. He came in with ambulance with hypoxia. The patient is feeling better. The patient is on Zosyn and steroids. White count was 14,000 and the creatinine is 1.4. The patient denies any nausea, vomiting, or diarrhea. Denies any chest pain. Denies any fever. Denies any urinary symptoms or bowel symptoms. He is convinced that when he goes home, he gets short of breath. He has been very comfortable here once he stabilizes and then he was very comfortable at [facility]. As soon as he goes home that he starts getting shortness of breath, hence he keeps coming back. The patient has old nebulizer machine and oxygen that he has called the [employer] and [employer] has shipped a new one, he says, but it is going to take 8 days to arrive. Also, the patient has been complaining of mold in the apartment. PAST MEDICAL HISTORY: COPD. He has been on oxygen for a long time with home O2. He also has had CVA and coronary artery disease with [place]. SOCIAL HISTORY: Negative for smoking, alcohol, or illicit drug use. ALLERGIES: No known drug allergies. CURRENT MEDICATIONS: Reviewed. REVIEW OF SYSTEMS: As per HPI. All other systems reviewed are negative. PHYSICAL EXAMINATION: GENERAL: Alert and oriented gentleman, not in any distress. VITAL SIGNS: Stable and afebrile. HEENT: Both pupils are round and reacting. No conjunctival lesion. No lesion in the mouth. NECK: Supple. No JVP. No lymphadenopathy. LUNGS: Clear. HEART: S1, S2 regular. ABDOMEN: Benign. EXTREMITIES: No edema and no cyanosis. SKIN: Unremarkable. NEUROLOGIC: The patient is neurologically alert, awake, and appropriate. No focal neurologic deficit. LABORATORY DATA: White count is down to 12,000. BUN and creatinine are 18 and 1.4. BNP is normal. Troponin is 0.3. Chest x-ray is not showing any acute changes. IMPRESSION: 1. Chronic obstructive pulmonary disease exacerbation. 2. Leukocytosis. 3. Coronary artery disease. 4. Hypertension. RECOMMENDATIONS: Continue Zosyn. Continue steroids. The patient is in a very difficult situation. He is convinced that there is a problem with his apartment and as soon as he goes home, he gets short of breath. Mold should not be theoretically doing anything if it is a leaky wall and there is a mold on the wall, although allergic component can be possible causing people some shortness of breath, especially he is marginal in his lung capacity to start with. Further, if he has a clogged tubing on his oxygen or nebulizer and/or even slime layer with bacterial growth that can also make him sick. The patient probably once gets a little more stabilized has already improved significantly and then may have to go back to either [facility] until he gets a new tubing and a new machine and/or another [facility] . Thank you very much, Dr. Ortega, for giving me the opportunity to participate in this patient's care. CORTEZ SOFIA MD DR: JULISSA/bandar JOB#: [id number] / [id number]
[2018-12-21] MEDS: PIPERACILLIN/TAZOBACTAM 3.375 GM in IV NORMAL SALINE 50ML 50 ML IV SCH ×2 (15:42→22:10)
[2018-12-21] MEDS: methylPREDNISolone SOD SUCC PF 125 MG/2 ML VIAL. IV SCH ×2 (15:42→22:11)
[2018-12-21] MEDS: ENOXAPARIN 40 MG/0.4 ML SYRINGE. SQ SCH (15:44)
[2018-12-21 15:56] LABS: BARBITURATES NEG (NEG); BENZODIAZEPINES NEG (NEG); CANNABINOIDS NEG (NEG); COCAINE NEG (NEG); METHADONE NEG (NEG); OPIATES NEG (NEG); PHENCYCLIDINE NEG (NEG)
[2018-12-21 15:59] LABS: AMPHETAMINE/METHAMPHETAMINE NEG (NEG)
--- NOTE | 2018-12-21 17:49 | PDOC2 ---
PALLIATIVE CARE Palliative Care Note Palliative Care Consult requested by Dr. Ortega to address goals of care. Medical Assessment per medical record; 1. Chronic obstructive pulmonary disease exacerbation. hypercapnia 2. Leukocytosis. 3. Coronary artery disease. 4. Hypertension. EF 55% Patient states he get SOB with exertion. Patient alert, sitting up in chair. Met with patient. He has S/O --formerly his . 2 children; son and daughter. Reviewed medical condition. He states his biggest problem is his breathing caused from environmental issue at home. Would like to move from his apartment but does not have money for first and last months rent as he just loaned his son a sizeable amount of money. Patient receives his medications and care from the [facility]. States he has completed an AD and Living Will through the [facility] system. He would like his s/o Sarah Moise ) and son Soto Mensah Jr ([phone]). to be his POA's Discussed Code Status; He is adamant about not wanting to be put on life support or have CPR. . Understands without this he likely would . Outside the Hospital DNR/DNI form read and signed by patient. His biggest fear is not being able to be with Sarah who has health problems as well. Discussed Hospice. He would be interested in Hospice evaluation. No preference of Hospice. Cabinet Worker would also be of assistance in evaluation of living situation. DNR/DNI per patient request. Above reviewed with Arvind LEARY Message for JOE Delgadillo Dec 21, 2018 17:49
[2018-12-21] MEDS ORDERED: ALBUTEROL SULFATE 2.5 MG/3 ML NEBU. NEB PRN (20:45)
[2018-12-21] MEDS ORDERED: NON FORMULARY ITEM (Ipratropium Bromide (Atrovent Hfa) 2 PUFF) IH SCH (21:00)
[2018-12-21] MEDS: ASPIRIN/DIPYRIDAMOLE 200/25MG CAP.ER.12H. PO SCH (22:10)
[2018-12-21] MEDS: ATORVASTATIN CALCIUM 40 MG TABLET. PO SCH (22:11)
[2018-12-21] MEDS: BENZONATATE 100 MG CAPSULE. PO SCH (22:11)
[2018-12-22 03:15] VITALS: BP 99/50
[2018-12-22] MEDS: LEVOTHYROXINE 100 MCG TABLET PO SCH (06:50)
[2018-12-22] MEDS: methylPREDNISolone SOD SUCC PF 125 MG/2 ML VIAL. IV SCH ×3 (06:50→21:48)
[2018-12-22] MEDS: PIPERACILLIN/TAZOBACTAM 3.375 GM in IV NORMAL SALINE 50ML 50 ML IV SCH ×5 (06:50→17:27)
[2018-12-22 07:00] VITALS: BP 134/77
[2018-12-22] MEDS: BUDESONIDE 0.5 MG/2 ML NEBU. NEB SCH ×2 (07:13→21:05)
[2018-12-22] MEDS: IPRATRPIUM/ALBUTEROL 0.5/2.5MG 3 ML NEBU. NEB SCH ×4 (07:13→21:05)
[2018-12-22 07:15] LABS: BASO % 0 % (0-3); EOS % 0 % (0-3); HEMATOCRIT 34.3 % (39.0-53.0); HEMOGLOBIN 11.4 g/dL (13.0-17.5); LYMPH # 0.7 x10^3/uL (1.0-4.8); LYMPH % 8 % (24-48); MEAN CORPUSCULAR HEMOGLOBIN 29 pg (25-35); MEAN CORPUSCULAR HGB CONC 33 g/dL (31-37); MEAN CORPUSCULAR VOLUME 88 fL (79-100); MONO # 0.2 x10^3/uL (0.0-1.1); MONO % 2 % (0-9); NEUT # 7.3 x10^3/uL (1.8-7.7); NEUT % 90 % (31-73); PLATELET COUNT 211 x10^3/uL (140-400); RED BLOOD COUNT 3.91 x10^6/uL (4.30-5.70); RED CELL DISTRIBUTION WIDTH 15.6 % (11.5-14.5); WHITE BLOOD COUNT 8.1 x10^3/uL (4.0-11.0)
[2018-12-22 07:42] LABS: ALBUMIN 2.8 g/dL (3.4-5.0); ALBUMIN/GLOBULIN RATIO 0.9 (1.0-1.7); CALCIUM 8.6 mg/dL (8.5-10.1); CREATININE 0.9 mg/dL (0.7-1.3); GFR 82.9; POTASSIUM 4.2 mmol/L (3.5-5.1); TOTAL BILIRUBIN 0.4 mg/dL (0.2-1.0); TOTAL PROTEIN 5.8 g/dL (6.4-8.2)
[2018-12-22 07:43] LABS: % BANDS 9 % (0-9); % LYMPHS 6 % (24-48); % MONOS 2 % (0-10); % SEGS 83 % (35-66); PLT ESTIMATE ADEQUATE (ADEQUATE)
[2018-12-22 07:44] LABS: ANISOCYTOSIS SLIGHT; POIKILOCYTOSIS PRESENT
[2018-12-22 07:57] LABS: OVALOCYTES MOD; SCHISTOCYTES OCC
[2018-12-22 07:58] LABS: BURR CELLS FEW
[2018-12-22] MEDS ORDERED: BUDESONIDE 0.5 MG/2 ML NEBU. NEB SCH (08:00)
--- NOTE | 2018-12-22 08:47 | PDOC ---
PROGRESS NOTES History of Present Illness History of Present Illness VTE Prophylaxis Ordered VTE Prophylaxis Devices: No VTE Pharmacological Prophylaxi: Yes Assessment/Plan Assessment/Plan IMPRESSION: 1. [id number]-[id number] hypoxemic SEVERE hypercapnic respiratory failure. 2. Acute exacerbation of chronic obstructive pulmonary disease. 3. RECENT Elevated troponin, suspect demand ischemia. 4. Mold exposure. 5. 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 6. Tobacco dependence, in remission. 7. severe emphysema, likely end stage 8. Three vessel coronary disease. PLAN ADMIT TELE PULM CONSULT palliative care consult, AGREES WITH HOSPICE INTAKE BIPAP SUPPORT PRN SPUTUM CULTURE ID CONSULT DVT PROPHYLAXIS Cardiology consult 37 MIN PT EXAM, CHART REVIEW, > 50% OF TIME SPENT WITH EXAM, CHART REVIEW, PT CARE COORDINATION Vitals Vitals Vital Signs Date Time Temp Pulse Resp B/P (MAP) Pulse Ox O2 Delivery O2 Flow Rate FiO2 12/22/18 07:17 88 Nasal Cannula 3.0 12/22/18 07:00 96.9 89 20 134/77 (96) 96.9 Physical Exam General: Alert, Oriented X3, Cooperative, mild distress Heart: Regular rate Lungs: Wheezing Abdomen: Normal bowel sounds, Soft, No tenderness Extremities: No cyanosis Labs LABS Laboratory Tests Test 12/21/18 12:46 12/21/18 15:05 12/22/18 05:16 Nasal Screen MRSA (PCR) Negative (Negative) Urine Opiates Screen Neg (NEG) Urine Methadone Screen Neg (NEG) Urine Barbiturates Neg (NEG) Urine Phencyclidine Screen Neg (NEG) Urine Amphetamine/Methamphetamine Neg (NEG) Urine Benzodiazepines Screen Neg (NEG) Urine Cocaine Screen Neg (NEG) Urine Cannabinoids Screen Neg (NEG) Urine Ethyl Alcohol Neg (NEG) White Blood Count 8.1 x10^3/uL (4.0-11.0) Red Blood Count 3.91 x10^6/uL (4.30-5.70) Hemoglobin 11.4 g/dL (13.0-17.5) Hematocrit 34.3 % (39.0-53.0) Mean Corpuscular Volume 88 fL (79-100) Mean Corpuscular Hemoglobin 29 pg (25-35) Mean Corpuscular Hemoglobin Concent 33 g/dL (31-37) Red Cell Distribution Width 15.6 % (11.5-14.5) Platelet Count 211 x10^3/uL (140-400) Neutrophils (%) (Auto) 90 % (31-73) Lymphocytes (%) (Auto) 8 % (24-48) Monocytes (%) (Auto) 2 % (0-9) Eosinophils (%) (Auto) 0 % (0-3) Basophils (%) (Auto) 0 % (0-3) Neutrophils # (Auto) 7.3 x10^3/uL (1.8-7.7) Lymphocytes # (Auto) 0.7 x10^3/uL (1.0-4.8) Monocytes # (Auto) 0.2 x10^3/uL (0.0-1.1) Eosinophils # (Auto) 0.0 x10^3/uL (0.0-0.7) Basophils # (Auto) 0.0 x10^3/uL (0.0-0.2) Segmented Neutrophils % 83 % (35-66) Band Neutrophils % 9 % (0-9) Lymphocytes % 6 % (24-48) Monocytes % 2 % (0-10) Platelet Estimate Adequate (ADEQUATE) Poikilocytosis Present Anisocytosis Slight Ovalocytes Mod Jennifer Cells Few Schistocytes Occ Sodium Level 139 mmol/L (136-145) Potassium Level 4.2 mmol/L (3.5-5.1) Chloride Level 103 mmol/L (98-107) Carbon Dioxide Level 29 mmol/L (21-32) Anion Gap 7 (6-14) Blood Urea Nitrogen 18 mg/dL (8-26) Creatinine 0.9 mg/dL (0.7-1.3) Estimated GFR (Cockcroft-Gault) 82.9 BUN/Creatinine Ratio 20 (6-20) Glucose Level 177 mg/dL (70-99) Calcium Level 8.6 mg/dL (8.5-10.1) Total Bilirubin 0.4 mg/dL (0.2-1.0) Aspartate Amino Transf (AST/SGOT) 17 U/L (15-37) Alanine Aminotransferase (ALT/SGPT) 42 U/L (16-63) Alkaline Phosphatase 66 U/L (46-116) Total Protein 5.8 g/dL (6.4-8.2) Albumin 2.8 g/dL (3.4-5.0) Albumin/Globulin Ratio 0.9 (1.0-1.7) Comment Review of Relevant I have reviewed the following items jaxon (where applicable) has been applied. Labs Laboratory Tests Test 12/20/18 21:10 12/20/18 21:11 12/20/18 22:12 12/21/18 08:06 O2 Saturation 99 % (92-99) 99 % (92-99) Arterial Blood pH 7.14 (7.35-7.45) 7.38 (7.35-7.45) Arterial Blood pCO2 at Patient Temp 86 mmHg (35-46) 52 mmHg (35-46) Arterial Blood pO2 at Patient Temp 302 mmHg (65-108) 238 mmHg (65-108) Arterial Blood HCO3 29 mmol/L (21-28) 31 mmol/L (21-28) Arterial Blood Base Excess -3 mmol/L (-3-3) 4 mmol/L (-3-3) Oxyhemoglobin 98.3 % Methemoglobin 0.4 % (0.0-1.9) Carbon Monoxide, Quantitative 0.3 % (0.0-1.9) FiO2 100 50 White Blood Count 12.2 x10^3/uL (4.0-11.0) Red Blood Count 4.53 x10^6/uL (4.30-5.70) Hemoglobin 13.2 g/dL (13.0-17.5) Hematocrit 41.2 % (39.0-53.0) Mean Corpuscular Volume 91 fL (79-100) Mean Corpuscular Hemoglobin 29 pg (25-35) Mean Corpuscular Hemoglobin Concent 32 g/dL (31-37) Red Cell Distribution Width 16.1 % (11.5-14.5) Platelet Count 248 x10^3/uL (140-400) Neutrophils (%) (Auto) 65 % (31-73) Lymphocytes (%) (Auto) 23 % (24-48) Monocytes (%) (Auto) 8 % (0-9) Eosinophils (%) (Auto) 4 % (0-3) Basophils (%) (Auto) 0 % (0-3) Neutrophils # (Auto) 8.0 x10^3/uL (1.8-7.7) Lymphocytes # (Auto) 2.8 x10^3/uL (1.0-4.8) Monocytes # (Auto) 1.0 x10^3/uL (0.0-1.1) Eosinophils # (Auto) 0.4 x10^3/uL (0.0-0.7) Basophils # (Auto) 0.0 x10^3/uL (0.0-0.2) Sodium Level 137 mmol/L (136-145) Potassium Level 5.0 mmol/L (3.5-5.1) Chloride Level 98 mmol/L (98-107) Carbon Dioxide Level 32 mmol/L (21-32) Anion Gap 7 (6-14) Blood Urea Nitrogen 18 mg/dL (8-26) Creatinine 1.4 mg/dL (0.7-1.3) Estimated GFR (Cockcroft-Gault) 49.8 BUN/Creatinine Ratio 13 (6-20) Glucose Level 217 mg/dL (70-99) Calcium Level 9.5 mg/dL (8.5-10.1) Total Bilirubin 0.6 mg/dL (0.2-1.0) Aspartate Amino Transf (AST/SGOT) 37 U/L (15-37) Alanine Aminotransferase (ALT/SGPT) 55 U/L (16-63) Alkaline Phosphatase 101 U/L (46-116) Creatine Kinase 58 U/L (39-308) Creatine Kinase MB (Mass) 2.2 ng/mL (0.0-3.6) Creatine Kinase MB Relative Index % (0-4) Troponin I Quantitative 0.033 ng/mL (0.000-0.055) XK-Npf-V-Type Natriuretic Peptide 297 pg/mL (0-124) Total Protein 6.9 g/dL (6.4-8.2) Albumin 3.5 g/dL (3.4-5.0) Albumin/Globulin Ratio 1.0 (1.0-1.7) Glucose (Fingerstick) 169 mg/dL (70-99) Test 12/21/18 12:46 12/21/18 15:05 12/22/18 05:16 Nasal Screen MRSA (PCR) Negative (Negative) Urine Opiates Screen Neg (NEG) Urine Methadone Screen Neg (NEG) Urine Barbiturates Neg (NEG) Urine Phencyclidine Screen Neg (NEG) Urine Amphetamine/Methamphetamine Neg (NEG) Urine Benzodiazepines Screen Neg (NEG) Urine Cocaine Screen Neg (NEG) Urine Cannabinoids Screen Neg (NEG) Urine Ethyl Alcohol Neg (NEG) White Blood Count 8.1 x10^3/uL (4.0-11.0) Red Blood Count 3.91 x10^6/uL (4.30-5.70) Hemoglobin 11.4 g/dL (13.0-17.5) Hematocrit 34.3 % (39.0-53.0) Mean Corpuscular Volume 88 fL (79-100) Mean Corpuscular Hemoglobin 29 pg (25-35) Mean Corpuscular Hemoglobin Concent 33 g/dL (31-37) Red Cell Distribution Width 15.6 % (11.5-14.5) Platelet Count 211 x10^3/uL (140-400) Neutrophils (%) (Auto) 90 % (31-73) Lymphocytes (%) (Auto) 8 % (24-48) Monocytes (%) (Auto) 2 % (0-9) Eosinophils (%) (Auto) 0 % (0-3) Basophils (%) (Auto) 0 % (0-3) Neutrophils # (Auto) 7.3 x10^3/uL (1.8-7.7) Lymphocytes # (Auto) 0.7 x10^3/uL (1.0-4.8) Monocytes # (Auto) 0.2 x10^3/uL (0.0-1.1) Eosinophils # (Auto) 0.0 x10^3/uL (0.0-0.7) Basophils # (Auto) 0.0 x10^3/uL (0.0-0.2) Segmented Neutrophils % 83 % (35-66) Band Neutrophils % 9 % (0-9) Lymphocytes % 6 % (24-48) Monocytes % 2 % (0-10) Platelet Estimate Adequate (ADEQUATE) Poikilocytosis Present Anisocytosis Slight Ovalocytes Mod [place] Cells Few Schistocytes Occ Sodium Level 139 mmol/L (136-145) Potassium Level 4.2 mmol/L (3.5-5.1) Chloride Level 103 mmol/L (98-107) Carbon Dioxide Level 29 mmol/L (21-32) Anion Gap 7 (6-14) Blood Urea Nitrogen 18 mg/dL (8-26) Creatinine 0.9 mg/dL (0.7-1.3) Estimated GFR (Cockcroft-Gault) 82.9 BUN/Creatinine Ratio 20 (6-20) Glucose Level 177 mg/dL (70-99) Calcium Level 8.6 mg/dL (8.5-10.1) Total Bilirubin 0.4 mg/dL (0.2-1.0) Aspartate Amino Transf (AST/SGOT) 17 U/L (15-37) Alanine Aminotransferase (ALT/SGPT) 42 U/L (16-63) Alkaline Phosphatase 66 U/L (46-116) Total Protein 5.8 g/dL (6.4-8.2) Albumin 2.8 g/dL (3.4-5.0) Albumin/Globulin Ratio 0.9 (1.0-1.7) Laboratory Tests Test 12/21/18 12:46 12/21/18 15:05 12/22/18 05:16 Nasal Screen MRSA (PCR) Negative (Negative) Urine Opiates Screen Neg (NEG) Urine Methadone Screen Neg (NEG) Urine Barbiturates Neg (NEG) Urine Phencyclidine Screen Neg (NEG) Urine Amphetamine/Methamphetamine Neg (NEG) Urine Benzodiazepines Screen Neg (NEG) Urine Cocaine Screen Neg (NEG) Urine Cannabinoids Screen Neg (NEG) Urine Ethyl Alcohol Neg (NEG) White Blood Count 8.1 x10^3/uL (4.0-11.0) Red Blood Count 3.91 x10^6/uL (4.30-5.70) Hemoglobin 11.4 g/dL (13.0-17.5) Hematocrit 34.3 % (39.0-53.0) Mean Corpuscular Volume 88 fL (79-100) Mean Corpuscular Hemoglobin 29 pg (25-35) Mean Corpuscular Hemoglobin Concent 33 g/dL (31-37) Red Cell Distribution Width 15.6 % (11.5-14.5) Platelet Count 211 x10^3/uL (140-400) Neutrophils (%) (Auto) 90 % (31-73) Lymphocytes (%) (Auto) 8 % (24-48) Monocytes (%) (Auto) 2 % (0-9) Eosinophils (%) (Auto) 0 % (0-3) Basophils (%) (Auto) 0 % (0-3) Neutrophils # (Auto) 7.3 x10^3/uL (1.8-7.7) Lymphocytes # (Auto) 0.7 x10^3/uL (1.0-4.8) Monocytes # (Auto) 0.2 x10^3/uL (0.0-1.1) Eosinophils # (Auto) 0.0 x10^3/uL (0.0-0.7) Basophils # (Auto) 0.0 x10^3/uL (0.0-0.2) Segmented Neutrophils % 83 % (35-66) Band Neutrophils % 9 % (0-9) Lymphocytes % 6 % (24-48) Monocytes % 2 % (0-10) Platelet Estimate Adequate (ADEQUATE) Poikilocytosis Present Anisocytosis Slight Ovalocytes Mod [place]iken Cells Few Schistocytes Occ Sodium Level 139 mmol/L (136-145) Potassium Level 4.2 mmol/L (3.5-5.1) Chloride Level 103 mmol/L (98-107) Carbon Dioxide Level 29 mmol/L (21-32) Anion Gap 7 (6-14) Blood Urea Nitrogen 18 mg/dL (8-26) Creatinine 0.9 mg/dL (0.7-1.3) Estimated GFR (Cockcroft-Gault) 82.9 BUN/Creatinine Ratio 20 (6-20) Glucose Level 177 mg/dL (70-99) Calcium Level 8.6 mg/dL (8.5-10.1) Total Bilirubin 0.4 mg/dL (0.2-1.0) Aspartate Amino Transf (AST/SGOT) 17 U/L (15-37) Alanine Aminotransferase (ALT/SGPT) 42 U/L (16-63) Alkaline Phosphatase 66 U/L (46-116) Total Protein 5.8 g/dL (6.4-8.2) Albumin 2.8 g/dL (3.4-5.0) Albumin/Globulin Ratio 0.9 (1.0-1.7) Medications Current Medications Sodium Chloride 1,000 ml @ 125 mls/hr Q8H IV Last administered on 12/20/18at 21:26; Start 12/20/18 at 21:30; Stop 12/21/18 at 05:29; Status DC Methylprednisolone Sodium Succinate (SOLU-Medrol 125MG VIAL) 125 mg 1X ONCE IV Last administered on 12/20/18at 21:27; Start 12/20/18 at 21:30; Stop 12/20/18 at 21:31; Status DC Albuterol Sulfate (Ventolin Neb Soln) 7.5 mg 1X ONCE CONT NEB Last administered on 12/20/18at 21:25; Start 12/20/18 at 21:30; Stop 12/20/18 at 21:31; Status DC Albuterol/ Ipratropium (Duoneb) 3 ml 1X ONCE NEB Last administered on 12/20/18at 21:25; Start 12/20/18 at 21:30; Stop 12/20/18 at 21:31; Status DC Pharmacy Consult (C.diff Med Screen By Rx) 1 each 1X ONCE [facility] ; Start 12/21/18 at 02:00; Stop 12/21/18 at 02:01; Status DC Albuterol/ Ipratropium (Duoneb) 3 ml STK-MED ONCE .ROUTE ; Start 12/21/18 at 07:03; Stop 12/21/18 at 07:04; Status DC Budesonide (Pulmicort) 0.5 mg RTBID NEB Last administered on 12/22/18at 07:13; Start 12/21/18 at 08:30 Albuterol/ Ipratropium (Duoneb) 3 ml RTQID NEB ; Start 12/21/18 at 08:30; Status Cancel Albuterol/ Ipratropium (Duoneb) 3 ml RTQID NEB Last administered on 12/22/18at 07:13; Start 12/21/18 at 12:00 Methylprednisolone Sodium Succinate (SOLU-Medrol 125MG VIAL) 100 mg Q8HRS IV Last administered on 12/22/18at 06:50; Start 12/21/18 at 14:00 Piperacillin Sod/ Tazobactam Sod 3.375 gm/Sodium Chloride 50 ml @ 100 mls/hr Q6HRS IV Last administered on 12/22/18at 06:50; Start 12/21/18 at 12:30 Sodium Chloride (Normal Saline Flush) 3 ml QSHIFT PRN IV AFTER MEDS AND BLOOD DRAWS; Start 12/21/18 at 12:30 Ondansetron HCl (Zofran) 4 mg PRN Q4HRS PRN IV NAUSEA/VOMITING; Start 12/21/18 at 12:30 Acetaminophen (Tylenol) 650 mg PRN Q4HRS PRN PO TEMP OVER 100.4F OR MILD PAIN; Start 12/21/18 at 12:30 Clonidine HCl (Catapres) 0.1 mg PRN Q6HRS PRN PO SBP>160 OR DBP>90; Start 12/21/18 at 12:30 Docusate Sodium (Colace) 100 mg PRN BID PRN PO CONSTIPATION; Start 12/21/18 at 12:30 Guaifenesin (Robitussin) 200 mg PRN Q4HRS PRN PO COUGH; Start 12/21/18 at 12:30 Enoxaparin Sodium (Lovenox 40mg Syringe) 40 mg Q24H SQ Last administered on 12/21/18at 15:44; Start 12/21/18 at 13:00 Albuterol Sulfate (Ventolin Neb Soln) 2.5 mg PRN Q4HRS PRN NEB SHORTNESS OF BREATH; Start 12/21/18 at 20:45 Dipyridamole/ Aspirin (Aggrenox) 1 cap BID PO Last administered on 12/21/18at 22:10; Start 12/21/18 at 21:00 Benzonatate (Tessalon Perle) 100 mg [id number] PO Last administered on 12/21/18at 22:11; Start 12/21/18 at 21:00 Carvedilol (Coreg) 12.5 mg BIDWMEALS PO ; Start 12/22/18 at 08:00 Levothyroxine Sodium (Synthroid) 100 mcg [id number] PO Last administered on 12/22/18at 06:50; Start 12/22/18 at 07:00 Atorvastatin Calcium (Lipitor) 80 mg QHS PO Last administered on 12/21/18at 22:11; Start 12/21/18 at 21:00 Budesonide (Pulmicort) 0.5 mg RTBID NEB Last administered on 12/22/18at 07:16; Start 12/22/18 at 08:00 Non-Formulary Medication (Ipratropium [place] (Atrovent Hfa)) 2 puff QID IH ; Start 12/21/18 at 21:00; Stop 12/21/18 at 20:47; Status DC Active Scripts Active Proventil Hfa Inhaler (Albuterol Sulfate) 6.7 Gm Hfa.aer.ad 1 Puff IH PRN Q4HRS PRN 30 Days Benzonatate 100 Mg Capsule 100 Mg PO [id number] Medrol (Methylprednisolone) 4 Mg Tab.ds.pk 1 Pkg PO UD Reported Coreg (Carvedilol) 12.5 Mg Tablet 12.5 Mg PO BIDWMEALS Atorvastatin Calcium 80 Mg Tablet 80 Mg PO HS Aggrenox 25 Mg-200 Mg Capsule (Aspirin/Dipyridamole) 1 Each Cpmp.12hr 1 Each PO BID Symbicort 160-4.5 Mcg Inhaler (Budesonide/Formoterol Fumarate) 10.2 Gm Hfa.aer.ad 2 Puff IH BID Atrovent Hfa (Ipratropium [place]) 12.9 Gm Hfa.aer.ad 2 Puff IH QID Levothyroxine Sodium 100 Mcg Tablet 1 Tab PO DAILY Vitals/I & O Vital Sign - Last 24 Hours 12/21/18 12/21/18 12/21/18 12/21/18 10:47 11:14 14:56 15:00 Temp 97.9 97.5 97.9 97.5 Pulse 58 67 Resp 16 16 B/P (MAP) 105/54 (71) 132/72 (92) Pulse Ox 99 96 O2 Delivery Nasal Cannula Nasal Cannula Nasal Cannula Nasal Cannula O2 Flow Rate 3.5 3.0 3.5 3.0 12/21/18 12/21/18 12/21/18 12/21/18 19:25 20:10 21:18 21:19 Temp 97.5 97.5 Pulse 72 Resp 20 B/P (MAP) 139/76 (97) Pulse Ox 95 96 96 O2 Delivery Nasal Cannula Nasal Cannula Nasal Cannula Nasal Cannula O2 Flow Rate 3.5 3.5 3.0 3.0 12/21/18 12/22/18 12/22/18 12/22/18 23:10 03:15 07:00 07:17 Temp 97.8 97.6 96.9 97.8 97.6 96.9 Pulse 60 58 89 Resp 18 18 20 B/P (MAP) 112/69 (83) 99/50 (66) 134/77 (96) Pulse Ox 95 96 88 88 O2 Delivery Nasal Cannula Nasal Cannula Nasal Cannula Nasal Cannula O2 Flow Rate 3.5 3.5 3.0 3.0 Intake and Output 12/21/18 12/21/18 12/22/18 14:59 22:59 06:59 Intake Total 120 ml 350 ml 650 ml Output Total 1420 ml 475 ml 500 ml Balance -1300 ml -125 ml 150 ml ANAID GREEN MD Dec 22, 2018 08:47
[2018-12-22 11:00] VITALS: BP 142/76
[2018-12-22] MEDS: BENZONATATE 100 MG CAPSULE. PO SCH ×3 (11:16→21:48)
[2018-12-22] MEDS: CARVEDILOL 12.5 MG TABLET. PO SCH ×2 (11:16→17:27)
[2018-12-22] MEDS: ASPIRIN/DIPYRIDAMOLE 200/25MG CAP.ER.12H. PO SCH ×2 (11:20→21:48)
--- NOTE | 2018-12-22 11:25 | PDOC ---
Infectious Disease Note Subjective Subjective pt is feeling better ROS ROS no n/v/d/sob Vital Sign Vital Signs Vital Signs Date Time Temp Pulse Resp B/P (MAP) Pulse Ox O2 Delivery O2 Flow Rate FiO2 12/22/18 11:16 72 142/76 12/22/18 11:00 97.6 18 94 Nasal Cannula 3.0 97.6 Physical Exam PHYSICAL EXAM GENERAL: Alert and oriented gentleman, not in any distress. VITAL SIGNS: Stable and afebrile. HEENT: Both pupils are round and reacting. No conjunctival lesion. No lesion in the mouth. NECK: Supple. No JVP. No lymphadenopathy. LUNGS: Clear. HEART: S1, S2 regular. ABDOMEN: Benign. EXTREMITIES: No edema and no cyanosis. SKIN: Unremarkable. NEUROLOGIC: The patient is neurologically alert, awake, and appropriate. No focal neurologic deficit. Labs Lab Laboratory Tests Test 12/21/18 12:46 12/21/18 15:05 12/22/18 05:16 Nasal Screen MRSA (PCR) Negative (Negative) Urine Opiates Screen Neg (NEG) Urine Methadone Screen Neg (NEG) Urine Barbiturates Neg (NEG) Urine Phencyclidine Screen Neg (NEG) Urine Amphetamine/Methamphetamine Neg (NEG) Urine Benzodiazepines Screen Neg (NEG) Urine Cocaine Screen Neg (NEG) Urine Cannabinoids Screen Neg (NEG) Urine Ethyl Alcohol Neg (NEG) White Blood Count 8.1 x10^3/uL (4.0-11.0) Red Blood Count 3.91 x10^6/uL (4.30-5.70) Hemoglobin 11.4 g/dL (13.0-17.5) Hematocrit 34.3 % (39.0-53.0) Mean Corpuscular Volume 88 fL (79-100) Mean Corpuscular Hemoglobin 29 pg (25-35) Mean Corpuscular Hemoglobin Concent 33 g/dL (31-37) Red Cell Distribution Width 15.6 % (11.5-14.5) Platelet Count 211 x10^3/uL (140-400) Neutrophils (%) (Auto) 90 % (31-73) Lymphocytes (%) (Auto) 8 % (24-48) Monocytes (%) (Auto) 2 % (0-9) Eosinophils (%) (Auto) 0 % (0-3) Basophils (%) (Auto) 0 % (0-3) Neutrophils # (Auto) 7.3 x10^3/uL (1.8-7.7) Lymphocytes # (Auto) 0.7 x10^3/uL (1.0-4.8) Monocytes # (Auto) 0.2 x10^3/uL (0.0-1.1) Eosinophils # (Auto) 0.0 x10^3/uL (0.0-0.7) Basophils # (Auto) 0.0 x10^3/uL (0.0-0.2) Segmented Neutrophils % 83 % (35-66) Band Neutrophils % 9 % (0-9) Lymphocytes % 6 % (24-48) Monocytes % 2 % (0-10) Platelet Estimate Adequate (ADEQUATE) Poikilocytosis Present Anisocytosis Slight Ovalocytes Mod [place] Cells Few Schistocytes Occ Sodium Level 139 mmol/L (136-145) Potassium Level 4.2 mmol/L (3.5-5.1) Chloride Level 103 mmol/L (98-107) Carbon Dioxide Level 29 mmol/L (21-32) Anion Gap 7 (6-14) Blood Urea Nitrogen 18 mg/dL (8-26) Creatinine 0.9 mg/dL (0.7-1.3) Estimated GFR (Cockcroft-Gault) 82.9 BUN/Creatinine Ratio 20 (6-20) Glucose Level 177 mg/dL (70-99) Calcium Level 8.6 mg/dL (8.5-10.1) Total Bilirubin 0.4 mg/dL (0.2-1.0) Aspartate Amino Transf (AST/SGOT) 17 U/L (15-37) Alanine Aminotransferase (ALT/SGPT) 42 U/L (16-63) Alkaline Phosphatase 66 U/L (46-116) Total Protein 5.8 g/dL (6.4-8.2) Albumin 2.8 g/dL (3.4-5.0) Albumin/Globulin Ratio 0.9 (1.0-1.7) Objective Assessment IMPRESSION: 1. Chronic obstructive pulmonary disease exacerbation. 2. Leukocytosis. 3. Coronary artery disease. 4. Hypertension. Plan Plan of Care cont antibiotics, soon to change to po for d/c CORTEZ SOFIA MD Dec 22, 2018 11:25
[2018-12-22] MEDS: LACTOBACILLUS RHAMNOSUS GG 1 CAPSULE. PO SCH ×2 (13:37→21:47)
[2018-12-22] MEDS: ENOXAPARIN 40 MG/0.4 ML SYRINGE. SQ SCH (13:38)
[2018-12-22 15:00] VITALS: BP 124/68
--- NOTE | 2018-12-22 16:30 | NUR ---
SW consult acknowledged. Currently working with pt, RAMON, [email or web address] and [email or web address] [facility]. Will put detail notes in EMR.
[2018-12-22 19:31] VITALS: BP 153/89
[2018-12-22] MEDS: ATORVASTATIN CALCIUM 40 MG TABLET. PO SCH (21:47)
[2018-12-22 23:59] VITALS: BP 146/80
[2018-12-23] MEDS: PIPERACILLIN/TAZOBACTAM 3.375 GM in IV NORMAL SALINE 50ML 50 ML IV SCH ×2 (00:40→05:57)
[2018-12-23 03:26] VITALS: BP 109/66
[2018-12-23] MEDS: methylPREDNISolone SOD SUCC PF 125 MG/2 ML VIAL. IV SCH ×2 (05:57→14:00)
[2018-12-23] MEDS: IPRATRPIUM/ALBUTEROL 0.5/2.5MG 3 ML NEBU. NEB SCH ×3 (06:12→15:44)
[2018-12-23] MEDS: BUDESONIDE 0.5 MG/2 ML NEBU. NEB SCH (06:12)
[2018-12-23] MEDS: LEVOTHYROXINE 100 MCG TABLET PO SCH (06:36)
[2018-12-23 07:00] VITALS: BP 115/59
--- NOTE | 2018-12-23 08:17 | NUR ---
Late Entry: SW met with pt on 12/22 and pt states if he goes home today, he will be right back to the hospital. Pt reports he passed out after giving himself breathing treatment and passed out again when EMS arrived at home. Pt agreeable to meet with a nurse from [facility]. SW explored about moving to a different apartment- pt states he does not have money for first and last month rent since he had his son borrow $4000 just last month. Pt has already called [facility] and they are ordering him a new nebulizer treatment. Pt does not want to go [place] (No Medicaid and still want to live independent life), can't afford co-pays for SNU, and does not want to go home until he at least he has a new nebulizer since he believes he will come back to ER right away. LIVE spoke with pt's SO, Sarah: [phone], she had talked to [facility] about black mold- nothing is done. 1. Pt met with [facility] hospice but declined hospice services- He stated he is not ready for hospice and just wants the black mold in his apartment to be taken care of. 2. SW spoke with pt's RAMON Couch, ext: [phone] and she reported pt's nebulizer is mailed yesterday and might take upto two days to be delivered. Per Cortney pt is not service connected but is able to request assistance for Emergency housing but they won't be able to help his SO. She will email SW with resources to provide to pt. LIVE also spoke with Pt's Primary care team and informed them regarding his repeated admission. 3. LIVE spoke with [facility]: [phone] and requested if they can change filter on concentrator and provide pt with new nasal canula tubes. SW provided them with Sarah's number and they will be sending a tech to pt's apartment.
[2018-12-23] MEDS: ASPIRIN/DIPYRIDAMOLE 200/25MG CAP.ER.12H. PO SCH (09:02)
[2018-12-23] MEDS: CARVEDILOL 12.5 MG TABLET. PO SCH ×2 (09:03→17:00)
[2018-12-23] MEDS: BENZONATATE 100 MG CAPSULE. PO SCH (09:03)
[2018-12-23] MEDS: LACTOBACILLUS RHAMNOSUS GG 1 CAPSULE. PO SCH (09:07)
--- NOTE | 2018-12-23 09:59 | PDOC ---
PROGRESS NOTES Chief Complaint Chief Complaint Assessment/Plan [id number] hypoxemic SEVERE hypercapnic respiratory failure. Acute exacerbation of chronic obstructive pulmonary disease. RECENT Elevated troponin, suspect demand ischemia. Mold exposure. 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 Tobacco dependence, in remission. Severe emphysema, likely end stage Three vessel coronary disease. PLAN ADMIT TELE PULM CONSULT palliative care consult, AGREES WITH HOSPICE INTAKE BIPAP SUPPORT PRN SPUTUM CULTURE ID CONSULT DVT PROPHYLAXIS 37 MIN PT EXAM, CHART REVIEW, > 50% OF TIME SPENT WITH EXAM, CHART REVIEW, PT CARE COORDINATION History of Present Illness History of Present Illness Mr Mensah is a 73-year-old male w/ PMHx COPD and CAD, came back to the hospital after a discharge from SNF on 12/17/18 c/o SOB. He was initially admitted on BIPAP with severe combined respiratory failure with ABG 7.14/86/302. Initial troponin negative and EKG shows poor r-wave progression, no acute ST or T-wave changes. Seen by ID, recommended to downgrade antibiotics. Patient concerned about mold in his home. Had his son clean and remove all tubing and filters on his home O2 and nebulizer. SW assisted with new equipment and he is going to live with his son temporarily. He feels less short of breath, wants to leave Vitals Vitals Vital Signs Date Time Temp Pulse Resp B/P (MAP) Pulse Ox O2 Delivery O2 Flow Rate FiO2 12/23/18 09:03 61 115/59 12/23/18 08:00 Nasal Cannula 3.0 12/23/18 07:00 97.7 16 97 97.7 Physical Exam Physical Exam GENERAL: Alert and oriented gentleman, not in any distress. VITAL SIGNS: Stable and afebrile. HEENT: Both pupils are round and reacting. No conjunctival lesion. No lesion in the mouth. NECK: Supple. No JVP. No lymphadenopathy. LUNGS: Clear. HEART: S1, S2 regular. ABDOMEN: Benign. EXTREMITIES: No edema and no cyanosis. SKIN: Unremarkable. NEUROLOGIC: The patient is neurologically alert, awake, and appropriate. No focal neurologic deficit. General: Alert, Oriented X3, Cooperative, mild distress Heart: Regular rate Lungs: Wheezing Abdomen: Normal bowel sounds, Soft, No tenderness Extremities: No cyanosis Labs LABS Laboratory Tests Test 12/22/18 17:08 12/22/18 21:33 12/23/18 07:36 Glucose (Fingerstick) 201 mg/dL (70-99) 213 mg/dL (70-99) 173 mg/dL (70-99) Comment Review of Relevant I have reviewed the following items jaxon (where applicable) has been applied. Labs Laboratory Tests Test 12/21/18 12:46 12/21/18 15:05 12/22/18 05:16 12/22/18 17:08 Nasal Screen MRSA (PCR) Negative (Negative) Urine Opiates Screen Neg (NEG) Urine Methadone Screen Neg (NEG) Urine Barbiturates Neg (NEG) Urine Phencyclidine Screen Neg (NEG) Urine Amphetamine/Methamphetamine Neg (NEG) Urine Benzodiazepines Screen Neg (NEG) Urine Cocaine Screen Neg (NEG) Urine Cannabinoids Screen Neg (NEG) Urine Ethyl Alcohol Neg (NEG) White Blood Count 8.1 x10^3/uL (4.0-11.0) Red Blood Count 3.91 x10^6/uL (4.30-5.70) Hemoglobin 11.4 g/dL (13.0-17.5) Hematocrit 34.3 % (39.0-53.0) Mean Corpuscular Volume 88 fL (79-100) Mean Corpuscular Hemoglobin 29 pg (25-35) Mean Corpuscular Hemoglobin Concent 33 g/dL (31-37) Red Cell Distribution Width 15.6 % (11.5-14.5) Platelet Count 211 x10^3/uL (140-400) Neutrophils (%) (Auto) 90 % (31-73) Lymphocytes (%) (Auto) 8 % (24-48) Monocytes (%) (Auto) 2 % (0-9) Eosinophils (%) (Auto) 0 % (0-3) Basophils (%) (Auto) 0 % (0-3) Neutrophils # (Auto) 7.3 x10^3/uL (1.8-7.7) Lymphocytes # (Auto) 0.7 x10^3/uL (1.0-4.8) Monocytes # (Auto) 0.2 x10^3/uL (0.0-1.1) Eosinophils # (Auto) 0.0 x10^3/uL (0.0-0.7) Basophils # (Auto) 0.0 x10^3/uL (0.0-0.2) Segmented Neutrophils % 83 % (35-66) Band Neutrophils % 9 % (0-9) Lymphocytes % 6 % (24-48) Monocytes % 2 % (0-10) Platelet Estimate Adequate (ADEQUATE) Poikilocytosis Present Anisocytosis Slight Ovalocytes Mod [place] Cells Few Schistocytes Occ Sodium Level 139 mmol/L (136-145) Potassium Level 4.2 mmol/L (3.5-5.1) Chloride Level 103 mmol/L (98-107) Carbon Dioxide Level 29 mmol/L (21-32) Anion Gap 7 (6-14) Blood Urea Nitrogen 18 mg/dL (8-26) Creatinine 0.9 mg/dL (0.7-1.3) Estimated GFR (Cockcroft-Gault) 82.9 BUN/Creatinine Ratio 20 (6-20) Glucose Level 177 mg/dL (70-99) Calcium Level 8.6 mg/dL (8.5-10.1) Total Bilirubin 0.4 mg/dL (0.2-1.0) Aspartate Amino Transf (AST/SGOT) 17 U/L (15-37) Alanine Aminotransferase (ALT/SGPT) 42 U/L (16-63) Alkaline Phosphatase 66 U/L (46-116) Total Protein 5.8 g/dL (6.4-8.2) Albumin 2.8 g/dL (3.4-5.0) Albumin/Globulin Ratio 0.9 (1.0-1.7) Glucose (Fingerstick) 201 mg/dL (70-99) Test 12/22/18 21:33 12/23/18 07:36 Glucose (Fingerstick) 213 mg/dL (70-99) 173 mg/dL (70-99) Laboratory Tests Test 12/22/18 17:08 12/22/18 21:33 12/23/18 07:36 Glucose (Fingerstick) 201 mg/dL (70-99) 213 mg/dL (70-99) 173 mg/dL (70-99) Medications Current Medications Sodium Chloride 1,000 ml @ 125 mls/hr Q8H IV Last administered on 12/20/18at 21:26; Start 12/20/18 at 21:30; Stop 12/21/18 at 05:29; Status DC Methylprednisolone Sodium Succinate (SOLU-Medrol 125MG VIAL) 125 mg 1X ONCE IV Last administered on 12/20/18at 21:27; Start 12/20/18 at 21:30; Stop 12/20/18 at 21:31; Status DC Albuterol Sulfate (Ventolin Neb Soln) 7.5 mg 1X ONCE CONT NEB Last administered on 12/20/18at 21:25; Start 12/20/18 at 21:30; Stop 12/20/18 at 21:31; Status DC Albuterol/ Ipratropium (Duoneb) 3 ml 1X ONCE NEB Last administered on 12/20/18at 21:25; Start 12/20/18 at 21:30; Stop 12/20/18 at 21:31; Status DC Pharmacy Consult (C.diff Med Screen By Rx) 1 each 1X ONCE [facility] Last administered on 12/21/18at 02:00; Start 12/21/18 at 02:00; Stop 12/21/18 at 02:01; Status DC Albuterol/ Ipratropium (Duoneb) 3 ml STK-MED ONCE .ROUTE ; Start 12/21/18 at 07:03; Stop 12/21/18 at 07:04; Status DC Budesonide (Pulmicort) 0.5 mg RTBID NEB Last administered on 12/23/18at 06:12; Start 12/21/18 at 08:30 Albuterol/ Ipratropium (Duoneb) 3 ml RTQID NEB ; Start 12/21/18 at 08:30; Status Cancel Albuterol/ Ipratropium (Duoneb) 3 ml RTQID NEB Last administered on 12/23/18at 06:12; Start 12/21/18 at 12:00 Methylprednisolone Sodium Succinate (SOLU-Medrol 125MG VIAL) 100 mg Q8HRS IV Last administered on 12/23/18at 05:57; Start 12/21/18 at 14:00 Piperacillin Sod/ Tazobactam Sod 3.375 gm/Sodium Chloride 50 ml @ 100 mls/hr Q6HRS IV Last administered on 12/23/18at 05:57; Start 12/21/18 at 12:30 Sodium Chloride (Normal Saline Flush) 3 ml QSHIFT PRN IV AFTER MEDS AND BLOOD DRAWS; Start 12/21/18 at 12:30 Ondansetron HCl (Zofran) 4 mg PRN Q4HRS PRN IV NAUSEA/VOMITING; Start 12/21/18 at 12:30 Acetaminophen (Tylenol) 650 mg PRN Q4HRS PRN PO TEMP OVER 100.4F OR MILD PAIN; Start 12/21/18 at 12:30 Clonidine HCl (Catapres) 0.1 mg PRN Q6HRS PRN PO SBP>160 OR DBP>90; Start 12/21/18 at 12:30 Docusate Sodium (Colace) 100 mg PRN BID PRN PO CONSTIPATION; Start 12/21/18 at 12:30 Guaifenesin (Robitussin) 200 mg PRN Q4HRS PRN PO COUGH; Start 12/21/18 at 12:30 Enoxaparin Sodium (Lovenox 40mg Syringe) 40 mg Q24H SQ Last administered on 12/22/18at 13:38; Start 12/21/18 at 13:00 Albuterol Sulfate (Ventolin Neb Soln) 2.5 mg PRN Q4HRS PRN NEB SHORTNESS OF BREATH; Start 12/21/18 at 20:45 Dipyridamole/ Aspirin (Aggrenox) 1 cap BID PO Last administered on 12/23/18at 09:02; Start 12/21/18 at 21:00 Benzonatate (Tessalon [place]) 100 mg [id number] PO Last administered on 12/23/18at 09:03; Start 12/21/18 at 21:00 Carvedilol (Coreg) 12.5 mg BIDWMEALS PO Last administered on 12/23/18at 09:03; Start 12/22/18 at 08:00 Levothyroxine Sodium (Synthroid) 100 mcg [id number] PO Last administered on 12/23/18at 06:36; Start 12/22/18 at 07:00 Atorvastatin Calcium (Lipitor) 80 mg QHS PO Last administered on 12/22/18at 21:47; Start 12/21/18 at 21:00 Budesonide (Pulmicort) 0.5 mg RTBID NEB Last administered on 12/22/18at 07:16; Start 12/22/18 at 08:00; Stop 12/22/18 at 11:40; Status DC Non-Formulary Medication (Ipratropium [place] (Atrovent Hfa)) 2 puff QID IH ; Start 12/21/18 at 21:00; Stop 12/21/18 at 20:47; Status DC Lactobacillus Rhamnosus (Culturelle) 1 cap BID PO Last administered on 12/23/18at 09:07; Start 12/22/18 at 13:00 Active Scripts Active Proventil Hfa Inhaler (Albuterol Sulfate) 6.7 Gm Hfa.aer.ad 1 Puff IH PRN Q4HRS PRN 30 Days Benzonatate 100 Mg Capsule 100 Mg PO [id number] Medrol (Methylprednisolone) 4 Mg Tab.ds.pk 1 Pkg PO UD Reported Coreg (Carvedilol) 12.5 Mg Tablet 12.5 Mg PO BIDWMEALS Atorvastatin Calcium 80 Mg Tablet 80 Mg PO HS Aggrenox 25 Mg-200 Mg Capsule (Aspirin/Dipyridamole) 1 Each Cpmp.12hr 1 Each PO BID Symbicort 160-4.5 Mcg Inhaler (Budesonide/Formoterol Fumarate) 10.2 Gm Hfa.aer.ad 2 Puff IH BID Atrovent Hfa (Ipratropium [place]) 12.9 Gm Hfa.aer.ad 2 Puff IH QID Levothyroxine Sodium 100 Mcg Tablet 1 Tab PO DAILY Vitals/I & O Vital Sign - Last 24 Hours 12/22/18 12/22/18 12/22/18 12/22/18 11:00 11:16 15:00 16:56 Temp 97.6 97.4 97.6 97.4 Pulse 72 72 79 Resp 18 20 B/P (MAP) 142/76 (98) 142/76 124/68 (86) Pulse Ox 94 94 O2 Delivery Nasal Cannula Nasal Cannula Nasal Cannula O2 Flow Rate 3.0 3.0 3.0 12/22/18 12/22/18 12/22/18 12/22/18 17:27 19:30 19:31 21:06 Temp 98.1 98.1 Pulse 79 67 Resp 20 B/P (MAP) 124/68 153/89 (110) Pulse Ox 98 96 O2 Delivery Nasal Cannula Nasal Cannula Nasal Cannula O2 Flow Rate 3.0 3.0 3.0 12/22/18 12/22/18 12/23/18 12/23/18 21:11 23:59 03:26 06:12 Temp 98.1 98.0 98.1 98.0 Pulse 59 60 Resp 18 18 B/P (MAP) 146/80 (102) 109/66 (80) Pulse Ox 96 98 97 96 O2 Delivery Nasal Cannula Nasal Cannula Nasal Cannula Nasal Cannula O2 Flow Rate 3.0 3.0 3.0 3.0 12/23/18 12/23/18 12/23/18 07:00 08:00 09:03 Temp 97.7 97.7 Pulse 61 61 Resp 16 B/P (MAP) 115/59 (77) 115/59 Pulse Ox 97 O2 Delivery Nasal Cannula Nasal Cannula O2 Flow Rate 3.0 3.0 Intake and Output 12/22/18 12/22/18 12/23/18 15:00 23:00 07:00 Intake Total 500 ml 300 ml Output Total 400 ml 825 ml Balance 100 ml 300 ml -825 ml JANETH MARIN MD Dec 23, 2018 09:59
--- NOTE | 2018-12-23 10:34 | PDOC ---
Infectious Disease Note Subjective Subjective pt is feeling better ROS ROS no n/v/d/ Vital Sign Vital Signs Vital Signs Date Time Temp Pulse Resp B/P (MAP) Pulse Ox O2 Delivery O2 Flow Rate FiO2 12/23/18 09:03 61 115/59 12/23/18 08:00 Nasal Cannula 3.0 12/23/18 07:00 97.7 16 97 97.7 Physical Exam PHYSICAL EXAM GENERAL: Alert and oriented gentleman, not in any distress. VITAL SIGNS: Stable and afebrile. HEENT: Both pupils are round and reacting. No conjunctival lesion. No lesion in the mouth. NECK: Supple. No JVP. No lymphadenopathy. LUNGS: Clear. HEART: S1, S2 regular. ABDOMEN: Benign. EXTREMITIES: No edema and no cyanosis. SKIN: Unremarkable. NEUROLOGIC: The patient is neurologically alert, awake, and appropriate. No focal neurologic deficit. Labs Lab Laboratory Tests Test 12/22/18 17:08 12/22/18 21:33 12/23/18 07:36 Glucose (Fingerstick) 201 mg/dL (70-99) 213 mg/dL (70-99) 173 mg/dL (70-99) Objective Assessment IMPRESSION: 1. Chronic obstructive pulmonary disease exacerbation. 2. Leukocytosis. 3. Coronary artery disease. 4. Hypertension. Plan Plan of Care d/c antibiotics d/c CORTEZ Mcclendon MD Dec 23, 2018 10:34
[2018-12-23 11:22] VITALS: BP 140/81
--- NOTE | 2018-12-23 11:27 | SNU/HH DC ---
DISCHARGE WITH HOME HEALTH DISCHARGE INFORMATION: Discharge Date: Dec 23, 2018 Final Diagnosis: COPD exacerbation Condition on Discharge: Stable CODE STATUS: Code Status: DNR/DNI HOME HEALTH: Face to Face: I certify this patient is under my care and that I, or a nurse practitioner or physician's curatorial assistant working with me, had a face to face encounter that meets the physician face to face encounter requirements with this patient on 12/23/18. Medical Complications: COPD Care Home For: Assess/Skilled Observatio RN For Eval/Treatment: Yes WINDOWS SYSTEMS ARCHITECT For: Community Resources Pt Meets Homebound Status: Extreme weakness w/ amb., Limited distance walking POST DISCHARGE ORDERS: Activity Instructions for Disc: Activity as tolerated Weight Bearing Status after Di: As tolerated DIET AFTER DISCHARGE: ADA Wound/Incision Care: No wound care needed CHECKS AFTER DISCHARGE: Checks after discharge: Check your Temp as needed TREATMENT/EQUIPMENT ORDERS: Adaptive Equipment Issued: None Discharge Respiratory Equipmen: Oxygen, Nebulizer CERTIFICATION STATEMENT: Certification Statement: Certification Statement: Based on the above finding, I certify that this patient is confined to the home and needs intermittent longterm care, physical therapy and/or speech therapy, or continues to need occupational therapy.~ This patient is under my care, and I have initiated the establishment of the plan of care.~ This patient will be followed by myself or a community physician who will periodically review the plan of care. Home Meds Active Scripts Albuterol Sulfate (PROVENTIL HFA INHALER) 6.7 Gm Hfa.aer.ad, 1 PUFF IH PRN Q4HRS PRN for FOR ASTHMA for 30 Days, INHALER 0 Refills Prov:HOMER ALEMAN MD 12/20/18 Benzonatate (BENZONATATE) 100 Mg Capsule, 100 MG PO [id number] for cough, #21 CAP Prov:HOMER ALEMAN MD 12/20/18 Methylprednisolone (MEDROL) 4 Mg Tab.ds.pk, 1 PKG PO UD, #1 PKG Prov:RIC LOCKHART Jr. DO 12/14/18 Reported Medications Carvedilol (COREG ) 12.5 Mg Tablet, 12.5 MG PO BIDWMEALS for CARDIAC, TAB 12/18/18 Atorvastatin Calcium (ATORVASTATIN CALCIUM) 80 Mg Tablet, 80 MG PO HS for FOR CHOLESTEROL, #30 TAB 0 Refills 12/18/18 Aspirin/Dipyridamole (AGGRENOX 25 MG-200 MG CAPSULE) 1 Each Cpmp.12hr, 1 EACH PO BID, CAP 05/20/17 Budesonide/Formoterol Fumarate (SYMBICORT 160-4.5 MCG INHALER) 10.2 Gm Hfa.aer.ad, 2 PUFF IH BID, #10.6 GM 3 Refills 08/30/16 Ipratropium [place] (ATROVENT HFA) 12.9 Gm Hfa.aer.ad, 2 PUFF IH QID, #12.9 GM 5 Refills 08/30/16 Levothyroxine Sodium (LEVOTHYROXINE SODIUM) 100 Mcg Tablet, 1 TAB PO DAILY, #30 TAB 5 Refills 08/30/16 Discontinued Reported Medications Prednisone (PREDNISONE ) 10 Mg Tablet, 10 MG PO DAILY for pneumonia for 4 Days, #4 TAB 0 Refills 02/25/18 Prednisone (PREDNISONE ) 10 Mg Tablet, 20 MG PO DAILY for pneumonia for 4 Days, #8 TAB 0 Refills 02/25/18 Prednisone (PREDNISONE ) 10 Mg Tablet, 30 MG PO DAILY for pneumonia for 4 Days, #12 TAB 0 Refills 02/25/18 Aspirin (ASPIRIN) 81 Mg Tab.chew, 1 TAB PO DAILY, #30 TAB 3 Refills 08/30/16 Discontinued Scripts Doxycycline Hyclate (DOXYCYCLINE HYCLATE) 100 Mg Tablet, 1 TAB PO BID for Pneumonia for 3 Days, #6 TAB Prov:ROYCE WILLIS MD 11/30/18 JANETH MARIN MD Dec 23, 2018 11:27
[2018-12-23] MEDS ORDERED: METH4TAB2 PO (11:28)
--- NOTE | 2018-12-23 11:40 | PDOC3 ---
Discharge Summary Visit Information Date of Admission: Dec 20, 2018 Date of Discharge: Dec 23, 2018 Admitting Diagnosis: Acute hypoxic respiratory failure Final Diagnosis Acute COPD exacerbation Brief Hospital Course Allergies Allergies Coded Allergies Type Severity Reaction Last Updated Verified No Known Drug Allergies 08/29/16 No Vital Signs Vital Signs Date Time Temp Pulse Resp B/P (MAP) Pulse Ox O2 Delivery O2 Flow Rate FiO2 12/23/18 11:22 98.1 59 18 140/81 (100) 95 Nasal Cannula 3.0 98.1 Lab Results Laboratory Tests Test 12/21/18 12:46 12/21/18 15:05 12/22/18 05:16 12/22/18 17:08 Nasal Screen MRSA (PCR) Negative (Negative) Urine Opiates Screen Neg (NEG) Urine Methadone Screen Neg (NEG) Urine Barbiturates Neg (NEG) Urine Phencyclidine Screen Neg (NEG) Urine Amphetamine/Methamphetamine Neg (NEG) Urine Benzodiazepines Screen Neg (NEG) Urine Cocaine Screen Neg (NEG) Urine Cannabinoids Screen Neg (NEG) Urine Ethyl Alcohol Neg (NEG) White Blood Count 8.1 x10^3/uL (4.0-11.0) Red Blood Count 3.91 x10^6/uL (4.30-5.70) Hemoglobin 11.4 g/dL (13.0-17.5) Hematocrit 34.3 % (39.0-53.0) Mean Corpuscular Volume 88 fL (79-100) Mean Corpuscular Hemoglobin 29 pg (25-35) Mean Corpuscular Hemoglobin Concent 33 g/dL (31-37) Red Cell Distribution Width 15.6 % (11.5-14.5) Platelet Count 211 x10^3/uL (140-400) Neutrophils (%) (Auto) 90 % (31-73) Lymphocytes (%) (Auto) 8 % (24-48) Monocytes (%) (Auto) 2 % (0-9) Eosinophils (%) (Auto) 0 % (0-3) Basophils (%) (Auto) 0 % (0-3) Neutrophils # (Auto) 7.3 x10^3/uL (1.8-7.7) Lymphocytes # (Auto) 0.7 x10^3/uL (1.0-4.8) Monocytes # (Auto) 0.2 x10^3/uL (0.0-1.1) Eosinophils # (Auto) 0.0 x10^3/uL (0.0-0.7) Basophils # (Auto) 0.0 x10^3/uL (0.0-0.2) Segmented Neutrophils % 83 % (35-66) Band Neutrophils % 9 % (0-9) Lymphocytes % 6 % (24-48) Monocytes % 2 % (0-10) Platelet Estimate Adequate (ADEQUATE) Poikilocytosis Present Anisocytosis Slight Ovalocytes Mod [place] Cells Few Schistocytes Occ Sodium Level 139 mmol/L (136-145) Potassium Level 4.2 mmol/L (3.5-5.1) Chloride Level 103 mmol/L (98-107) Carbon Dioxide Level 29 mmol/L (21-32) Anion Gap 7 (6-14) Blood Urea Nitrogen 18 mg/dL (8-26) Creatinine 0.9 mg/dL (0.7-1.3) Estimated GFR (Cockcroft-Gault) 82.9 BUN/Creatinine Ratio 20 (6-20) Glucose Level 177 mg/dL (70-99) Calcium Level 8.6 mg/dL (8.5-10.1) Total Bilirubin 0.4 mg/dL (0.2-1.0) Aspartate Amino Transf (AST/SGOT) 17 U/L (15-37) Alanine Aminotransferase (ALT/SGPT) 42 U/L (16-63) Alkaline Phosphatase 66 U/L (46-116) Total Protein 5.8 g/dL (6.4-8.2) Albumin 2.8 g/dL (3.4-5.0) Albumin/Globulin Ratio 0.9 (1.0-1.7) Glucose (Fingerstick) 201 mg/dL (70-99) Test 12/22/18 21:33 12/23/18 07:36 Glucose (Fingerstick) 213 mg/dL (70-99) 173 mg/dL (70-99) Laboratory Tests Test 12/22/18 17:08 12/22/18 21:33 12/23/18 07:36 Glucose (Fingerstick) 201 mg/dL (70-99) 213 mg/dL (70-99) 173 mg/dL (70-99) Brief Hospital Course Mr Mensah is a 73-year-old male w/ PMHx COPD and CAD, came back to the hospital after a discharge from SNF on 12/17/18 c/o SOB. He was initially admitted on BIPAP with severe combined respiratory failure with ABG 7.14/86/302. Initial troponin negative and EKG shows poor r-wave progression, no acute ST or T-wave changes. Seen by ID, recommended to downgrade antibiotics. Patient concerned about mold in his home. Had his son clean and remove all tubing and filters on his home O2 and nebulizer. SW assisted with new equipment and he is going to live with his son temporarily. He feels less short of breath, wants to leave. 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, in remission Severe emphysema, likely end stage Three vessel coronary disease 37 MIN PT EXAM, CHART REVIEW, > 50% OF TIME SPENT WITH EXAM, CHART REVIEW, PT CARE COORDINATION Discharge Information Condition at Discharge: Improved Follow Up: Weeks (1) Disposition/Orders: D/C to Home w/ HH Scheduled Aspirin/Dipyridamole (Aggrenox 25 Mg-200 Mg Capsule) 1 Each Cpmp.12hr, 1 EACH PO BID, (Reported) Entered as Reported by: STELLA SCHAFFER on 05/20/17 0422 Last Taken: Unknown Dose on 12/20/18 Last Action: Continued on 12/21/182004 by DONTRELL OROZCO Atorvastatin Calcium (Atorvastatin Calcium) 80 Mg Tablet, 80 MG PO HS for FOR CHOLESTEROL, #30 Ref 0 (Reported) Entered as Reported by: LIA FINNEY [facility] on 12/18/18 1246 Last Taken: Unknown Dose on 12/19/18 Last Action: Converted on 12/21/182004 by DONTRELL OROZCO Benzonatate (Benzonatate) 100 Mg Capsule, 100 MG PO [id number] for cough, #21 Prescribed by: HOMER ALEMAN on 12/20/18 1018 Last Taken: Unknown Dose on 12/20/18 Last Action: Continued on 12/21/182004 by DONTRELL OROZCO Budesonide/Formoterol Fumarate (Symbicort 160-4.5 Mcg Inhaler) 10.2 Gm Hfa.aer.ad, 2 PUFF IH BID, #10.6 Ref 3 (Reported) Entered as Reported by: Lucian Soni on 08/30/16101 Last Taken: Unknown Dose on 12/20/18 Last Action: Converted on 12/21/182004 by DONTRELL OROZCO Carvedilol (Coreg ) 12.5 Mg Tablet, 12.5 MG PO BIDWMEALS for CARDIAC, (Reported) Entered as Reported by: LIA FINNEY [facility] on 12/18/18 1246 Last Taken: Unknown Dose on 12/20/18 Last Action: Continued on 12/21/182004 by DONTRELL OROZCO Ipratropium [place] (Atrovent Hfa) 12.9 Gm Hfa.aer.ad, 2 PUFF IH QID, #12.9 Ref 5 (Reported) Entered as Reported by: Lucian Soni on 08/30/16101 Last Taken: Unknown Dose on 12/20/18 Last Action: Converted on 12/21/182004 by DONTRELL OROZCO Levothyroxine Sodium (Levothyroxine Sodium) 100 Mcg Tablet, 1 TAB PO DAILY, #30 Ref 5 (Reported) Entered as Reported by: Lucian Soni on 08/30/16101 Last Taken: Unknown Dose on 12/20/18 Last Action: Continued on 12/21/182004 by DONTRELL OROZCO Methylprednisolone (Medrol) 4 Mg Tab.ds.pk, 1 PKG PO UD for COPD, #1 Prescribed by: JANETH MARIN MD on 12/23/18 1128 Scheduled PRN Albuterol Sulfate (Proventil Hfa Inhaler) 6.7 Gm Hfa.aer.ad, 1 PUFF IH PRN Q4HRS PRN for FOR ASTHMA for 30 Days, Ref 0 Prescribed by: HOMER ALEMAN on 12/20/18 1021 Last Taken: Unknown Dose on 12/20/18 Last Action: Continued on 12/21/182004 by DONTRELL OROZCO Discontinued Medications Aspirin (Aspirin) 81 Mg Tab.chew, 1 TAB PO DAILY, #30 Ref 3 (Reported) Discontinued Reason: D/C Entered as Reported by: Lucian Soni on 08/30/16101 Doxycycline Hyclate (Doxycycline Hyclate) 100 Mg Tablet, 1 TAB PO BID for Pneumonia for 3 Days, #6 Discontinued Reason: D/C Prescribed by: ROYCE WILLIS MD on 11/30/18 1303 Prednisone (Prednisone ) 10 Mg Tablet, 30 MG PO DAILY for pneumonia for 4 Days, #12 Ref 0 (Reported) Discontinued Reason: D/C Entered as Reported by: ARNALDO RANKIN on 02/25/18 1308 Prednisone (Prednisone ) 10 Mg Tablet, 20 MG PO DAILY for pneumonia for 4 Days, #8 Ref 0 (Reported) Discontinued Reason: D/C Entered as Reported by: ARNALDO RANKIN on 02/25/18 1308 Prednisone (Prednisone ) 10 Mg Tablet, 10 MG PO DAILY for pneumonia for 4 Days, #4 Ref 0 (Reported) Discontinued Reason: D/C Entered as Reported by: ARNALDO RANKIN on 02/25/18 1310 JANETH MARIN MD Dec 23, 2018 11:40
[2018-12-23] MEDS: ENOXAPARIN 40 MG/0.4 ML SYRINGE. SQ SCH (13:00)
[2018-12-23 15:00] VITALS: BP 127/65
--- NOTE | 2018-12-23 16:26 | NUR ---
SW following pt. Pt is provided with resources for [facility] housing and [facility] housing in [facility]. SW also provided pt with a an advocate phone number from [facility] regarding mold. Pt declined HH and hospice. Pt's informed [facility] his tubing and 02 filter had been changed yesterday. PT also plans to move to a different apartment soon. Pt very appreciative and accepted resources.
--- NOTE | 2018-12-23 17:53 | NUR ---
Pt discharged to home. Discharge teaching and number for medical records given to pt. Pt was taken down by wheelchair and transportation provided by family.
== END 2018-12-23 17:45 | disposition home or self-care (01) | DRG 189 ==
LOC: ER 21:02 → 6 SOUTH 22:19
PROVIDERS: ADMIT Internal Medicine; ATTEND Internal Medicine
PROC: 5A09357 Assistance with Respiratory Ventilation, Less than 24 Consecutive Hours, Continuous Positive Airway Pressure (ICD-10-PCS; principal; 2018-12-20)
PROC: 5A09357 Assistance with Respiratory Ventilation, Less than 24 Consecutive Hours, Continuous Positive Airway Pressure (ICD-10-PCS; 2018-12-21)
DX: J96.21 Acute and chronic respiratory failure with hypoxia (principal); N17.0 Acute kidney failure with tubular necrosis; J98.11 Atelectasis; J96.22 Acute and chronic respiratory failure with hypercapnia; D72.829 Elevated white blood cell count, unspecified; E03.9 Hypothyroidism, unspecified; E78.5 Hyperlipidemia, unspecified; F17.201 Nicotine dependence, unspecified, in remission; I10 Essential (primary) hypertension; I25.10 Atherosclerotic heart disease of native coronary artery without angina pectoris; I77.810 Thoracic aortic ectasia; J43.9 Emphysema, unspecified; K22.9 Disease of esophagus, unspecified; Z77.120 Contact with and (suspected) exposure to mold (toxic); Z83.3 Family history of diabetes mellitus; Z86.73 Personal history of transient ischemic attack (TIA), and cerebral infarction without residual deficits; Z99.81 Dependence on supplemental oxygen; M19.90 Unspecified osteoarthritis, unspecified site
CPT/HCPCS: 36415; 36600; 71045; 80053; 80307; 82553; 82805; 82962; 83880; 84484; 85007; 85025; 87070; 87186; 87205; 87641; 93005; 94640; 94644; 94660; 94760; 96361; 96374; J1650; J2543; J2930; J7030; J7613; J7620; J7626; 97110; 97116; 97530; 99291-25; G0378